=== PATIENT | female | born 1990 | race Hispanic/Latino ===

== ENCOUNTER 2024-09-27 14:43 | Inpatient (IN) | payer OTHER, SELFPAY ==
[2024-09-27 11:05] VITALS: BP 168/109
--- NOTE | 2024-09-27 11:54 | ED.GENMED ---
History of Present Illness
General
Chief Complaint: Abdominal Pain
Source: patient
Exam Limitations: none
Time Seen by Provider: 09/27/24 11:48
History of Present Illness
History of Present Illness:
See MDM
Past History
Past History
ED Past Medical History: Asthma
ED Past Surgical History: Tonsilectomy
Social History
Tobacco: Non-smoker
Alcohol: Daily
Phy Exam
Physical Exam
Physical Exam:
See MDM
Course
Orders/Labs/Results
Orders:
Orders
09/27/24 11:09
EKG [Electrocardiogram (*1)] Urgent
Reason for Study: Abdominal Pain
EKG- Treatment ONCE
09/27/24 11:52
0.9% Sodium Chloride 1000 ml [Nss] 1,000 ml IV BOLUS
Lorazepam [Ativan] 1 mg IV NOW STA
Ondansetron Injectable [Zofran] 4 mg IV NOW STA
09/27/24 11:53
Test Result ONCE
09/27/24 11:56
Ketorolac [Toradol] 30 mg IV NOW STA
09/27/24 12:14
Basic Metabolic Panel Urgent
Complete Blood Count/With Diff Urgent
HCG, Serum Qualitative Screen Urgent
Lipase Urgent
09/27/24 13:52
Famotidine [Pepcid] 20 mg IV NOW STA
Abnormal Lab Results
09/27/24
12:14
RBC 4.12 L 10^6/uL
(4.20-5.40)
Hgb 10.2 L g/dL
(12.0-16.0)
Hct 33.3 L %
(37.0-47.0)
MCV 80.8 L fL
(81.0-99.0)
MCH 24.8 L pg
(27.0-31.0)
MCHC 30.6 L g/dL
(33.0-37.0)
RDW 17.5 H %
(11.5-14.5)
Abs Immat Gran (auto) 0.1 H 10^3/uL
(0-0.05)
Absolute Neuts (auto) 7.0 H 10^3/uL
(1.4-6.5)
Creatinine 0.4 L mg/dL
(0.6-1.0)
Lipase < 10 L U/L
(23-300)
09/27/24 12:14
09/27/24 12:14
Vital Signs
Initial and Last Documented VS:
Initial Vital Signs
Temp Pulse Resp BP Pulse Ox
98.2 F 112 16 168/109 100
09/27/24 11:05 09/27/24 11:05 09/27/24 11:05 09/27/24 11:05 09/27/24 11:05
Last Documented Vital Signs
Temp Pulse Resp BP Pulse Ox
98.2 F 112 16 146/106 99
09/27/24 11:05 09/27/24 11:05 09/27/24 11:05 09/27/24 11:56 09/27/24 12:45
MDM/Problems Addressed
Differential Diagnosis Includes:
HPI and MDM Narrative:
33-year-old female presenting with nausea, vomiting and abdominal pain. Patient has a history of alcohol abuse. Patient states she has been drinking daily again. She states she drinks approximately 1 pint of liquor a day. Her last alcoholic
beverage was 2 days ago. Patient now complaining of nausea, vomiting abdominal pain, similar to her prior episodes of pancreatitis. Patient is unsure of pancreatitis or alcohol withdrawal
Will obtain basic blood work looking for elevated lipase level. Will give Ativan
Physical exam
General: Mildly uncomfortable
HEENT: protecting airway. Dry mucous member
Neck: appears supple
CV: No evidence of cyanosis
Resp: No accessory muscle use
Abd: Non-distended. Mild epigastric tenderness
Extremities: No deformities
Neuro: alert
Psych: Normal affect
Skin: Intact
Problems Addressed including Acute and Chronic Conditions affecting care:
1. Nausea and vomiting
Acuity: acute
Prognosis: stable
Details: Likely in the setting of pancreatitis or alcohol withdrawal. Will give Zofran
2. Abdominal pain
Acuity: acute
Prognosis: stable
Details: Likely in setting of vomiting versus pancreatitis. Will give dose of Toradol
Updates
2 PM on reassessment, patient still uncomfortable and unable to tolerate p.o. Lipase within normal limits. Will admit based on mild alcohol withdrawal and alcoholic gastritis with inability to tolerate p.o.
Differential Diagnosis (but not limited to): Pancreatitis, alcohol gastritis, alcohol withdrawal
Testing considered: CT abdomen/pelvis but no significant tenderness noted
Drug therapy (if applicable): OTC meds, please see d/c instruction regarding Rx drugs
Amount and/or Complexity of Data Reviewed
Clinical info obtained from: Patient
External data reviewed: N/A
Labs I independently reviewed (but not limited to): Lipase normal
Radiology: N/A
Pulse Ox: not hypoxic
EKG independently reviewed: Sinus rhythm, normal axis, no STEMI
Media Liaison Officer: N/A
Critical Care: N/A
Risk of Complication:
Social Determinants of health: Good social support
Discussed with other providers: Hospitalist
Escalation of Care includes Admit/Obs: Given the inability to tolerate p.o., will admit for IV fluid
Occasional wrong word or 'sound a like' substitutions may have occurred due to the inherent limitations of voice recognition software. Read the chart carefully and recognize, using context, where substitutions have occurred.
*Critical Care Note
Total Time (30-74mins, 75-104mins- exclusive of procedures): Not Applicable
ED Attending Note
-
Portions of this chart may have been created with voice recognition software.� Occasional wrong word or��sound alike� substitutions may have occurred due to the inherent limitations of voice recognition software.
Discharge Plan
Departure
Patient Disposition: Admit
Date of Disposition: 09/27/24
Time of Disposition: 13:55
Admit to: Telemetry
Presentation/result/management discussed w/ accepting MD/DO: Hospitalist
Discharge Problem:
Acute alcoholic gastritis, Alcohol withdrawal
Referrals:
Daniel Clancy MD [Family Provider] -
Interventions
Interventions:
*Risk Screen - Suicide Last Done: 09/27/24 11:05
*General Assessment Last Done: 09/27/24 11:05
*Neglect/Abuse Screening Last Done: 09/27/24 11:05
ED- Fall Risk Assessment Last Done: 09/27/24 12:13
Discharge Date and Time
Print Language: IVORIAN
[2024-09-27 11:56] VITALS: BP 146/106
[2024-09-27] MEDS: ATIVAN 1 MG IV (12:25)
[2024-09-27] MEDS: TORADOL 30 MG IV (12:25)
[2024-09-27] MEDS: ZOFRAN 4 MG IV (12:25)
[2024-09-27] MEDS: NSS 1000 IV ×2 (12:26→18:40)
[2024-09-27 13:03] LABS: HCG, Serum Qualitative Screen Negative
[2024-09-27 13:09] LABS: % Basophils 0.4 % (0-2); % Eosinophils 0.7 % (0-6); % Immature Granulocytes 0.5 % (0-0.5); % Lymphocytes 21.6 % (20.5-51.1); % Monocytes 3.9 % (1.7-9.3); % Neutrophils 72.9 % (42.2-75.2); Absolute Eosinophils 0.1 10^3/uL (0-0.7); Absolute Immature Granulocytes 0.1 10^3/uL (0-0.05); Absolute Lymphocytes 2.1 10^3/uL (1.2-3.4); Absolute Monocytes 0.4 10^3/uL (0.1-0.6); Hematocrit 33.3 % (37.0-47.0); Hemoglobin 10.2 g/dL (12.0-16.0); Mean Corp Hgb Conc. 30.6 g/dL (33.0-37.0); Mean Corpuscular Hgb 24.8 pg (27.0-31.0); Mean Corpuscular Volume 80.8 fL (81.0-99.0); Mean Platelet Volume 10.2 fL (7.4-10.4); Nucleated Red Blood Cells % 0 %; Platelet Count 149 10^3/uL (130-400); Red Blood Cell Count 4.12 10^6/uL (4.20-5.40); Red Cell Dist. Width 17.5 % (11.5-14.5); White Blood Cell Count 9.6 10^3/uL (4.8-10.8)
[2024-09-27 13:15] LABS: Blood Urea Nitrogen 9 mg/dl (7-17); Calcium 8.9 mg/dl (8.4-10.2); Carbon Dioxide 27 mmol/L (22-30); Chloride 99 mmol/L (98-107); Glucose 99 mg/dl (70-99); Sodium 137 mmol/L (135-145); eGFR > 60.00
[2024-09-27 13:44] LABS: Lipase < 10 U/L (23-300)
--- NOTE | 2024-09-27 14:06 | HPS.HSE ---
Family Physician
-
Family Physician: Daniel Clancy MD
Chief Complaint
-
abdominal pain associted with N/v
History of Present Illness
33-year-old female with PMH for pancreatitis p presenting with nausea, vomiting and abdominal pain for past three days. patient stated poor oral intake and not tolerating any oral intake.patient stated upper quadrant pain and b/l lower abdominal
pain. stated constipation. last bowel movement yesterday. denied fever, chest pain, sob. stated RUBIO. denied dysuria or hematuria. stated lower back pain radiating to left LE which is progressively getting worse Patient has a history of alcohol
abuse. Patient states she has been drinking daily again. She states she drinks approximately 1 pint of liquor a day. Her last alcoholic beverage was 2 days ago. today she felt tremors and shaky.
admitting for further management. received Pepcid, Toradol, Ativan, normal saline and Zofran in ER.
Medical History
Past Medical History
Past Medical History: Reports Other
Additional Past Medical History:
pancreatitis
asthma
Past Surgical History: Reports Other
Additional Past Surgical History:
tubal ligation
tonsillectomy
Social History
Tobacco: Smoker (2-3 packs daily)
Alcohol: Daily
Drug: None
Living: With Family
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
Family History
Family History: Not pertinent
Allergies / Home Medications
Allergies reflects when Allergies were last updated in [facility].
Home Medications with original date entered in [facility]
Allergy/Medication List:
Allergies
Allergy/AdvReac Type Severity Reaction Status Date / Time
Penicillins Allergy Unknown Verified 09/27/24 11:04
Sulfa (Sulfonamide Allergy Unknown Verified 09/27/24 11:04
Antibiotics)
Home Medications
budesonide-formoterol HFA 80 mcg-4.5 mcg/actuation aerosol inhaler (Symbicort) 2 inh inhalation R BID 09/27/24
buspirone 15 mg tablet 15 mg PO BID 09/27/24
folic acid 1 mg tablet 1 mg PO DAILY 09/27/24
gabapentin 300 mg capsule 300 mg PO BID 09/27/24
lisinopril 10 mg tablet 10 mg PO DAILY 09/27/24
melatonin 10 mg tablet 10 mg PO HSPRN PRN mild pain 09/27/24
quetiapine 25 mg tablet (Seroquel) 25 mg PO HS 09/27/24
spironolactone 25 mg tablet 25 mg PO DAILY 09/27/24
venlafaxine 150 mg capsule,extended release 24 hr (Effexor XR) 150 mg PO DAILY 09/27/24
Review of Systems
-
Constitutional: Reports Chills
EENT: Reports No Symptoms
Respiratory: Reports No Symptoms
Cardiac: Reports No Symptoms
Abdomen/GI: Reports Abdominal Pain, Nausea and Constipated
: Reports No Symptoms
Musculoskeletal: Reports No Symptoms
Skin: Reports No Symptoms
Neurological: Reports No Symptoms
Endocrine: Reports No Symptoms
Hematologic/Lymphatic: Reports No Symptoms
Psych: Reports No Symptoms
Physical Exam
Vital Signs
Vital Signs
Temp Pulse Resp BP Pulse Ox
98.2 F 112 16 146/106 99
09/27/24 11:05 09/27/24 11:05 09/27/24 11:05 09/27/24 11:56 09/27/24 12:45
Physical Exam
General: Well Developed, Well Nourished and No Apparent Distress
HEENT: NormoCephalic, Moist mucous membranes and Atraumatic
Respiratory: Clear
Cardiac: S1/S2 and Regular Rhythm; No Murmur or Rub
GI: Soft, Non Tender, Non Distended and Normal Bowel Sounds; No Organomegaly
Rectal: Deferred by Provider
Musculoskeletal: No Clubbing, No Cyanosis and No Edema
Skin: No Rash
Neuro: AO x 3 and Nonfocal/grossly intact
Psych: Calm
Laboratory Results
-
09/27/24 12:14
09/27/24 12:14
Laboratory Results
Total Bilirubin Cancelled 09/27/24 12:14
AST Cancelled 09/27/24 12:14
ALT Cancelled 09/27/24 12:14
Alkaline Phosphatase Cancelled 09/27/24 12:14
Lipase < 10 U/L (23-300) L 09/27/24 12:14
Data Reviewed
-
Lab Data: Labs Reviewed by me
Impression/Plan
-
# Alcohol withdrawal
-protocol initiated
-monitor MSAS score
#alcohol gastritis
-iv PPI
-full liquid diet, advance as tolerated
-Zofran prn for N/v
# Microcytic anemia
-Hemoglobin 10.2
-Unclear chronicity
-No active bleeding
-Will obtain iron panel with ferritin, B12, folate
#essential htn
-BP stable
lisinopril and spironolactone continued with hold parameter
#depression/anxiety
-BuSpar, Seroquel Effexor continued
#radiculopathy pain
-PT consulted
-gabapentin continued
#DVT prophylaxis
-Lovenox
#CODE status
-full code
[2024-09-27] MEDS: PEPCID 20 MG IV (14:21)
--- NOTE | 2024-09-27 15:00 | W.PN.UPDATE ---
Update Note
Progress Note Update
This is an addendum to the H&P written by Nkechi Caldera on 09/27/2024.
33-year-old female past medical history of alcohol use disorder, prior pancreatitis, hypertension, anxiety/depression, asthma, here for abdominal pain, nausea and vomiting and tremors consistent with alcohol withdrawal. Last drink 2 days ago.
Tachycardic. IV fluids. Thiamine and folate. Alcohol withdrawal protocol.
Abdominal pain secondary to alcoholic gastritis as lipase unremarkable. Protonix 40 daily.
Patient states that she he had pancreatitis and was admitted to [facility] several months ago and was apparently intubated at that time. She denies history of alcohol withdrawal seizures. She is also complaining of lower back pain with
numbness and tingling/pain rating down her left medial/posterior leg involving the dorsal and plantar surface of her foot. He is having difficulty ambulating. This seems to be consistent with lumbar radiculopathy. Continue gabapentin for this.
PT. Outpatient MRI given worsening symptoms.
He is also having lower abdominal pain and started having vaginal bleeding today. Last period was in March. Beta-hCG is negative. Outpatient follow-up with gynecology.
[2024-09-27 15:40] VITALS: BP 128/88
[2024-09-27 18:20] VITALS: BMI 40.2
[2024-09-27 18:21] VITALS: BP 153/96
[2024-09-27 19:51] VITALS: BP 141/88
--- NOTE | 2024-09-27 19:57 | PTCARENOTE ---
Patient admitted from ER into room 413-01. Vital signs stable. Oriented to room, use of call longo and TV and bed controls. Patient verbalizes understanding of teaching. Vital signs stable. Patient noted to have slight hand tremors. IVF started - NSS
at 125 mls/hour. Patient on a full liquid diet. Educated patient and verbalizes understanding.
[2024-09-27] MEDS: SYMBICORT 80/4.5 MCG INHALER 2 PUFF INH (19:58)
[2024-09-27] MEDS: LOVENOX 40 MG SC (19:59)
[2024-09-27] MEDS: NEURONTIN 300 MG PO (20:00)
[2024-09-27] MEDS: BUSPAR 15 MG PO (20:00)
[2024-09-27] MEDS: THIAMINE INJECTION 200 MG IV (20:00)
[2024-09-27] MEDS: TYLENOL 650 MG PO (20:03)
[2024-09-27] MEDS: ATIVAN 1 MG PO (20:27)
[2024-09-27] MEDS: SEROQUEL 25 MG PO (22:02)
[2024-09-27 22:16] LABS: GGTP 493 U/L (12-43); Magnesium 1.2 mg/dl (1.6-2.3)
[2024-09-27 22:17] LABS: Alcohol None Detected
[2024-09-27 22:20] LABS: INR 1.23; PT 15.3 Sec (11.4-14.6)
[2024-09-27 22:21] LABS: APTT 27.7 Sec (23.4-35.0)
[2024-09-27 22:23] LABS: B-Hydroxybutyrate 0.25 mmol/L (0.02-0.27)
[2024-09-27] MEDS: MAGNESIUM SULFATE 102 GRAMS IV (23:15)
[2024-09-27 23:34] VITALS: BP 130/81
[2024-09-28] MEDS: MAGNESIUM SULFATE 102 GRAMS IV (00:30)
[2024-09-28] MEDS: NSS 1000 IV (03:30)
[2024-09-28 03:40] VITALS: BP 142/85
[2024-09-28] MEDS: TYLENOL 650 MG PO ×3 (03:42→20:37)
[2024-09-28 06:59] LABS: Hematocrit 27.8 % (37.0-47.0); Hemoglobin 8.2 g/dL (12.0-16.0); Mean Corp Hgb Conc. 29.5 g/dL (33.0-37.0); Mean Corpuscular Hgb 23.6 pg (27.0-31.0); Mean Corpuscular Volume 80.1 fL (81.0-99.0); Mean Platelet Volume 9.9 fL (7.4-10.4); Platelet Count 130 10^3/uL (130-400); Red Blood Cell Count 3.47 10^6/uL (4.20-5.40); Red Cell Dist. Width 17.5 % (11.5-14.5); White Blood Cell Count 5.5 10^3/uL (4.8-10.8)
[2024-09-28 07:31] LABS: ALT (SGPT) 19 U/L (0-35); AST (SGOT) 45 U/L (14-36); Albumin 2.9 g/dl (3.5-5.0); Alkaline Phosphatase 138 U/L (38-126); Blood Urea Nitrogen 11 mg/dl (7-17); Calcium 8.4 mg/dl (8.4-10.2); Carbon Dioxide 26 mmol/L (22-30); Chloride 103 mmol/L (98-107); Estimated Creatinine Clearance > 125 ml/min; Glucose 91 mg/dl (70-99); Potassium 3.9 mmol/L (3.5-5.1); Sodium 137 mmol/L (135-145); Total Bilirubin 1.8 mg/dl (0.2-1.3); Total Protein 5.9 g/dl (6.3-8.2); eGFR > 60.00
[2024-09-28 07:55] VITALS: BP 144/83
[2024-09-28] MEDS: SYMBICORT 80/4.5 MCG INHALER 2 PUFF INH ×2 (08:10→20:04)
--- NOTE | 2024-09-28 09:34 | W.PN.HOSP.TC ---
Today's Communication/Plan
-
See PN
Assessment / Plan
Assessment / Plan
33yo F with PMHx of asthma, alcohol abuse, HTN, anxiety, recent admisison for alcoholic pancreatitis in [facility] 1 month ago cqame with c/o abdominal swelling for 3 days.
Patient also has LLE plantar numbness with some numbness over inner L thigh. Patient twisted her ankle appr 1 month ago upon return from the hospital. No back trtauma or new or worsening back pain noted
Last drink 2 days before admisison
A/P:
#Abdominal distension
#Elevated bili
#Transaminitis
#Elevated alk.phos
Check hepatitis panel
Follow LFT
without pain, concern for ascites
US abdominal with portal pending
depending on results- might need GI involvement
#Alcohol abuse with alcohol withdrawal
Thiamine/FOlate
Psych consult
MSAS protocol
Lipase WNL
Counselled on abstinence
#Hypokalemia
#Hypomagensemia
replete and follow
#L foot numbness
#L medical thigh numbness
XR L ankle
Ortho consult
US LLE to r/o DVT
#Anxiety
#Neuropathy
#Essential HTN
#Asthma not in exacerbation
Cont home meds
#Constipation
laxatives
#Morbid obesty with BMI 40.2
Advised to decrease calorie intake
DVT ppx lovenox
Full code
I have spent at least 59min reviewing chart, test results, communication with consults and direct patient care
Anticipated Discharge: > 48 hours
Subjective/Interval History
-
Date of Service: September 28, 2024
Objective Data
-
Labs:
Laboratory Results
09/27/24 09/28/24
21:57 06:10
WBC 5.5
Hgb 8.2 L
Hct 27.8 L
Plt Count 130
PT 15.3 H
INR 1.23
APTT 27.7
Sodium 137
Potassium 3.9
Chloride 103
Carbon Dioxide 26
BUN 11
Creatinine 0.5 L
Glucose 91
Calcium 8.4
Total Bilirubin 1.8 H
AST 45 H
ALT 19
Alkaline Phosphatase 138 H
Vital Signs:
Vital Signs
Temp Pulse Resp BP Pulse Ox
98 F 85 16 144/83 98
09/28/24 07:55 09/28/24 08:15 09/28/24 08:15 09/28/24 07:55 09/28/24 08:15
I&O
09/27/24 09/28/24 09/29/24
06:59 06:59 05:59
Intake Total 1694 / 1694
Balance 1694 / 1694
Review of Systems
-
History Source: Patient
All other systems: Reviewed and negative
Abdomen/GI: Reports Constipated
Neuro: Reports Other (LLE plntar numbness)
Physical Exam
-
General: No Apparent Distress and Obese
HEENT: Normocephalic
Respiratory: Clear to Auscultation
Cardiac: Regular Rhythm
GI: Soft, Nontender and Distended
Musculoskeletal: No Clubbing, No Cyanosis and No Edema
Neuro: Awake, Alert, Oriented, AO x 3, No Motor Deficits and Other (L plantar numbness)
[2024-09-28] MEDS: ALDACTONE 25 MG PO (09:40)
[2024-09-28] MEDS: NEURONTIN 300 MG PO ×2 (09:40→20:34)
[2024-09-28] MEDS: EFFEXOR XR 150 MG PO (09:40)
[2024-09-28] MEDS: THIAMINE INJECTION 200 MG IV ×2 (09:41→20:34)
[2024-09-28] MEDS: PROTONIX IV 40 MG IV (09:41)
[2024-09-28] MEDS: FOLVITE 1 MG PO (09:41)
[2024-09-28] MEDS: ZESTRIL 10 MG PO (09:41)
[2024-09-28] MEDS: NSS (PRESERVATIVE FREE) 10 ML IV (09:41)
[2024-09-28] MEDS: BUSPAR 15 MG PO ×2 (09:41→20:34)
[2024-09-28] MEDS: ATIVAN 1 MG PO ×3 (11:13→22:27)
[2024-09-28] MEDS: SENOKOT-S 1 TABLET PO ×2 (11:13→20:34)
[2024-09-28 11:30] VITALS: BP 155/88
--- NOTE | 2024-09-28 13:44 | CM ---
CM following re: discharge planning.
Reviewed pt's chart, met with pt.
Pt is a 33 year old female, admitted with primary dx of Alcohol withdrawal.
Pt reports she lives with 2 children 11 and 13 year of age in a 2SH, 2 steps to enter. Pt described herself as single lady, works. pt stated her mother is taking care of her children while she is hospitalized.
Pt admitted to significant h/o alcohol abuse, has been drinking for many years. Choice of drink - whisky and per pt she has been drinking a pint of whisky daily. Pt reports she went to [facility] inpatient D&A rehab around 1 year ago, relapsed. Pt
stated she cannot go to inpatient D&A rehab again because she works. pt expressed her agreement to meet with [facility] team. A referral to [facility] made.
PCP: Daniel Clancy
pharmacy: [facility]
D/C plan: home with [facility] to follow.
CM will follow with discharge plan updates as hospitalization progresses
[2024-09-28 15:50] VITALS: BP 130/69
[2024-09-28] MEDS: LOVENOX 40 MG SC (17:18)
[2024-09-28 19:54] VITALS: BP 123/91
[2024-09-28] MEDS: SEROQUEL 25 MG PO (22:27)
[2024-09-28] MEDS: MELATONIN 10 MG PO (22:31)
[2024-09-28 23:30] VITALS: BP 140/83
[2024-09-29] VITALS (7 sets, daily range): BP systolic 126–141; BP diastolic 76–95; PULSE 58
[2024-09-29 06:39] LABS: % Basophils 0.6 % (0-2); % Eosinophils 1.3 % (0-6); % Immature Granulocytes 0.4 % (0-0.5); % Lymphocytes 28.7 % (20.5-51.1); % Monocytes 4.4 % (1.7-9.3); % Neutrophils 64.6 % (42.2-75.2); Absolute Eosinophils 0.1 10^3/uL (0-0.7); Absolute Lymphocytes 1.5 10^3/uL (1.2-3.4); Absolute Monocytes 0.2 10^3/uL (0.1-0.6); Absolute Neutrophils 3.4 10^3/uL (1.4-6.5); Hemoglobin 7.8 g/dL (12.0-16.0); Mean Corpuscular Hgb 24.1 pg (27.0-31.0); Mean Corpuscular Volume 80.5 fL (81.0-99.0); Mean Platelet Volume 10.8 fL (7.4-10.4); Nucleated Red Blood Cells % 0 %; Platelet Count 166 10^3/uL (130-400); Red Blood Cell Count 3.23 10^6/uL (4.20-5.40); Red Cell Dist. Width 17.4 % (11.5-14.5); White Blood Cell Count 5.2 10^3/uL (4.8-10.8)
[2024-09-29 07:28] LABS: Reticulocyte Count 1.4 % (0.4-2.8)
[2024-09-29 08:04] LABS: ALT (SGPT) 18 U/L (0-35); AST (SGOT) 55 U/L (14-36); Albumin 2.8 g/dl (3.5-5.0); Alkaline Phosphatase 117 U/L (38-126); Blood Urea Nitrogen 11 mg/dl (7-17); Calcium 8.7 mg/dl (8.4-10.2); Carbon Dioxide 29 mmol/L (22-30); Chloride 104 mmol/L (98-107); Direct Bilirubin 0.7 mg/dl (0.0-0.4); Estimated Creatinine Clearance > 125 ml/min; Glucose 97 mg/dl (70-99); Iron 35 ug/dl (37-170); LDH 116 U/L (120-246); Lipase 18 U/L (23-300); Magnesium 1.7 mg/dl (1.6-2.3); Potassium 4.4 mmol/L (3.5-5.1); Sodium 138 mmol/L (135-145); Total Bilirubin 1.2 mg/dl (0.2-1.3); Total Protein 5.8 g/dl (6.3-8.2); eGFR > 60.00
[2024-09-29 08:14] LABS: Percent Saturation 11 % (20-50); Total Iron Binding Capacity 297 ug/dl (265-497)
[2024-09-29 08:41] LABS: Ferritin 52.4 ng/ml (6.24-137)
[2024-09-29] MEDS: SYMBICORT 80/4.5 MCG INHALER 2 PUFF INH ×2 (08:49→19:30)
[2024-09-29] MEDS: NEURONTIN 300 MG PO ×2 (09:11→20:08)
[2024-09-29 09:12] LABS: Folate 7.4 ng/ml (2.76-20); Vitamin B12 632 pg/ml (239-931)
[2024-09-29] MEDS: EFFEXOR XR 150 MG PO (09:12)
[2024-09-29] MEDS: BUSPAR 15 MG PO ×2 (09:12→20:08)
[2024-09-29] MEDS: PROTONIX IV 40 MG IV ×2 (09:12→20:09)
[2024-09-29] MEDS: ZESTRIL 10 MG PO (09:12)
[2024-09-29] MEDS: ALDACTONE 25 MG PO (09:12)
[2024-09-29] MEDS: NSS (PRESERVATIVE FREE) 10 ML IV ×2 (09:12→20:09)
[2024-09-29] MEDS: FOLVITE 1 MG PO (09:12)
[2024-09-29] MEDS: SENOKOT-S 1 TABLET PO ×2 (09:12→20:08)
[2024-09-29] MEDS: THIAMINE INJECTION 200 MG IV ×2 (09:13→20:09)
[2024-09-29] MEDS: ATIVAN 1 MG PO ×3 (10:17→20:08)
--- NOTE | 2024-09-29 11:29 | W.PN.HOSP.TC ---
Today's Communication/Plan
-
CT abd/pelvix
MRI L ankle
GI consult
PPI
Iron IV
Patient declined offered communication from to her mother
Assessment / Plan
Assessment / Plan
33yo F with PMHx of asthma, alcohol abuse, HTN, anxiety, recent admission for alcoholic pancreatitis in [facility] 1 month ago came with c/o abdominal swelling for 3 days with lower abd pain. Has dysmenorrhea and started with her periods
now. ALso found ROSALBA.
Patient also has LLE plantar numbness with some numbness over inner L thigh. Patient twisted her ankle appr 1 month ago upon return from the hospital. No back trauma or new or worsening back pain noted
Last drink 2 days before admission
A/P:
#Abdominal pain with subjective upper abd swelling, concern for alcoholic gastritis
#Severe ROSALBA - multifactorial - either dysmenorrhea or PUD
#Elevated bili - resolved
#Transaminitis - improving
#Elevated alk.phos -resolved
Suspect all abnormalities are 2/2 alcohol consumption
Check hepatitis panel
Follow LFT
US abdominal with portal - no ascites, but severe fatty liver. CBD WNL
Lipase WNL
PPI and GI consult, iron IV, cannot do FOBT 2/[address]/pelvis with persistent symptoms
#Dysmenorrhea
chronic
has appt with [facility] in Nov - advised to keep
Can also be the cause of ROSALBA
#L foot numbness
#L medical thigh numbness
XR L ankle -tissue swelling
Podiatry consult
US LLE neg for DVT
MRI L ankle
#Alcohol abuse with alcohol withdrawal
Thiamine/FOlate
Psych consult
MSAS protocol
Lipase WNL
Counselled on abstinence
#Hypokalemia
#Hypomagnesemia
replete and follow
#Anxiety
#Neuropathy
#Essential HTN
#Asthma not in exacerbation
Cont home meds
#Constipation
laxatives
#Morbid obesty with BMI 40.2
Advised to decrease calorie intake
DVT ppx lovenox
Full code
I have spent at least 59min reviewing chart, test results, communication with consults and direct patient care
Anticipated Discharge: 24 - 48 hours
Subjective/Interval History
-
Date of Service: September 29, 2024
Objective Data
-
Labs:
Laboratory Results
09/29/24 09/29/24
05:46 07:20
WBC 5.2
Hgb 7.8 L
Hct 26.0 L
Plt Count 166 D
Sodium Cancelled 138
Potassium Cancelled 4.4
Chloride Cancelled 104
Carbon Dioxide Cancelled 29
BUN Cancelled 11
Creatinine Cancelled 0.5 L
Glucose Cancelled 97
Calcium Cancelled 8.7
Total Bilirubin Cancelled 1.2
AST Cancelled 55 H
ALT Cancelled 18
Alkaline Phosphatase Cancelled 117
Vital Signs:
Vital Signs
Temp Pulse Resp BP Pulse Ox
98.5 F 85 16 137/93 100
09/29/24 07:55 09/29/24 08:52 09/29/24 08:52 09/29/24 07:55 09/29/24 08:52
I&O
09/28/24 09/29/24 09/30/24
07:59 06:59 06:59
Intake Total
Balance
Review of Systems
-
History Source: Patient
All other systems: Reviewed and negative
Abdomen/GI: Reports Other (lower abd pain)
Physical Exam
-
General: No Apparent Distress
HEENT: Normocephalic
Respiratory: Clear to Auscultation
Cardiac: Regular Rhythm
GI: Soft, Nontender and Nondistended
Genito-urinary: No Costovertebral Tender
Musculoskeletal: No Clubbing, No Cyanosis and No Edema
Neuro: Awake, Alert, Oriented and AO x 3
Psych: Calm
[2024-09-29] MEDS: OMNIPAQUE 50 ML PO (12:10)
[2024-09-29] MEDS: FERRLECIT 110 MG IV (14:58)
--- NOTE | 2024-09-29 15:29 | PTOTSP ---
PATIENT ABLE TO MOBILIZE INDEPENDENTLY ON LEVEL SURFACES WELL ELEVATIONS WITHOUT A DEVICE. REPORTED MOST LEFT ANKLE PAIN WITH DESCENDING STAIRS IN A RECIPROCAL FASHION. REVIEWED STEP-TO PATTERN TO DECREASE PAIN. PATIENT TO HAVE MRI OF LEFT
ANKLE. DEPENDING ON RESULTS MAY BENEFIT FROM OUTPATIENT P.T. MALKA TEXTED ATTENDING REGARDING PATIENT. WILL DISCHARGE FROM ACUTE CARE SKILLED P.T. SERVICES.
--- NOTE | 2024-09-29 16:38 | CON.GI ---
Consultation
-
Date/Time Consultation Requested: 09/29/2024 11:00 AM
Date/Time Consultation Performed: 09/29/2024 1640
Requesting Provider: Dr. Paulo Kennedy
Performing Provider: Dr. Zion Luo
Reason for Consultation: Epigastric Pain, c/f alchoholic gastritis and ROSALBA
Medical History
Chief Complaint / HPI
Chief Complaint: Abdominal pain, nausea/vomiting
History of Present Illness:
Ms Li is a 33 y.o female with pmh of EtOH pancreatitis (recent admission at [facility] one month ago) and EtOH abuse who presented to the ED with nausea/vomiting and abdominal pain.
Patient stated her her abdominal pain stated a few days ago prior to admission. She started drinking again at that time as well. She did not disclose further regarding this but noting she has been drinking on and-off for several months to years. She
was reported drinking approximately 1 pint of liquor a day. Does note her stools have been darker than normal but without any obvious overt blood. Her last beverage was two days ago. Denies any prior history of alcoholic liver disease or cirrhosis.
Otherwise, denies any reflux, heartburn, regurgitation or dysphagia/odynophagia. She has never had an EGD, but does note a previous colonoscopy at [facility] less than 5 years which was reportedly normal (no records of this). Does note frequent NSAID
use as well for pain. No other antiplatelets or other anticoagulants. She denies any history of prior GI bleeding in the past. She dose note significant menorrhagia as well which is chronic, has f/u with [facility] as well regarding this.
Patient was admitted to medicine on 09/27/24 for EtOH withdrawal and presumed EtOH gastritis. An ABd US 09/28/2024 revealed hepatosplenomegaly and fatty infiltration of the liver with biliary sludge without any biliary duct dilatation. CT Abd/pelvis
09/29 also revealed hepatic steatosis and hepatosplenomegaly along with submucosal fatty deposition within the cecum and ascending colon (suspicious for chronic inflammation). Given her worsening abdominal pain and concern for possible PUD GI has
been consulted.
Past Medical History
Past Medical History: Other (EtOH abuse, EtOH-induced pancreatitis)
Past Surgical History: Other (Tubal ligation, tonsillectomy)
Social History
Tobacco: Smoker
Alcohol: Daily
Drug: None
Family History
Family History: Reviewed & Not Pertinent
Allergies / Home Medications
Allergy/AdvReac Type Severity Reaction Status Date / Time
Penicillins Allergy Unknown Verified 09/27/24 11:04
Sulfa (Sulfonamide Allergy Unknown Verified 09/27/24 11:04
Antibiotics)
�Medication �Instructions �Recorded
budesonide-formoterol HFA 80 2 inh inhalation R BID 09/27/24
mcg-4.5 mcg/actuation aerosol Lung/Breathing Issues
inhaler (Symbicort)
buspirone 15 mg tablet 15 mg PO BID Mental Health/Anxiety 09/27/24
folic acid 1 mg tablet 1 mg PO DAILY Supplement 09/27/24
gabapentin 300 mg capsule 300 mg PO BID Neurological 09/27/24
Condition
lisinopril 10 mg tablet 10 mg PO DAILY Blood Pressure 09/27/24
melatonin 10 mg tablet 10 mg PO HSPRN PRN mild pain 09/27/24
quetiapine 25 mg tablet (Seroquel) 25 mg PO HS Mental Health/Anxiety 09/27/24
spironolactone 25 mg tablet 25 mg PO DAILY Fluid 09/27/24
Retention/Swelling
venlafaxine 150 mg 150 mg PO DAILY Mental 09/27/24
capsule,extended release 24 hr Health/Anxiety
(Effexor XR)
Review of Systems
-
All other systems: A 12 pt ROS was Negative except as stated above in HPI
Vital Signs
Temp Pulse Resp BP Pulse Ox
98.5 F 81 16 129/86 99
09/29/24 11:36 09/29/24 11:36 09/29/24 11:36 09/29/24 11:36 09/29/24 11:36
Physical Exam
Exam
General: Comfortable and Other (Obese)
HEENT: Normocephalic, Anicteric and Moist Mucous Membranes
Respiratory: Clear and Non Labored Respirations
Cardiac: Regular Rhythm
GI: Soft and Tender (Mild tenderness in epigastric region without rebound or involuntary guarding)
Skin: Warm
Neuro: Awake and AO x 3
Results
WBC 5.2 10^3/uL (4.8-10.8) 09/29/24 05:46
Hgb 7.8 g/dL (12.0-16.0) L 09/29/24 05:46
Hct 26.0 % (37.0-47.0) L 09/29/24 05:46
MCV 80.5 fL (81.0-99.0) L 09/29/24 05:46
Plt Count 166 10^3/uL (130-400) D 09/29/24 05:46
Absolute Neuts (auto) 3.4 10^3/uL (1.4-6.5) 09/29/24 05:46
PT 15.3 Sec (11.4-14.6) H 09/27/24 21:57
INR 1.23 09/27/24 21:57
APTT 27.7 Sec (23.4-35.0) 09/27/24 21:57
Sodium 138 mmol/L (135-145) 09/29/24 07:20
Potassium 4.4 mmol/L (3.5-5.1) 09/29/24 07:20
Chloride 104 mmol/L (98-107) 09/29/24 07:20
Carbon Dioxide 29 mmol/L (22-30) 09/29/24 07:20
BUN 11 mg/dl (7-17) 09/29/24 07:20
Creatinine 0.5 mg/dL (0.6-1.0) L 09/29/24 07:20
Calcium 8.7 mg/dl (8.4-10.2) 09/29/24 07:20
Total Bilirubin 1.2 mg/dl (0.2-1.3) 09/29/24 07:20
AST 55 U/L (14-36) H 09/29/24 07:20
ALT 18 U/L (0-35) 09/29/24 07:20
Alkaline Phosphatase 117 U/L (38-126) 09/29/24 07:20
Lipase 18 U/L (23-300) L 09/29/24 07:20
Diagnostic Image Results:
Prior GI Procedures:
EGD: No prior EGD
Colonoscopy: Last colonoscopy > 5 yrs ago reportedly normal
Assessment / Plan
-
#Abdominal Pain
#Nausea/Vomiting
#EtOH Abuse
#Elevated Transaminases 2/2 ALD w/out EtOH hepatitis
#Hepatosplenomegaly
Assessment: Ms Li is a 33 y.o female with pmh of EtOH pancreatitis (recent admission at [facility] one month ago) and EtOH abuse who presented to the ED with nausea/vomiting and abdominal pain found to have severe ROSALBA and concern for drop in Hgb with
Hgb 10s -> 7.8 of this AM. Does note significant EtOH use and previously felt to be related to EtOH-induced gastritis. Lipase wnl and without any imaging to suggest recurrent EtOH-pancreatitis given her previous history. LFTs with mild elevations
with ASt 55, ALT 18 and ALP 117 and T Bili 1.2 in setting of alcohol abuse but does not meet criteria for alcoholic hepatitis. She would benefit from long-term abstinence given significant steatosis seen on recent imaging along with
hepatosplenomegaly suggestive of portal HTN. No other biliary dilatation or other concern for biliary pathology. Regardless, doubt brisk UGIB however given her persistent nausea/vomiting and abdominal pain reasonable to pursue EGD to evaluate for
PUD and/or gastroduodenitis versus esophagitis. No concern for LGIB however prior CT revealed nonspecific submucosal fatty deposition in the cecum and ascending colon suspicious for chronic inflammation. Nonspecific finding and patient reports last
colonoscopy 5 years ago reportedly normal (although no records of this).
Recommendations:
- Diet as tolerated, keep NPO at MN
- Continue IV PPI 40 mg BiD
- Trend Hgb with serial CBC, transfuse for goal Hgb > 7.0
- IV iron while inpatient
- Plan for EGD tomorrow, 09/30/2024, for further evaluation
- If EGD is unrevealing and previous c/f abnormal CT, could consider colonoscopy this admission given severe ROSALBA
- Encouraged strict EtOH cessation and needs outpatient f/u with her primary Director Physical Therapy at [facility] for consideration of Fibroscan or MRI-E given hepatosplenomegaly seen on recent CT imaging
- Avoidance of all NSAIDs
Discussed with internal medicine team this afternoon.
Data Reviewed
-
Radiology: Image Personally Visualized and interpreted
CT Scan: Image Personally Visualized and interpreted and Report Reviewed by me
Ultrasound: Image Personally Visualized and interpreted and Report Reviewed by me
-
-
Thank you for consultation and allowing me to participate in the patient's care. Please call the development professional GI physician during the after hours with any questions or concerns.
[2024-09-29] MEDS: LOVENOX 40 MG SC (17:25)
[2024-09-29] MEDS: SEROQUEL 25 MG PO (20:08)
[2024-09-29] MEDS: TYLENOL 650 MG PO (20:08)
[2024-09-30] MEDS: MELATONIN 10 MG PO ×2 (01:53→20:53)
[2024-09-30 03:32] VITALS: BP 130/80
--- NOTE | 2024-09-30 07:29 | CON.SURG ---
Surgical Consultation
-
Chief Complaint
Left ankle pain
History of Present Illness
33-year-old female admitted to [facility] for alcohol abuse and abdominal pain. Podiatry has been consulted for left ankle pain. She was working with PT and sprained her left ankle multiple months ago. Since then, her pain has continued.
She also notes swelling to the left ankle with some numbness to the entire left lower extremity. She notes a history of lower back pain.
Medical History
Past Medical History
Past Medical History: Reports Other
Additional Past Medical History:
pancreatitis
asthma
Past Surgical History: Reports Other
Additional Past Surgical History:
tubal ligation
tonsillectomy
Social History
Tobacco: Smoker (2-3 packs daily)
Alcohol: Daily
Drug: None
Living: With Family
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
Family History
Family History: Not pertinent
Allergies / Home Medications
Allergies reflects when Allergies were last updated in [employer].
Home Medications with original date entered in [employer]
Allergy/Medication List:
Allergies
Allergy/AdvReac Type Severity Reaction Status Date / Time
Penicillins Allergy Unknown Verified 09/27/24 11:04
Sulfa (Sulfonamide Allergy Unknown Verified 09/27/24 11:04
Antibiotics)
Home Medications
budesonide-formoterol HFA 80 mcg-4.5 mcg/actuation aerosol inhaler (Symbicort) 2 inh inhalation R BID 09/27/24
buspirone 15 mg tablet 15 mg PO BID 09/27/24
folic acid 1 mg tablet 1 mg PO DAILY 09/27/24
gabapentin 300 mg capsule 300 mg PO BID 09/27/24
lisinopril 10 mg tablet 10 mg PO DAILY 09/27/24
melatonin 10 mg tablet 10 mg PO HSPRN PRN mild pain 09/27/24
quetiapine 25 mg tablet (Seroquel) 25 mg PO HS 09/27/24
spironolactone 25 mg tablet 25 mg PO DAILY 09/27/24
venlafaxine 150 mg capsule,extended release 24 hr (Effexor XR) 150 mg PO DAILY 09/27/24
Review of Systems
-
Constitutional: Reports Chills
EENT: Reports No Symptoms
Respiratory: Reports No Symptoms
Cardiac: Reports No Symptoms
Abdomen/GI: Reports Abdominal Pain, Nausea and Constipated
: Reports No Symptoms
Musculoskeletal: Reports No Symptoms
Skin: Reports No Symptoms
Neurological: Reports No Symptoms
Endocrine: Reports No Symptoms
Hematologic/Lymphatic: Reports No Symptoms
Psych: Reports No Symptoms
Physical Exam
Vital Signs
Vital Signs
Temp Pulse Resp BP Pulse Ox
98.2 F 112 16 146/106 99
09/27/24 11:05 09/27/24 11:05 09/27/24 11:05 09/27/24 11:56 09/27/24 12:45
Physical Exam
General: Well Developed, Well Nourished and No Apparent Distress
HEENT: NormoCephalic, Moist mucous membranes and Atraumatic
Respiratory: Clear
Cardiac: S1/S2 and Regular Rhythm; No Murmur or Rub
GI: Soft, Non Tender, Non Distended and Normal Bowel Sounds; No Organomegaly
Rectal: Deferred by Provider
Musculoskeletal: No Clubbing, No Cyanosis and No Edema
Skin: No Rash
Neuro: AO x 3 and Nonfocal/grossly intact
Psych: Calm
LLE examination
-DP/PT pulses 2/4, capillary refill < 3 seconds
-Mild edema noted to left ankle
-Numbness to LLE which extends to medial calf and thigh
-Pain on palpation generalized to left ankle. Negative anterior drawer and talar tilt tests
Laboratory Results
-
09/27/24 12:14
09/27/24 12:14
Laboratory Results
Total Bilirubin Cancelled 09/27/24 12:14
AST Cancelled 09/27/24 12:14
ALT Cancelled 09/27/24 12:14
Alkaline Phosphatase Cancelled 09/27/24 12:14
Lipase < 10 U/L (23-300) L 09/27/24 12:14
Data Reviewed
-
Lab Data: Labs Reviewed by me
Impression/Plan
33 year old female admitted for alcohol withdrawal. Podiatry consulted for left ankle swelling, pain, and numbness. Radiographs negative for fracture.
-Patient evaluated and treated at bedside
-Left lower extremity pain is generalized without pinpoint tenderness. Edema is mild. Numbness appears to be stemming from lower back
-Recommend PT/OT for LLE
-To consider left ankle brace with ASO brace, can be acquired as an outpatient
-To consider nonurgent left ankle MRI. Can be performed as an outpatient
-Recommend RICE therapy
-WBAT to LLE
-No further intervention for LLE required. Podiatry will sign off
[2024-09-30 07:30] VITALS: BP 144/78
[2024-09-30] MEDS: SYMBICORT 80/4.5 MCG INHALER 2 PUFF INH ×2 (07:48→19:53)
--- NOTE | 2024-09-30 08:08 | W.PN.HOSP.TC ---
Today's Communication/Plan
-
Fracture on left foot MRI -- update podiatry
Continue PPI based on EGD findings
DVT prophylaxis
MRI of the spine
Appreciate neurosurgery
Assessment / Plan
Assessment / Plan
Physical Exam
General: No Apparent Distress
HEENT: Normocephalic
Respiratory: Clear to Auscultation Bilaterally
Cardiac: S1 and S2. Regular Rhythm
GI: Soft, Nontender and Nondistended. Positive bowel sounds.
Musculoskeletal: No Cyanosis. Mild LLE edema.
Neuro: Awake, Alert, Oriented x 3
Psych: Calm
Assessment/Plan
33yo F with past medical history of asthma, alcohol abuse, hypertension, anxiety, recent admission for alcoholic pancreatitis in [facility] 1 month prior, came with complaints of abdominal swelling for 3 days with lower abdominal pain. Has
dysmenorrhea and started with her periods now. Also found to have iron deficiency anemia.
Patient also has LLE plantar numbness with some numbness over inner L thigh. LLE numbness and weakness reported to be for past couple of months, prior MRI imaging at [facility], as per patient showed a few disc herniations. Patient twisted her ankle
appr 1 month ago upon return from the hospital. No back trauma or new or worsening back pain noted
Last drink 2 days before admission
#Abdominal pain with subjective upper abd swelling
#Small, non-bleeding gastric ulcer with a clean ulcer base (Artur Class III) found in the pre-pyloric region in EGD per GI report
#Mucosal changes in the duodenum with flat white spots in EGD per GI report
#Small hiatal hernia in EGD per GI report
#Severe ROSALBA - multifactorial - either dysmenorrhea or PUD
#Elevated bili - resolved
#Transaminitis - improving
#Elevated alk.phos -resolved
Follow-up on biopsies from upper endoscopy including H. pylori and Celiac studies
Suspect all abnormalities are 2/2 alcohol consumption
Check hepatitis panel
Follow LFT
US abdominal with portal - no ascites, but severe fatty liver. CBD WNL
Lipase WNL
PPI and GI consult, iron IV, cannot do FOBT 2/[address]/pelvis with persistent symptoms
Pantoprazole 40 mg BiD for 8 weeks and then once daily
Consider repeat upper endoscopy in 8 - 12 weeks to check healing of previous gastric ulcer
Stop all NSAIDs and stop drinking EtOH
Needs colonoscopy as outpatient (not inpatient given EtOH withdrawal) with her primary [facility] given previous CT with concern for abnormal fat deposition in right colon
[phone] - Naila Li - 33yo F , alcohol abuser here with multiple complains: lower abd pain, upper abd swelling, L ankle swelling, found ROSALBA. Patient has expectations to get all answers here. Completing w/u with CT abd/pelvis, L ankle MRI, GI and
podiatry eval
#Dysmenorrhea
chronic
has appt with [facility] in Nov - advised to keep
Can also be the cause of ROSALBA
#L foot numbness
#L medical thigh numbness -- numbness appears to probably come from lower back
XR L ankle -tissue swelling
Podiatry consult
US LLE neg for DVT
MRI L ankle
MRI lumbisacral spine
Neurosurgery consult
#Left ankle swelling, pain, and numbness (numbness is chronic, as per patient)
#Left foot edema throughout the base/proximal shaft of the second metatarsal and surrounding soft tissues which likely represents a fracture and associated mild soft tissue swelling. Consider weightbearing radiographs if there is concern for
Lisfranc injury -- as per radiologist's report
-Appreciate podiatry evaluation and recommendations
-PT/OT
-Consider left ankle brace with ASO brace, can be acquired as an outpatient
-Left ankle MRI.
-RICE therapy
-WBAT to LLE
-No further intervention for LLE required, as per podiatry
-Updated podiatry on the above findings
#Alcohol abuse with alcohol withdrawal
Last drink was 09/25/24
Thiamine/FOlate
MSAS protocol
Lipase WNL
Counselled on abstinence
#Hypokalemia
#Hypomagnesemia
replete and follow
#Anxiety
#Neuropathy
#Essential HTN
#Asthma not in exacerbation
Cont home meds
#Constipation
laxatives
#Morbid obesty with BMI 40.2
Advised to decrease calorie intake
DVT Prophylaxis: Lovenox subq
Full code
Anticipated Discharge: 24 - 48 hours
Subjective/Interval History
-
Date of Service: September 30, 2024
Patient was seen and examined. She reported she still has some abdominal discomfort, as well as chronic worsening left lower extremity numbness and weakness (which she said is chronic).
Objective Data
-
Labs:
Laboratory Results
09/30/24
06:00
WBC Pending
Hgb Pending
Hct Pending
Plt Count Pending
Sodium Pending
Potassium Pending
Chloride Pending
Carbon Dioxide Pending
BUN Pending
Creatinine Pending
Glucose Pending
Calcium Pending
Total Bilirubin Pending
AST Pending
ALT Pending
Alkaline Phosphatase Pending
Vital Signs:
Vital Signs
Temp Pulse Resp BP Pulse Ox
98.4 F 80 16 130/80 99
09/30/24 03:32 09/30/24 07:53 09/30/24 07:53 09/30/24 03:32 09/30/24 07:53
I&O
09/29/24 09/30/24 10/01/24
06:59 06:59 06:59
Intake Total 1290 / 1290
Balance 1290 / 1290
[2024-09-30 08:29] LABS: % Basophils 0.6 % (0-2); % Eosinophils 1.4 % (0-6); % Immature Granulocytes 0.8 % (0-0.5); % Lymphocytes 25.6 % (20.5-51.1); % Monocytes 6.2 % (1.7-9.3); % Neutrophils 65.4 % (42.2-75.2); Absolute Eosinophils 0.1 10^3/uL (0-0.7); Absolute Immature Granulocytes 0.1 10^3/uL (0-0.05); Absolute Lymphocytes 1.6 10^3/uL (1.2-3.4); Absolute Monocytes 0.4 10^3/uL (0.1-0.6); Absolute Neutrophils 4.2 10^3/uL (1.4-6.5); Hematocrit 26.9 % (37.0-47.0); Mean Corp Hgb Conc. 29.7 g/dL (33.0-37.0); Mean Corpuscular Hgb 23.8 pg (27.0-31.0); Mean Corpuscular Volume 80.1 fL (81.0-99.0); Mean Platelet Volume 9.7 fL (7.4-10.4); Nucleated Red Blood Cells % 0 %; Platelet Count 167 10^3/uL (130-400); Red Blood Cell Count 3.36 10^6/uL (4.20-5.40); Red Cell Dist. Width 17.5 % (11.5-14.5); White Blood Cell Count 6.3 10^3/uL (4.8-10.8)
[2024-09-30] MEDS: NEURONTIN 300 MG PO ×2 (08:36→20:52)
[2024-09-30] MEDS: BUSPAR 15 MG PO ×2 (08:37→20:52)
[2024-09-30] MEDS: NSS (PRESERVATIVE FREE) 10 ML IV ×2 (08:37→20:56)
[2024-09-30] MEDS: EFFEXOR XR 150 MG PO (08:37)
[2024-09-30] MEDS: THIAMINE INJECTION 200 MG IV (08:37)
[2024-09-30] MEDS: SENOKOT-S PO (08:38)
[2024-09-30] MEDS: PROTONIX IV 40 MG IV ×2 (08:38→20:55)
[2024-09-30] MEDS: ATIVAN 1 MG PO ×3 (08:42→20:53)
[2024-09-30] MEDS: ZESTRIL 10 MG PO (08:44)
[2024-09-30 08:56] LABS: ALT (SGPT) 18 U/L (0-35); AST (SGOT) 59 U/L (14-36); Albumin 3.1 g/dl (3.5-5.0); Alkaline Phosphatase 113 U/L (38-126); Blood Urea Nitrogen 7 mg/dl (7-17); Calcium 9.2 mg/dl (8.4-10.2); Carbon Dioxide 29 mmol/L (22-30); Chloride 102 mmol/L (98-107); Estimated Creatinine Clearance > 125 ml/min; Glucose 97 mg/dl (70-99); Magnesium 1.7 mg/dl (1.6-2.3); Potassium 4.5 mmol/L (3.5-5.1); Sodium 138 mmol/L (135-145); Total Protein 6.1 g/dl (6.3-8.2); eGFR > 60.00
[2024-09-30 11:45] VITALS: BP 117/66; BP 144/78
[2024-09-30 12:00] VITALS: BP 111/73
[2024-09-30] MEDS: FOLVITE 1 MG PO (12:53)
[2024-09-30] MEDS: ALDACTONE 25 MG PO (12:53)
[2024-09-30] MEDS: FERRLECIT 110 MG IV (12:54)
--- NOTE | 2024-09-30 14:12 | CM ---
Pt seen bedside.
CM discussed [facility] referral and if she met with [facility] for resources to alcohol rehab/therapy.
Per pt she is already connected with [facility] in [place]. Pt states she meets w/ her counselor once a week
Pt denies any additional resource needs
Plan: Home w/ cont. OP therapy
[2024-09-30 15:11] VITALS: BP 132/90
--- NOTE | 2024-09-30 16:28 | CON.NS ---
Consultation
-
Date/Time Consultation Performed: 09/30/2024; 16:30
Performing Provider: Kolby
Chief Complaint
History of Present Illness
This is a neurosurgical consultation on a 33-year-old female who presented with nausea, vomiting, and abdominal pain. She does have a medical condition of alcohol abuse, as well as history of pancreatitis. She presented for further management
regarding her symptoms of nausea, vomiting, and abdominal pain, and felt tremorous and shaky. She is being managed for alcohol withdrawal. Additionally, she endorsed symptoms of radiculopathy. Physical therapy was consulted, gabapentin was
continued. She reports left lower extremity plantar numbness with some numbness over the inner left thigh. She does report that she twisted her ankle approximately 1 month prior, upon return from the hospital. She denies any back trauma, or any
worsening back pain. Podiatry was consulted, MRI of the left ankle was ordered. Review of chart note states that the patient's numbness has progressed now to the entire left lower extremity. Given this, neurosurgery consulted.
Patient seen and examined.
Denies back pain.
Report pain radiates from distal leg/ankle up leg to proximal LLE.
Able to stand unassisted and ambulate during our encounter.
Review of Systems
-
A 10 point review of systems including constitutional, ENT, cardiovascular, respiratory, GI, , endocrinologic, hematologic, neurologic, musculoskeletal, was performed, and was negative, except for stated in HPI.
Medication and Allergies
Home Medications
Home Medications
�Medication �Instructions �Recorded
budesonide-formoterol HFA 80 2 inh inhalation R BID 09/27/24
mcg-4.5 mcg/actuation aerosol Lung/Breathing Issues
inhaler (Symbicort)
buspirone 15 mg tablet 15 mg PO BID Mental Health/Anxiety 09/27/24
folic acid 1 mg tablet 1 mg PO DAILY Supplement 09/27/24
gabapentin 300 mg capsule 300 mg PO BID Neurological 09/27/24
Condition
lisinopril 10 mg tablet 10 mg PO DAILY Blood Pressure 09/27/24
melatonin 10 mg tablet 10 mg PO HSPRN PRN mild pain 09/27/24
quetiapine 25 mg tablet (Seroquel) 25 mg PO HS Mental Health/Anxiety 09/27/24
spironolactone 25 mg tablet 25 mg PO DAILY Fluid 09/27/24
Retention/Swelling
venlafaxine 150 mg 150 mg PO DAILY Mental 09/27/24
capsule,extended release 24 hr Health/Anxiety
(Effexor XR)
Allergies
Allergies
Allergy/AdvReac Type Severity Reaction Status Date / Time
Penicillins Allergy Unknown Verified 09/27/24 11:04
Sulfa (Sulfonamide Allergy Unknown Verified 09/27/24 11:04
Antibiotics)
Physical Exam
-
Exam:
awake, alert.
CN 2-12 grossly intact
MOtor: 5/5 strength in upper and lower extremities
ABle to ambulate unassisted.
sensation to LT reported normal in all dermatomes.
CT of the abdomen/pelvis was performed on 10/16/2024. I personally reviewed and interpreted the images. Upon my review and my personal interpretation of the images, I do not see obvious evidence of fracture/dislocation. I see no gross evidence of
severe spinal canal compromise. The patient maintains a normal lumbar lordosis
Problems
-
Problem Status Onset Code
Alcohol withdrawal F10.939
Acute alcoholic gastritis K29.20
Assessment / Plan
-
This is a 33-year-old female who presents for alcohol withdrawal, she reports diffuse left lower extremity numbness, and history of back pain. According to discussion with the hospitalist, patient has a history of having disc bulges in the past.
Await MRI of the lumbar spine for further neurosurgical recommendations.
Continue with gabapentin.
Agree with physical therapy as tolerated
[2024-09-30] MEDS: LOVENOX 40 MG SC (17:10)
[2024-09-30 19:06] LABS: Hepatitis B Surface Antigen Negative (Negative)
[2024-09-30 19:22] LABS: Hepatitis B Core Ab, Total Negative (Negative); Hepatitis B Surface Antibody Negative; Hepatitis C Antibody Negative (Negative)
[2024-09-30] MEDS: SENOKOT-S 1 TABLET PO (20:52)
[2024-09-30] MEDS: VITAMIN B1 100 MG PO (20:52)
[2024-09-30] MEDS: TYLENOL 650 MG PO (20:53)
[2024-09-30] MEDS: SEROQUEL 25 MG PO (20:55)
[2024-09-30 23:22] VITALS: BP 108/64
[2024-10-01] MEDS: TYLENOL 650 MG PO ×3 (02:43→20:01)
[2024-10-01] MEDS: MELATONIN 3 MG PO (03:06)
[2024-10-01] MEDS: LOVENOX 40 MG SC ×2 (05:11→18:26)
[2024-10-01 07:35] VITALS: BP 129/86
[2024-10-01] MEDS: SYMBICORT 80/4.5 MCG INHALER 2 PUFF INH ×2 (07:37→20:10)
[2024-10-01 07:50] LABS: Hematocrit 27.9 % (37.0-47.0); Hemoglobin 8.4 g/dL (12.0-16.0); Mean Corp Hgb Conc. 30.1 g/dL (33.0-37.0); Mean Corpuscular Hgb 25.1 pg (27.0-31.0); Mean Corpuscular Volume 83.3 fL (81.0-99.0); Mean Platelet Volume 9.6 fL (7.4-10.4); Platelet Count 173 10^3/uL (130-400); Red Blood Cell Count 3.35 10^6/uL (4.20-5.40); Red Cell Dist. Width 18.1 % (11.5-14.5); White Blood Cell Count 6.8 10^3/uL (4.8-10.8)
[2024-10-01 08:31] LABS: Blood Urea Nitrogen 9 mg/dl (7-17); Calcium 9.1 mg/dl (8.4-10.2); Carbon Dioxide 30 mmol/L (22-30); Chloride 101 mmol/L (98-107); Estimated Creatinine Clearance > 125 ml/min; Glucose 89 mg/dl (70-99); Potassium 4.6 mmol/L (3.5-5.1); Sodium 138 mmol/L (135-145); eGFR > 60.00
[2024-10-01] MEDS: SENOKOT-S PO (08:49)
[2024-10-01] MEDS: EFFEXOR XR 150 MG PO (08:50)
[2024-10-01] MEDS: VITAMIN B1 100 MG PO ×2 (08:51→19:52)
[2024-10-01] MEDS: ALDACTONE 25 MG PO (08:51)
[2024-10-01] MEDS: NEURONTIN 300 MG PO ×2 (08:51→19:52)
[2024-10-01] MEDS: BUSPAR 15 MG PO ×2 (08:51→19:52)
[2024-10-01] MEDS: ZESTRIL 10 MG PO (08:52)
[2024-10-01] MEDS: FOLVITE 1 MG PO (08:52)
[2024-10-01] MEDS: NSS (PRESERVATIVE FREE) 10 ML IV ×2 (08:52→19:52)
[2024-10-01] MEDS: FLUSH (NSS) 1 FLUSH IV ×2 (08:53→14:20)
[2024-10-01] MEDS: PROTONIX IV 40 MG IV ×2 (08:53→19:50)
[2024-10-01] MEDS: SUDAFED 30 MG PO (10:24)
--- NOTE | 2024-10-01 10:49 | W.PN.HOSP.TC ---
Today's Communication/Plan
-
Awaiting MRI spine
Left foot fracture -- podiatry to evaluate
Gynecology consult given patient's persistent pelvic pain and CT findings
Assessment / Plan
Assessment / Plan
Physical Exam
General: No Apparent Distress
HEENT: Normocephalic
Respiratory: Clear to Auscultation Bilaterally
Cardiac: S1 and S2. Regular Rhythm
GI: Soft, Nontender and Nondistended. Positive bowel sounds.
Musculoskeletal: No Cyanosis. Mild LLE edema.
Neuro: Awake, Alert, Oriented x 3
Psych: Calm
Assessment/Plan
33yo F with past medical history of asthma, alcohol abuse, hypertension, anxiety, recent admission for alcoholic pancreatitis in [facility] 1 month prior, came with complaints of abdominal swelling for 3 days with lower abdominal pain. Has
dysmenorrhea and started with her periods now. Also found to have iron deficiency anemia.
Patient also has LLE plantar numbness with some numbness over inner L thigh. LLE numbness and weakness reported to be for past couple of months, prior MRI imaging at [place], as per patient showed a few disc herniations. Patient twisted her ankle
appr 1 month ago upon return from the hospital. No back trauma or new or worsening back pain noted
Last drink 2 days before admission
#Abdominal pain with subjective upper abd swelling
#Small, non-bleeding gastric ulcer with a clean ulcer base (Artur Class III) found in the pre-pyloric region in EGD per GI report
#Mucosal changes in the duodenum with flat white spots in EGD per GI report
#Small hiatal hernia in EGD per GI report
#Severe ROSALBA - multifactorial - either dysmenorrhea or PUD
#Elevated bili - resolved
#Transaminitis - improving
#Elevated alk.phos -resolved
Follow-up on biopsies from upper endoscopy including H. pylori and Celiac studies
Suspect all abnormalities are 2/2 alcohol consumption
Check hepatitis panel
Follow LFT
US abdominal with portal - no ascites, but severe fatty liver. CBD WNL
Lipase WNL
PPI and GI consult, iron IV, cannot do FOBT 2/[address]/pelvis with persistent symptoms
-Pantoprazole 40 mg BiD for 8 weeks and then once daily
-Consider repeat upper endoscopy in 8 - 12 weeks to check healing of previous gastric ulcer -- will need colonoscopy at time of EGD with primary Clinical Trials Specialist with abnormal fat deposition in colon [patient needs colonoscopy as outpatient (not
inpatient given EtOH withdrawal) with her primary Clinical Trials Specialist given previous CT with concern for abnormal fat deposition in right colon]
-Stop all NSAIDs and stop drinking EtOH
-Needs outpatient f/u with her primary Clinical Trials Specialist at [place] for consideration of Fibroscan or MRI-E given hepatosplenomegaly seen on recent CT imaging
#1.0 cm exophytic lesion along the posterior uterus likely subserosal fibroid on CT Imaging
-Patient normally sees [place]
-Since patient complaining of lower abdominal/pelvic pain, consulted gynecology, appreciate their evaluation and recommendations
#Splenomegaly in the Setting of Anemia
-Consulted hematology, appreciate their evaluation and recommendations
#Dysmenorrhea
chronic
has appt with DISPENSARY TECHNICIAN in Nov - advised to keep
Can also be the cause of ROSALBA
#L foot numbness
#L medical thigh numbness -- numbness appears to probably come from lower back
#Left foot fracture (nondisplaced fractures of the base of the second and third metatarsals which appears subacute in nature on CT Imaging)
XR L ankle -tissue swelling
Podiatry consult given fracture -- they will see patient
US LLE neg for DVT
MRI L ankle noted
MRI lumbosacral spine pending
Neurosurgery consult recommendations appreciated
#Left ankle swelling, pain, and numbness (numbness is chronic, as per patient)
#Left foot edema throughout the base/proximal shaft of the second metatarsal and surrounding soft tissues which likely represents a fracture and associated mild soft tissue swelling. Consider weightbearing radiographs if there is concern for
Lisfranc injury -- as per radiologist's report
-Appreciate podiatry evaluation and recommendations
-PT/OT
-Consider left ankle brace with ASO brace, can be acquired as an outpatient
-Left ankle MRI suspected fracture, CT done as per podiatry request
-RICE therapy
#1.7 cm cyst within the interpole the right kidney on CT Abdomen/Pelvis
-Patient very concerned about this, reassured her that it is likely benign
-Consulted urology to discuss this with her
#Alcohol abuse with alcohol withdrawal
Last drink was 09/25/24
Thiamine/FOlate
MSAS protocol
Lipase WNL
Counselled on abstinence
#Hypokalemia
#Hypomagnesemia
replete and follow
#Anxiety
#Neuropathy
#Essential HTN
#Asthma not in exacerbation
Cont home meds
#Constipation
laxatives
#Morbid obesty with BMI 40.2
Advised to decrease calorie intake
DVT Prophylaxis: Lovenox subq
Full code
Anticipated Discharge: > 48 hours
Subjective/Interval History
-
Date of Service: October 01, 2024
Patient was seen and examined. She reported some back pain and same symptoms in her left leg.
Objective Data
-
Labs:
Laboratory Results
10/01/24
07:20
WBC 6.8
Hgb 8.4 L
Hct 27.9 L
Plt Count 173
Sodium 138
Potassium 4.6
Chloride 101
Carbon Dioxide 30
BUN 9
Creatinine 0.5 L
Glucose 89
Calcium 9.1
Vital Signs:
Vital Signs
Temp Pulse Resp BP Pulse Ox
98.0 F 79 18 129/86 98
10/01/24 07:35 10/01/24 08:52 10/01/24 07:40 10/01/24 08:52 10/01/24 08:48
I&O
09/30/24 10/01/24 10/02/24
06:59 06:59 06:59
Intake Total 1290 / 1290 1010 / 1010
Balance 1290 / 1290 1010 / 1010
--- NOTE | 2024-10-01 12:01 | W.PN.GI.CBS2 ---
Addendum entered and electronically signed by Zion Luo DO 10/01/24 15:12:
I saw and examined the patient.
The AVIATION OPERATIONS SPECIALIST's note was reviewed and I agree with the note.
Comment: Agree with the detailed note below and previously found to have a small ulcer during her EGD. Would not pursue a colonoscopy at this time especially given her current EtOH withdrawal. As previously recommended, advised her to follow-up with
her primary Senior Web Analyst to consider a repeat colonoscopy given CT findings and repeat EGD at the same time. Continue PPI 40 mg BiD for 8 weeks, then once daily. Strict avoidance of all NSAIDs and strict cessation of all alcohol. This is
paramount. Agree with ongoing supportive care as per primary team.
GI team will sign-off. Please re-engage for any questions or concerns.
Original Note:
Today's Communication / Plan
-
as per plan
Assessment / Plan
-
#Abdominal Pain
#Nausea/Vomiting
#EtOH Abuse
#Elevated Transaminases 2/2 ALD w/out EtOH hepatitis
#Hepatosplenomegaly
Assessment: Ms Li is a 33 y.o female with pmh of EtOH pancreatitis (recent admission at [facility] one month ago) and EtOH abuse who presented to the ED with nausea/vomiting and abdominal pain found to have severe ROSALBA and concern for drop in Hgb with
Hgb 10s -> 7.8 of this AM. Does note significant EtOH use and previously felt to be related to EtOH-induced gastritis. Lipase wnl and without any imaging to suggest recurrent EtOH-pancreatitis given her previous history. LFTs with mild elevations
with ASt 55, ALT 18 and ALP 117 and T Bili 1.2 in setting of alcohol abuse but does not meet criteria for alcoholic hepatitis. She would benefit from long-term abstinence given significant steatosis seen on recent imaging along with
hepatosplenomegaly suggestive of portal HTN. No other biliary dilatation or other concern for biliary pathology. Regardless, doubt brisk UGIB however given her persistent nausea/vomiting and abdominal pain reasonable to pursue EGD to evaluate for
PUD and/or gastroduodenitis versus esophagitis. No concern for LGIB however prior CT revealed nonspecific submucosal fatty deposition in the cecum and ascending colon suspicious for chronic inflammation. Nonspecific finding and patient reports last
colonoscopy 5 years ago reportedly normal (although no records of this). Patient states eating makes discomfort better. Had constipation, for 4 days, now improving.
EGD 09/30/24 - Small, non-bleeding gastric ulcer with a clean ulcer
base (Artur Class III) found in the pre-pyloric
region. Biopsied.
- Otherwise, normal stomach on direct and retroflexion
views. Biopsied to r/o H pylori.
- Mucosal changes in the duodenum with flat white
spots. Biopsied to r/o Celiac.
- Small hiatal hernia
- Normal esophagus
- The examination was otherwise normal.
Recommendations:
-Continue PPI BID x 8 weeks then daily
-Recommend repeat EGD in 8-12 weeks to document healing of ulcer
-Recommend colonoscopy at time of EGD with primary Senior Web Analyst with abnormal fat deposition in colon. Discussed with patient.
- Encouraged strict EtOH cessation and needs outpatient f/u with her primary Senior Web Analyst at [place] for consideration of Fibroscan or MRI-E given hepatosplenomegaly seen on recent CT imaging
- Avoidance of all NSAIDs
Discussed with internal medicine team this afternoon.
Subjective
Subjective
Date of Service: October 01, 2024
Asked to see patient again for some abdominal discomfort. Patient states that she is tolerating full liquid diet and this is making her discomfort feel better. she states that she was constipated prior to admission and was without a BM for 3-4 days.
She usually would have BM daily. She states now she finally is having BMs. We did discuss her EGD with non bleeding gastric ulcer and need for PPI BID and repeat EGD as well as ETOH cessation and would recommend colonoscopy at that time as well.
Would hold off at this time for colonoscopy. Hgb stable. Patient still with mild tremors.
Objective
Data Reviewed
Laboratory Data:
Laboratory Results
10/01/24 07:20
11/05/24 07:20
Laboratory Results
PT 15.3 Sec (11.4-14.6) H 09/27/24 21:57
INR 1.23 09/27/24 21:57
APTT 27.7 Sec (23.4-35.0) 09/27/24 21:57
Phosphorus 3.0 mg/dl (2.5-4.5) 09/27/24 21:57
Magnesium 1.7 mg/dl (1.6-2.3) 09/30/24 08:14
Total Bilirubin 1.0 mg/dl (0.2-1.3) 09/30/24 08:14
AST 59 U/L (14-36) H 09/30/24 08:14
ALT 18 U/L (0-35) 09/30/24 08:14
Alkaline Phosphatase 113 U/L (38-126) 09/30/24 08:14
Lipase 18 U/L (23-300) L 09/29/24 07:20
Vital Signs and I&O:
Vital Signs
Temp Pulse Resp BP Pulse Ox
98.0 F 79 18 129/86 98
10/01/24 07:35 10/01/24 08:52 10/01/24 07:40 10/01/24 08:52 10/01/24 08:48
I&O
09/30/24 10/01/24 10/02/24
06:59 06:59 06:59
Intake Total 1290 / 1290 1010 / 1010
Balance 1290 / 1290 1010 / 1010
Physical Exam
Physical Exam
HEENT: Anicteric
Cardiology: Normal Sinus Rhythm
Pulmonary: Clear (anterior)
GI: Soft, Non Distended, Non Tender and Normal Bowel Sounds
Neuro: Non Focal and Other (mild tremors)
[2024-10-01] MEDS: FERRLECIT 110 MG IV (14:19)
--- NOTE | 2024-10-01 14:35 | CONS.URO ---
Consultation
-
Date/Time Consultation Performed: 10/01/24 [id number]
Performing Provider: Peter
Reason for Consultation: right renal cyst
Medical History
History of Present Illness
33 yo female admitted for complications of alcohol abuse
Past Medical History
Past Medical History: Other (ETOH-induced pancreatitis, asthma, obesity tubal ligation tonsillectomy)
Past Surgical History: Other (tubal ligation tonsillectomy)
Allergies/Home Medications
Allergies
Allergy/AdvReac Type Severity Reaction Status Date / Time
Penicillins Allergy Unknown Verified 09/27/24 11:04
Sulfa (Sulfonamide Allergy Unknown Verified 09/27/24 11:04
Antibiotics)
Home Medications
�Medication �Instructions �Recorded �Confirmed �Type
budesonide-formoterol HFA 80 2 inh inhalation R BID 09/27/24 09/27/24 History
mcg-4.5 mcg/actuation aerosol Lung/Breathing Issues
inhaler (Symbicort)
buspirone 15 mg tablet 15 mg PO BID Mental Health/Anxiety 09/27/24 09/27/24 History
folic acid 1 mg tablet 1 mg PO DAILY Supplement 09/27/24 09/27/24 History
gabapentin 300 mg capsule 300 mg PO BID Neurological 09/27/24 09/27/24 History
Condition
lisinopril 10 mg tablet 10 mg PO DAILY Blood Pressure 09/27/24 09/27/24 History
melatonin 10 mg tablet 10 mg PO HSPRN PRN mild pain 09/27/24 09/27/24 History
quetiapine 25 mg tablet (Seroquel) 25 mg PO HS Mental Health/Anxiety 09/27/24 09/27/24 History
spironolactone 25 mg tablet 25 mg PO DAILY Fluid 09/27/24 09/27/24 History
Retention/Swelling
venlafaxine 150 mg 150 mg PO DAILY Mental 09/27/24 09/27/24 History
capsule,extended release 24 hr Health/Anxiety
(Effexor XR)
Physical Exam
Vital Signs
Vital Signs
Temp Pulse Resp BP Pulse Ox
98.0 F 79 18 129/86 98
10/01/24 07:35 10/01/24 08:52 10/01/24 07:40 10/01/24 08:52 10/01/24 08:48
Lab / Testing Results
Laboratory Results
10/01/24 07:20
10/01/24 07:20
Physical Exam
adult female seated in bed
obese
General: No Apparent Distress
Neuro: Awake, Alert and Oriented
Psych: Calm
Assessment / Plan
-
Right Renal cyst: Bosniak 1 aka 'simple', 1.7 cm, endophytic, interpolar
no further evaluation is indicated
Data Reviewed
-
CT Scan: Image personally visualized and interpreted
Lab Data: Labs Reviewed
Old Records: Reviewed
[2024-10-01 15:16] VITALS: BP 150/83
--- NOTE | 2024-10-01 16:28 | CON.ONC ---
Impression
Impression
alcohol abuse
hepatic steatosis, hepatosplenomegaly
anemia, iron deficiency
gastric ulcer
current heavy vaginal bleeding
Plan
Plan
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
Hepatosplenomegaly secondary to alcohol
Discussed the importance of abstaining from alcohol - she was previously on Naltrexone, and plans to resume
No further heme w/u or f/u indicated. will sign off
Patient History
History of Present Illness
Asked to see patient re: anemia and splenomegaly.
33 yo F w/ h/o relapsed alcohol abuse (recently drinking 1 pint/liquor daily), presented 09/27/24 with abd pain, N/V. CT A/P showed hepatic steatosis with hepatosplenomegaly.
Hgb at admission was 10.2, down to 7.8 on 09/29, with low iron stores. She reports heavy vaginal bleeding currently, but had been w/o menses for the past ~1 year.
EGD showed small non-bleeding gastric ulcer. She was started on BID PPI and given IV iron.
Past-Medical/Surgical History
Past Medical History
Past Medical History: Reports Other
Additional Past Medical History:
pancreatitis
asthma
Past Surgical History: Reports Other
Additional Past Surgical History:
tubal ligation
tonsillectomy
Social History
Tobacco: Smoker (2-3 packs daily)
Alcohol: Daily
Drug: None
Living: With Family
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
Family History
Family History: Not pertinent
Patient Medication
�Medication �Instructions �Recorded �Confirmed �Last Taken �Type
budesonide-formoterol HFA 80 2 inh inhalation R BID 09/27/24 09/27/24 Unknown History
mcg-4.5 mcg/actuation aerosol Lung/Breathing Issues
inhaler (Symbicort)
buspirone 15 mg tablet 15 mg PO BID Mental Health/Anxiety 09/27/24 09/27/24 Unknown History
folic acid 1 mg tablet 1 mg PO DAILY Supplement 09/27/24 09/27/24 Unknown History
gabapentin 300 mg capsule 300 mg PO BID Neurological 09/27/24 09/27/24 Unknown History
Condition
lisinopril 10 mg tablet 10 mg PO DAILY Blood Pressure 09/27/24 09/27/24 Unknown History
melatonin 10 mg tablet 10 mg PO HSPRN PRN mild pain 09/27/24 09/27/24 Unknown History
quetiapine 25 mg tablet (Seroquel) 25 mg PO HS Mental Health/Anxiety 09/27/24 09/27/24 Unknown History
spironolactone 25 mg tablet 25 mg PO DAILY Fluid 09/27/24 09/27/24 Unknown History
Retention/Swelling
venlafaxine 150 mg 150 mg PO DAILY Mental 09/27/24 09/27/24 Unknown History
capsule,extended release 24 hr Health/Anxiety
(Effexor XR)
Active Medications
Generic Name Dose Route Start Last Admin
Trade Name Freq PRN Reason Stop Dose Admin
Acetaminophen 650 mg 09/27/24 18:10 10/01/24 14:25
Acetaminophen 325 Mg Tablet PO 10/25/24 18:09 650 mg
Q4HPRN PRN Administration
mild pain/RUBIO/temp> 100.4F
Bisacodyl 10 mg 09/27/24 18:10
Bisacodyl 10 Mg Rectal Suppository RECTAL 10/25/24 18:09
[id number] PRN
constipation
Budesonide/Formoterol Fumarate 2 puff 09/27/24 20:00 10/01/24 07:37
Symbicort Inhaler 80/4.5 INH 10/25/24 19:59 2 puff
R BID AMITA Administration
Protocol
Buspirone HCl 15 mg 09/27/24 20:00 10/01/24 08:51
Buspirone 15 Mg Tablet PO 10/25/24 19:59 15 mg
BID AMITA Administration
Enoxaparin Sodium 40 mg 10/01/24 06:00 10/01/24 05:11
Enoxaparin Sodium 40 Mg/0.4 Ml Syringe SC 10/29/24 05:59 40 mg
Q12H AMITA Administration
Folic Acid 1 mg 09/28/24 08:00 10/01/24 08:52
Folic Acid 1 Mg Tablet PO 10/26/24 07:59 1 mg
DAILY AMITA Administration
Gabapentin 300 mg 09/27/24 20:00 10/01/24 08:51
Gabapentin 300 Mg Capsule PO 10/25/24 19:59 300 mg
BID AMITA Administration
Folic Acid 1 mg/ Sodium 50.2 mls @ 200.8 mls/hr 09/27/24 18:10
Chloride IV 10/25/24 18:09
DAILYPRN PRN
if NPO
Ferric Sodium Gluconate 110 mls @ 110 mls/hr 09/29/24 14:00 10/01/24 14:19
Complex 125 mg/ Sodium IV 10/03/24 14:59 110 mls
Chloride DAILY@1400 AMITA Administration
Lisinopril 10 mg 09/28/24 08:00 10/01/24 08:52
Lisinopril 10 Mg Tablet PO 10/26/24 07:59 10 mg
DAILY AMITA Administration
Lorazepam 1 mg 09/27/24 18:10 09/30/24 20:53
Lorazepam 1 Mg Tablet PO 10/25/24 18:09 1 mg
Q2HPRN PRN Administration
MSAS 5-7
Lorazepam 1 mg 09/27/24 18:10
Lorazepam 2 Mg/Ml Vial IV 10/25/24 18:09
Q1HPRN PRN
MSAS 8-11
Lorazepam 2 mg 09/27/24 18:10
Lorazepam 2 Mg/Ml Vial IV 10/25/24 18:09
Q1HPRN PRN
MSAS > 11
Melatonin 10 mg 09/27/24 18:42 09/30/24 20:53
Melatonin 5 Mg Tablet PO 10/25/24 18:41 10 mg
HSPRN PRN Administration
SLEEP
Ondansetron HCl 4 mg 09/27/24 18:10
Ondansetron 4 Mg/2 Ml Vial IV 10/25/24 18:09
Q6HPRN PRN
nausea and vomiting
Pantoprazole Sodium 40 mg 09/29/24 08:00 10/01/24 08:53
Pantoprazole Sodium 40 Mg/10 Ml Vial IV 10/27/24 07:59 40 mg
BID AMITA Administration
Polyethylene Glycol 17 grams 09/27/24 18:10
Polyethylene Glycol Powder 17 Grams Packet PO 10/25/24 18:09
DAILYPRN PRN
constipation
Quetiapine Fumarate 25 mg 09/27/24 22:00 09/30/24 20:55
Quetiapine 25 Mg Tablet PO 10/25/24 21:59 25 mg
HS AMITA Administration
Senna/Docusate Sodium 1 tablet 09/28/24 10:00 10/01/24 08:49
Docusate W/Senna (Juli-Colace) Tablet PO 10/26/24 09:59 Not Given
BID AMITA
Sodium Chloride 0 ml 09/27/24 18:10
Sodium Chloride 0.9% (Preservative Free) 10 Ml Vial IV 10/25/24 18:09
PRN PRN
To dilute IV Ativan
Protocol
Sodium Chloride 0 flush 09/27/24 19:00 10/01/24 14:20
Sodium Chloride 0.9% (Flush) Syringe IV 10/25/24 18:59 1 flush
PER PROTOCOL AMITA Administration
Sodium Chloride 10 ml 09/29/24 06:08 10/01/24 08:52
Sodium Chloride 0.9% (Preservative Free) 10 Ml Vial IV 10/26/24 07:59 10 ml
BID AMITA Administration
Spironolactone 25 mg 09/28/24 08:00 10/01/24 08:51
Spironolactone 25 Mg Tablet PO 10/26/24 07:59 25 mg
DAILY AMITA Administration
Thiamine HCl 100 mg 09/30/24 20:00 10/01/24 08:51
Thiamine 100 Mg Tablet PO 10/28/24 19:59 100 mg
BID AMITA Administration
Venlafaxine HCl 150 mg 09/28/24 08:00 10/01/24 08:50
Venlafaxine 150 Mg Extended Release Capsule PO 10/26/24 07:59 150 mg
DAILY AMITA Administration
Review of Systems
-
All Other Systems: Not reviewed unless documented
Physical Exam
-
General: No Apparent Distress, Conversant and Obese
Neurology: Non Focal, No Lateralizing Symptoms and No Word Finding Difficulty
Psych: Calm
Labs
Lab Results
WBC 6.8 10^3/uL (4.8-10.8) 10/01/24 07:20
RBC 3.35 10^6/uL (4.20-5.40) L 10/01/24 07:20
Hgb 8.4 g/dL (12.0-16.0) L 10/01/24 07:20
Hct 27.9 % (37.0-47.0) L 10/01/24 07:20
MCV 83.3 fL (81.0-99.0) 10/01/24 07:20
MCH 25.1 pg (27.0-31.0) L 10/01/24 07:20
MCHC 30.1 g/dL (33.0-37.0) L 10/01/24 07:20
RDW 18.1 % (11.5-14.5) H 10/01/24 07:20
Plt Count 173 10^3/uL (130-400) 10/01/24 07:20
MPV 9.6 fL (7.4-10.4) 10/01/24 07:20
Abs Immat Gran (auto) 0.1 10^3/uL (0-0.05) H 09/30/24 08:14
Absolute Neuts (auto) 4.2 10^3/uL (1.4-6.5) 09/30/24 08:14
Absolute Lymphs (auto) 1.6 10^3/uL (1.2-3.4) 09/30/24 08:14
Absolute Monos (auto) 0.4 10^3/uL (0.1-0.6) 09/30/24 08:14
Absolute Eos (auto) 0.1 10^3/uL (0-0.7) 09/30/24 08:14
Absolute Basos (auto) 0.0 10^3/uL (0-0.2) 09/30/24 08:14
Immature Gran % 0.8 % (0-0.5) H 09/30/24 08:14
Neutrophils % 65.4 % (42.2-75.2) 09/30/24 08:14
Lymphocytes % 25.6 % (20.5-51.1) 09/30/24 08:14
Monocytes % 6.2 % (1.7-9.3) 09/30/24 08:14
Eosinophils % 1.4 % (0-6) 09/30/24 08:14
Basophils % 0.6 % (0-2) 09/30/24 08:14
Creatinine 0.5 mg/dL (0.6-1.0) L 10/01/24 07:20
Vital Signs
Vital Signs
Temp Pulse Resp BP Pulse Ox
98.4 F 81 20 150/83 98
10/01/24 15:16 10/01/24 15:16 10/01/24 15:16 10/01/24 15:16 10/01/24 16:02
--- NOTE | 2024-10-01 16:36 | PTCARENOTE ---
Pt AAO x3, COTA well, OOB to BR; devin well. No tremors noted; pt 's MSAS currently 1; pt frequently asking for PO Ativan- 'to control my withdrawal'. Purpose of MSAS and Ativan reviewed with pt. VSS. On room air- pulseox 94%, no SOB noted. Abd
large, soft, devin PO well. Voiding in BR without difficulty; pt also has her period. pt aware of need for urine sample. pt c/o 'feeling warm'; currently afebrile. Resting in bed at present. Will continue to monitor.
--- NOTE | 2024-10-01 19:43 | CON.MD ---
Addendum entered and electronically signed by Nitza Arroyo DO 10/01/24 21:11:
Additional Dx:
Uterine fibroid- small estimated 1cm and not likely source for pain or significant bleeding. Will check pelvic Us
Obesity-risk factor for endometrial hyperplasia, EIN given BMi and anovualtory cycles.
Original Note:
Consultation - Medical
-
Late entry-pt seen this afternoon. Delayed note due to involvement in direct pt care for several pts.
33 yo female with LMP currently was admitted to hospital for issues surrounding abdominal pain, N/V x 3 days. Hx of alcoholic gastritis and anemia identified after admission. Plant Operations Manager consulted due to 1cm fibroid seen on CT and for 'pelvic pain'.
Pt reports primarily having upper abdominal pain across upper abdomen. SHe also reports some lower pelvic pain that she describes as sharp stabbing and constant.
Period has been irregular. Amenorrhea from last March until this month. Period today describes as clotty and heavy though only changes pad 3x/day. No dizziness or lightheadedness. No supervisor public health nursing care since birht of her child 11 yrs ago. States made appt with
an [place] practice and has appt in Nov. (cannot tell me name of doctor,practice or practice location). No pap in over 11 yrs. Denies current sexual activity. No known prior hx of fibroids or cysts.
ROS: N/V, pelvic and upper abd pain. No dysuria. Denies fever or chills, dizziness or lightheadedness. + constipation. No SOB, CP.
PMH:pancreatitis, alcohol abuse, gastric ulcer ( this admit), hx alcohol withdrawal, gastritis, anemia, HTN, depression, anxiety, radiculopathy.
PSH: tonsillectomy, tubal sterilization/ligation
ALL: PCn, sulfa
Meds: reviewed in chart
Sochx: Tobacco 2-3 PPD, pint of alcohol daily, denies drug use
Famhx: noncontributory
OBHX: 2 , 1 IUFD 5 months , 2 miscarriages.
supervisor public health nursing: no pap in over 11 yrs, irregular menses x 11 yrs, not prior.
PE: VSS afeb
Pleasant female, no acute distress
breathes without effort
ABd: soft, ND, mild tenderness along upper abdomen, No guarding or rebound tenderness
Vulva no gross lesions noted
Cervix appears normal no significant blood in vault, no CMT
Uterus palpates normal size, no appreciable masses or tenderness
Ext: no calf pain
A/P:
1. CT findings of 1 cm fibroid- do not expect this tiny fibroid to be cause of any of her pain.
2. Pelvic pain- vague in nature- no evidence of PID.
-Check urine GCChlamydia PCR
-Check pelvic US with TVUS for better detail of uterus.
3.Irregular menses/amenorrhea x over 18 months. Recommend checking FSH, LH, prolactin, TSH, testosterone, DHEAS, HCG (if not already). She will need outpt follow up to establish Plant Operations Manager care. She may call my office for follow up or follow up with the
supervisor public health nursing practice where she has scheduled appt. If there is chronic liver disease, this can increase her risk for abnormal bleeding patterns.
4. Anemia- multiple factor involved here- gastritis/bleeding ulcer. Heavy menses over last few days. Anovulatory cycles suspected and may lend to recurrence of abnormal bleeding patterns. If there is chronic liver disease she is not a good candidate
for hormonal therapy as these are metabolized in liver. She may need endometrial biopsy since at risk for endometrial hyperplasia and endometrial intraepithelial neoplasia given her obesity and prolonged amenorrhea. Should have outpt follow up with
supervisor public health nursing to discuss and plan as well as her annual and pap which are long overdue.
PT is agreeable to having labs , pelvic TVUS ordered as well as GC/CT screening. Advised her to make outpt follow up for supervisor public health nursing care.
Strongly encouraged to go for counseling, enroll in AA or other alcohol cessation program for needed support. PCP can also help with coordinating this care. Reviewed link of alcohol to contributing to her ulcers, gastritis and abnormal bleeding.
Risks of anemia reviewed. Encouraged her to be active part in her own care.
Time spent face to face, counseling, documentation and coordination of care 45 min.
[2024-10-01] MEDS: MELATONIN 10 MG PO (19:52)
[2024-10-01] MEDS: SENOKOT-S 1 TABLET PO (19:52)
[2024-10-01 20:10] VITALS: BP 122/83
[2024-10-01] MEDS: SEROQUEL 25 MG PO (21:16)
[2024-10-01 23:00] VITALS: BP 124/88
[2024-10-02] MEDS: MELATONIN 3 MG PO (02:49)
[2024-10-02] MEDS: LOVENOX 40 MG SC ×2 (05:27→17:07)
[2024-10-02 07:34] LABS: Hematocrit 28.3 % (37.0-47.0); Hemoglobin 8.5 g/dL (12.0-16.0); Mean Corpuscular Hgb 25.2 pg (27.0-31.0); Mean Platelet Volume 9.6 fL (7.4-10.4); Platelet Count 181 10^3/uL (130-400); Red Blood Cell Count 3.37 10^6/uL (4.20-5.40); Red Cell Dist. Width 18.6 % (11.5-14.5); White Blood Cell Count 6.8 10^3/uL (4.8-10.8)
[2024-10-02 07:50] VITALS: BP 152/96
[2024-10-02 08:01] LABS: Blood Urea Nitrogen 11 mg/dl (7-17); Calcium 9.3 mg/dl (8.4-10.2); Carbon Dioxide 28 mmol/L (22-30); Chloride 102 mmol/L (98-107); Estimated Creatinine Clearance > 125 ml/min; Glucose 91 mg/dl (70-99); Potassium 4.5 mmol/L (3.5-5.1); Sodium 137 mmol/L (135-145); eGFR > 60.00
[2024-10-02] MEDS: SYMBICORT 80/4.5 MCG INHALER 2 PUFF INH ×2 (08:09→19:55)
[2024-10-02 08:17] LABS: FSH 12.7 mIU/ml; Prolactin 16.6 ng/ml (3.0-18.6)
[2024-10-02 08:46] LABS: Estradiol 71.7 pg/ml; TSH Reflex To Free T4 5.82 uIU/ml (0.47-4.68)
[2024-10-02] MEDS: PROTONIX IV 40 MG IV (08:50)
[2024-10-02] MEDS: ZESTRIL 10 MG PO (08:51)
[2024-10-02] MEDS: BUSPAR 15 MG PO ×2 (08:51→20:28)
[2024-10-02] MEDS: NEURONTIN 300 MG PO ×2 (08:51→20:28)
[2024-10-02] MEDS: EFFEXOR XR 150 MG PO (08:51)
[2024-10-02] MEDS: NSS (PRESERVATIVE FREE) 10 ML IV (08:51)
[2024-10-02] MEDS: FLUSH (NSS) 2 FLUSH IV (08:51)
[2024-10-02] MEDS: SENOKOT-S 1 TABLET PO ×2 (08:51→20:28)
[2024-10-02] MEDS: ALDACTONE 25 MG PO (08:52)
[2024-10-02] MEDS: FOLVITE 1 MG PO (08:52)
[2024-10-02] MEDS: VITAMIN B1 100 MG PO ×2 (08:52→20:28)
[2024-10-02 10:00] LABS: Free T4 1.18 ng/dl (0.78-2.19)
[2024-10-02] MEDS: SUDAFED 30 MG PO (10:30)
[2024-10-02 11:05] LABS: COVID-19 Antigen Positive (Negative)
--- NOTE | 2024-10-02 11:49 | W.PN.HOSP.TC ---
Today's Communication/Plan
-
Given patient's head symptoms with congestion and tightness, consulted ENT. Patient is COVID positive.
Will consult ID given patient is COVID positive.
Appreciate EMBEDDED SOFTWARE DESIGN ENGINEER and patient abdominal pain.
Appreciate neurology and neurosurgery.
Assessment / Plan
Assessment / Plan
Physical Exam
General: No Apparent Distress
HEENT: Normocephalic
Respiratory: Clear to Auscultation Bilaterally
Cardiac: S1 and S2. Regular Rhythm
GI: Soft, Nontender and Nondistended. Positive bowel sounds.
Musculoskeletal: No Cyanosis. Mild LLE edema.
Neuro: Awake, Alert, Oriented x 3
Psych: Calm
Assessment/Plan
33yo F with past medical history of asthma, alcohol abuse, hypertension, anxiety, recent admission for alcoholic pancreatitis in [facility] 1 month prior, came with complaints of abdominal swelling for 3 days with lower abdominal pain. Has
dysmenorrhea and started with her periods now. Also found to have iron deficiency anemia.
Patient also has LLE plantar numbness with some numbness over inner L thigh. LLE numbness and weakness reported to be for past couple of months, prior MRI imaging at [place], as per patient showed a few disc herniations. Patient twisted her ankle
appr 1 month ago upon return from the hospital. No back trauma or new or worsening back pain noted
Last drink 2 days before admission
#Abdominal pain with subjective upper abd swelling
#Small, non-bleeding gastric ulcer with a clean ulcer base (Artur Class III) found in the pre-pyloric region in EGD per GI report
#Mucosal changes in the duodenum with flat white spots in EGD per GI report
#Small hiatal hernia in EGD per GI report
#Severe ROSALBA - multifactorial - either dysmenorrhea or PUD
#Elevated bili - resolved
#Transaminitis - improving
#Elevated alk.phos -resolved
Follow-up on biopsies from upper endoscopy including H. pylori and Celiac studies
Suspect all abnormalities are 2/2 alcohol consumption
Check hepatitis panel
Follow LFT
US abdominal with portal - no ascites, but severe fatty liver. CBD WNL
Lipase WNL
PPI and GI consult, iron IV, cannot do FOBT 2/[address]/pelvis with persistent symptoms
-Pantoprazole 40 mg BiD for 8 weeks and then once daily
-Consider repeat upper endoscopy in 8 - 12 weeks to check healing of previous gastric ulcer -- will need colonoscopy at time of EGD with primary Exhauster Engineer with abnormal fat deposition in colon [patient needs colonoscopy as outpatient (not
inpatient given EtOH withdrawal) with her primary Exhauster Engineer given previous CT with concern for abnormal fat deposition in right colon]
-Stop all NSAIDs and stop drinking EtOH
-Needs outpatient f/u with her primary Exhauster Engineer at [facility] for consideration of Fibroscan or MRI-E given hepatosplenomegaly seen on recent CT imaging
#COVID (+) with Submandibular and PostAuricular Pain and Congestion
#A little blurry vision, possibly related to viral syndrome -- most likely migraine without aura, as per neurology
-Consulted ENT given degree of pain, appreciate their evaluation and recommendations
-No ophthalmology in house available, consulted neurology, appreciate their evaluation and recommendations
-Rizatriptan
-Will consider ID consultation, monitor off Paxlovid for now
#1.0 cm exophytic lesion along the posterior uterus likely subserosal fibroid on CT Imaging
-Patient normally sees [facility] [facility]MBEDDED SOFTWARE DESIGN ENGINEER practice
-Since patient complaining of lower abdominal/pelvic pain, consulted gynecology, appreciate their evaluation and recommendations
-Patient's dysmenorrhea is chronic
#Splenomegaly in the Setting of Anemia
-Consulted hematology, appreciate their evaluation and recommendations -- likely from alcohol use
-IV iron inpatient, PO iron after discharge
#L foot numbness
#L medical thigh numbness -- numbness appears to probably come from lower back
#Left foot fracture (nondisplaced fractures of the base of the second and third metatarsals which appears subacute in nature on CT Imaging)
XR L ankle -tissue swelling
Podiatry re-consulted given fracture -- they will see patient
US LLE neg for DVT
MRI L ankle noted
MRI lumbosacral spine noted and showed, as per radiologist's report, '....Changes of degenerative disc disease, greatest at L5-S1. Mild posterior disc bulge at L5-S1.....'
Neurosurgery consult recommendations appreciated: neurosurgery sees no obvious evidence of significant or severe neural compression, to explain patient's lower extremity symptoms, and no neurosurgical intervention recommended.
#Left ankle swelling, pain, and numbness (numbness is chronic, as per patient)
#Left foot edema throughout the base/proximal shaft of the second metatarsal and surrounding soft tissues which likely represents a fracture and associated mild soft tissue swelling. Consider weightbearing radiographs if there is concern for
Lisfranc injury -- as per radiologist's report
-Appreciate podiatry evaluation and recommendations
-PT/OT
-Consider left ankle brace with ASO brace, can be acquired as an outpatient
-Left ankle MRI suspected fracture, CT done as per podiatry request
-RICE therapy
#1.7 cm cyst within the interpole the right kidney on CT Abdomen/Pelvis
-Patient very concerned about this, reassured her that it is likely benign
-Consulted urology to discuss this with her
#Alcohol abuse with alcohol withdrawal
Last drink was 09/25/24
Thiamine/FOlate
MSAS protocol
Lipase WNL
Counselled on abstinence
#Hypokalemia
#Hypomagnesemia
replete and follow
#Anxiety
#Neuropathy
#Essential HTN
#Asthma not in exacerbation
Cont home meds
#Constipation
laxatives
#Morbid obesty with BMI 40.2
Advised to decrease calorie intake
DVT Prophylaxis: Lovenox subq
Full code
Anticipated Discharge: 24 - 48 hours
Subjective/Interval History
-
Date of Service: October 02, 2024
Patient was seen and examined. She reported pain under her jaw area as well as behind her ears and a feeling of congestion in her head.
Objective Data
-
Labs:
Laboratory Results
10/02/24
07:10
WBC 6.8
Hgb 8.5 L
Hct 28.3 L
Plt Count 181
Sodium 137
Potassium 4.5
Chloride 102
Carbon Dioxide 28
BUN 11
Creatinine 0.5 L
Glucose 91
Calcium 9.3
Vital Signs:
Vital Signs
Temp Pulse Resp BP Pulse Ox
98 F 76 16 152/96 98
10/02/24 07:50 10/02/24 08:11 10/02/24 08:11 10/02/24 08:52 10/02/24 08:11
I&O
10/01/24 10/02/24 10/03/24
06:59 06:59 06:59
Intake Total 1010 / 1010 1310 / 1310
Balance 1010 / 1010 1310 / 1310
[2024-10-02 12:59] VITALS: BP 138/95
--- NOTE | 2024-10-02 13:08 | CON.NEURO ---
Neuro Assessment/Plan
Assessment
Abrupt recurrent left frontal and parietal headache in a patient with significant anemia and newly diagnosed COVID 19
Most likely migraine without aura
Plan
Initiate rizatriptan 10 mg melt tab now and repeat after 1 hour if needed
No indication for additional neuroimaging at this time
Continue iron replacement after IV iron lifelong
Will follow as needed.
Consultation
Order
Date of Consultation: 10/02/24
Requesting Provider: Hospitalist
Reason for Consult: Headache
Subjective/Objective
Subjective Data
Date of Service: October 02, 2024
Patient presented to this hospital's emergency department 5 days ago with new onset nausea, emesis, and abdominal pain.
Subsequently, patient reported back pain, bilateral lower extremity discomfort for which neurosurgery was consulted.
Patient reports that approximately 2 days ago, the patient developed recurrence of left frontoparietal pulsating pain which has been persistent. The patient subsequently was diagnosed with COVID-19, today. Patient's usual headaches are 1-2 times
per week in the similar location. With this headache she is experiencing phonophobia and no nausea, photophobia, or emesis. Patient's usual headaches are treated with counter medication which has not been of significant benefit to the patient.
Headaches usually last approximately 3 to 4 hours before resolving. This headache is described as a 10 out of 10 in intensity. Prior headaches are usually less intense. The patient has never been placed on a preventative or given a prescription
rescue medication for migraine control.
Objective Data
Vital Signs
Temp Pulse Resp BP Pulse Ox
36.8 C 83 18 138/95 98
10/02/24 12:59 10/02/24 12:59 10/02/24 12:59 10/02/24 12:59 10/02/24 12:59
Lab Results
10/02/24 07:10
10/02/24 07:10
PT 15.3 Sec (11.4-14.6) H 09/27/24 21:57
INR 1.23 09/27/24 21:57
APTT 27.7 Sec (23.4-35.0) 09/27/24 21:57
Sodium 137 mmol/L (135-145) 10/02/24 07:10
Potassium 4.5 mmol/L (3.5-5.1) 10/02/24 07:10
BUN 11 mg/dl (7-17) 10/02/24 07:10
Glucose 91 mg/dl (70-99) 10/02/24 07:10
Calcium 9.3 mg/dl (8.4-10.2) 10/02/24 07:10
Phosphorus 3.0 mg/dl (2.5-4.5) 09/27/24 21:57
Vitamin B12 632 pg/ml (239-931) 09/29/24 07:20
Patient Allergies
Penicillins Allergy (Verified 09/27/24 11:04)
Unknown
Sulfa (Sulfonamide Antibiotics) Allergy (Verified 09/27/24 11:04)
Unknown
Review of Systems
-
History Source: Patient
All other systems: Reviewed and negative
EENT: Negative Swallowing Difficulty
Respiratory: Negative Trouble Breathing
Cardiac: Negative Chest Pain
Neuro: Headache; Negative Dizzy
Physical Exam
-
General: No Apparent Distress and Appears Stated Age
Eyes: Round OU, [place] Conjunctivae and No Ptosis
HEENT: Anicteric and Moist Mucous Membranes
Neck: Full Range of Motion
Respiratory: No Dyspnea
Cardiac: No JVD
GI: Non-distended
Skin: Unremarkable
Extremities: No Clubbing, No Cyanosis and No Edema
Psych: Intact Judgement/Insight
Extended Neurological Exam
Mood & Affect: Mood Unremarkable and Affect Unremarkable
Attention Span & Concentration: Awake, Alert, Interactive and No Difficulty with 2 Step Request
Memory: Unremarkable
Tremor: Hand Tremor Absent and Head Tremor Absent
Speech: Quality Unremarkable and Quantity Unremarkable
Cranial Nerve II: Left Eye: Pupillary Size Unremarkable and Visual Mao Intact
Cranial Nerve II: Right Eye: Pupillary Size Unremarkable and Visual Mao Intact
Cranial Nerves III, IV, : Extraocular Movement: Extraocular Movement Full in all Directions
Cranial Nerve VII: Facial Symmetry: Normal Facial Symmetry
Cranial Nerve VIII: Hearing: Unremarkable Hearing to Normal Conversational Volume
Cranial Nerve XI: Shoulder Shrug: Unremarkable
Muscle Strength, Overall: Full Throughout (grossly)
Muscle Bulk & Tone: Bulk Unremarkable and Tone Unremarkable
Pronator Drift: No Drift in Upper Extremities and No Drift in Lower Extremities
Touch Sensation: Unremarkable
Coordination: Nkarqy-zany-alrgms Testing Unremarkable
Data Reviewed
-
Labs: Report Reviewed
Reviewed with: Physician, Nurse, Nurse Practioner and Patient
Old Records: Summarized
Medications
-
Active Medications
Generic Name Dose Route Start Last Admin
Trade Name Freq PRN Reason Stop Dose Admin
Acetaminophen 650 mg 09/27/24 18:10 10/01/24 20:01
Acetaminophen 325 Mg Tablet PO 10/25/24 18:09 650 mg
Q4HPRN PRN Administration
mild pain/RUBIO/temp> 100.4F
Bisacodyl 10 mg 09/27/24 18:10
Bisacodyl 10 Mg Rectal Suppository RECTAL 10/25/24 18:09
[id number] PRN
constipation
Budesonide/Formoterol Fumarate 2 puff 09/27/24 20:00 10/02/24 08:09
Symbicort Inhaler 80/4.5 INH 10/25/24 19:59 2 puff
R BID AMITA Administration
Protocol
Buspirone HCl 15 mg 09/27/24 20:00 10/02/24 08:51
Buspirone 15 Mg Tablet PO 10/25/24 19:59 15 mg
BID AMITA Administration
Enoxaparin Sodium 40 mg 10/01/24 06:00 10/02/24 05:27
Enoxaparin Sodium 40 Mg/0.4 Ml Syringe SC 10/29/24 05:59 40 mg
Q12H AMITA Administration
Folic Acid 1 mg 09/28/24 08:00 10/02/24 08:52
Folic Acid 1 Mg Tablet PO 10/26/24 07:59 1 mg
DAILY AMITA Administration
Gabapentin 300 mg 09/27/24 20:00 10/02/24 08:51
Gabapentin 300 Mg Capsule PO 10/25/24 19:59 300 mg
BID AMITA Administration
Folic Acid 1 mg/ Sodium 50.2 mls @ 200.8 mls/hr 09/27/24 18:10
Chloride IV 10/25/24 18:09
DAILYPRN PRN
if NPO
Ferric Sodium Gluconate 110 mls @ 110 mls/hr 09/29/24 14:00 10/01/24 14:19
Complex 125 mg/ Sodium IV 10/03/24 14:59 110 mls
Chloride DAILY@1400 AMITA Administration
Lisinopril 10 mg 09/28/24 08:00 10/02/24 08:51
Lisinopril 10 Mg Tablet PO 10/26/24 07:59 10 mg
DAILY AMITA Administration
Lorazepam 1 mg 09/27/24 18:10 09/30/24 20:53
Lorazepam 1 Mg Tablet PO 10/25/24 18:09 1 mg
Q2HPRN PRN Administration
MSAS 5-7
Lorazepam 1 mg 09/27/24 18:10
Lorazepam 2 Mg/Ml Vial IV 10/25/24 18:09
Q1HPRN PRN
MSAS 8-11
Lorazepam 2 mg 09/27/24 18:10
Lorazepam 2 Mg/Ml Vial IV 10/25/24 18:09
Q1HPRN PRN
MSAS > 11
Melatonin 10 mg 09/27/24 18:42 10/01/24 19:52
Melatonin 5 Mg Tablet PO 10/25/24 18:41 10 mg
HSPRN PRN Administration
SLEEP
Ondansetron HCl 4 mg 09/27/24 18:10
Ondansetron 4 Mg/2 Ml Vial IV 10/25/24 18:09
Q6HPRN PRN
nausea and vomiting
Pantoprazole Sodium 40 mg 10/02/24 20:00
Pantoprazole 40 Mg Delayed Release Tablet PO 10/30/24 19:59
BID AMITA
Polyethylene Glycol 17 grams 09/27/24 18:10
Polyethylene Glycol Powder 17 Grams Packet PO 10/25/24 18:09
DAILYPRN PRN
constipation
Quetiapine Fumarate 25 mg 09/27/24 22:00 10/01/24 21:16
Quetiapine 25 Mg Tablet PO 10/25/24 21:59 25 mg
HS AMITA Administration
Senna/Docusate Sodium 1 tablet 09/28/24 10:00 10/02/24 08:51
Docusate W/Senna (Juli-Colace) Tablet PO 10/26/24 09:59 1 tablet
BID AMITA Administration
Sodium Chloride 0 ml 09/27/24 18:10
Sodium Chloride 0.9% (Preservative Free) 10 Ml Vial IV 10/25/24 18:09
PRN PRN
To dilute IV Ativan
Protocol
Sodium Chloride 0 flush 09/27/24 19:00 10/02/24 08:51
Sodium Chloride 0.9% (Flush) Syringe IV 10/25/24 18:59 2 flush
PER PROTOCOL AMITA Administration
Spironolactone 25 mg 09/28/24 08:00 10/02/24 08:52
Spironolactone 25 Mg Tablet PO 10/26/24 07:59 25 mg
DAILY AMITA Administration
Thiamine HCl 100 mg 09/30/24 20:00 10/02/24 08:52
Thiamine 100 Mg Tablet PO 10/28/24 19:59 100 mg
BID AMITA Administration
Venlafaxine HCl 150 mg 09/28/24 08:00 10/02/24 08:51
Venlafaxine 150 Mg Extended Release Capsule PO 10/26/24 07:59 150 mg
DAILY AMITA Administration
Home Medications
�Medication �Instructions �Recorded
budesonide-formoterol HFA 80 2 inh inhalation R BID 09/27/24
mcg-4.5 mcg/actuation aerosol Lung/Breathing Issues
inhaler (Symbicort)
buspirone 15 mg tablet 15 mg PO BID Mental Health/Anxiety 09/27/24
folic acid 1 mg tablet 1 mg PO DAILY Supplement 09/27/24
gabapentin 300 mg capsule 300 mg PO BID Neurological 09/27/24
Condition
lisinopril 10 mg tablet 10 mg PO DAILY Blood Pressure 09/27/24
melatonin 10 mg tablet 10 mg PO HSPRN PRN mild pain 09/27/24
quetiapine 25 mg tablet (Seroquel) 25 mg PO HS Mental Health/Anxiety 09/27/24
spironolactone 25 mg tablet 25 mg PO DAILY Fluid 09/27/24
Retention/Swelling
venlafaxine 150 mg 150 mg PO DAILY Mental 09/27/24
capsule,extended release 24 hr Health/Anxiety
(Effexor XR)
Past History
Past History
ED Past Medical History: Asthma and Other (COVID-19)
ED Past Surgical History: Tonsilectomy
Social History
Tobacco: Non-smoker
Alcohol: Daily
[2024-10-02] MEDS: FERRLECIT 110 MG IV (13:10)
[2024-10-02] MEDS: TYLENOL 650 MG PO (13:10)
--- NOTE | 2024-10-02 13:44 | TRANSFER ---
Pt transferred from the [facility] to room 2136- COVID +. Pt AAOX3, reports headache- prn tylenol given. neurology at bedside to see patient. +1 lower extremity edema. reports left leg numbness/weakness. able to ambulate independently. clear on room air,
reports runny nose. active bowel sounds, tolerating diet. voiding in bathroom.
[2024-10-02] MEDS: MAXALT MLT (ORALLY DISINTEGRATING) 10 MG PO (14:57)
[2024-10-02 15:20] VITALS: BP 133/92
--- NOTE | 2024-10-02 16:12 | W.PN.UPDATE ---
Update Note
Progress Note Update
MRI of the lumbar spine reviewed, and imaging was personally interpreted by me. I see no obvious evidence of significant or severe neural compression, to explain patient's lower extremity symptoms. No neurosurgical intervention recommended. No
follow-up needed. Continue medical workup/management.
--- NOTE | 2024-10-02 18:49 | W.PN.ENT ---
Today's Communication
-
No evidence of sialadenitis. F/u w ENT PRN
Impression / Plan
-
The patient c/o 2wks of b/l pain around her jaw, her saliva glands are normal and there is no palpable LAD. She may have jaw pain from clenching or grinding, but there is no evidence of sialadenitis. She can f/u with ENT as needed.
Subjective Data
-
The patient reports pain along her jawline on both side which started about 2 weeks ago. She denies change in hearing, ear pain or drainage. She states that she drinks a lot of water. She has not had problems with her saliva glands before.
Objective Data
-
Vital Signs
Temp Pulse Resp BP Pulse Ox
98.1 F 72 20 133/92 100
10/02/24 15:20 10/02/24 15:20 10/02/24 15:20 10/02/24 15:20 10/02/24 15:20
Physical Exam
-
GEN: NAD, Alert and oriented
HEENT: Ears clear AU, TM intact, OC/OP: Clear, bit mojica b/l buccal mucosa, Clear saliva from b/l parotid and submandibular ducts. TTP b/l jaw, no LAD
Data Reviewed
-
Radiology Results: Report Reviewed
[2024-10-02] MEDS: PROTONIX 40 MG PO (20:28)
--- NOTE | 2024-10-02 20:29 | W.PN.GYN ---
Today's Communication / Plan
-
Patient does not require further in-patient LATHE TENDER evaluation at this time, and should make an appointment with her regular TOBACCO FEEDER CATCHER after discharge to continue work-up for likely anovulatory bleeding pattern.
Physician Note
-
Update note:
LATHE TENDER consultation previously completed by Dr. Arroyo during this admission.
Pelvic US from today reviewed- essentially wnl.
GC/CT screening wnl.
TSH elevated, FT4 wnl. Otherwise, labs ordered by LATHE TENDER reviewed (only partially resulted) and are unremarkable.
Agree that patient does not require further in-patient LATHE TENDER evaluation at this time, and should make an appointment with her regular TOBACCO FEEDER CATCHER after discharge to continue work-up for likely anovulatory bleeding pattern.
Thank you for including us in this patient's care. Please let the LATHE TENDER provider on-call know if there are any further questions during this admission.
Gustavo Penn, DO
[2024-10-02] MEDS: ZOFRAN 4 MG IV (21:56)
--- NOTE | 2024-10-02 22:07 | W.PN.SURGUPD ---
Surgical Update
Surgical Update
33 year old female presents with subacute left 2nd and 3rd nondisplaced metatarsal fractures
-Patient seen and evaluated at bedside
-CT scan findings reviewed and discussed
-Discussed treatment options for left 2nd/3rd metatarsal fractures
-Recommend protected weightbearing in a CAM boot for 6 weeks followed by repeat radiographs
-PT/OT recommended
-No other interventions at this time
-Patient can follow up at [facility] 4-6 weeks following discharge
[2024-10-02] MEDS: SEROQUEL 25 MG PO (22:45)
[2024-10-02] MEDS: MELATONIN 10 MG PO (22:45)
[2024-10-02] MEDS: FEOSOL 325 MG PO (22:46)
[2024-10-02 23:32] VITALS: BP 127/84
[2024-10-03 06:35] LABS: % Basophils 0.6 % (0-2); % Eosinophils 1.4 % (0-6); % Immature Granulocytes 1.4 % (0-0.5); % Lymphocytes 24.9 % (20.5-51.1); % Monocytes 6.3 % (1.7-9.3); % Neutrophils 65.4 % (42.2-75.2); Absolute Eosinophils 0.1 10^3/uL (0-0.7); Absolute Immature Granulocytes 0.1 10^3/uL (0-0.05); Absolute Lymphocytes 1.8 10^3/uL (1.2-3.4); Absolute Monocytes 0.5 10^3/uL (0.1-0.6); Absolute Neutrophils 4.7 10^3/uL (1.4-6.5); Hematocrit 27.7 % (37.0-47.0); Hemoglobin 8.3 g/dL (12.0-16.0); Mean Corpuscular Hgb 24.7 pg (27.0-31.0); Mean Corpuscular Volume 82.4 fL (81.0-99.0); Nucleated Red Blood Cells % 0 %; Platelet Count 180 10^3/uL (130-400); Red Blood Cell Count 3.36 10^6/uL (4.20-5.40); Red Cell Dist. Width 19.2 % (11.5-14.5); White Blood Cell Count 7.2 10^3/uL (4.8-10.8)
[2024-10-03 07:07] LABS: ALT (SGPT) 16 U/L (0-35); AST (SGOT) 72 U/L (14-36); Albumin 3.3 g/dl (3.5-5.0); Alkaline Phosphatase 102 U/L (38-126); Blood Urea Nitrogen 10 mg/dl (7-17); Calcium 9.1 mg/dl (8.4-10.2); Carbon Dioxide 25 mmol/L (22-30); Chloride 102 mmol/L (98-107); Estimated Creatinine Clearance > 125 ml/min; Glucose 89 mg/dl (70-99); Potassium 4.3 mmol/L (3.5-5.1); Sodium 139 mmol/L (135-145); Total Bilirubin 0.9 mg/dl (0.2-1.3); Total Protein 6.4 g/dl (6.3-8.2); eGFR > 60.00
[2024-10-03 07:30] VITALS: BP 141/86
[2024-10-03] MEDS: SYMBICORT 80/4.5 MCG INHALER 2 PUFF INH (07:35)
[2024-10-03] MEDS: LOVENOX 40 MG SC (08:23)
[2024-10-03] MEDS: ALDACTONE 25 MG PO (08:26)
[2024-10-03] MEDS: NEURONTIN 300 MG PO (08:27)
[2024-10-03] MEDS: VITAMIN B1 100 MG PO (08:27)
[2024-10-03] MEDS: FOLVITE 1 MG PO (08:27)
[2024-10-03] MEDS: SENOKOT-S 1 TABLET PO (08:27)
[2024-10-03] MEDS: BUSPAR 15 MG PO (08:27)
[2024-10-03] MEDS: ZESTRIL 10 MG PO (08:27)
[2024-10-03] MEDS: PROTONIX 40 MG PO (08:27)
[2024-10-03] MEDS: EFFEXOR XR 150 MG PO (08:28)
[2024-10-03] MEDS: TYLENOL 650 MG PO ×2 (08:44→12:52)
--- NOTE | 2024-10-03 13:24 | CON.ID ---
Consultation
-
Date/Time Consultation Requested: 10/02/2024 1704
Date/Time Consultation Performed: 10/03/2024 1300
Requesting Provider: Dr. Silva
Performing Provider: Dr. Rebolledo
Reason for Consultation: COVID 19 positive
Chief Complaint / Past History
History of Present Illness
Naila Li is a 33-year-old female being evaluated at the request of Dr. Silva in regards to COVID-19 positivity. History is obtained from chart review, along with patient interview.
The patient has a significant past medical history of alcohol use/abuse, and presented to the emergency room here at [facility] on 09/27/2024 following the development of nausea, vomiting and abdominal pain over the prior 3 days. Her
hospital course was significant for evaluation by GI for possible peptic ulcer disease and EtOH gastritis. She is also been evaluated by Neurosurgery for lower extremity numbness. On 10/12, the patient admitted to nasal congestion, and antigen
testing revealed that she was COVID-positive. At that point in time, and since, she has denied any fevers. She denies any shortness of breath or significant cough. She denies any pharyngitis. There has been no decrease in her pulse ox.
At the present time she reports a frontal headache, and notes that her submandibular glands are somewhat swollen. He denies any difficulty swallowing, though. She reports that she is vaccinated, but not boosted.
Past History
Additional Past Medical History:
EtOH abuse
Obesity
Additional Past Surgical History:
Tubal ligation
Tonsillectomy
Allergy History:
Penicillins Allergy (Verified 09/27/24 11:04)
Unknown
Sulfa (Sulfonamide Antibiotics) Allergy (Verified 09/27/24 11:04)
Unknown
Current Antibiotics:
None
Social History
Tobacco: Smoker
Alcohol: Daily
Drug: None
Personal: Single
Living: With Family
Employment: Employed
Family History
Family History: Not Pertinent
Review of Systems
Vital Signs
Temp Pulse Resp BP Pulse Ox
98.3 F 75 18 141/86 99
10/03/24 07:30 10/03/24 08:27 10/03/24 07:43 10/03/24 08:27 10/03/24 07:43
Physical Exam
Physical Exam
Constitutional: No Acute Distress, Comfortable, Non-toxic and Obese
Eyes: Pupils Equal, Pupils Round, No Conjunctival Hemorrhage and Sclera Anicteric
Oral: No Thrush and No Ulcers
Lymph Nodes: Negative Lymphadenopathy
Cardiovascular: S1/S2; Negative S3/S4
Pulmonary: Clear and Non Labored; Negative Wheezes, Rales or Rhonchi
Gastrointestinal: Soft, Non Tender and Non Distended
Neurological: Awake and Alert
Psychological: Calm
Lab / Diagnostic Study Results
10/03/24 06:03
10/03/24 06:03
Abs Immat Gran (auto) 0.1 10^3/uL (0-0.05) H 10/03/24 06:03
Absolute Neuts (auto) 4.7 10^3/uL (1.4-6.5) 10/03/24 06:03
Absolute Lymphs (auto) 1.8 10^3/uL (1.2-3.4) 10/03/24 06:03
Absolute Monos (auto) 0.5 10^3/uL (0.1-0.6) 10/03/24 06:03
Absolute Basos (auto) 0.0 10^3/uL (0-0.2) 10/03/24 06:03
Immature Gran % 1.4 % (0-0.5) H 10/03/24 06:03
Neutrophils % 65.4 % (42.2-75.2) 10/03/24 06:03
Lymphocytes % 24.9 % (20.5-51.1) 10/03/24 06:03
Monocytes % 6.3 % (1.7-9.3) 10/03/24 06:03
Eosinophils % 1.4 % (0-6) 10/03/24 06:03
Basophils % 0.6 % (0-2) 10/03/24 06:03
PT 15.3 Sec (11.4-14.6) H 09/27/24 21:57
INR 1.23 09/27/24 21:57
Microbiology Results
Micro:
10/02/24 10:35 Influenza Types A & B (TERRELL) - Final
Nasal Swab Negative for Influenza A & B, NAAT
Negative results must be combined with clinical observations
and patient history.
Nucleic Acid Amplification test (NAAT)performed on the
[employer] platform.
10/02/24 06:30 Chlamydia trachomatis (PCR) - Final
Urine Neisseria gonorrhoeae (PCR) - Final
Assessment / Plan
Asymptomatic COVID-19
Migraine
Abdominal pain
EtOH abuse
Obesity
Anemia
Recommendations:
At present, COVID symptomatology is minimal to none.
Would not recommend antivirals at present, although patient was offered a course of antivirals, and declined.
Continue with symptomatic treatment as necessary.
Little more to offer from a Infectious Disease standpoint.
Will see again at your request.
[2024-10-03] MEDS: FERRLECIT 110 MG IV (13:42)
--- NOTE | 2024-10-03 14:03 | CM ---
Reviewed the chart notes. Patient is Covid +. CM continues to be available to patient/family and is monitoring medical plan for needs at discharge.
Plan: Discharge to home with outpatient therapy through [facility].
--- NOTE | 2024-10-03 14:21 | W.PN.HOSP.TC ---
Today's Communication/Plan
-
Discharge today
Assessment / Plan
Assessment / Plan
Physical Exam
General: No Apparent Distress
HEENT: Normocephalic
Respiratory: Clear to Auscultation Bilaterally
Cardiac: S1 and S2. Regular Rhythm
GI: Soft, Nontender and Nondistended. Positive bowel sounds.
Musculoskeletal: No Cyanosis. Mild LLE edema.
Neuro: Awake, Alert, Oriented x 3
Psych: Calm
Assessment/Plan
33 y/o female with past medical history of asthma, alcohol abuse, hypertension, anxiety, recent admission for alcoholic pancreatitis in [facility] 1 month prior, came with complaints of abdominal swelling for 3 days with lower abdominal
pain. Has dysmenorrhea and started with her periods now. Also found to have iron deficiency anemia.
Patient also has LLE plantar numbness with some numbness over inner L thigh. LLE numbness and weakness reported to be for past couple of months, prior MRI imaging at [facility], as per patient showed a few disc herniations. Patient twisted her ankle
appr 1 month ago upon return from the hospital. No back trauma or new or worsening back pain noted
Last drink 2 days before admission
#Abdominal pain with subjective upper abd swelling
#Small, non-bleeding gastric ulcer with a clean ulcer base (Artur Class III) found in the pre-pyloric region in EGD per GI report
#Mucosal changes in the duodenum with flat white spots in EGD per GI report
#Small hiatal hernia in EGD per GI report
#Severe Iron Deficiency Anemia - multifactorial - either dysmenorrhea or PUD
#Elevated bili - resolved
#Transaminitis - improving
#Elevated alk.phos -resolved
Follow-up on biopsies from upper endoscopy including H. pylori and Celiac studies
Suspect all abnormalities are 2/2 alcohol consumption
Check hepatitis panel
Follow LFT
US abdominal with portal - no ascites, but severe fatty liver. CBD WNL
Lipase WNL
PPI and GI consult, iron IV while inpatient, cannot do FOBT 2/[address]/pelvis with persistent symptoms
-Ferrous Sulfate 325 mg Q48H on discharge
-Pantoprazole 40 mg BiD for 8 weeks and then once daily
-Consider repeat upper endoscopy in 8 - 12 weeks to check healing of previous gastric ulcer -- will need colonoscopy at time of EGD with primary Systems Technologist with abnormal fat deposition in colon [patient needs colonoscopy as outpatient (not
inpatient given EtOH withdrawal) with her primary Systems Technologist given previous CT with concern for abnormal fat deposition in right colon] and also for consideration of Fibroscan or MRI-E given hepatosplenomegaly seen on recent CT imaging
-Stop all NSAIDs and stop drinking alcohol
-Needs outpatient f/u with her primary Systems Technologist at [facility] for consideration of Fibroscan or MRI-E given hepatosplenomegaly seen on recent CT imaging
#COVID (+) with Submandibular and PostAuricular Pain and Congestion
#A little blurry vision, possibly related to viral syndrome -- most likely migraine without aura, as per neurology
-Consulted ENT given degree of pain, appreciate their evaluation and recommendations
-No ophthalmology in house available, consulted neurology, appreciate their evaluation and recommendations
-Rizatriptan
-Will consider ID consultation, monitor off Paxlovid for now
#1.0 cm exophytic lesion along the posterior uterus likely subserosal fibroid on CT Imaging
-Patient normally sees [facility]
-Since patient complaining of lower abdominal/pelvic pain, consulted gynecology, appreciate their evaluation and recommendations
-Patient's dysmenorrhea is chronic
-Patient needs to make an appointment with her regular FILL[employer] INSERTER REMOVER after discharge to continue work-up for likely anovulatory bleeding pattern.
#Splenomegaly in the Setting of Anemia
-Consulted hematology, appreciate their evaluation and recommendations -- likely from alcohol use
-IV iron inpatient, PO iron after discharge
#L foot numbness -- chronic
#L medical thigh numbness -- chronic
#Left foot fracture (nondisplaced fractures of the base of the second and third metatarsals which appears subacute in nature on CT Imaging)
XR L ankle -tissue swelling
Podiatry re-consulted given fracture -- they will see patient
US LLE neg for DVT
MRI L ankle noted
MRI lumbosacral spine noted and showed, as per radiologist's report, '....Changes of degenerative disc disease, greatest at L5-S1. Mild posterior disc bulge at L5-S1.....'
Neurosurgery consult recommendations appreciated: neurosurgery sees no obvious evidence of significant or severe neural compression, to explain patient's lower extremity symptoms, and no neurosurgical intervention recommended.
#Left ankle swelling, pain, and numbness (numbness is chronic, as per patient) -- chronic
#Left foot edema throughout the base/proximal shaft of the second metatarsal and surrounding soft tissues which likely represents a fracture and associated mild soft tissue swelling -- as per radiologist's report
-Appreciate podiatry evaluation and recommendations
-PT/OT
-Consider left ankle brace with ASO brace, can be acquired as an outpatient
-Left ankle MRI suspected fracture, CT done as per podiatry request
-RICE therapy
-Patient seen and evaluated at bedside
-Recommend protected weightbearing in a CAM boot for 6 weeks followed by repeat radiographs
-PT/OT recommended
-No other interventions at this time
-Patient can follow up at [facility] 4-6 weeks following discharge
#1.7 cm cyst within the interpole the right kidney on CT Abdomen/Pelvis
-Patient very concerned about this, reassured her that it is likely benign
-Consulted urology to discuss this with her
#Alcohol abuse with alcohol withdrawal
Last drink was 09/25/24
Thiamine/FOlate
MSAS protocol
Lipase WNL
Counselled on abstinence
#Hypokalemia
#Hypomagnesemia
Replete and follow
#Anxiety
#Neuropathy
#Essential Hypertension
#Asthma not in exacerbation
-Continue home medications
#Constipation
-Laxatives
#Morbid obesity with BMI 40.2
-Advised to decrease calorie intake
DVT Prophylaxis: Lovenox subq
Full code
More than 30 minutes spent in discharge including
Final examination of the patient
Summarizing hospital stay
Instructions for continuing care to all relevant caregivers
Preparation of discharge records, prescriptions, and referral forms
Total time spent (in minutes): 40
Anticipated Discharge: Today
Subjective/Interval History
-
Date of Service: October 03, 2024
Patient was seen and examined. She mentioned that she was doing okay, and she said she is ready to go home today and looking forward to discharge.
Objective Data
-
Labs:
Laboratory Results
10/03/24
06:03
WBC 7.2
Hgb 8.3 L
Hct 27.7 L
Plt Count 180
Sodium 139
Potassium 4.3
Chloride 102
Carbon Dioxide 25
BUN 10
Creatinine 0.5 L
Glucose 89
Calcium 9.1
Total Bilirubin 0.9
AST 72 H
ALT 16
Alkaline Phosphatase 102
Vital Signs:
Vital Signs
Temp Pulse Resp BP Pulse Ox
98.3 F 75 18 141/86 99
10/03/24 07:30 10/03/24 08:27 10/03/24 07:43 10/03/24 08:27 10/03/24 07:43
I&O
10/02/24 10/03/24 10/04/24
06:59 06:59 06:59
Intake Total 1310 / 1310 920 / 920
Balance 1310 / 1310 920 / 920
[2024-10-03 14:50] VITALS: BP 125/76; PULSE 71; O2SAT 100
[2024-10-03 15:00] VITALS: BP 123/87
--- NOTE | 2024-10-03 16:15 | PTOTSP ---
Patient with good tolerance for ambulation with CAM boot. Educated on appropriate donning/ doffing with adjustments in tightness as needed. Reviewed elevations and wearing sneaker on right foot with ambulation to minimize gait dysfunction.
Verbalized understanding.
Recommend outpatient skilled therapy when transitioning out of boot if needed for higher level balance needs.
Will discharge at this time. If needs change, please re-consult.
[2024-10-03] MEDS: AFLURIA (36 mos+) 2024-2025 FORMULA 0.5 ML IM (16:35)
[2024-10-04 01:19] LABS: DHEA Sulfate 43 ug/dL (99-340)
[2024-10-06 04:33] LABS: Sex Hormone Binding Globulin 42 nmol/L (25-122); Total Testosterone,Female/Chil 14 ng/dL (9-55)
== END 2024-10-03 17:57 | disposition home or self-care (01) | DRG 383 ==
LOC: 2 NORTH 14:43
PROVIDERS: Internal Medicine; Registered Nurse; ADMITTING PHYSICIAN Hospitalist; ATTENDING PHYSICIAN Hospitalist; CONSULT PHYSICIAN Internal Medicine Infectious Disease; CONSULT PHYSICIAN Obstetrics & Gynecology; CONSULT PHYSICIAN Otolaryngology; CONSULT PHYSICIAN Psychiatry & Neurology Neurology; CONSULT PHYSICIAN Specialist; CONSULT PHYSICIAN Student in an Organized Health Care Education/Training Program; EMERGENCY PHYSICIAN Student in an Organized Health Care Education/Training Program; FAMILY PHYSICIAN Family Medicine; OTHER PHYSICIAN Internal Medicine Hematology & Oncology; OTHER PHYSICIAN Neurological Surgery
PROC: 0DB78ZX Excision of Stomach, Pylorus, Via Natural or Artificial Opening Endoscopic, Diagnostic (ICD-10-PCS; 2024-09-30)
PROC: 0DB98ZX Excision of Duodenum, Via Natural or Artificial Opening Endoscopic, Diagnostic (ICD-10-PCS; 2024-09-30)
PROC: 3E02340 Introduction of Influenza Vaccine into Muscle, Percutaneous Approach (ICD-10-PCS; 2024-09-30)
PROC: 0DB68ZX Excision of Stomach, Via Natural or Artificial Opening Endoscopic, Diagnostic (ICD-10-PCS; 2024-09-30)
DX: K25.9 Gastric ulcer, unspecified as acute or chronic, without hemorrhage or perforation (principal); U07.1 COVID-19; F10.139 Alcohol abuse with withdrawal, unspecified; Z68.41 Body mass index [BMI] 40.0-44.9, adult; K29.20 Alcoholic gastritis without bleeding; D50.0 Iron deficiency anemia secondary to blood loss (chronic); I10 Essential (primary) hypertension; M54.10 Radiculopathy, site unspecified; J45.909 Unspecified asthma, uncomplicated; E87.6 Hypokalemia; E83.42 Hypomagnesemia; K59.00 Constipation, unspecified; K44.9 Diaphragmatic hernia without obstruction or gangrene; R16.2 Hepatomegaly with splenomegaly, not elsewhere classified; N92.1 Excessive and frequent menstruation with irregular cycle; D25.2 Subserosal leiomyoma of uterus; S92.325A Nondisplaced fracture of second metatarsal bone, left foot, initial encounter for closed fracture; S92.335A Nondisplaced fracture of third metatarsal bone, left foot, initial encounter for closed fracture; M25.572 Pain in left ankle and joints of left foot; R68.84 Jaw pain; E66.01 Morbid (severe) obesity due to excess calories; F41.9 Anxiety disorder, unspecified; F32.A Depression, unspecified; F17.210 Nicotine dependence, cigarettes, uncomplicated; X58.XXXA Exposure to other specified factors, initial encounter; Z79.899 Other long term (current) drug therapy; Z79.51 Long term (current) use of inhaled steroids; Z88.0 Allergy status to penicillin; Z88.2 Allergy status to sulfonamides; Z23 Encounter for immunization
CPT/HCPCS: 88305; 72158; 73600; 73700; 73721; 74177; 76700; 76830; 76856; 80048; 80053; 82010; 82077; 82248; 82607; 82627; 82670; 82728; 82746; 82977; 83001; 83002; 83540; 83550; 83615; 83690; 83735; 84100; 84146; 84270; 84402; 84403; 84439; 84443; 84703; 85025; 85027; 85045; 85610; 85730; 86704; 86706; 86803; 87340; 87491; 87502; 87591; 87811; 88342; 90686; 93005; 93922; 93925; 93971; 94640; 96361; 96374; 96375; 97116; 97162; 97164; 97165; 99285; 99406; A9575; G0008; J2916; Q9967

== ENCOUNTER 2024-12-09 09:57 | Emergency (ER) | payer OTHER, SELFPAY ==
[2024-12-09 10:27] VITALS: BP 110/81
[2024-12-09 11:23] VITALS: BMI 43.6
[2024-12-09] MEDS: ZOFRAN 4 MG IV (11:36)
[2024-12-09] MEDS: NSS 500 IV (11:37)
[2024-12-09 11:38] VITALS: BP 124/67
[2024-12-09 11:46] LABS: % Basophils 0.4 % (0-2); % Eosinophils 2.1 % (0-6); % Immature Granulocytes 0.7 % (0-0.5); % Lymphocytes 18.7 % (20.5-51.1); % Monocytes 8.1 % (1.7-9.3); Absolute Basophils 0.1 10^3/uL (0-0.2); Absolute Eosinophils 0.2 10^3/uL (0-0.7); Absolute Immature Granulocytes 0.1 10^3/uL (0-0.05); Absolute Lymphocytes 2.2 10^3/uL (1.2-3.4); Absolute Monocytes 0.9 10^3/uL (0.1-0.6); Absolute Neutrophils 8.1 10^3/uL (1.4-6.5); Hemoglobin 10.1 g/dL (12.0-16.0); Mean Corp Hgb Conc. 31.6 g/dL (33.0-37.0); Mean Corpuscular Hgb 31.9 pg (27.0-31.0); Mean Corpuscular Volume 100.9 fL (81.0-99.0); Mean Platelet Volume 10.3 fL (7.4-10.4); Nucleated Red Blood Cells % 0 %; Platelet Count 162 10^3/uL (130-400); Red Blood Cell Count 3.17 10^6/uL (4.20-5.40); Red Cell Dist. Width 18.5 % (11.5-14.5); White Blood Cell Count 11.6 10^3/uL (4.8-10.8)
[2024-12-09 12:00] VITALS: BP 134/75
[2024-12-09 12:25] LABS: INR 1.49; PT 18.2 Sec (11.4-14.6)
[2024-12-09 12:42] LABS: ALT (SGPT) 14 U/L (0-35); AST (SGOT) 92 U/L (14-36); Albumin 2.5 g/dl (3.5-5.0); Alkaline Phosphatase 191 U/L (38-126); Blood Urea Nitrogen 2 mg/dl (7-17); Calcium 7.7 mg/dl (8.4-10.2); Carbon Dioxide 26 mmol/L (22-30); Chloride 103 mmol/L (98-107); Estimated Creatinine Clearance > 125 ml/min; Glucose 96 mg/dl (70-99); Potassium 3.2 mmol/L (3.5-5.1); Sodium 137 mmol/L (135-145); Total Bilirubin 4.5 mg/dl (0.2-1.3); Total Protein 6.2 g/dl (6.3-8.2); eGFR > 60.00
[2024-12-09] MEDS: TORADOL 15 MG IV (13:12)
[2024-12-09 13:41] VITALS: BP 110/61
[2024-12-09 14:02] VITALS: BP 110/69
[2024-12-09 15:00] VITALS: BP 112/62
--- NOTE | 2024-12-09 15:49 | ED.GENMED ---
History of Present Illness
General
Chief Complaint: Breathing Problem
Source: patient
Exam Limitations: none
Time Seen by Provider: 12/09/24 11:01
History of Present Illness
History of Present Illness:
34-year-old female who presents with 1 month of symptoms. The patient states that she had her gallbladder out at [facility]. She then had to get readmitted after she had continuous pain and issues. She also had COVID in September. She was
also treated for pneumonia in October. The patient states her cough persist. She also reports pain along the sides of her chest when she coughs. Had fevers in the past but nothing recent but has had some bodyaches. She is on albuterol at home
as well as steroid inhaler. Patient states they are not working. No leg swelling or pain. Patient does admit to liver disease that she relates to alcohol use.
Past History
Past History
ED Past Medical History: Asthma and Other (COVID-19, alcohol abuse)
ED Past Surgical History: Tonsilectomy
Social History
Tobacco: Smoker
Alcohol: Daily
Phy Exam
Physical Exam
Physical Exam:
CONSTITUTIONAL Patient alert and oriented to person, place and time. Well-appearing. Vital signs reviewed.
HEAD atraumatic, normocephalic.
EYES eyelids normal to inspection, Extraocular muscles intact, Conjunctiva normal, Sclera normal.
NECK normal range of motion, Trachea midline, no jugular venous distention.
RESPIRATORY CHEST No respiratory distress noted, Chest expansion equal, Bilateral breath sounds clear.
CARDIOVASCULAR regular rate and rhythm, Heart sounds normal.
ABDOMEN abdomen nontender, Bowel sounds normal. No distention.
BACK normal inspection, no obvious deformities
UPPER EXTREMITY range of motion normal, Motor strength normal, no cyanosis, no edema.
LOWER EXTREMITY range of motion normal, Motor strength normal, no cyanosis, no edema.
NEURO Speech normal, No focal motor deficits, Donald coma scale 15, Memory normal, Cranial Nerves intact to screening exam.
SKIN skin warm, dry, and normal in color.
Course
Orders/Labs/Results
Orders:
Orders
12/09/24 10:31
CXR2 [CR Chest - 2 Views ] Urgent
Comment: covid in nov pneumonia in dec
Reason For Exam: sob for wks
12/09/24 11:23
Electrocardiogram (*1) Urgent
Reason for Study: Shortness of Breath
CT Chest PE Study Urgent
Comment:
Reason For Exam: sob, cough, recent surgery
EKG- Treatment ONCE
12/09/24 11:24
0.9% Sodium Chloride 500 ml [Nss] 500 ml IV BOLUS
Ondansetron Injectable [Zofran] 4 mg IV NOW STA
12/09/24 11:33
Complete Blood Count/With Diff Urgent
Prothrombin Time Urgent
12/09/24 12:00
Comprehensive Metabolic Panel Urgent
12/09/24 12:50
Ketorolac [Toradol] 15 mg IV NOW STA
12/09/24 15:48
LevoFLOXacin [Levaquin] 500 mg PO NOW STA
Prednisone [Deltasone] 50 mg PO NOW STA
Abnormal Lab Results
12/09/24 12/09/24
11:33 12:00
WBC 11.6 H 10^3/uL
(4.8-10.8)
RBC 3.17 L 10^6/uL
(4.20-5.40)
Hgb 10.1 L g/dL
(12.0-16.0)
Hct 32.0 L %
(37.0-47.0)
MCV 100.9 H fL
(81.0-99.0)
MCH 31.9 H pg
(27.0-31.0)
MCHC 31.6 L g/dL
(33.0-37.0)
RDW 18.5 H %
(11.5-14.5)
Abs Immat Gran (auto) 0.1 H 10^3/uL
(0-0.05)
Absolute Neuts (auto) 8.1 H 10^3/uL
(1.4-6.5)
Absolute Monos (auto) 0.9 H 10^3/uL
(0.1-0.6)
Immature Gran % 0.7 H %
(0-0.5)
Lymphocytes % 18.7 L %
(20.5-51.1)
PT 18.2 H Sec
(11.4-14.6)
Potassium 3.2 L mmol/L
(3.5-5.1)
BUN 2 L mg/dl
(7-17)
Creatinine 0.4 L mg/dL
(0.6-1.0)
Calcium 7.7 L mg/dl
(8.4-10.2)
Total Bilirubin 4.5 H mg/dl
(0.2-1.3)
AST 92 H U/L
(14-36)
Alkaline Phosphatase 191 H U/L
(38-126)
Total Protein 6.2 L g/dl
(6.3-8.2)
Albumin 2.5 L g/dl
(3.5-5.0)
12/09/24 11:33
12/09/24 12:00
Vital Signs
Initial and Last Documented VS:
Initial Vital Signs
Temp Pulse Resp BP Pulse Ox
98.8 F 94 16 110/81 99
12/09/24 10:27 12/09/24 10:27 12/09/24 10:27 12/09/24 10:27 12/09/24 10:27
Last Documented Vital Signs
Temp Pulse Resp BP Pulse Ox
98.8 F 96 20 112/62 99
12/09/24 10:27 12/09/24 15:45 12/09/24 15:45 12/09/24 15:00 12/09/24 15:45
MDM/Problems Addressed
Differential Diagnosis Includes:
Recurrent pneumonia, bronchitis, pulmonary embolism, pneumothorax, asthma exacerbation, COPD
MDM/Problems Addressed:
Bronchitis versus pneumonia, cough, bilateral flank pain related to coughing
*Radiology
Radiology exam reviewed: preliminary read by ED provider (No pneumothorax noted) and radiology read reviewed
*Pulse Oximetry
Patient hypoxic: no
*EKG
Interpreted by ED Provider?: Yes
Interpretation: normal
Rate: normal
Rhythm: sinus
Crane: normal axis
Ischemia: non-specific ST changes
*Administrative Office Manager Interpretation
Rate: normal
Interpretation: normal
Rhythm: sinus
*Critical Care Note
Total Time (30-74mins, 75-104mins- exclusive of procedures): Not Applicable
Data Reviewed
Source: patient
Further Testing Considered But Not Given:
Considered blood cultures the patient afebrile. No left shift
Patient Management
Escalation/DeEscalation of care consider admission/obs:
Patient quite stable over her course in the emergency department. Her pulse ox and respiratory rate were normal. Her heart rate is normal. No pulmonary embolism. CT noted. Will cover with course of steroids and antibiotics but refer for
outpatient follow-up. May need pulmonology follow-up symptoms persist. Counseled on importance of smoking and alcohol cessation.
ED Attending Note
-
Portions of this chart may have been created with voice recognition software.� Occasional wrong word or��sound alike� substitutions may have occurred due to the inherent limitations of voice recognition software.
Discharge Plan
Departure
Patient Disposition: Home (Routine Discharge)
Date of Disposition: 12/09/24
Time of Disposition: 15:49
Patient with high blood pressure during this ER visit?: No
Discharge Problem:
pneumonitis vs pneumonia
Instructions: Cough in adults, Shortness of Breath (Dyspnea) (DC)
Prescriptions:
New
levofloxacin 500 mg tablet
500 mg PO DAILY 10 Days Qty: 10 0RF
prednisone 10 mg Tablet
See Rx Instructions .ROUTE .COMPLEX Qty: 45 0RF
Rx Instructions:
Take By Mouth:
50 mg daily x3 days, 40 mg daily x3 days,
30 mg daily x3 days, 20 mg daily x3 days,
10 mg daily x3 days
potassium chloride 20 mEq tablet,ER particles/crystals
20 meq PO DAILY Qty: 5 0RF
No Action
budesonide-formoterol [Symbicort] 80-4.5 mcg/actuation Hfa Aerosol Inhaler
2 inh INHALATION R BID
quetiapine [Seroquel] 25 mg Tablet
25 mg PO HS
venlafaxine [Effexor XR] 150 mg Capsule,Extended Release 24hr
150 mg PO DAILY
spironolactone 25 mg Tablet
25 mg PO DAILY
lisinopril 10 mg Tablet
10 mg PO DAILY
gabapentin 300 mg Capsule
300 mg PO BID
folic acid 1 mg Tablet
1 mg PO DAILY
buspirone 15 mg Tablet
15 mg PO BID
melatonin 10 mg Tablet
10 mg PO HSPRN PRN (Reason: mild pain)
magnesium oxide 400 mg magnesium tablet
400 mg PO DAILY Qty: 5 0RF
ferrous sulfate [FeroSul] 325 mg (65 mg iron) Tablet
325 mg PO Q48H Qty: 14 0RF
pantoprazole 40 mg Tablet,Delayed Release (Dr/Ec)
40 mg PO BID Qty: 60 1RF
thiamine HCl (vitamin B1) 100 mg Tablet
100 mg PO DAILY Qty: 7 0RF
Referrals:
Sunil Connors MD [Active] -
Daniel Clancy MD [Family Provider] -
Activity Restrictions/Additional Instructions:
Please see your doctor in the next 48 hours for follow-up and reevaluation. Return immediately for chest pain, shortness of breath, coughing up blood, worsening symptoms, fevers or any other concerns. Please continue to use your albuterol as
needed and use your Symbicort daily.
Interventions
Interventions:
*Risk Screen - Suicide Last Done: 12/09/24 10:27
*General Assessment Last Done: 12/09/24 11:24
*Neglect/Abuse Screening Last Done: 12/09/24 10:27
ED- Fall Risk Assessment Last Done: 12/09/24 11:44
*ED COVID-19 Vaccine History Last Done: 12/09/24 11:24
*Nursing Disposition Last Done: 12/09/24 16:18
ED- Cardiac Assessment Last Done: 12/09/24 11:43
ED- Pulmonary Assessment Last Done: 12/09/24 11:43
Discharge Date and Time
Discharge Date/Time: 12/09/24 16:18
Print Language: [id number]
[2024-12-09] MEDS: DELTASONE 50 MG PO (16:00)
[2024-12-09] MEDS: LEVAQUIN 500 MG PO (16:00)
== END 2024-12-09 16:18 | disposition home or self-care (01) ==
LOC: EMR 09:57
PROVIDERS: Emergency Medicine; EMERGENCY PHYSICIAN Emergency Medicine; FAMILY PHYSICIAN Family Medicine
DX: R05.9 Cough, unspecified (principal); R50.9 Fever, unspecified; R07.89 Other chest pain; F17.200 Nicotine dependence, unspecified, uncomplicated; J45.909 Unspecified asthma, uncomplicated; Z87.01 Personal history of pneumonia (recurrent)
CPT/HCPCS: 99285; 96374; 96375; 96361; 71046; 71275; 80053; 85025; 85610; 93005; Q9967

== ENCOUNTER 2025-01-25 23:13 | Inpatient (IN) | payer OTHER, SELFPAY ==
[2025-01-25 17:40] VITALS: BP 128/72
[2025-01-25 18:07] VITALS: BP 97/84; BMI 47.5
[2025-01-25 18:42] LABS: % Basophils 0.2 % (0-2); % Eosinophils 0.2 % (0-6); % Immature Granulocytes 1.3 % (0-0.5); % Lymphocytes 17.4 % (20.5-51.1); % Monocytes 8.9 % (1.7-9.3); Absolute Immature Granulocytes 0.2 10^3/uL (0-0.05); Absolute Lymphocytes 2.1 10^3/uL (1.2-3.4); Absolute Monocytes 1.1 10^3/uL (0.1-0.6); Absolute Neutrophils 8.7 10^3/uL (1.4-6.5); Hematocrit 30.9 % (37.0-47.0); Hemoglobin 9.9 g/dL (12.0-16.0); Mean Corpuscular Hgb 30.6 pg (27.0-31.0); Mean Corpuscular Volume 95.4 fL (81.0-99.0); Mean Platelet Volume 10.7 fL (7.4-10.4); Nucleated Red Blood Cells % 0 %; Platelet Count 83 10^3/uL (130-400); Red Blood Cell Count 3.24 10^6/uL (4.20-5.40); Red Cell Dist. Width 17.4 % (11.5-14.5); White Blood Cell Count 12.1 10^3/uL (4.8-10.8)
--- NOTE | 2025-01-25 18:46 | ED.GENMED ---
History of Present Illness
General
Chief Complaint: Abdominal Pain
Time Seen by Provider: 01/25/25 18:03
History of Present Illness
History of Present Illness:
34-year-old female with history of alcoholic gastritis, pancreatitis, obesity, gastric ulcer presenting for upper abdominal pain and nausea with belching. Patient reports symptoms since yesterday. Does note that she drank yesterday, has been
trying to drink only every other day as opposed to every day, reports chronic alcohol issues. Denies fever or chest pain. Pain radiates to her back. Also reports cough. She notes nausea with some vomiting. Reports history of cholecystectomy in
the past. Denies complaints. Denies fever. Reports that she has had this pain in the past, has had to come to the hospital. Denies additional acute medical complaints
Past History
Past History
ED Past Medical History: Asthma and Other (COVID-19, alcohol abuse)
ED Past Surgical History: Tonsilectomy
Social History
Tobacco: Smoker
Alcohol: Daily
Phy Exam
Physical Exam
Physical Exam:
General: Well-appearing, no clinical signs of dehydration, nontoxic and in no acute distress. Morbidly obese
HEENT: protecting airway, scleral icterus
Neck: appears supple
CV: Normal heart rate, regular rhythm
Resp: No accessory muscle use, no increased work of breathing, lungs clear to auscultation bilaterally
Abd: Soft and non-distended, focal tenderness to epigastric, right upper quadrant, left upper quadrant abdomen without rebound or guarding
Extremities: No deformities, no swelling
Neuro: alert, no focal neurologic deficit
: deferred
Rectal: deferred
Psych: Normal affect
Skin: Intact
Course
Orders/Labs/Results
Orders:
Orders
01/25/25 17:39
Electrocardiogram (*1) Urgent
Reason for Study: Abdominal Pain
EKG- Treatment ONCE
01/25/25 18:10
Test Result ONCE
01/25/25 18:15
COVID-19 Antigen Urgent
Source: Nasal Swab
INF RAPID [Influenza A+B Rapid Molecular] Urgent
RUDY Source: Nasal Swab
Specimen Description:
01/25/25 18:20
Complete Blood Count/With Diff Urgent
Comprehensive Metabolic Panel Urgent
HCG, Serum Qualitative Screen Urgent
Lipase Urgent
Comment: ADD ON
01/25/25 18:32
Add On- LAB Urgent
Tests Added?: lipase
0.9% Sodium Chloride 1000 ml [Nss] 1,000 ml IV BOLUS
Famotidine [Pepcid] 20 mg IV NOW STA
Morphine Sulfate 4 mg IV NOW STA
Ondansetron Injectable [Zofran] 4 mg IV NOW STA
CR Chest - 2 Views Urgent
Comment:
Reason For Exam: cough
01/25/25 19:22
CT Abd/pelvis W Iv Cont Urgent
Comment:
Reason For Exam: N/V, upper pain, elevated t.bili, jaundice
01/25/25 20:54
HYDROmorphone [Dilaudid] 1 mg IV NOW STA
01/25/25 21:50
0.9% Sodium Chloride 1000 ml [Nss] 1,000 ml IV BOLUS
Ketorolac [Toradol] 15 mg IV NOW STA
Ondansetron Injectable [Zofran] 4 mg IV NOW STA
01/25/25 22:15
Prothrombin Time Urgent
Abnormal Lab Results
01/25/25
18:20
WBC 12.1 H 10^3/uL
(4.8-10.8)
RBC 3.24 L 10^6/uL
(4.20-5.40)
Hgb 9.9 L g/dL
(12.0-16.0)
Hct 30.9 L %
(37.0-47.0)
MCHC 32.0 L g/dL
(33.0-37.0)
RDW 17.4 H %
(11.5-14.5)
Plt Count 83 L 10^3/uL
(130-400)
MPV 10.7 H fL
(7.4-10.4)
Abs Immat Gran (auto) 0.2 H 10^3/uL
(0-0.05)
Absolute Neuts (auto) 8.7 H 10^3/uL
(1.4-6.5)
Absolute Monos (auto) 1.1 H 10^3/uL
(0.1-0.6)
Immature Gran % 1.3 H %
(0-0.5)
Lymphocytes % 17.4 L %
(20.5-51.1)
Sodium 133 L mmol/L
(135-145)
Total Bilirubin 9.4 H mg/dl
(0.2-1.3)
AST 81 H U/L
(14-36)
Alkaline Phosphatase 164 H U/L
(38-126)
Total Protein 6.2 L g/dl
(6.3-8.2)
Albumin 2.7 L g/dl
(3.5-5.0)
01/25/25 18:20
01/25/25 18:20
Vital Signs
Initial and Last Documented VS:
Initial Vital Signs
Temp Pulse Resp BP Pulse Ox
98.5 F 102 16 128/72 98
01/25/25 17:40 01/25/25 17:40 01/25/25 17:40 01/25/25 17:40 01/25/25 17:40
Last Documented Vital Signs
Temp Pulse Resp BP Pulse Ox
98.1 F 92 21 109/54 97
01/25/25 21:03 01/25/25 22:00 01/25/25 22:00 01/25/25 22:00 01/25/25 19:00
MDM/Problems Addressed
MDM/Problems Addressed:
34-year-old female with history of alcoholic gastritis, pancreatitis, obesity presenting for upper abdominal pain, nausea, vomiting, cough. Vital signs on arrival are normal.
On exam, patient is in no acute distress, however is symptomatic, belching. She has generalized tenderness to the upper abdomen. Given her history and admission that she has been drinking, suspected related to alcoholism. Possible pancreatitis
versus peptic ulcer disease versus gastritis. Patient with history of cholecystectomy in the past without concern for cholecystitis. She does note cough and right-sided back pain, possible pneumonia. Will obtain laboratory and chest x-ray
imaging. Will treat patient with antiemetics, IV fluids, Pepcid and reassess for improvement
19:20 -lipase is normal. No significant transaminitis, mild elevation of AST. However T. bili is markedly elevated at 9.4. Patient does have some jaundice on exam and scleral icterus. Plan for CT imaging
22:20 -chest x-ray without acute cardiopulmonary disease. CT scan does show hepatomegaly, without any intrahepatic biliary duct dilatation. No focal right upper quadrant tenderness with lower suspicion for choledocholithiasis, however T. bili has
nearly doubled since November. In discussion with GI, given acute abnormality of T. bili, plan for admission for MRCP
*Critical Care Note
Total Time (30-74mins, 75-104mins- exclusive of procedures): Not Applicable
ED Attending Note
-
Portions of this chart may have been created with voice recognition software.� Occasional wrong word or��sound alike� substitutions may have occurred due to the inherent limitations of voice recognition software.
Discharge Plan
Departure
Patient with high blood pressure during this ER visit?: No
Condition: Good
Discharge Problem:
Acute alcoholic gastritis
Instructions: Acid Reflux and GERD in Adults (DC), Gastritis (DC)
Prescriptions:
New
ondansetron 4 mg Tablet,Disintegrating
4 mg PO TIDPRN PRN (Reason: nausea/vomiting) Qty: 6 0RF
No Action
budesonide-formoterol [Symbicort] 80-4.5 mcg/actuation Hfa Aerosol Inhaler
2 inh INHALATION R BID
gabapentin 300 mg Capsule
300 mg PO BID
folic acid 1 mg Tablet
1 mg PO DAILY
buspirone 15 mg Tablet
15 mg PO BID
melatonin 10 mg Tablet
10 mg PO HS
pantoprazole 40 mg Tablet,Delayed Release (Dr/Ec)
40 mg PO BID Qty: 60 1RF
Referrals:
Sergio Mosquera MD [Active] -
Devorah Norris MD [Family Provider] -
Activity Restrictions/Additional Instructions:
You were seen in the emergency department for abdominal pain, nausea, vomiting
You were found to have slight elevation of your liver enzymes, as well as your bilirubin. We suspect this is secondary to liver disease from chronic alcohol abuse. We recommend that you stop drinking. We suspect that your symptoms are from
gastric irritation and gastric reflux. Please follow-up closely with a manager culture.
Please follow-up closely with your primary care physician.
Return to the emergency department for any worsening of your symptoms, or any development of chest pain, difficulty breathing, abdominal pain with persistent vomiting and inability to tolerate food or liquid by mouth (concern for dehydration),
weakness, headache or confusion, fever greater than 100.4, or any additional symptoms that are concerning to you.
Thank you for choosing [facility].
Interventions
Interventions:
*Risk Screen - Suicide Last Done: 01/25/25 18:07
*General Assessment Last Done: 01/25/25 18:07
*Neglect/Abuse Screening Last Done: 01/25/25 18:07
ED- Fall Risk Assessment Last Done: 01/25/25 18:07
*ED COVID-19 Vaccine History Last Done: 01/25/25 18:07
PU-Hvmhto-Uyftcxvkpy Assessment Last Done: 01/25/25 19:14
Discharge Date and Time
Print Language: NORWEGIAN
[2025-01-25] MEDS: ZOFRAN 4 MG IV ×2 (18:49→21:54)
[2025-01-25] MEDS: NSS 1000 IV ×2 (18:49→21:54)
[2025-01-25] MEDS: MORPHINE SULFATE 4 MG IV (18:50)
[2025-01-25 18:51] LABS: COVID-19 Antigen Negative (Negative)
[2025-01-25] MEDS: PEPCID 20 MG IV (18:51)
[2025-01-25 18:56] LABS: HCG, Serum Qualitative Screen Negative
[2025-01-25 18:58] LABS: ALT (SGPT) 15 U/L (0-35); AST (SGOT) 81 U/L (14-36); Albumin 2.7 g/dl (3.5-5.0); Alkaline Phosphatase 164 U/L (38-126); Blood Urea Nitrogen 8 mg/dl (7-17); Calcium 8.6 mg/dl (8.4-10.2); Carbon Dioxide 26 mmol/L (22-30); Chloride 100 mmol/L (98-107); Estimated Creatinine Clearance > 125 ml/min; Glucose 85 mg/dl (70-99); Lipase 26 U/L (23-300); Potassium 4.1 mmol/L (3.5-5.1); Sodium 133 mmol/L (135-145); Total Bilirubin 9.4 mg/dl (0.2-1.3); Total Protein 6.2 g/dl (6.3-8.2); eGFR > 60.00
[2025-01-25 19:00] VITALS: BP 120/60
[2025-01-25 21:03] VITALS: BP 104/49
[2025-01-25] MEDS: DILAUDID 1 MG IV (21:04)
[2025-01-25] MEDS: TORADOL 15 MG IV (21:57)
[2025-01-25 22:00] VITALS: BP 109/54
--- NOTE | 2025-01-25 22:43 | HPS.HSE ---
Family Physician
-
Family Physician: Devorah Norris
Chief Complaint
-
upper abdominal pain
History of Present Illness
34-year-old female with history of alcoholic gastritis, pancreatitis, obesity, gastric ulcer presenting for upper abdominal pain and nausea. patient stated, pain started yesterday. her pain is on the right upper quadrant radiating to right upper
back and radiating down. patient has been very nauseous. she has blood in the bowel movement but she has hemorrhoids. denied vomit or diarrhea. patient complained of pain across the chest associated with sob.denied RUBIO,dizzy or syncope. denied
fever, chills. denied dysuria or hematuria. patient stated worsening of LE edema.
she was noted to have elevated T bili. GI recommended MRCP in am . Patient received Pepcid, Dilaudid, Toradol, morphine, normal saline x 2 bag, Zofran in the ER
Admitting for further management
Medical History
Past Medical History
Past Medical History: Reports Other
Additional Past Medical History:
asthma
alcohol abuse
htn
anxisety
alcoholic pancreatitis
Past Surgical History: Reports None
Social History
Tobacco: Smoker (5 to 6 cigarettes daily)
Alcohol: Daily
Drug: None
Living: With Family
Family History
Family History: Not pertinent
Allergies / Home Medications
Allergies reflects when Allergies were last updated in [facility].
Home Medications with original date entered in [facility]
Allergy/Medication List:
Allergies
Allergy/AdvReac Type Severity Reaction Status Date / Time
Penicillins Allergy Unknown Verified 01/25/25 19:09
Sulfa (Sulfonamide Allergy Unknown Verified 01/25/25 19:09
Antibiotics)
Home Medications
budesonide-formoterol HFA 80 mcg-4.5 mcg/actuation aerosol inhaler (Symbicort) 2 inh inhalation R BID Lung/Breathing Issues 09/27/24
buspirone 15 mg tablet 15 mg PO BID Mental Health/Anxiety 09/27/24
folic acid 1 mg tablet 1 mg PO DAILY Supplement 09/27/24
gabapentin 300 mg capsule 300 mg PO BID Neurological Condition 09/27/24
melatonin 10 mg tablet 10 mg PO HS 09/27/24
pantoprazole 40 mg tablet,delayed release 40 mg PO BID #60 tabs 10/03/24
ondansetron 4 mg disintegrating tablet 4 mg PO TIDPRN PRN nausea/vomiting #6 tabs 01/25/25
Review of Systems
-
Constitutional: Reports No Symptoms
EENT: Reports No Symptoms
Respiratory: Reports No Symptoms and Trouble Breathing
Cardiac: Reports Chest Pain
Abdomen/GI: Reports Abdominal Pain and Nausea
: Reports No Symptoms
Musculoskeletal: Reports Other (Lower extremity)
Skin: Reports No Symptoms
Neurological: Reports No Symptoms
Endocrine: Reports No Symptoms
Hematologic/Lymphatic: Reports No Symptoms
Psych: Reports No Symptoms
Physical Exam
Vital Signs
Vital Signs
Temp Pulse Resp BP Pulse Ox
98.1 F 92 21 109/54 97
01/25/25 21:03 01/25/25 22:00 01/25/25 22:00 01/25/25 22:00 01/25/25 19:00
Physical Exam
General: Well Developed, Well Nourished and No Apparent Distress
HEENT: NormoCephalic, Moist mucous membranes and Atraumatic
Respiratory: Clear
Cardiac: S1/S2 and Regular Rhythm; No Murmur or Rub
GI: Soft, Non Tender, Non Distended and Normal Bowel Sounds; No Organomegaly
Rectal: Deferred by Provider
Musculoskeletal: No Clubbing, No Cyanosis, No Edema and Other (Bilateral lower extremities edema noted)
Skin: No Rash
Neuro: AO x 3 and Nonfocal/grossly intact
Psych: Calm
Laboratory Results
-
01/25/25 18:20
01/25/25 18:20
Laboratory Results
Total Bilirubin 9.4 mg/dl (0.2-1.3) H 01/25/25 18:20
AST 81 U/L (14-36) H 01/25/25 18:20
ALT 15 U/L (0-35) 01/25/25 18:20
Alkaline Phosphatase 164 U/L (38-126) H 01/25/25 18:20
Lipase 26 U/L (23-300) 01/25/25 18:20
Data Reviewed
-
Diagnostic Radiology: Report Reviewed by me
Lab Data: Labs Reviewed by me
Impression/Plan
-
##generalized upper abdominal and back pain
#concern for alcohol hepatitis
-T bili 9.4,ast 81
-CT with hepatomegaly and some mild ascites
-MRCP In am
-clear liquid diet, advance as tolerated
-aztreonam added for SBP prophylaxis
#alcohol abuse
-Last drink was yesterday
-Alcohol protocol
-Monitor MSAS score
#leukocytosis
-wbc 12.1
-ctm
#anemia of chronic disease
#acute thrombocytopenia
-hgb 9.9,platelets 83
-no active bleeding
-ctm
#anxiety
-Buspirone continued
#neuropathy
-Gabapentin continued
# History of alcoholic gastritis
-PPI continued
# Nicotine dependence
-6 to 8 cigarettes daily
-Nicotine patch
#asthma
-Patient is not in exacerbation
-Symbicort continued
# DVT prophylaxis
-SCDs
# CODE STATUS full code
-Full code
[2025-01-25 22:50] LABS: INR 1.77; PT 20.8 Sec (11.4-14.6)
[2025-01-25 23:00] VITALS: BP 97/49
--- NOTE | 2025-01-25 23:20 | EDRN ---
Per Nkechi Werner, alcohol, mag, phosphorus, ggtp and b-hydroxybutyrate can be added to lab work collected earlier in ED. Confirmed with lab they can be run on earlier sst specimen.
--- NOTE | 2025-01-25 23:20 | W.PN.UPDATE ---
Update Note
Progress Note Update
This note serves as an addendum to the H&P by speech therapist technician FERNANDO
Nkechi PERCY
HPI
33F Obese HX Severe ETOH use disorder , HX ETOH pancreatitis, Abn LFTS ( elevated TB, Transaminitis, elevated AKP) smal non bleeding ( EGD, Novemeber 2023) HTN, Annxiety/depression seen at ER
- for upper abdominal pain and nausea with belching since yesterday
- abdominal pain with radiation to back; Nl lipase
- last ETOH was 5 - 6 shots of hard liquor yesterday
- nausea with some vomiting.
HX cholecystectomy
Denies fever.
PHX; as above
Vital Signs
Temp Pulse Resp BP Pulse Ox
98.1 F 88 15 97/49 97
01/25/25 21:03 01/25/25 23:00 01/25/25 23:00 01/25/25 23:00 01/25/25 19:00
PE
Gen: looks toxic
HEENT: icteric sclera , puffy face
Neck: supple
Lungs: CTA
Cor: Borderline ST
Abdomen: obese abdomen, firm abdomen and diffusely tender
CENTRAL SERVICE TECH: lethargic
MS: b/l Jihan edema
Psych: looks exhausted
Laboratory Tests
12/09/24 12/09/24 01/25/25
11:33 12:00 18:20
WBC 12.1 H
Hgb 10.1 L 9.9 L
MCV 95.4
Plt Count 83 L
INR 1.49 Pending
Creatinine 0.6
eGFR > 60.00
Total Bilirubin 4.5 H 9.4 H
AST 81 H
ALT 15
Albumin 2.[address] AP night hawk report
prominent hepatic steatosis
Mild hepatomegaly
No IHD dilatation
Cholecystectomy
Mild splenomegaly
Mild ascites
No BWO
Mild stool in colon
Last hospitalist admission: Date of Admission: 09/27/24 - Date of Discharge: 10/03/24
1. Abdominal pain with subjective upper abd swelling
2. Small, non-bleeding gastric ulcer with a clean ulcer base (Artur Class III) in the pre-pyloric region in EGD
3. Severe Iron Deficiency Anemia - multifactorial - either dysmenorrhea or PUD
4. Elevated bili
5. Transaminitis
ASSESSMENT & PLAN
Acute abdominal pain with nausea and barbing with clinically firm abdomen
DDX: SBP, acute ETOH hepatitis, ETOH Gastritis, Portal gastropathy , Peptic ulcer dz, chronic pancreatitis,
Interval worsening of hyperbilirubinemia, elevated PT => DF 27 given PT 18, TB 9.4
Transaminitis with reversed ALT and AST ratio
Nl Lipase
- CT suggest prominent hepatic steatosis, mild hepatomegaly, no IHD dilatation
- Clear diet and ADAT
- PRN Narcotic analgesia
- minimal ascites complicated by SBP : Empiric IV IV Aztreonam and IV Metronidazole due to PCN alergy
- IV PPI daily
- Trend LFTs
- MRCP per GI
- ID and GI consulted
Acute ETOH hepatitis ( Reversed AST and ALT ratio)
Suspect chronic ETOH liver dz with splenomegaly, mild ascited suggest portal HTN
Thrombocytopenia due to hypersplenism
Associated synthetic dysfunction such as coagulopathy , Hypoalbuminemia
Peripheral edema due to 3rd spacing from hypoalbuminemia
- Trend LFTs and platelets
- cessation of ETOH
Severe ETOH use disorder
At risk for WDS
Tachycardia upon admission
- ETOH WD prevention protocol
Normocytic anemia
- Stable Hgb ( 10.1 - 9.9)
- Would not check ferritin ( inflammatory marker) - can falsely elevated due to hepatitis
Essential HTN
HX Lisinopril and Aldactone
- no longer on Aldactone and lisinopril suspect non complaince
Depression/anxiety
- BUILD TECHNICIAN BuSpar
DVT Px: SCD
Full code
IMU
[2025-01-25] MEDS: FLAGYL 500 MG 100 IV (23:26)
[2025-01-25 23:49] LABS: Urine Albumin 2+ (Neg - Trace); Urine Bilirubin 3+ (Negative); Urine Character Clear (Clear); Urine Color Amber; Urine Glucose Negative (Negative); Urine Ketone Negative (Negative); Urine Leukocyte 2+ (Negative); Urine Nitrite Positive (Negative); Urine Occult Blood 2+ (Negative); Urine Urobilinogen 2+ (Neg - 1+)
[2025-01-25 23:56] LABS: GGTP 302 U/L (12-43); Magnesium 1.7 mg/dl (1.6-2.3); Phosphorus 2.9 mg/dl (2.5-4.5)
[2025-01-25 23:59] LABS: Urine Squamous Cell 26-30 /LPF (Few)
[2025-01-26] VITALS (10 sets, daily range): BP systolic 90–113; BP diastolic 41–67; BMI 47.3
[2025-01-26] LABS: Alcohol None Detected
[2025-01-26 00:01] LABS: Amphetamines Negative (Negative); Barbiturates Negative (Negative); Benzodiazepines Negative (Negative); Buprenorphine Negative (Negative); Cocaine Negative (Negative); Marijuana Negative (Negative); Methadone Negative (Negative); Methamphetamines Negative (Negative); Opiates Positive (Negative); Phencyclidine Negative (Negative); Tricyclic Antidepressants Negative (Negative); Urine Bacteria Few (Negative); Urine Red Blood Cell 0-2 /HPF (0-2)
[2025-01-26 00:02] LABS: B-Hydroxybutyrate 0.17 mmol/L (0.02-0.27)
[2025-01-26 00:14] LABS: Fentanyl, Urine Negative (Negative)
[2025-01-26] MEDS: AZACTAM 1000 MG IV (00:57)
[2025-01-26] MEDS: STERILE WATER FOR INJECTION 10 ML IV (00:58)
[2025-01-26] MEDS: NICODERM TRANSDERMAL TRANSDERM (03:21)
[2025-01-26] MEDS: DILAUDID 0.5 MG IV ×5 (04:18→21:37)
[2025-01-26 06:24] LABS: Hematocrit 27.3 % (37.0-47.0); Mean Corpuscular Hgb 31.5 pg (27.0-31.0); Mean Corpuscular Volume 95.5 fL (81.0-99.0); Mean Platelet Volume 11.3 fL (7.4-10.4); Platelet Count 74 10^3/uL (130-400); Red Blood Cell Count 2.86 10^6/uL (4.20-5.40); Red Cell Dist. Width 18.4 % (11.5-14.5); White Blood Cell Count 9.9 10^3/uL (4.8-10.8)
[2025-01-26 07:15] LABS: ALT (SGPT) 13 U/L (0-35); AST (SGOT) 73 U/L (14-36); Albumin 2.4 g/dl (3.5-5.0); Alkaline Phosphatase 142 U/L (38-126); Blood Urea Nitrogen 8 mg/dl (7-17); Calcium 8.2 mg/dl (8.4-10.2); Carbon Dioxide 22 mmol/L (22-30); Chloride 103 mmol/L (98-107); Estimated Creatinine Clearance > 125 ml/min; Glucose 81 mg/dl (70-99); Iron 130 ug/dl (37-170); Potassium 4.1 mmol/L (3.5-5.1); Sodium 133 mmol/L (135-145); Total Bilirubin 9.8 mg/dl (0.2-1.3); Total Protein 5.8 g/dl (6.3-8.2); eGFR > 60.00
[2025-01-26 07:24] LABS: Percent Saturation 82 % (20-50); Total Iron Binding Capacity 158 ug/dl (265-497)
[2025-01-26 07:25] LABS: Vitamin B12 773 pg/ml (239-931)
[2025-01-26] MEDS: SYMBICORT 80/4.5 MCG INHALER 2 PUFF INH ×2 (08:33→19:13)
[2025-01-26] MEDS: FLAGYL 500 MG 100 IV ×3 (09:55→23:00)
[2025-01-26] MEDS: THIAMINE INJECTION 200 MG IV ×2 (09:55→19:20)
[2025-01-26] MEDS: PROTONIX IV 40 MG IV ×2 (09:56→19:20)
[2025-01-26] MEDS: NSS (PRESERVATIVE FREE) 10 ML IV ×2 (09:57→19:20)
[2025-01-26] MEDS: FOLVITE 1 MG PO (10:03)
[2025-01-26] MEDS: NICODERM TRANSDERMAL 21 MG TRANSDERM (10:13)
[2025-01-26] MEDS: NEURONTIN 300 MG PO ×2 (10:15→19:20)
[2025-01-26] MEDS: BUSPAR 15 MG PO ×2 (10:46→19:20)
[2025-01-26] MEDS: CIPRO 200 MG 100 IV (11:09)
--- NOTE | 2025-01-26 13:06 | W.PN.HOSP.TC ---
Today's Communication/Plan
-
Assessment / Plan
Assessment / Plan
NAD, on room air
Scleral Anicteric
MMM
No JVD
Pleuritic chest discomfort worse with palpation
CTABL
RRR, S1/S2
Morbidly obese, soft, NT, ND, BS+
Warm, Dry
Pleuritic chest discomfort likely costochondritis
-Secondary to cough that began 3 days ago
-EKG nonischemic
-Chest x-ray without evidence of active cardiopulmonary pathology
-COVID flu negative
-Promethazine and codine (QTc 475)
-Could be a post nasal drip as cough is worse with laying down
Cholestatic injury as or factor is 0.3
-Obtain MRI/MRCP
-GI consulted
-Daily liver studies
Hepatomegaly�severe, severe hepatic fatty infiltration, both breast per CT
-Reinforced alcohol cessation, she ended up saying what this is have to do anything with my cough
-Mild free fluid in the abdomen/pelvis and third spacing.
--As the CT read is not very clear. Will obtain a Abd ultrasound to further assess for ascites.
----If + for ascites then would start SBP ppx (would start Cipro, check QTc) and consult IR for paracentesis.
Right lobe atelectasis versus scarring
-Incentive spirometer
Alcohol use disorder
-Thiamine folate MSAS score as needed Ativan
Normocytic anemia
-Without evidence of bleeding
-Outpatient follow-up and iron panel as healthy
Hyponatremia, euvolemic
-Secondary to alcohol use and poor p.o. intake
-Encourage intake
1.8 cm hypodense renal lesion/benign cyst
-Outpatient follow up
Anticipated Discharge: 24 - 48 hours
Subjective/Interval History
-
Date of Service: January 26, 2025
Seen and examined. MRCP pending.
Continues to have a dry cough. Chest discomfort. Reports producible on palpation as well. Worse with coughing and taking deep breath. Starts from the anterior chest and radiates to her back.
Objective Data
-
Labs:
Laboratory Results
01/26/25
06:02
WBC 9.9
Hgb 9.0 L
Hct 27.3 L
Plt Count 74 L
Sodium 133 L
Potassium 4.1
Chloride 103
Carbon Dioxide 22
BUN 8
Creatinine 0.7
Glucose 81
Calcium 8.2 L
Total Bilirubin 9.8 H
AST 73 H
ALT 13
Alkaline Phosphatase 142 H
Vital Signs:
Vital Signs
Temp Pulse Resp BP Pulse Ox
98.1 F 94 14 101/53 96
01/25/25 21:03 01/26/25 11:06 01/26/25 11:06 01/26/25 08:00 01/26/25 12:00
--- NOTE | 2025-01-26 14:00 | CON.GI ---
Consultation
-
Date/Time Consultation Requested: 01/26/2025
Date/Time Consultation Performed: 01/26/2025
Requesting Provider: Hospitalist
Performing Provider: Hermelindo KHAN
Reason for Consultation: Elevated LFT/ abdominal pain
Medical History
Chief Complaint / HPI
Chief Complaint: Abdominal pain
History of Present Illness:
34-year-old female with history of alcohol abuse, pancreatitis, alcoholic gastritis admitted with severe upper abdominal pain with nausea for 1 day. She described pain in the upper abdomen radiating to her back and radiating to lower abdomen as
well. Denies any vomiting. No fever or chills. Patient also has been having severe cough for the last 2 days with some chest discomfort/shortness of breath. Bowel movements in general regular. She has been having intermittent rectal bleeding
which he attributes to hemorrhoids. She claims she had a colonoscopy 2 years back and was reassured.
Admits to drinking alcohol daily-4-5 shots.
Past Medical History
Past Medical History: Other (asthma alcohol abuse htn anxiety alcoholic pancreatitis)
Social History
Tobacco: Smoker
Alcohol: Daily
Allergies / Home Medications
Allergy/AdvReac Type Severity Reaction Status Date / Time
Penicillins Allergy Unknown Verified 01/25/25 19:09
Sulfa (Sulfonamide Allergy Unknown Verified 01/25/25 19:09
Antibiotics)
�Medication �Instructions �Recorded
budesonide-formoterol HFA 80 2 inh inhalation R BID 09/27/24
mcg-4.5 mcg/actuation aerosol Lung/Breathing Issues
inhaler (Symbicort)
buspirone 15 mg tablet 15 mg PO BID Mental Health/Anxiety 09/27/24
folic acid 1 mg tablet 1 mg PO DAILY Supplement 09/27/24
gabapentin 300 mg capsule 300 mg PO BID Neurological 09/27/24
Condition
melatonin 10 mg tablet 10 mg PO HS 09/27/24
albuterol sulfate 0.63 mg/3 mL 0.63 mg inhalation R Q4HPRN PRN sob 03/02/25
solution for nebulization
naltrexone 50 mg tablet 50 mg PO DAILY 01/26/25
pantoprazole 40 mg tablet,delayed 40 mg PO DAILY 01/26/25
release (Protonix)
Review of Systems
Vital Signs
Temp Pulse Resp BP Pulse Ox
98.1 F 94 14 101/53 96
01/25/25 21:03 01/26/25 11:06 01/26/25 11:06 01/26/25 08:00 01/26/25 12:00
Physical Exam
Exam
General: Well Developed, Well Nourished and Comfortable
Cardiac: S1/S2
GI: Soft, Non Distended and Tender (Nonspecific generalized tenderness)
Neuro: AO x 3
Results
WBC 9.9 10^3/uL (4.8-10.8) 01/26/25 06:02
Hgb 9.0 g/dL (12.0-16.0) L 01/26/25 06:02
Hct 27.3 % (37.0-47.0) L 01/26/25 06:02
MCV 95.5 fL (81.0-99.0) 01/26/25 06:02
Plt Count 74 10^3/uL (130-400) L 01/26/25 06:02
Absolute Neuts (auto) 8.7 10^3/uL (1.4-6.5) H 01/25/25 18:20
PT 20.8 Sec (11.4-14.6) H 01/25/25 18:20
INR 1.77 01/25/25 18:20
Sodium 133 mmol/L (135-145) L 01/26/25 06:02
Potassium 4.1 mmol/L (3.5-5.1) 01/26/25 06:02
Chloride 103 mmol/L (98-107) 01/26/25 06:02
Carbon Dioxide 22 mmol/L (22-30) 01/26/25 06:02
BUN 8 mg/dl (7-17) 01/26/25 06:02
Creatinine 0.7 mg/dL (0.6-1.0) 01/26/25 06:02
Calcium 8.2 mg/dl (8.4-10.2) L 01/26/25 06:02
Total Bilirubin 9.8 mg/dl (0.2-1.3) H 01/26/25 06:02
AST 73 U/L (14-36) H 01/26/25 06:02
ALT 13 U/L (0-35) 01/26/25 06:02
Alkaline Phosphatase 142 U/L (38-126) H 01/26/25 06:02
Lipase 26 U/L (23-300) 01/25/25 18:20
Diagnostic Image Results:
Prior GI Procedures:
EGD: 09/30/2024
Impression: - Small, non-bleeding gastric ulcer with a clean ulcer
base (Artur Class III) found in the pre-pyloric
region. Biopsied.
- Otherwise, normal stomach on direct and retroflexion
views. Biopsied to r/o H pylori.
- Mucosal changes in the duodenum with flat white
spots. Biopsied to r/o Celiac.
- Small hiatal hernia
- Normal esophagus
- The examination was otherwise normal.
Bx negative for H.pylori
Colonoscopy: As per patient few years back ? Mario. No records available
Assessment / Plan
-
34-year-old female with history of alcohol abuse, alcohol related gastritis/ulcer, pancreatitis admitted with severe upper abdominal pain with nausea. She described pain radiation to the back and lower abdomen. Admits to drinking alcohol daily-4-5
shots of alcohol. Evaluated by GI 09/2024 when she was admitted to the hospital at that time and underwent EGD.
labs in ED this admission�AST 81/ALT 15/alkaline phosphatase 164/total bilirubin 9.4. Lipase 26. CT abdomen/pelvis with IV contrast�no acute pathology. Severe hepatomegaly/mild splenomegaly/mild free fluid in the abdomen and pelvis.
-- Abdominal pain/nausea/elevated liver test/alcohol abuse -CT abd imaging-no acute pathology. Last EGD 09/2024 for similar presentation-small gastric ulcer. Possible differential for her dapmudoy-aftbsgu-pyrjbgy gastritis versus peptic ulcer
disease versus rule out CBD stone with worsening LFT. Likely component of alcoholic hepatitis. Currently DF > 45. INR was 1.77. Will give vitamin K and repeat INR with history of alcohol abuse. Will hold off on steroids for now (patient also
reports severe cough/shortness of breath-Chest x-ray negative admission. COVID/ flu negative/admission labs leukocytosis)
-- Fatty liver
-- Chronic anemia. Patient reports intermittent rectal bleeding which she attributes to her hemorrhoids. Patient claims she had a colonoscopy few years back at outside facility and was reassured. Abnormal CT findings 09/2024-submucosal fatty
deposition in the cecum and ascending colon. Nonspecific chronic inflammation .
-- Thrombocytopenia-likely secondary to alcohol abuse
-- Hypoalbuminemia
plan
Continue PPI twice daily
Will obtain MRI MRCP
Trend LFT/ PT/ INR
Recommend ultrasound abdomen to evaluate for ascites
Alcohol withdrawal protocol as per medical team
Reinforced on alcohol abstinence in the future
Will recommend outpatient follow-up for anemia/intermittent rectal bleeding. Need to obtain prior GI records
Total Time Spent with Patient (in minutes): 55
-
-
Thank you for consultation and allowing me to participate in the patient's care. Please call the applications system analyst GI physician during the after hours with any questions or concerns.
[2025-01-26 14:43] LABS: Absolute Neutrophils -Man Diff 6.9 10^3/uL (1.4-6.5); Band Neutrophils 2 % (0-3); Lymphocytes 23 % (20-51); Monocytes 7 % (2-9); Normal RBC Morphology No; Platelets Checked Yes; Segmented Neutrophils 68 % (42-75)
[2025-01-26 14:45] LABS: Anisocytosis 1+; Hypochromasia 1+; Ovalocytes 1+; Polychromasia 1+; Target Cells 1+
[2025-01-26 14:46] LABS: Total Cells Counted 100
[2025-01-26] MEDS: MEPHYTON 10 MG PO (15:18)
--- NOTE | 2025-01-26 16:35 | PTCARENOTE ---
Pt admitted from ER> VSS pt oriented to the floor. PT aaox3 and understands how to call for nurse and agreed to call me if she needed assistance.
[2025-01-26] MEDS: DUONEB 3 ML INH (19:13)
[2025-01-26] MEDS: PHENERGAN WITH CODEINE SYRUP 5 ML PO (19:20)
[2025-01-26] MEDS: MELATONIN 10 MG PO (21:36)
[2025-01-27] MEDS: DILAUDID 0.5 MG IV ×4 (01:55→17:46)
[2025-01-27 03:11] VITALS: BP 106/58
[2025-01-27 05:06] VITALS: BMI 47.8
[2025-01-27] MEDS: SYMBICORT 80/4.5 MCG INHALER 2 PUFF INH ×2 (05:36→17:37)
[2025-01-27] MEDS: DUONEB 3 ML INH ×3 (05:36→17:36)
[2025-01-27 07:05] VITALS: BP 103/51
[2025-01-27 07:07] LABS: INR 1.64; PT 19.7 Sec (11.4-14.6)
[2025-01-27 07:18] LABS: Hematocrit 25.4 % (37.0-47.0); Hemoglobin 8.6 g/dL (12.0-16.0); Mean Corp Hgb Conc. 33.9 g/dL (33.0-37.0); Mean Corpuscular Hgb 31.7 pg (27.0-31.0); Mean Corpuscular Volume 93.7 fL (81.0-99.0); Mean Platelet Volume 12.6 fL (7.4-10.4); Platelet Count 107 10^3/uL (130-400); Red Blood Cell Count 2.71 10^6/uL (4.20-5.40); Red Cell Dist. Width 18.2 % (11.5-14.5); White Blood Cell Count 10.4 10^3/uL (4.8-10.8)
[2025-01-27] MEDS: PROTONIX IV 40 MG IV ×2 (08:57→19:17)
[2025-01-27] MEDS: NSS (PRESERVATIVE FREE) 10 ML IV ×2 (08:57→19:17)
[2025-01-27] MEDS: BUSPAR 15 MG PO ×2 (08:58→19:17)
[2025-01-27] MEDS: NICODERM TRANSDERMAL 21 MG TRANSDERM (08:58)
[2025-01-27] MEDS: FLAGYL 500 MG 100 IV (08:58)
[2025-01-27] MEDS: NEURONTIN 300 MG PO ×2 (08:58→19:17)
[2025-01-27] MEDS: FOLVITE 1 MG PO (08:58)
[2025-01-27] MEDS: THIAMINE INJECTION 200 MG IV ×2 (08:58→19:17)
[2025-01-27] MEDS: PHENERGAN WITH CODEINE SYRUP 5 ML PO ×2 (09:09→19:00)
[2025-01-27 09:57] VITALS: BP 108/53; BP_SYST 97
[2025-01-27] MEDS: DUONEB INH ×2 (10:05→13:50)
[2025-01-27 10:22] LABS: ALT (SGPT) 13 U/L (0-35); AST (SGOT) 66 U/L (14-36); Albumin 2.3 g/dl (3.5-5.0); Alkaline Phosphatase 134 U/L (38-126); Blood Urea Nitrogen 10 mg/dl (7-17); Calcium 8.3 mg/dl (8.4-10.2); Carbon Dioxide 21 mmol/L (22-30); Chloride 99 mmol/L (98-107); Estimated Creatinine Clearance > 125 ml/min; Glucose 91 mg/dl (70-99); Potassium 3.9 mmol/L (3.5-5.1); Sodium 131 mmol/L (135-145); Total Bilirubin 10.8 mg/dl (0.2-1.3); eGFR > 60.00
[2025-01-27 10:58] VITALS: BP 117/58
--- NOTE | 2025-01-27 12:36 | CM ---
Received consult for ETOH/Substance Counseling. Met with patient to obtain information for assessment. Patient stated that she lives with her two children ages 11 and 13 in a single two story home with 3 steps to enter. Her mother is watching her
kids while she is admitted. Patient described herself as independent with her ADLs, personal care, dressing and bathing. 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 She drives and can get to all of her appointments and
do all of her own shopping.
She has not has VN services. She has never been to a SNF.
Patient has a prescription plan and uses [facility] in [place] for all of her medications.
Patient's PCP is, Mary Ann Gtz.
Patient denied resources for ETOH/Substance counseling. Declined [facility] referral. She was advised to let CM know if she changes her mind.
Plan: Case management will continue to follow and assist with discharge planning. Home when medically stable.
--- NOTE | 2025-01-27 13:31 | PTCARENOTE ---
Pt c/o sinus congestion, and unrelieved pain throughout abd and upper chest. Pt stated, 'No one has been addressing my concerns'. made aware.
--- NOTE | 2025-01-27 14:33 | W.PN.HOSP.TC ---
Today's Communication/Plan
-
Trend LFTs
Continue PPI
Withdrawal protocol
Folate and thiamine
CLD and ADAT
Consider steroid
Assessment / Plan
Assessment / Plan
#Alcoholic hepatitis
-Akin's discriminant function would be near 34 as of today, previously >45
-R factor 0.3 however MRI/MRCP without signs of obstruction, bilirubin up to 10.8
-Imaging does show hepatomegaly that is very severe, likely CEDRIC +/- NAFLD
-Abdominal ultrasound with small volume RUQ ascites, not large enough to tap
-Continue to trend LFTs, avoid unnecessary hepatotoxic agents
-GI following, further recommendations appreciated
-Consider glucocorticoid regimen
#Gastritis
#Thrombocytopenia
-Suspect she has a degree of portal hypertension with alcohol use history and CEDRIC
-Complains of epigastric abdomen pain/tenderness, associated with nausea but no vomiting
-Was started on IV PPI therapy upon arrival, CBC as shown stable hemoglobin
-Continue IV PPI therapy and trend CBC; avoid NSAIDs
-As needed analgesics for discomfort
#Pleuritic chest discomfort
-Likely costochondritis as it is reproducible to palpation
-Very low suspicion for coronary etiology or other vascular cause
-Will start lidocaine patch
#Euvolemic hyponatremia
-Unclear cause, sodium level here chronically between 131 and 133
-Question if early portal hypertension is playing a role
-No urine studies obtained, unclear level ADH response
-Continue to trend BMP for now, consider urine studies of worsening
#Normocytic anemia
-Very likely anemia of chronic disease versus iron deficiency/blood loss from gastritis
-Hemoglobin here in the range of 8.6-9.9; previous hemoglobins were higher
-Currently on IV PPI as above, will continue to trend CBC daily
-Order iron panel, B12, folate to assess for underlying deficiency
#Alcohol use disorder
-Continue with withdrawal protocol and as needed benzodiazepine
-Remains hemodynamically adequate, no signs of severe withdrawal as of now
-Continue folic acid and thiamine supplementation
#Incidental finding on CT
-1.8 cm hypodense renal cyst
-Will need OP follow-up
DVT prophylaxis: SCDs
Diet: CLD, ADAT
CODE STATUS: Full code
Anticipated Discharge: > 48 hours
Subjective/Interval History
-
Date of Service: January 27, 2025
Seen and examined at the bedside. No acute events reported overnight. AFVSS as of this morning
Bilirubin up to 10.8, Hemoglobin down to 8.6
She complains of abdomen pain that is worse today than yesterday, also requested to have freedom to shower this morning. Requesting increase Dilaudid
Objective Data
-
Labs:
Laboratory Results
01/27/25 01/27/25
06:37 09:36
WBC 10.4
Hgb 8.6 L
Hct 25.4 L
Plt Count 107 L D
PT 19.7 H
INR 1.64
Sodium Cancelled 131 L
Potassium Cancelled 3.9
Chloride Cancelled 99
Carbon Dioxide Cancelled 21 L
BUN Cancelled 10
Creatinine Cancelled 0.7
Glucose Cancelled 91
Calcium Cancelled 8.3 L
Total Bilirubin Cancelled 10.8 H
AST Cancelled 66 H
ALT Cancelled 13
Alkaline Phosphatase Cancelled 134 H
Vital Signs:
Vital Signs
Temp Pulse Resp BP Pulse Ox
98.9 F 96 19 117/58 98
01/27/25 10:58 01/27/25 10:58 01/27/25 10:58 01/27/25 10:58 01/27/25 10:58
I&O
01/26/25 01/27/25 01/28/25
06:59 06:59 06:59
Intake Total 100 / 100
Balance 100 / 100
Review of Systems
-
History Source: Patient
All other systems: Reviewed and negative
Physical Exam
-
General: Well Developed, Pain and Morbidly Obese
HEENT: Normocephalic, Atraumatic, Moist Mucous Membranes and Other (Icteric sclera)
Respiratory: Clear to Auscultation and Non Labored Respirations
Cardiac: Regular Rhythm, S1/S2 and Murmur; Negative Rub or Gallop
GI: Soft, Nondistended, Normal Bowel Sounds and Tender (Epigastrium)
Musculoskeletal: No Clubbing, No Cyanosis and No Edema
Skin: Warm, Dry, Normal Turgor and Jaundice; Negative Rash
Neuro: AO x 3 and Nonfocal/Grossly Intact; Negative Tremors
Psych: Anxious
Data Reviewed
-
Labs: Labs Reviewed by me and Discussed with Patient
[2025-01-27 15:05] VITALS: BP 124/69
[2025-01-27] MEDS: 0.45%NACL 1000 IV (15:43)
[2025-01-27] MEDS: DILAUDID 1 MG IV ×2 (15:43→22:59)
[2025-01-27] MEDS: LIDOCAINE 4% PATCH 1 PATCH TOPICAL (15:44)
--- NOTE | 2025-01-27 16:45 | W.PN.GI.CBS2 ---
Today's Communication / Plan
-
Full liquid diet. Advance as tolerated
Monitor LFT/PT/INR
Vitamin K
Assessment / Plan
-
34-year-old female with history of alcohol abuse, alcohol related gastritis/ulcer, pancreatitis admitted with severe upper abdominal pain with nausea. She described pain radiation to the back and lower abdomen. Admits to drinking alcohol daily-4-5
shots of alcohol. Evaluated by GI 09/2024 when she was admitted to the hospital at that time and underwent EGD.
labs in ED this admission�AST 81/ALT 15/alkaline phosphatase 164/total bilirubin 9.4. Lipase 26. CT abdomen/pelvis with IV contrast�no acute pathology. Severe hepatomegaly/mild splenomegaly/mild free fluid in the abdomen and pelvis.
-- Abdominal pain/nausea/elevated liver test/alcohol abuse -CT abd imaging-no acute pathology. Last EGD 09/2024 for similar presentation-small gastric ulcer. Possible differential for her ogekjope-sgelvaf-djhnkeg gastritis versus peptic ulcer
disease versus rule out CBD stone with worsening LFT. Likely component of alcoholic hepatitis. Currently DF > 45. INR was 1.77. Will give vitamin K and repeat INR with history of alcohol abuse. Will hold off on steroids for now (patient also
reports severe cough/shortness of breath-Chest x-ray negative admission. COVID/ flu negative/admission labs leukocytosis /alcohol related pancreatitis/gastritis in the past with relapses to drinking alcohol heavily)
-- Fatty liver
-- Chronic anemia. Patient reports intermittent rectal bleeding which she attributes to her hemorrhoids. Patient claims she had a colonoscopy few years back at outside facility and was reassured. Abnormal CT findings 09/2024-submucosal fatty
deposition in the cecum and ascending colon. Nonspecific chronic inflammation .
-- Thrombocytopenia-likely secondary to alcohol abuse
-- Hypoalbuminemia
MRCP 01/26 -no choledocholithiasis. S/p cholecystectomy. Diffuse anasarca and small volume abdominal pelvic ascites. Hepatosplenomegaly
Ultrasound abdomen 01/27 - small volume ascites. Suction for drainage
plan
Liquid diet. If tolerating low residual diet.
Hb relatively stable. BUN normal. Stool as per nursing greenish-brown. No indication for EGD at this point
Continue PPI twice daily
Continue to trend LFT/ PT/ INR. Although DF > 32 will hold off on steroids (with history of frequent alcohol relapse in the past on discharge/ possible URI now . Benefits are limited ). Give another dose of vitamin K today and repeat INR tomorrow
Alcohol withdrawal protocol as per medical team
Reinforced on alcohol abstinence in the future
Will recommend outpatient GI follow-up for anemia/intermittent rectal bleeding. Need to obtain prior GI records
Total Time Spent with Patient (in minutes): 35
Subjective
Subjective
Date of Service: January 27, 2025
Complaining of cough/throat irritation. She reported some dark stools -RN confirmed stools greenish-brown. Pain is somewhat better. No vomiting
Objective
Data Reviewed
Laboratory Data:
Laboratory Results
01/27/25 06:37
01/27/25 09:36
Laboratory Results
PT 19.7 Sec (11.4-14.6) H 01/27/25 06:37
INR 1.64 01/27/25 06:37
Phosphorus Cancelled 01/25/25 23:22
Magnesium Cancelled 01/25/25 23:22
Total Bilirubin 10.8 mg/dl (0.2-1.3) H 01/27/25 09:36
AST 66 U/L (14-36) H 01/27/25 09:36
ALT 13 U/L (0-35) 01/27/25 09:36
Alkaline Phosphatase 134 U/L (38-126) H 01/27/25 09:36
Lipase 26 U/L (23-300) 01/25/25 18:20
Vital Signs and I&O:
Vital Signs
Temp Pulse Resp BP Pulse Ox
98.7 F 100 19 124/69 97
01/27/25 15:05 01/27/25 15:05 01/27/25 15:05 01/27/25 15:05 01/27/25 15:05
I&O
01/26/25 01/27/25 01/28/25
06:59 06:59 06:59
Intake Total 100 / 100 1660 / 1660
Balance 100 / 100 1660 / 1660
Physical Exam
Physical Exam
GI: Soft, Non Distended and Non Tender
[2025-01-27] MEDS: AYR SALINE NASAL GEL 1 APPLIC NASAL (17:46)
[2025-01-27] MEDS: MEPHYTON 10 MG PO (17:46)
--- NOTE | 2025-01-27 20:05 | RESPNOTE ---
pt had called for a prn tx, because she said she was coughing, she has stopped, and stated she no longer needs a tx
[2025-01-27] MEDS: MELATONIN 10 MG PO (21:06)
[2025-01-27 23:15] VITALS: BP 100/52
[2025-01-28] MEDS: 0.45%NACL 1000 IV (00:31)
[2025-01-28] MEDS: DILAUDID 1 MG IV ×5 (03:19→21:08)
[2025-01-28 07:05] VITALS: BP 105/54
[2025-01-28 07:31] LABS: INR 1.61; PT 19.4 Sec (11.4-14.6)
[2025-01-28 07:35] LABS: % Basophils 0.3 % (0-2); % Eosinophils 0.7 % (0-6); % Lymphocytes 18.5 % (20.5-51.1); % Monocytes 10.9 % (1.7-9.3); % Neutrophils 68.6 % (42.2-75.2); Absolute Eosinophils 0.1 10^3/uL (0-0.7); Absolute Immature Granulocytes 0.1 10^3/uL (0-0.05); Absolute Lymphocytes 2.1 10^3/uL (1.2-3.4); Absolute Monocytes 1.3 10^3/uL (0.1-0.6); Absolute Neutrophils 7.8 10^3/uL (1.4-6.5); Hematocrit 24.1 % (37.0-47.0); Hemoglobin 8.2 g/dL (12.0-16.0); Mean Corpuscular Hgb 31.3 pg (27.0-31.0); Nucleated Red Blood Cells % 0.2 %; Red Blood Cell Count 2.62 10^6/uL (4.20-5.40); Red Cell Dist. Width 18.9 % (11.5-14.5); White Blood Cell Count 11.4 10^3/uL (4.8-10.8)
[2025-01-28] MEDS: SYMBICORT 80/4.5 MCG INHALER 2 PUFF INH ×2 (07:49→19:25)
[2025-01-28] MEDS: DUONEB 3 ML INH ×4 (07:49→19:25)
[2025-01-28 07:52] LABS: ALT (SGPT) 11 U/L (0-35); AST (SGOT) 66 U/L (14-36); Albumin 2.4 g/dl (3.5-5.0); Alkaline Phosphatase 126 U/L (38-126); Blood Urea Nitrogen 9 mg/dl (7-17); Calcium 8.2 mg/dl (8.4-10.2); Carbon Dioxide 23 mmol/L (22-30); Chloride 97 mmol/L (98-107); Direct Bilirubin 10.1 mg/dl (0.0-0.4); Estimated Creatinine Clearance > 125 ml/min; Glucose 85 mg/dl (70-99); Iron 118 ug/dl (37-170); Sodium 127 mmol/L (135-145); Total Bilirubin 12.1 mg/dl (0.2-1.3); eGFR > 60.00
[2025-01-28 08:02] LABS: Percent Saturation 82 % (20-50); Total Iron Binding Capacity 143 ug/dl (265-497)
[2025-01-28] MEDS: LIDOCAINE 4% PATCH 1 PATCH TOPICAL (08:40)
[2025-01-28] MEDS: FOLVITE 1 MG PO (08:41)
[2025-01-28] MEDS: NEURONTIN 300 MG PO ×2 (08:41→20:54)
[2025-01-28] MEDS: THIAMINE INJECTION 200 MG IV ×2 (08:41→20:55)
[2025-01-28] MEDS: BUSPAR 15 MG PO ×2 (08:41→20:55)
[2025-01-28] MEDS: NICODERM TRANSDERMAL 21 MG TRANSDERM (08:41)
[2025-01-28] MEDS: PROTONIX IV 40 MG IV ×2 (08:43→20:55)
[2025-01-28] MEDS: NSS (PRESERVATIVE FREE) 10 ML IV ×2 (08:44→20:55)
[2025-01-28 08:48] LABS: Mean Platelet Volume 10.8 fL (7.4-10.4); Platelet Count 88 10^3/uL (130-400)
[2025-01-28 08:53] LABS: Folate 13.6 ng/ml (2.76-20); Vitamin B12 807 pg/ml (239-931)
[2025-01-28] MEDS: NSS 1000 IV ×2 (09:09→20:39)
--- NOTE | 2025-01-28 12:07 | W.PN.HOSP.TC ---
Today's Communication/Plan
-
Trend LFTs
Analgesics
Advance diet per GI
Vitamin K per GI
Consider steroid
Assessment / Plan
Assessment / Plan
#Alcoholic hepatitis
-Akin's discriminant function would be near 34 as of today, previously >45
-R factor 0.3 however MRI/MRCP without signs of obstruction, bilirubin up to 10.8
-Imaging does show hepatomegaly that is very severe, likely CEDRIC +/- NAFLD
-Abdominal ultrasound with small volume RUQ ascites, not large enough to tap
-Continue to trend LFTs, avoid unnecessary hepatotoxic agents
-GI following, Provided vitamin K x 2
-Consider glucocorticoid regimen
#Gastritis
#Thrombocytopenia
-Suspect she has a degree of portal hypertension with alcohol use history and CEDRIC
-Complains of epigastric abdomen pain/tenderness, associated with nausea but no vomiting
-Was started on IV PPI therapy upon arrival, CBC as shown stable hemoglobin
-Continue IV PPI therapy and trend CBC; avoid NSAIDs
-As needed analgesics for discomfort
#Pleuritic chest discomfort
-Likely costochondritis as it is reproducible to palpation
-Very low suspicion for coronary etiology or other vascular cause
-Will start lidocaine patch
#Euvolemic hyponatremia
-Unclear cause, sodium level here chronically between 131 and 133
-Question if early portal hypertension is playing a role
-No urine studies obtained, unclear level ADH response
-Continue to trend BMP for now, consider urine studies of worsening
#Normocytic anemia
-Very likely anemia of chronic disease versus iron deficiency/blood loss from gastritis
-Hemoglobin here in the range of 8.6-9.9; previous hemoglobins were higher
-Currently on IV PPI as above, will continue to trend CBC daily
-Order iron panel, B12, folate to assess for underlying deficiency
#Alcohol use disorder
-Continue with withdrawal protocol and as needed benzodiazepine
-Remains hemodynamically adequate, no signs of severe withdrawal as of now
-Continue folic acid and thiamine supplementation
#Incidental finding on CT
-1.8 cm hypodense renal cyst
-Will need OP follow-up
DVT prophylaxis: SCDs
Diet: CLD, ADAT
CODE STATUS: Full code
Anticipated Discharge: > 48 hours
Subjective/Interval History
-
Date of Service: January 28, 2025
Seen and examined at the bedside. No acute events reported overnight. AFVSS this morning
Bilirubin continues to rise, T. bili up to 12.8 this morning. States her abdomen pain is slightly improved
Denies any new complaints as of this morning. Asks if she can have a full diet today
Objective Data
-
Labs:
Laboratory Results
01/28/25
06:54
WBC 11.4 H
Hgb 8.2 L
Hct 24.1 L
Plt Count 88 L
PT 19.4 H
INR 1.61
Sodium 127 L
Potassium 4.0
Chloride 97 L
Carbon Dioxide 23
BUN 9
Creatinine 0.7
Glucose 85
Calcium 8.2 L
Total Bilirubin 12.1 H
AST 66 H
ALT 11
Alkaline Phosphatase 126
Vital Signs:
Vital Signs
Temp Pulse Resp BP Pulse Ox
98.1 F 100 18 105/54 94
01/28/25 07:05 01/28/25 11:22 01/28/25 11:22 01/28/25 07:05 01/28/25 07:50
I&O
01/27/25 01/28/25 01/29/25
06:59 06:59 06:59
Intake Total 100 / 100 1660 / 1660
Balance 100 / 100 1660 / 1660
Review of Systems
-
History Source: Patient
All other systems: Reviewed and negative
Physical Exam
-
General: Well Developed, No Apparent Distress and Morbidly Obese
HEENT: Normocephalic, Atraumatic, Moist Mucous Membranes and Other (Scleral icterus present)
Respiratory: Clear to Auscultation and Non Labored Respirations
Cardiac: Regular Rhythm and S1/S2; Negative Murmur, Rub or Gallop
GI: Soft, Nondistended, Normal Bowel Sounds and Tender (RUQ and epigastrium; no peritoneal signs)
Musculoskeletal: No Clubbing, No Cyanosis and No Edema
Skin: Warm, Dry and Jaundice; Negative Rash
Neuro: AO x 3 and Nonfocal/Grossly Intact; Negative Tremors
Data Reviewed
-
Labs: Labs Reviewed by me, Discussed with Physician (Gastroenterology) and Discussed with Patient
[2025-01-28 15:01] VITALS: BP 109/60
[2025-01-28] MEDS: PHENERGAN WITH CODEINE SYRUP 5 ML PO ×2 (16:40→21:08)
--- NOTE | 2025-01-28 17:49 | W.PN.GI.CBS2 ---
Today's Communication / Plan
-
DF up to 41 today. Bili up to 12
c/o cough yellow/green mucus
Will check repeat CMP/INR tomorrow and recalculate DF. If remains elevated, will start prednisolone
Reinforced EtOH abstinence
Assessment / Plan
-
34-year-old female with history of alcohol abuse, alcohol related gastritis/ulcer, pancreatitis admitted with severe upper abdominal pain with nausea. She described pain radiation to the back and lower abdomen. Admits to drinking alcohol daily-4-5
shots of alcohol. Evaluated by GI 09/2024 when she was admitted to the hospital at that time and underwent EGD.
labs in ED this admission�AST 81/ALT 15/alkaline phosphatase 164/total bilirubin 9.4. Lipase 26. CT abdomen/pelvis with IV contrast�no acute pathology. Severe hepatomegaly/mild splenomegaly/mild free fluid in the abdomen and pelvis.
-- Abdominal pain/nausea/elevated liver test/alcohol abuse -CT abd imaging-no acute pathology. Last EGD 09/2024 for similar presentation-small gastric ulcer. Possible differential for her [id number] gastritis versus peptic ulcer
disease versus rule out CBD stone with worsening LFT. Likely component of alcoholic hepatitis. Currently DF > 45. INR was 1.77. Will give vitamin K and repeat INR with history of alcohol abuse. Will hold off on steroids for now (patient also
reports severe cough/shortness of breath-Chest x-ray negative admission. COVID/ flu negative/admission labs leukocytosis /alcohol related pancreatitis/gastritis in the past with relapses to drinking alcohol heavily)
-- Fatty liver
-- Chronic anemia. Patient reports intermittent rectal bleeding which she attributes to her hemorrhoids. Patient claims she had a colonoscopy few years back at outside facility and was reassured. Abnormal CT findings 09/2024-submucosal fatty
deposition in the cecum and ascending colon. Nonspecific chronic inflammation .
-- Thrombocytopenia-likely secondary to alcohol abuse
-- Hypoalbuminemia
MRCP 01/26 -no choledocholithiasis. S/p cholecystectomy. Diffuse anasarca and small volume abdominal pelvic ascites. Hepatosplenomegaly
Ultrasound abdomen 01/27 - small volume ascites. Suction for drainage
Subjective
Subjective
Date of Service: January 28, 2025
c/o anxiety. Some abd pain. Advancing low fat diet
Objective
Data Reviewed
Laboratory Data:
Laboratory Results
01/28/25 06:54
01/28/25 06:54
Laboratory Results
PT 19.4 Sec (11.4-14.6) H 01/28/25 06:54
INR 1.61 01/28/25 06:54
Phosphorus Cancelled 01/25/25 23:22
Magnesium Cancelled 01/25/25 23:22
Total Bilirubin 12.1 mg/dl (0.2-1.3) H 01/28/25 06:54
AST 66 U/L (14-36) H 01/28/25 06:54
ALT 11 U/L (0-35) 01/28/25 06:54
Alkaline Phosphatase 126 U/L (38-126) 01/28/25 06:54
Lipase 26 U/L (23-300) 01/25/25 18:20
Vital Signs and I&O:
Vital Signs
Temp Pulse Resp BP Pulse Ox
98.4 F 100 16 109/60 96
01/28/25 15:01 01/28/25 15:08 01/28/25 15:08 01/28/25 15:01 01/28/25 15:01
I&O
01/27/25 01/28/25 01/29/25
06:59 06:59 06:59
Intake Total 100 / 100 1660 / 1660 1560 / 1560
Balance 100 / 100 1660 / 1660 1560 / 1560
Physical Exam
Physical Exam
GI: Soft, Non Distended and Tender
[2025-01-28] MEDS: MELATONIN 10 MG PO (20:54)
[2025-01-28 23:00] VITALS: BP 110/63
[2025-01-29] MEDS: DILAUDID 1 MG IV ×6 (00:14→18:03)
[2025-01-29] MEDS: PHENERGAN WITH CODEINE SYRUP 5 ML PO ×5 (03:12→22:06)
[2025-01-29] MEDS: NSS 1000 IV (06:47)
[2025-01-29 07:19] LABS: INR 1.74; PT 20.5 Sec (11.4-14.6)
[2025-01-29 07:20] LABS: % Basophils 0.3 % (0-2); % Eosinophils 0.9 % (0-6); % Immature Granulocytes 1.1 % (0-0.5); % Lymphocytes 16.5 % (20.5-51.1); % Neutrophils 68.2 % (42.2-75.2); Absolute Eosinophils 0.1 10^3/uL (0-0.7); Absolute Immature Granulocytes 0.1 10^3/uL (0-0.05); Absolute Lymphocytes 1.9 10^3/uL (1.2-3.4); Absolute Monocytes 1.5 10^3/uL (0.1-0.6); Hematocrit 23.2 % (37.0-47.0); Hemoglobin 7.7 g/dL (12.0-16.0); Mean Corp Hgb Conc. 33.2 g/dL (33.0-37.0); Mean Corpuscular Hgb 31.7 pg (27.0-31.0); Mean Corpuscular Volume 95.5 fL (81.0-99.0); Nucleated Red Blood Cells % 0 %; Platelet Count 80 10^3/uL (130-400); Red Blood Cell Count 2.43 10^6/uL (4.20-5.40); Red Cell Dist. Width 19.4 % (11.5-14.5); White Blood Cell Count 11.7 10^3/uL (4.8-10.8)
[2025-01-29 07:30] VITALS: BP 118/65
[2025-01-29 07:35] LABS: ALT (SGPT) 11 U/L (0-35); AST (SGOT) 71 U/L (14-36); Albumin 2.3 g/dl (3.5-5.0); Alkaline Phosphatase 114 U/L (38-126); Blood Urea Nitrogen 9 mg/dl (7-17); Calcium 8.1 mg/dl (8.4-10.2); Carbon Dioxide 20 mmol/L (22-30); Chloride 94 mmol/L (98-107); Direct Bilirubin 11.9 mg/dl (0.0-0.4); Estimated Creatinine Clearance > 125 ml/min; Glucose 92 mg/dl (70-99); Potassium 4.1 mmol/L (3.5-5.1); Sodium 125 mmol/L (135-145); Total Bilirubin 14.3 mg/dl (0.2-1.3); Total Protein 6.2 g/dl (6.3-8.2); eGFR > 60.00
[2025-01-29] MEDS: SYMBICORT 80/4.5 MCG INHALER 2 PUFF INH ×2 (07:36→20:15)
[2025-01-29] MEDS: DUONEB 3 ML INH ×4 (07:36→20:16)
[2025-01-29] MEDS: VITAMIN B1 100 MG PO ×2 (07:53→20:42)
[2025-01-29] MEDS: LIDOCAINE 4% PATCH 1 PATCH TOPICAL (07:53)
[2025-01-29] MEDS: NICODERM TRANSDERMAL 21 MG TRANSDERM (07:53)
[2025-01-29] MEDS: NEURONTIN 300 MG PO ×2 (07:53→20:42)
[2025-01-29] MEDS: BUSPAR 15 MG PO ×2 (07:53→20:42)
[2025-01-29] MEDS: NSS (PRESERVATIVE FREE) 10 ML IV ×2 (07:54→20:43)
[2025-01-29] MEDS: PROTONIX IV 40 MG IV ×2 (07:54→20:43)
[2025-01-29] MEDS: FOLVITE 1 MG PO (07:54)
[2025-01-29 08:58] LABS: Iron 109 ug/dl (37-170)
[2025-01-29] MEDS: PRELONE 40 MG PO (09:04)
[2025-01-29 09:07] LABS: Percent Saturation 76 % (20-50); Total Iron Binding Capacity 143 ug/dl (265-497)
--- NOTE | 2025-01-29 10:32 | W.PN.HOSP.TC ---
Addendum entered and electronically signed by Elder Keith DO 01/30/25 19:21:
CDI: Acute blood loss anemia and anemia of chronic disease
Original Note:
Today's Communication/Plan
-
Start prednisone
IV PPI twice daily
Urine studies and nephrology consult
Trend LFTs and CBC
Consideration of further vitamin K/EGD per GI
Assessment / Plan
Assessment / Plan
#Alcoholic hepatitis
-Akin's discriminant function would be near 34 as of today, previously >45
-R factor 0.3 however MRI/MRCP without signs of obstruction, bilirubin up to 10.8
-Imaging does show hepatomegaly that is very severe, likely CEDRIC +/- NAFLD
-Abdominal ultrasound with small volume RUQ ascites, not large enough to tap
-Bilirubin has continued to rise and was >14 as of 01/29, DF near 45
-GI following, Provided vitamin K x 2
Plan
-Start prednisolone 40 mg daily
-Continue to trend LFTs and INR
-avoid unnecessary hepatotoxic agents
-Consider transfer to liver center if labs continue to worsen
#Melena/UGIB
#Gastritis
#Thrombocytopenia
-Suspect she has a degree of portal hypertension with alcohol use history and CEDRIC
-Complains of epigastric abdomen pain/tenderness, associated with nausea but no vomiting
-Was started on IV PPI therapy upon arrival; CBC initially stable but has since downtrended
-Patient mentions melanic stools earlier in hospital stay but denies them as of 01/29
-Most recent labs with hemoglobin 7.7, platelet count 80
Plan
-Continue IV PPI BID and strictly avoid NSAIDs
-Trend CBC; hemoglobin goal >7 or lack of symptoms
-As needed analgesics for discomfort
-Vitamin K as per GI team
-May need to consider inpatient EGD
#Euvolemic (?) hyponatremia
-Unclear cause, sodium initially in the 130s but has down trended to 125
-Question if early portal hypertension is playing a role; difficult volume status to delineate
-Suspect that she is euvolemic to hypervolemic however oral intake also low with abdomen pain
-No signs or symptoms of hyponatremia at this time
Plan
-Order urine studies and serum osmolality to assess for inappropriate ADH
-Encourage oral intake as symptoms allow
-Trend BMP closely
-Nephrology consult
#Pleuritic chest discomfort
-Likely costochondritis as it is reproducible to palpation
-Very low suspicion for coronary etiology or other vascular cause
-Will start lidocaine patch
#Normocytic anemia
-Very likely anemia of chronic disease versus iron deficiency/blood loss from gastritis
-Hemoglobin here in the range of 8.6-9.9; previous hemoglobins were higher
-Currently on IV PPI as above, will continue to trend CBC daily
-Order iron panel, B12, folate to assess for underlying deficiency
#Alcohol use disorder
-Continue with withdrawal protocol and as needed benzodiazepine
-Remains hemodynamically adequate, no signs of severe withdrawal as of now
-Continue folic acid and thiamine supplementation
#Incidental finding on CT
-1.8 cm hypodense renal cyst
-Will need OP follow-up
DVT prophylaxis: SCDs
Diet: CLD, ADAT
CODE STATUS: Full code
Anticipated Discharge: > 48 hours
Subjective/Interval History
-
Date of Service: January 29, 2025
Seen and examined at the bedside. No acute events reported overnight. AFVSS this morning
Bilirubin continues to rise, up to 14.8. Hemoglobin downtrending to 7.7 as of this morning. Patient denies any recurrence of melena or bloody stools.
She denies any new complaints as of this morning
Objective Data
-
Labs:
Laboratory Results
01/29/25
06:48
WBC 11.7 H
Hgb 7.7 L
Hct 23.2 L
Plt Count 80 L
PT 20.5 H
INR 1.74
Sodium 125 L
Potassium 4.1
Chloride 94 L
Carbon Dioxide 20 L
BUN 9
Creatinine 0.7
Glucose 92
Calcium 8.1 L
Total Bilirubin 14.3 H
AST 71 H
ALT 11
Alkaline Phosphatase 114
Vital Signs:
Vital Signs
Temp Pulse Resp BP Pulse Ox
98.6 F 73 20 118/65 91
01/29/25 07:30 01/29/25 07:40 01/29/25 07:40 01/29/25 07:30 01/29/25 07:40
I&O
01/28/25 01/29/25 01/30/25
06:59 06:59 06:59
Intake Total 1660 / 1660 3960 / 3960
Balance 1660 / 1660 3960 / 3960
Review of Systems
-
History Source: Patient
All other systems: Reviewed and negative
Physical Exam
-
General: Well Developed, No Apparent Distress, Morbidly Obese and Other (Appears unwell)
HEENT: Normocephalic, Atraumatic, Moist Mucous Membranes and Other (Scleral icterus present)
Respiratory: Clear to Auscultation and Non Labored Respirations
Cardiac: Regular Rhythm and S1/S2; Negative Murmur, Rub or Gallop
GI: Soft, Nondistended, Normal Bowel Sounds, Tender (RUQ and epigastrium, no peritoneal signs) and Organomegaly (Hepatomegaly present)
Musculoskeletal: No Clubbing, No Cyanosis and No Edema
Skin: Warm, Dry and Jaundice; Negative Rash
Neuro: AO x 3 and Nonfocal/Grossly Intact; Negative Tremors
Psych: Calm
Data Reviewed
-
Labs: Labs Reviewed by me, Discussed with Physician (Gastroenterology) and Discussed with Patient
[2025-01-29 10:34] LABS: Osmolality Serum 263 mOsm/kg (275-300)
[2025-01-29 11:11] LABS: Folate 9.9 ng/ml (2.76-20); Vitamin B12 834 pg/ml (239-931)
--- NOTE | 2025-01-29 13:13 | CM ---
Patient seen at bedside on a nebulizer treatment. Patient stated that she was concerned that she needed to be home for her children by monday as her mother who is currently caring for them needs to go to [place] for a . CM will update
physician. CM will continue to follow for discharge planning needs.
Plan; home with no needs vs [facility]
--- NOTE | 2025-01-29 13:32 | W.CON.NEPH ---
Consultation
-
Date/Time Consultation Requested: 01/29/2025 8:30 AM
Date/Time Consultation Performed: 01/29/2025 1:30 PM
Requesting Provider: Dr. Keith
Performing Provider: Dr. Arrington
Reason for Consultation: Hyponatremia
Medical History
-
Chief Complaint: Hyponatremia
History of Present Illness:
34-year-old female with history of alcoholic gastritis, pancreatitis, obesity, gastric ulcer presenting for upper abdominal pain and nausea. Pain was on the right upper quadrant radiating to right upper back and radiating down.The patient had been
very nauseous. She has blood in the bowel movement but she has hemorrhoids. denied vomit or diarrhea. patient complained of pain across the chest associated with sob.denied RUBIO,dizzy or syncope. denied fever, chills. denied dysuria or hematuria.
patient stated worsening of LE edema. Over the course of her admission her serum sodium levels have fallen from 131-125 nephrology was asked to see the patient.
Past Medical History
asthma
alcohol abuse
htn
anxisety
alcoholic pancreatitis
Social History
Tobacco: Smoker
Alcohol: Chronic Alcoholic
Living: With Family
Family History
no ckd
Family History: Not Pertinent
Allergies / Home Medications
Allergy/AdvReac Type Severity Reaction Status Date / Time
Penicillins Allergy Unknown Verified 01/25/25 19:09
Sulfa (Sulfonamide Allergy Unknown Verified 01/25/25 19:09
Antibiotics)
�Medication �Instructions �Recorded �Confirmed �Type
budesonide-formoterol HFA 80 2 inh inhalation R BID 09/27/24 01/26/25 History
mcg-4.5 mcg/actuation aerosol Lung/Breathing Issues
inhaler (Symbicort)
buspirone 15 mg tablet 15 mg PO BID Anxiety 09/27/24 01/26/25 History
folic acid 1 mg tablet 1 mg PO DAILY Supplement 09/27/24 01/26/25 History
gabapentin 300 mg capsule 300 mg PO BID Neurological 09/27/24 01/26/25 History
Condition
melatonin 10 mg tablet 10 mg PO HS Sleep 09/27/24 01/26/25 History
albuterol sulfate 0.63 mg/3 mL 0.63 mg inhalation R Q4HPRN PRN sob 01/26/25 01/26/25 History
solution for nebulization
naltrexone 50 mg tablet 50 mg PO DAILY AUD 01/26/25 01/26/25 History
pantoprazole 40 mg tablet,delayed 40 mg PO DAILY Gastrointestinal 01/26/25 01/26/25 History
release (Protonix) Issue
Review of Systems
-
History Source: Patient
All other systems: Negative unless noted
Abdomen/GI: Abdominal Pain
Musculoskeletal: Other (Muscle spasms)
Neurological: Other (Baseline neuropathy)
Physical Exam
Vital Signs
Vital Signs
Temp Pulse Resp BP Pulse Ox
98.6 F 83 18 118/65 90
01/29/25 07:30 01/29/25 11:19 01/29/25 11:19 01/29/25 07:30 01/29/25 11:19
Lab Results
01/29/25 06:48
01/29/25 06:48
WBC 11.7 10^3/uL (4.8-10.8) H 01/29/25 06:48
RBC 2.43 10^6/uL (4.20-5.40) L 01/29/25 06:48
Hgb 7.7 g/dL (12.0-16.0) L 01/29/25 06:48
Hct 23.2 % (37.0-47.0) L 01/29/25 06:48
Plt Count 80 10^3/uL (130-400) L 01/29/25 06:48
Sodium 125 mmol/L (135-145) L 01/29/25 06:48
Potassium 4.1 mmol/L (3.5-5.1) 01/29/25 06:48
Chloride 94 mmol/L (98-107) L 01/29/25 06:48
Carbon Dioxide 20 mmol/L (22-30) L 01/29/25 06:48
BUN 9 mg/dl (7-17) 01/29/25 06:48
Creatinine 0.7 mg/dL (0.6-1.0) 01/29/25 06:48
eGFR > 60.00 01/29/25 06:48
Glucose 92 mg/dl (70-99) 01/29/25 06:48
Calcium 8.1 mg/dl (8.4-10.2) L 01/29/25 06:48
Phosphorus Cancelled 01/25/25 23:22
Albumin 2.3 g/dl (3.5-5.0) L 01/29/25 06:48
Physical Exam
General: AOx3, Nontoxic , NAD
HEENT: PERRL, EOMI, Anicteric, Conjunctivae Clear, Ear/Nose Intact, Hearing Normal, Oropharynx Clear/Moist, Dentition Intact, Facial Symmetry, Neck Supple, Neck: Trachea Midline, No JVD and No Thyromegaly, no Bruits
Respiratory: Clear to auscultation bilaterally with normal lung exersion
Cardiac: S1/S2 and Regular Rate/Rhythm
Breast: Deferred by me
Abdomen: Soft, Nontender, Nondistended, Normal Bowel Sounds and Noted Hepatomegaly
Rectal: Deferred by Provider
Genito-urinary: No Costovertebral Tenderness
Extremities: No Clubbing, No Cyanosis and No Edema
Skin: No Rash or open lesions
Neuro: Nonfocal/Grossly Intact, CN II-XII (Intact) and Strength (Musculoskeletal exam 5 out of 5 both upper and lower extremities)
Hematologic/Lymphatic: No Cervical Lymphadenopathy, No Submandibular Lymphadenopathy and No Supraclavicular Lymphadenopathy
Psych: Mood/afflect pleasant, Insight/judgement good and Appropriate
Vascular: plus 2 pedal and radial pulses
Data Reviewed
-
CT Scan: Report Reviewed by me (CT scan of abdomen and pelvis reviewed notable for fatty liver disease no obstructive uropathy)
Medical Tests (Nuc Med, Echo etc): Other (EKG report personally reviewed notes sinus tachycardic rhythm)
Labs: Labs Reviewed by me (BMP)
Old Records: Reviewed (Reviewed previous sodium level 137 from 12/09/2024 old EMR labs)
Assessment/Plan
-
Impression:
Hyponatremia
Abdominal pain
Alcoholic hepatitis
Alcohol abuse
Anemia
Neuropathy
Plan:
Hyponatremia:
-Fluid restriction placed (patient was not on fluid restriction and is drinking water continuously)
-Follow-up urine osmolality
-Intermittent low blood pressure will stimulate ADH release and exacerbate hyponatremia
-Suspect hyponatremia due to compromised ECF in setting of hepatic decompensation
-If blood pressure would be could come unstable we can add midodrine support
-d/c IVFs
--- NOTE | 2025-01-29 15:26 | W.PN.GI.CBS2 ---
Today's Communication / Plan
-
DF up to 48.8 today. Started prednisolone 40mg daily
Hyponatremia management per Renal
Fluid restriction
Follow INR, LFTs. Needs repeat labs in 1 week to calculate Lille score (02/05)
Assessment / Plan
-
34-year-old female with history of alcohol abuse, alcohol related gastritis/ulcer, pancreatitis admitted with severe upper abdominal pain with nausea. She described pain radiation to the back and lower abdomen. Admits to drinking alcohol daily-4-5
shots of alcohol. Evaluated by GI 09/2024 when she was admitted to the hospital at that time and underwent EGD.
labs in ED this admission�AST 81/ALT 15/alkaline phosphatase 164/total bilirubin 9.4. Lipase 26. CT abdomen/pelvis with IV contrast�no acute pathology. Severe hepatomegaly/mild splenomegaly/mild free fluid in the abdomen and pelvis.
-- Abdominal pain/nausea/elevated liver test/alcohol abuse -CT abd imaging-no acute pathology. Last EGD 09/2024 for similar presentation-small gastric ulcer. Possible differential for her tyhayosi-eipdjwk-glqdnav gastritis versus peptic ulcer
disease versus rule out CBD stone with worsening LFT. Likely component of alcoholic hepatitis. Currently DF > 45. INR was 1.77. Will give vitamin K and repeat INR with history of alcohol abuse. Will hold off on steroids for now (patient also
reports severe cough/shortness of breath-Chest x-ray negative admission. COVID/ flu negative/admission labs leukocytosis /alcohol related pancreatitis/gastritis in the past with relapses to drinking alcohol heavily)
-- Fatty liver
-- Chronic anemia. Patient reports intermittent rectal bleeding which she attributes to her hemorrhoids. Patient claims she had a colonoscopy few years back at outside facility and was reassured. Abnormal CT findings 09/2024-submucosal fatty
deposition in the cecum and ascending colon. Nonspecific chronic inflammation .
-- Thrombocytopenia-likely secondary to alcohol abuse
-- Hypoalbuminemia
MRCP 01/26 -no choledocholithiasis. S/p cholecystectomy. Diffuse anasarca and small volume abdominal pelvic ascites. Hepatosplenomegaly
Ultrasound abdomen 01/27 - small volume ascites. Suction for drainage
Impression:
Alcoholic hepatitis. Started prednisolone 01/29
Hyponatremia
Subjective
Subjective
Date of Service: January 29, 2025
No complaints, on fluid restriction for hyponatremia
Objective
Data Reviewed
Laboratory Data:
Laboratory Results
01/29/25 06:48
01/29/25 06:48
Laboratory Results
PT 20.5 Sec (11.4-14.6) H 01/29/25 06:48
INR 1.74 01/29/25 06:48
Phosphorus Cancelled 01/25/25 23:22
Magnesium Cancelled 01/25/25 23:22
Total Bilirubin 14.3 mg/dl (0.2-1.3) H 01/29/25 06:48
AST 71 U/L (14-36) H 01/29/25 06:48
ALT 11 U/L (0-35) 01/29/25 06:48
Alkaline Phosphatase 114 U/L (38-126) 01/29/25 06:48
Lipase 26 U/L (23-300) 01/25/25 18:20
Vital Signs and I&O:
Vital Signs
Temp Pulse Resp BP Pulse Ox
98.6 F 83 22 118/65 91
01/29/25 07:30 01/29/25 11:19 01/29/25 14:51 01/29/25 07:30 01/29/25 14:51
I&O
01/28/25 01/29/25 01/30/25
06:59 06:59 06:59
Intake Total 1660 / 1660 3960 / 3960
Balance 1660 / 1660 3960 / 3960
Physical Exam
Physical Exam
GI: Soft, Distended and Non Tender
[2025-01-29 16:00] VITALS: BP 114/61
[2025-01-29 18:27] LABS: Osmolality Urine 330 mOsm/kg (300-900)
[2025-01-29 18:33] LABS: Urine Sodium < 5 mmol/L (30-90)
[2025-01-29] MEDS: DILAUDID 0.5 MG IV (21:41)
[2025-01-29] MEDS: MELATONIN 10 MG PO (21:41)
[2025-01-29 23:23] VITALS: BP 129/68
[2025-01-30] MEDS: DILAUDID 0.5 MG IV ×6 (02:39→22:09)
[2025-01-30] MEDS: PHENERGAN WITH CODEINE SYRUP 5 ML PO ×5 (02:45→19:49)
[2025-01-30 06:45] LABS: % Basophils 0.2 % (0-2); % Lymphocytes 11.3 % (20.5-51.1); % Neutrophils 79.5 % (42.2-75.2); Absolute Immature Granulocytes 0.1 10^3/uL (0-0.05); Absolute Lymphocytes 1.5 10^3/uL (1.2-3.4); Absolute Neutrophils 10.2 10^3/uL (1.4-6.5); Hemoglobin 8.4 g/dL (12.0-16.0); Mean Corp Hgb Conc. 33.6 g/dL (33.0-37.0); Mean Corpuscular Hgb 31.3 pg (27.0-31.0); Mean Corpuscular Volume 93.3 fL (81.0-99.0); Mean Platelet Volume 10.4 fL (7.4-10.4); Nucleated Red Blood Cells % 0 %; Platelet Count 145 10^3/uL (130-400); Red Blood Cell Count 2.68 10^6/uL (4.20-5.40); Red Cell Dist. Width 19.3 % (11.5-14.5); White Blood Cell Count 12.8 10^3/uL (4.8-10.8)
[2025-01-30 06:48] LABS: INR 1.64; PT 19.9 Sec (11.4-14.6)
[2025-01-30 07:18] VITALS: BP 116/60
[2025-01-30] MEDS: SYMBICORT 80/4.5 MCG INHALER 2 PUFF INH ×2 (07:25→20:27)
[2025-01-30] MEDS: DUONEB 3 ML INH ×4 (07:25→20:28)
[2025-01-30 08:15] LABS: ALT (SGPT) 13 U/L (0-35); AST (SGOT) 83 U/L (14-36); Albumin 2.5 g/dl (3.5-5.0); Alkaline Phosphatase 113 U/L (38-126); Blood Urea Nitrogen 9 mg/dl (7-17); Calcium 8.6 mg/dl (8.4-10.2); Carbon Dioxide 20 mmol/L (22-30); Chloride 97 mmol/L (98-107); Direct Bilirubin 12.5 mg/dl (0.0-0.4); Estimated Creatinine Clearance > 125 ml/min; Glucose 110 mg/dl (70-99); Potassium 4.9 mmol/L (3.5-5.1); Sodium 125 mmol/L (135-145); Total Bilirubin 14.4 mg/dl (0.2-1.3); Total Protein 6.4 g/dl (6.3-8.2); eGFR > 60.00
[2025-01-30] MEDS: NSS (PRESERVATIVE FREE) 10 ML IV ×2 (08:31→19:49)
[2025-01-30] MEDS: PROTONIX IV 40 MG IV ×2 (08:31→19:49)
[2025-01-30] MEDS: PRELONE 40 MG PO (08:32)
[2025-01-30] MEDS: LIDOCAINE 4% PATCH 1 PATCH TOPICAL (08:32)
[2025-01-30] MEDS: FOLVITE 1 MG PO (08:33)
[2025-01-30] MEDS: BUSPAR 15 MG PO ×2 (08:33→19:49)
[2025-01-30] MEDS: NEURONTIN 300 MG PO ×2 (08:33→19:49)
[2025-01-30] MEDS: VITAMIN B1 100 MG PO ×2 (08:33→19:49)
[2025-01-30] MEDS: NICODERM TRANSDERMAL 21 MG TRANSDERM (08:33)
--- NOTE | 2025-01-30 11:13 | CM ---
Patient seen at bedside. Patient stated that she needed 'slippy socks' and CM was able to provide. CM will continue to follow for discharge planning needs.
Plan; home with VN vs home with no needs.
--- NOTE | 2025-01-30 12:52 | W.PN.GI.CBS2 ---
Addendum entered and electronically signed by Mehrdad Pereyra MD 01/30/25 13:24:
I saw and examined the patient.
The PACKAGE DYEING MACHINE OPERATOR or PA's note was reviewed and I agree with the note.
Comment: c/o LE edema. No abd pain
ABD soft NT
REC:
Continue prednisolone for alcoholic hepatitis. DF 48.1 today
F/U LFT, INR
Check repeat labs 02/05 to calculate Lille score after d/c
Original Note:
Today's Communication / Plan
-
repeat DF 46.1 today down from 48.8 with control of 13
prednisolone started 01/30
cont to trend labs
will add OP slip for Lille score 02/05
need good nutritional
stressed ETOH abstinence
Assessment / Plan
-
34-year-old female with history of alcohol abuse, alcohol related gastritis/ulcer, pancreatitis admitted with severe upper abdominal pain with nausea. She described pain radiation to the back and lower abdomen. Admits to drinking alcohol daily-4-5
shots of alcohol. Evaluated by GI 09/2024 when she was admitted to the hospital at that time and underwent EGD.
labs in ED this admission�AST 81/ALT 15/alkaline phosphatase 164/total bilirubin 9.4. Lipase 26. CT abdomen/pelvis with IV contrast�no acute pathology. Severe hepatomegaly/mild splenomegaly/mild free fluid in the abdomen and pelvis.
-ETOH hepatitis
-hyponatremia
-abdominal pain
ETOH abuse
-hx PUD
-hx pancreatitis
-fatty liver
-anemia
-occasional rectal bleeding with hx prior colonoscopy
-Abnormal CT findings 09/2024-submucosal fatty deposition in the cecum and ascending colon. Nonspecific chronic inflammation
- Thrombocytopenia-likely secondary to alcohol abuse
- Hypoalbuminemia
MRCP 01/26 -no choledocholithiasis. S/p cholecystectomy. Diffuse anasarca and small volume abdominal pelvic ascites. Hepatosplenomegaly
Ultrasound abdomen 01/27 - small volume ascites. Suction for drainage
PLAN:
repeat DF 46.1 today down from 48.8 with control of 13
prednisolone started 01/30
cont to trend labs
will add OP slip for Lille score 02/05
need good nutritional
stressed ETOH abstinence
Subjective
Subjective
Date of Service: January 30, 2025
low fat diet, no stools recorded feeling better eating better
Objective
Data Reviewed
Laboratory Data:
Laboratory Results
01/30/25 06:00
01/30/25 06:00
Laboratory Results
PT 19.9 Sec (11.4-14.6) H 01/30/25 06:00
INR 1.64 01/30/25 06:00
Phosphorus Cancelled 01/25/25 23:22
Magnesium Cancelled 01/25/25 23:22
Total Bilirubin 14.4 mg/dl (0.2-1.3) H 01/30/25 06:00
AST 83 U/L (14-36) H 01/30/25 06:00
ALT 13 U/L (0-35) 01/30/25 06:00
Alkaline Phosphatase 113 U/L (38-126) 01/30/25 06:00
Lipase 26 U/L (23-300) 01/25/25 18:20
Vital Signs and I&O:
Vital Signs
Temp Pulse Resp BP Pulse Ox
98.1 F 86 18 116/60 93
01/30/25 07:18 01/30/25 11:20 01/30/25 11:20 01/30/25 07:18 01/30/25 11:20
I&O
01/29/25 01/30/25 01/31/25
06:59 06:59 06:59
Intake Total 3960 / 3960 1040 / 1040
Balance 3960 / 3960 1040 / 1040
Physical Exam
Physical Exam
HEENT: Other (jaundice )
Cardiology: Normal Sinus Rhythm
Pulmonary: Clear
GI: Soft, Non Distended and Tender (mild upper abdominal pain)
Extremities: No Edema
Neuro: Non Focal
--- NOTE | 2025-01-30 13:30 | W.PN.HOSP.TC ---
Today's Communication/Plan
-
Continue prednisone 40 mg daily
Plan to calculate Lille on 02/05
Continue fluid restriction and trend BMP
IV PPI and trend CBC
Assessment / Plan
Assessment / Plan
#Alcoholic hepatitis
-Akin's discriminant function would be near 34 as of today, previously >45
-R factor 0.3 however MRI/MRCP without signs of obstruction, bilirubin up to 10.8
-Imaging does show hepatomegaly that is very severe, likely CEDRIC +/- NAFLD
-Abdominal ultrasound with small volume RUQ ascites, not large enough to tap
-Bilirubin has continued to rise and was >14 as of 01/29, DF near 45
-GI following, Provided vitamin K x 2
Plan
-Start prednisolone 40 mg daily
-Continue to trend LFTs and INR here
-avoid unnecessary hepatotoxic agents
-Plan to calculate Lille score on 02/05, possibly as OP
#Melena/UGIB
#Gastritis
#Thrombocytopenia
-Suspect she has a degree of portal hypertension with alcohol use history and CEDRIC
-Complains of epigastric abdomen pain/tenderness, associated with nausea but no vomiting
-Was started on IV PPI therapy upon arrival; CBC initially stable but has since downtrended
-Patient mentions melanic stools earlier in hospital stay but denies them as of 01/29
-As of 01/30/2025 hemoglobin and platelet count are uptrending, platelets now normal
Plan
-Continue IV PPI BID and strictly avoid NSAIDs
-Trend CBC; hemoglobin goal >7 or lack of symptoms
-As needed analgesics for discomfort
-Vitamin K as per GI team
#Euvolemic hyponatremia secondary to polydipsia
-Was noted that patient was drinking excessive free water, not eating much due to abdomen pain
-Suspect that she is euvolemic to hypervolemic however oral intake also low with abdomen pain
-No signs or symptoms of hyponatremia at this time; sodium down trended to 125 x 2
-Urine studies with urine osmolality 330, likely some ADH from soft BP earlier in hospitalization
-Nephrology evaluated and recommended 48 ounce fluid restriction
Plan
-Continue 48 ounce daily water restriction
-Encourage oral intake as symptoms allow
-Trend BMP daily
#Pleuritic chest discomfort
-Likely costochondritis as it is reproducible to palpation
-Very low suspicion for coronary etiology or other vascular cause
-Will start lidocaine patch
#Normocytic anemia
-Very likely anemia of chronic disease versus iron deficiency/blood loss from gastritis
-Hemoglobin here in the range of 8.6-9.9; previous hemoglobins were higher
-Currently on IV PPI as above, will continue to trend CBC daily
-Order iron panel, B12, folate to assess for underlying deficiency
#Alcohol use disorder
-Continue with withdrawal protocol and as needed benzodiazepine
-Remains hemodynamically adequate, no signs of severe withdrawal as of now
-Continue folic acid and thiamine supplementation
#Incidental finding on CT
-1.8 cm hypodense renal cyst
-Will need OP follow-up
DVT prophylaxis: SCDs
Diet: CLD, ADAT
CODE STATUS: Full code
Anticipated Discharge: 24 - 48 hours
Subjective/Interval History
-
Date of Service: January 30, 2025
Seen and examined at the bedside. No acute events reported overnight. AFVSS this morning
Bilirubin is started to plateau after starting steroid. Patient with improved RUQ pain though still has epigastric discomfort. Hemoglobin uptrending
She denies any new complaints as of this morning.
Objective Data
-
Labs:
Laboratory Results
01/30/25
06:00
WBC 12.8 H
Hgb 8.4 L
Hct 25.0 L
Plt Count 145 D
PT 19.9 H
INR 1.64
Sodium 125 L
Potassium 4.9
Chloride 97 L
Carbon Dioxide 20 L
BUN 9
Creatinine 0.8
Glucose 110 H
Calcium 8.6
Total Bilirubin 14.4 H
AST 83 H
ALT 13
Alkaline Phosphatase 113
Vital Signs:
Vital Signs
Temp Pulse Resp BP Pulse Ox
98.1 F 86 18 116/60 93
01/30/25 07:18 01/30/25 11:20 01/30/25 11:20 01/30/25 07:18 01/30/25 11:20
I&O
01/29/25 01/30/25 01/31/25
06:59 06:59 06:59
Intake Total 3960 / 3960 1040 / 1040
Balance 3960 / 3960 1040 / 1040
Review of Systems
-
History Source: Patient
All other systems: Reviewed and negative
Physical Exam
-
General: Well Developed, No Apparent Distress and Morbidly Obese
HEENT: Normocephalic, Atraumatic, Moist Mucous Membranes and Other (Scleral icterus present)
Respiratory: Clear to Auscultation and Non Labored Respirations
Cardiac: Regular Rhythm; Negative Murmur, Rub or Gallop
GI: Soft, Nondistended, Normal Bowel Sounds and Tender (Epigastrium; RUQ pain resolved)
Musculoskeletal: No Clubbing, No Cyanosis and No Edema
Skin: Warm, Dry and Jaundice; Negative Rash
Neuro: AO x 3 and Nonfocal/Grossly Intact; Negative Tremors
Psych: Calm
Data Reviewed
-
Labs: Labs Reviewed by me and Discussed with Patient
--- NOTE | 2025-01-30 13:43 | PN.CDI ---
CDI
- -
CDI:
Physician Documentation Request
Admit Date: 01/25/25 23:13
Dear Doctor Sagar,
Clinical Indicators:
Patient admitted with alcoholic hepatitis.
3/6 PN, 'Melena/UGIB...Normocytic anemia-Very likely anemia of chronic disease versus iron deficiency/blood loss from gastritis'
Hgb/Hct trend:
01/25/25 01/28/25 01/29/25
18:20 06:54 06:48
Hgb 9.9 L 8.2 L 7.7 L
Hct 30.9 L 24.1 L 23.2 L
Based on the above, could you clarify, in your progress note, which of the following is the most likely type of anemia you are evaluating, monitoring and/or treating?
Acute blood loss anemia and anemia of chronic disease
Anemia of chronic disease only
Chronic iron deficiency anemia due to blood loss
Other, please specify
Use of terms such as suspected, likely, concern for, or probable (associated with a specific diagnosis that is being evaluated, monitored, or treated as if it exists) are acceptable and can be coded in the inpatient setting, when documented at the
time of discharge.
Thank you,
Noelle Hendrickson RN BSN
CDI Specialist
available via tiger text
Please use your independent medical judgment in providing your response.
[2025-01-30 15:07] VITALS: BP 108/65
--- NOTE | 2025-01-30 15:08 | W.PN.NEPH.PH ---
Today's Communication / Plan
-
Hypertonic saline x 250 cc at 30 cc per/hr
Assessment/Plan
-
Impression:
Hyponatremia
Abdominal pain
Alcoholic hepatitis
Alcohol abuse
Anemia
Neuropathy
Plan:
Hyponatremia:
-Fluid restriction placed (patient was not on fluid restriction and is drinking water continuously) at 48oz
-Follow-up urine osmolality: 330, urine sodium less then 5
-Intermittent low blood pressure will stimulate ADH release and exacerbate hyponatremia
-Suspect hyponatremia due to compromised ECF in setting of hepatic decompensation
-If blood pressure would be could come unstable we can add midodrine support
-I am hesitant to use tolvaptan given acute alcohol induced hepatitis
-Henceforth I will give a modest hypertonic infusion
-
-
Date of Service: January 30, 2025
CC / HPI / ROS
-
Chief Complaint:
Hyponatremia
History of Present Illness:
Serum sodium unchanged at 125 on fluid restriction
Hemodynamically labile
Review of Systems:
Subjectively nonoliguric
no fevers
Labs
-
Labs:
WBC 12.8 10^3/uL (4.8-10.8) H 01/30/25 06:00
RBC 2.68 10^6/uL (4.20-5.40) L 01/30/25 06:00
Hgb 8.4 g/dL (12.0-16.0) L 01/30/25 06:00
Hct 25.0 % (37.0-47.0) L 01/30/25 06:00
Plt Count 145 10^3/uL (130-400) D 01/30/25 06:00
Sodium 125 mmol/L (135-145) L 01/30/25 06:00
Potassium 4.9 mmol/L (3.5-5.1) 01/30/25 06:00
Chloride 97 mmol/L (98-107) L 01/30/25 06:00
Carbon Dioxide 20 mmol/L (22-30) L 01/30/25 06:00
BUN 9 mg/dl (7-17) 01/30/25 06:00
Creatinine 0.8 mg/dL (0.6-1.0) 01/30/25 06:00
eGFR > 60.00 01/30/25 06:00
Glucose 110 mg/dl (70-99) H 01/30/25 06:00
Calcium 8.6 mg/dl (8.4-10.2) 01/30/25 06:00
Phosphorus Cancelled 01/25/25 23:22
Albumin 2.5 g/dl (3.5-5.0) L 01/30/25 06:00
Physical Exam
-
Vital Signs:
Vital Signs
Temp Pulse Resp BP Pulse Ox
99.1 F 89 24 108/65 94
01/30/25 15:07 01/30/25 15:07 01/30/25 15:07 01/30/25 15:07 01/30/25 15:07
Cardiovascular:: Regular rate and rhythm
Extremity Edema:: +1: Bilateral:
[2025-01-30] MEDS: FLUSH (NSS) 1 FLUSH IV (15:13)
[2025-01-30] MEDS: SODIUM CHLORIDE 3% 250 IV (16:05)
[2025-01-30] MEDS: MELATONIN 10 MG PO (22:09)
[2025-01-31 00:17] VITALS: BP 110/70
[2025-01-31] MEDS: DILAUDID 0.5 MG IV ×6 (02:56→21:10)
[2025-01-31] MEDS: PHENERGAN WITH CODEINE SYRUP 5 ML PO ×5 (03:01→19:38)
[2025-01-31 05:36] LABS: % Basophils 0.1 % (0-2); % Immature Granulocytes 1.3 % (0-0.5); % Lymphocytes 10.2 % (20.5-51.1); % Monocytes 10.8 % (1.7-9.3); % Neutrophils 77.6 % (42.2-75.2); Absolute Immature Granulocytes 0.2 10^3/uL (0-0.05); Absolute Lymphocytes 1.4 10^3/uL (1.2-3.4); Absolute Monocytes 1.5 10^3/uL (0.1-0.6); Absolute Neutrophils 10.7 10^3/uL (1.4-6.5); Hemoglobin 8.4 g/dL (12.0-16.0); Mean Corp Hgb Conc. 32.3 g/dL (33.0-37.0); Mean Corpuscular Hgb 30.8 pg (27.0-31.0); Mean Corpuscular Volume 95.2 fL (81.0-99.0); Nucleated Red Blood Cells % 0.2 %; Platelet Count 174 10^3/uL (130-400); Red Blood Cell Count 2.73 10^6/uL (4.20-5.40); Red Cell Dist. Width 19.2 % (11.5-14.5); White Blood Cell Count 13.8 10^3/uL (4.8-10.8)
[2025-01-31 05:37] LABS: INR 1.51; PT 18.7 Sec (11.4-14.6)
[2025-01-31 06:45] LABS: ALT (SGPT) 18 U/L (0-35); AST (SGOT) 104 U/L (14-36); Albumin 2.7 g/dl (3.5-5.0); Alkaline Phosphatase 125 U/L (38-126); Blood Urea Nitrogen 16 mg/dl (7-17); Carbon Dioxide 22 mmol/L (22-30); Chloride 98 mmol/L (98-107); Direct Bilirubin 10.7 mg/dl (0.0-0.4); Estimated Creatinine Clearance > 125 ml/min; Glucose 113 mg/dl (70-99); Potassium 5.2 mmol/L (3.5-5.1); Sodium 128 mmol/L (135-145); Total Bilirubin 12.6 mg/dl (0.2-1.3); Total Protein 6.6 g/dl (6.3-8.2); eGFR > 60.00
[2025-01-31 07:05] VITALS: BP 112/64
[2025-01-31] MEDS: DUONEB 3 ML INH ×4 (07:35→18:23)
[2025-01-31] MEDS: SYMBICORT 80/4.5 MCG INHALER 2 PUFF INH ×2 (07:35→18:23)
[2025-01-31] MEDS: BUSPAR 15 MG PO ×2 (07:54→19:37)
[2025-01-31] MEDS: NEURONTIN 300 MG PO ×2 (07:54→19:38)
[2025-01-31] MEDS: VITAMIN B1 100 MG PO ×2 (07:54→19:38)
[2025-01-31] MEDS: PRELONE 40 MG PO (07:55)
[2025-01-31] MEDS: FOLVITE 1 MG PO (07:55)
[2025-01-31] MEDS: NICODERM TRANSDERMAL 21 MG TRANSDERM (07:55)
[2025-01-31] MEDS: PROTONIX IV 40 MG IV (07:56)
[2025-01-31] MEDS: NSS (PRESERVATIVE FREE) 10 ML IV (07:56)
[2025-01-31] MEDS: LIDOCAINE 4% PATCH 1 PATCH TOPICAL (07:58)
--- NOTE | 2025-01-31 10:11 | CM ---
Patient seen at bedside. Patient with no issues at this time. Patient eager to go home. CM will continue to follow for discharge planning needs.
Plan; home with no needs anticipated.
--- NOTE | 2025-01-31 10:15 | W.PN.NEPH.PH ---
Today's Communication / Plan
-
lasix trial for edema, check BNP
Assessment/Plan
-
Impression:
Hyponatremia
Abdominal pain
Alcoholic hepatitis
Alcohol abuse
Anemia
Neuropathy
Plan:
Hyponatremia:
-Fluid restriction placed (patient was not on fluid restriction and is drinking water continuously before) at 48oz
urine osmolality: 330, urine sodium less then 5
-Intermittent low blood pressure will stimulate ADH release and exacerbate hyponatremia
-Suspect hyponatremia due to compromised ECF in setting of hepatic decompensation
I am hesitant to use tolvaptan given acute alcohol induced hepatitis
sodium improving post 3% saline
given sig edema- will start lasix , check BNP
mild hyperkalemia likely will improve with lasix too
-
-
Date of Service: January 31, 2025
CC / HPI / ROS
-
Chief Complaint:
Hyponatremia
History of Present Illness:
Serum sodium better at 128 on fluid restriction and HTS
Hemodynamically stable
Review of Systems:
Subjectively nonoliguric
no fevers
c/o edema upto thigh
tolerating diet
c/o gen upper abd pain
Labs
-
Labs:
WBC 13.8 10^3/uL (4.8-10.8) H 01/31/25 05:15
RBC 2.73 10^6/uL (4.20-5.40) L 01/31/25 05:15
Hgb 8.4 g/dL (12.0-16.0) L 01/31/25 05:15
Hct 26.0 % (37.0-47.0) L 01/31/25 05:15
Plt Count 174 10^3/uL (130-400) 01/31/25 05:15
Sodium 128 mmol/L (135-145) L 01/31/25 05:15
Potassium 5.2 mmol/L (3.5-5.1) H 01/31/25 05:15
Chloride 98 mmol/L (98-107) 01/31/25 05:15
Carbon Dioxide 22 mmol/L (22-30) 01/31/25 05:15
BUN 16 mg/dl (7-17) 01/31/25 05:15
Creatinine 0.8 mg/dL (0.6-1.0) 01/31/25 05:15
eGFR > 60.00 01/31/25 05:15
Glucose 113 mg/dl (70-99) H 01/31/25 05:15
Calcium 9.0 mg/dl (8.4-10.2) 01/31/25 05:15
Phosphorus Cancelled 01/25/25 23:22
Albumin 2.7 g/dl (3.5-5.0) L 01/31/25 05:15
Physical Exam
-
Vital Signs:
Vital Signs
Temp Pulse Resp BP Pulse Ox
97.8 F 78 16 112/64 96
01/31/25 07:05 01/31/25 07:36 01/31/25 07:36 01/31/25 07:05 01/31/25 08:15
Cardiovascular:: Regular rate and rhythm
Respiratory:: Bilateral: CTA
Abdomen:: Nontender and Soft
Extremity Edema:: +3: Bilateral:
Shukla Catheter: No
[2025-01-31] MEDS: LASIX 20 MG PO (10:37)
[2025-01-31 11:15] LABS: NT-proBNP 1760 pg/ml
--- NOTE | 2025-01-31 12:12 | W.PN.HOSP.TC ---
Today's Communication/Plan
-
Continue steroid and plan for Lille score on 02/05
Continue with fluid restriction and Lasix per nephrology
Continue IV PPI twice daily plan to transition to oral at DC
High-protein diet and zinc supplement
Trend LFT + coags here
Assessment / Plan
Assessment / Plan
#Alcoholic hepatitis
-Akin's discriminant function would be near 34 as of today, previously >45
-R factor 0.3 however MRI/MRCP without signs of obstruction, bilirubin up to 10.8
-Imaging does show hepatomegaly that is very severe, likely CEDRIC +/- NAFLD
-Abdominal ultrasound with small volume RUQ ascites, not large enough to tap
-Bilirubin has continued to rise and was >14 as of 01/29, DF near 45
-GI following, Provided vitamin K x 2 while here
-Bilirubin downtrending, symptomatically improved
Plan
-Continue prednisolone 40 mg daily
-Continue to trend LFTs and INR here
-avoid unnecessary hepatotoxic agents
-Plan to calculate Lille score on 02/05, possibly as OP
-Zinc supplement and high-protein diet
#Hypervolemic hyponatremia
#Anasarca due to hypoalbuminemia
-Was noted that patient was drinking excessive free water, also with anasarca in the context of hepatic disease
-No signs or symptoms of hyponatremia at this time; sodium down trended to 125 x 2 at its lowest
-Urine studies with urine osmolality 330, likely some ADH from soft BP earlier in hospitalization
-Nephrology evaluated and recommended 48 ounce fluid restriction, s/p 3% saline on 01/30
-Nephrology recommending Lasix, gave 20 mg p.o. on 01/31
Plan
-Continue 48 ounce daily water restriction
-Consider additional PO Lasix pending response
-Start compression stockings for leg edema
-Encourage oral solute intake
-Trend BMP daily
#Melena/UGIB
#Gastritis
#Thrombocytopenia and anemia
-Suspect she has a degree of portal hypertension with alcohol use history and CEDRIC
-Complains of epigastric abdomen pain/tenderness, associated with nausea but no vomiting
-Was started on IV PPI therapy upon arrival; CBC initially stable but has since downtrended
-Patient mentions melanic stools earlier in hospital stay but denies them as of 01/29
-As of 01/30/2025 hemoglobin and platelet count are uptrending, platelets now normal
-Appears to have resolved; plan to transition to oral PPI at [place], avoid NSAIDs
#Pleuritic chest discomfort
-Likely costochondritis as it is reproducible to palpation
-Very low suspicion for coronary etiology or other vascular cause
-Will start lidocaine patch
#Normocytic anemia
-Very likely anemia of chronic disease versus iron deficiency/blood loss from gastritis
-Hemoglobin here in the range of 8.6-9.9; previous hemoglobins were higher
-Currently on IV PPI as above, will continue to trend CBC daily
-Order iron panel, B12, folate to assess for underlying deficiency
#Alcohol use disorder
-Continue with withdrawal protocol and as needed benzodiazepine
-Remains hemodynamically adequate, no signs of severe withdrawal as of now
-Continue folic acid and thiamine supplementation
#Incidental finding on CT
-1.8 cm hypodense renal cyst
-Will need OP follow-up
DVT prophylaxis: SCDs
Diet: CLD, ADAT
CODE STATUS: Full code
Anticipated Discharge: 24 - 48 hours
Subjective/Interval History
-
Date of Service: January 31, 2025
Seen and examined at the bedside. No acute events reported overnight. AFVSS as of this morning.
LFTs with improved bilirubin this morning, down from 14.4-12.6. Patient states she feels better with improved RUQ and epigastric pain. Sodium improving, up to 128 after 3% saline
She does mention some sinus pressure and request Benadryl. Otherwise states her legs feel swollen
Objective Data
-
Labs:
Laboratory Results
01/31/25
05:15
WBC 13.8 H
Hgb 8.4 L
Hct 26.0 L
Plt Count 174
PT 18.7 H
INR 1.51
Sodium 128 L
Potassium 5.2 H
Chloride 98
Carbon Dioxide 22
BUN 16
Creatinine 0.8
Glucose 113 H
Calcium 9.0
Total Bilirubin 12.6 H
AST 104 H
ALT 18
Alkaline Phosphatase 125
Vital Signs:
Vital Signs
Temp Pulse Resp BP Pulse Ox
97.8 F 75 16 110/60 94
01/31/25 07:05 01/31/25 11:23 01/31/25 11:23 01/31/25 10:37 01/31/25 11:23
I&O
01/30/25 01/31/25 02/01/25
06:59 06:59 06:59
Intake Total 1040 / 1040 240 / 240
Balance 1040 / 1040 240 / 240
Review of Systems
-
History Source: Patient
All other systems: Reviewed and negative
Physical Exam
-
General: Well Developed, No Apparent Distress and Comfortable
HEENT: Normocephalic, Atraumatic, Moist Mucous Membranes and Other (Scleral icterus)
Respiratory: Clear to Auscultation and Non Labored Respirations
Cardiac: Regular Rhythm and S1/S2; Negative Murmur, Rub or Gallop
GI: Soft, Nontender, Nondistended and Normal Bowel Sounds
Musculoskeletal: No Clubbing, No Cyanosis and Other (BLLE anasarca)
Skin: Warm, Dry and Jaundice; Negative Rash
Neuro: AO x 3 and Nonfocal/Grossly Intact
Psych: Calm
Data Reviewed
-
Labs: Labs Reviewed by me and Discussed with Patient
[2025-01-31] MEDS: BENADRYL 25 MG PO ×2 (12:39→16:47)
[2025-01-31] MEDS: ZINC 50 MG PO (12:39)
--- NOTE | 2025-01-31 14:02 | W.PN.GI.CBS2 ---
Today's Communication / Plan
-
continue steroids
Assessment / Plan
-
34-year-old female with history of alcohol abuse, alcohol related gastritis/ulcer, pancreatitis admitted with severe upper abdominal pain with nausea. She described pain radiation to the back and lower abdomen. Admits to drinking alcohol daily-4-5
shots of alcohol. Evaluated by GI 09/2024 when she was admitted to the hospital at that time and underwent EGD.
labs in ED this admission�AST 81/ALT 15/alkaline phosphatase 164/total bilirubin 9.4. Lipase 26. CT abdomen/pelvis with IV contrast�no acute pathology. Severe hepatomegaly/mild splenomegaly/mild free fluid in the abdomen and pelvis.
-ETOH hepatitis
-hyponatremia
-abdominal pain
ETOH abuse
-hx PUD
-hx pancreatitis
-fatty liver
-anemia
-occasional rectal bleeding with hx prior colonoscopy
-Abnormal CT findings 09/2024-submucosal fatty deposition in the cecum and ascending colon. Nonspecific chronic inflammation
- Thrombocytopenia-likely secondary to alcohol abuse
- Hypoalbuminemia
MRCP 01/26 -no choledocholithiasis. S/p cholecystectomy. Diffuse anasarca and small volume abdominal pelvic ascites. Hepatosplenomegaly
Ultrasound abdomen 01/27 - small volume ascites. Suction for drainage
PLAN:
INR trending down and no confusion
prednisolone started 01/30
cont to trend labs
will add OP slip for Lille score 02/05
need good nutritional
stressed ETOH abstinence
Subjective
Subjective
Date of Service: January 31, 2025
Pt with alcoholic hepatitis, no confusion, no acute events
Objective
Data Reviewed
Laboratory Data:
Laboratory Results
01/31/25 05:15
01/31/25 05:15
Laboratory Results
PT 18.7 Sec (11.4-14.6) H 01/31/25 05:15
INR 1.51 01/31/25 05:15
Phosphorus Cancelled 01/25/25 23:22
Magnesium Cancelled 01/25/25 23:22
Total Bilirubin 12.6 mg/dl (0.2-1.3) H 01/31/25 05:15
AST 104 U/L (14-36) H 01/31/25 05:15
ALT 18 U/L (0-35) 01/31/25 05:15
Alkaline Phosphatase 125 U/L (38-126) 01/31/25 05:15
Lipase 26 U/L (23-300) 01/25/25 18:20
Vital Signs and I&O:
Vital Signs
Temp Pulse Resp BP Pulse Ox
97.8 F 75 16 110/60 94
01/31/25 07:05 01/31/25 11:23 01/31/25 11:23 01/31/25 10:37 01/31/25 11:23
I&O
01/30/25 01/31/25 02/01/25
06:59 06:59 06:59
Intake Total 1040 / 1040 240 / 240
Balance 1040 / 1040 240 / 240
Physical Exam
Physical Exam
HEENT: Anicteric (icteric)
GI: Soft and Non Distended
Neuro: Non Focal
[2025-01-31 15:05] VITALS: BP 108/59
[2025-01-31] MEDS: PROTONIX 40 MG PO (19:38)
[2025-01-31] MEDS: MELATONIN 10 MG PO (21:09)
[2025-02-01 00:03] VITALS: BP 119/59
[2025-02-01] MEDS: BENADRYL 25 MG PO ×2 (02:02→09:16)
[2025-02-01] MEDS: DILAUDID 0.5 MG IV ×3 (02:02→09:15)
[2025-02-01] MEDS: PHENERGAN WITH CODEINE SYRUP 5 ML PO (05:58)
[2025-02-01 07:00] VITALS: BP 110/62
[2025-02-01 07:23] LABS: % Basophils 0.1 % (0-2); % Immature Granulocytes 1.5 % (0-0.5); % Lymphocytes 12.2 % (20.5-51.1); % Monocytes 14.6 % (1.7-9.3); % Neutrophils 71.6 % (42.2-75.2); Absolute Immature Granulocytes 0.2 10^3/uL (0-0.05); Absolute Lymphocytes 1.7 10^3/uL (1.2-3.4); Absolute Monocytes 2.1 10^3/uL (0.1-0.6); Mean Corp Hgb Conc. 33.3 g/dL (33.0-37.0); Mean Corpuscular Hgb 31.4 pg (27.0-31.0); Mean Corpuscular Volume 94.1 fL (81.0-99.0); Mean Platelet Volume 10.2 fL (7.4-10.4); Nucleated Red Blood Cells % 0.4 %; Platelet Count 182 10^3/uL (130-400); Red Blood Cell Count 2.55 10^6/uL (4.20-5.40); Red Cell Dist. Width 20.2 % (11.5-14.5)
[2025-02-01 07:24] LABS: APTT 38.8 Sec (23.4-35.0); INR 1.49; PT 18.3 Sec (11.4-14.6)
[2025-02-01] MEDS: DUONEB 3 ML INH ×3 (07:24→15:06)
[2025-02-01] MEDS: SYMBICORT 80/4.5 MCG INHALER 2 PUFF INH (07:24)
[2025-02-01 07:43] LABS: ALT (SGPT) 26 U/L (0-35); AST (SGOT) 125 U/L (14-36); Albumin 2.7 g/dl (3.5-5.0); Alkaline Phosphatase 125 U/L (38-126); Blood Urea Nitrogen 22 mg/dl (7-17); Calcium 8.9 mg/dl (8.4-10.2); Carbon Dioxide 24 mmol/L (22-30); Chloride 100 mmol/L (98-107); Direct Bilirubin 9.3 mg/dl (0.0-0.4); Estimated Creatinine Clearance > 125 ml/min; Glucose 106 mg/dl (70-99); Potassium 4.8 mmol/L (3.5-5.1); Sodium 130 mmol/L (135-145); Total Bilirubin 11.4 mg/dl (0.2-1.3); Total Protein 6.4 g/dl (6.3-8.2); eGFR > 60.00
[2025-02-01] MEDS: BUSPAR 15 MG PO (08:10)
[2025-02-01] MEDS: ZINC 50 MG PO (08:10)
[2025-02-01] MEDS: PROTONIX 40 MG PO (08:10)
[2025-02-01] MEDS: NEURONTIN 300 MG PO (08:10)
[2025-02-01] MEDS: VITAMIN B1 100 MG PO (08:10)
[2025-02-01] MEDS: LIDOCAINE 4% PATCH 1 PATCH TOPICAL (08:11)
[2025-02-01] MEDS: NICODERM TRANSDERMAL 21 MG TRANSDERM (08:11)
[2025-02-01] MEDS: FOLVITE 1 MG PO (08:11)
[2025-02-01] MEDS: PRELONE 40 MG PO (08:15)
--- NOTE | 2025-02-01 08:53 | W.PN.GI.CBS2 ---
Addendum entered and electronically signed by Nick Tirado MD 02/01/25 10:07:
I saw and examined the patient.
The DRILLING MACHINE RUNNER or PA's note was reviewed and I agree with the note.
Comment:
Pt without confusion/complaints
abd: soft, nontender
oriented
INR improving
plan:
steroids
outpatient f/u (will have office call)
alcohol abstinence
can calculate lille score for prognosis as outpatient
will sign off no further inpatient w/u
Original Note:
Today's Communication / Plan
-
Continue steroids. Plan outpatient follow-up
Assessment / Plan
-
34-year-old female with history of alcohol abuse, alcohol related gastritis/ulcer, pancreatitis admitted with severe upper abdominal pain with nausea. She described pain radiation to the back and lower abdomen. Admits to drinking alcohol daily-4-5
shots of alcohol. Evaluated by GI 09/2024 when she was admitted to the hospital at that time and underwent EGD.
labs in ED this admission�AST 81/ALT 15/alkaline phosphatase 164/total bilirubin 9.4. Lipase 26. CT abdomen/pelvis with IV contrast�no acute pathology. Severe hepatomegaly/mild splenomegaly/mild free fluid in the abdomen and pelvis.
-ETOH hepatitis
-hyponatremia
-abdominal pain
ETOH abuse
-hx PUD
-hx pancreatitis
-fatty liver
-anemia
-occasional rectal bleeding with hx prior colonoscopy
-Abnormal CT findings 09/2024-submucosal fatty deposition in the cecum and ascending colon. Nonspecific chronic inflammation
- Thrombocytopenia-likely secondary to alcohol abuse
- Hypoalbuminemia
MRCP 01/26 -no choledocholithiasis. S/p cholecystectomy. Diffuse anasarca and small volume abdominal pelvic ascites. Hepatosplenomegaly
Ultrasound abdomen 01/27 - small volume ascites. Suction for drainage
PLAN:
INR trending down and no confusion
prednisolone started 01/30
cont to trend labs
will add OP slip for Jassi score 3/
need good nutritional
stressed ETOH abstinence
Subjective
Subjective
Date of Service: February 01, 2025
Feeling OK. No abdominal pain.
She denies fever, chills, nausea, vomiting. No confusion.
Objective
Data Reviewed
Laboratory Data:
Laboratory Results
02/01/25 06:28
02/01/25 06:28
Laboratory Results
PT 18.3 Sec (11.4-14.6) H 02/01/25 06:28
INR 1.49 02/01/25 06:28
APTT 38.8 Sec (23.4-35.0) H 02/01/25 06:28
Phosphorus Cancelled 01/25/25 23:22
Magnesium Cancelled 01/25/25 23:22
Total Bilirubin 11.4 mg/dl (0.2-1.3) H 02/01/25 06:28
AST 125 U/L (14-36) H 02/01/25 06:28
ALT 26 U/L (0-35) 02/01/25 06:28
Alkaline Phosphatase 125 U/L (38-126) 02/01/25 06:28
Lipase 26 U/L (23-300) 01/25/25 18:20
Vital Signs and I&O:
Vital Signs
Temp Pulse Resp BP Pulse Ox
97.8 F 73 16 110/62 94
02/01/25 07:00 02/01/25 07:26 02/01/25 07:26 02/01/25 07:00 02/01/25 07:26
I&O
01/31/25 02/01/25 02/02/25
06:59 06:59 07:59
Intake Total 240 / 240 1340 / 1340
Balance 240 / 240 1340 / 1340
Physical Exam
Physical Exam
HEENT: Other (+scleral icterus)
Cardiology: Normal Sinus Rhythm
Pulmonary: Clear
GI: Soft, Non Tender, Normal Bowel Sounds and Other (obese)
Extremities: Other (+bilateral lower extremity edema)
Neuro: Non Focal
[2025-02-01] MEDS: FLUSH (NSS) 2 FLUSH IV (09:17)
--- NOTE | 2025-02-01 12:15 | W.PN.HOSP.TC ---
Today's Communication/Plan
-
Continue prednisone
Lasix 20 mg and 48 oz FR
Labs on 02/05: Lille score, BMP, CBC
Outpatient follow-up with GI and PCP
Encourage compression stockings and ambulation
Discharge home
Assessment / Plan
Assessment / Plan
#Alcoholic hepatitis
-Akin's discriminant function would be near 34 as of today, previously >45
-R factor 0.3 however MRI/MRCP without signs of obstruction, bilirubin up to 10.8
-Imaging does show hepatomegaly that is very severe, likely CEDRIC +/- NAFLD
-Abdominal ultrasound with small volume RUQ ascites, not large enough to tap
-Bilirubin has continued to rise and was >14 as of 01/29, DF near 45
-GI following, Provided vitamin K x 2 while here
-Bilirubin downtrending, symptomatically improved
-Continue prednisolone 40 mg daily
-Lille score as OP on 02/05
-Zinc supplement and high-protein diet
#Hypervolemic hyponatremia
#Anasarca due to hypoalbuminemia
-Was noted that patient was drinking excessive free water, also with anasarca in the context of hepatic disease
-No signs or symptoms of hyponatremia at this time; sodium down trended to 125 x 2 at its lowest
-Urine studies with urine osmolality 330, likely some ADH from soft BP earlier in hospitalization
-Nephrology evaluated and recommended 48 ounce fluid restriction, s/p 3% saline on 01/30
-Nephrology recommending Lasix, gave 20 mg p.o. on 01/31; sodium up to 130
-Spoke with nephrology and will discharge on Lasix 20 mg, 48 ounce FR, BMP on 02/05
#Melena/UGIB
#Gastritis
#Thrombocytopenia and anemia
-Suspect she has a degree of portal hypertension with alcohol use history and CEDRIC
-Complains of epigastric abdomen pain/tenderness, associated with nausea but no vomiting
-Was started on IV PPI therapy upon arrival; CBC initially stable but has since downtrended
-Patient mentions melanic stools earlier in hospital stay but denies them as of 01/29
-As of 01/30/2025 hemoglobin and platelet count are uptrending, platelets now normal
-Appears to have resolved; plan to transition to oral PPI at [place], avoid NSAIDs
-Received 2 doses of vitamin K by GI here
-Repeat CBC as OP on 02/05
#Pleuritic chest discomfort
-Likely costochondritis as it is reproducible to palpation
-Very low suspicion for coronary etiology or other vascular cause
-Will start lidocaine patch
#Normocytic anemia
-Very likely anemia of chronic disease versus iron deficiency/blood loss from gastritis
-Hemoglobin here in the range of 8.6-9.9; previous hemoglobins were higher
-Currently on IV PPI as above, will continue to trend CBC daily
-Order iron panel, B12, folate to assess for underlying deficiency
#Alcohol use disorder
-Continue with withdrawal protocol and as needed benzodiazepine
-Remains hemodynamically adequate, no signs of severe withdrawal as of now
-Continue folic acid and thiamine supplementation
#Incidental finding on CT
-1.8 cm hypodense renal cyst
-Will need OP follow-up
#Anasarca
-Secondary to low albumin/oncotic pressure, component of excess fluid intake
-Was started on Lasix 20 mg daily by nephrology, will continue at [place]
-Will encourage patient to wear compression stockings and increase ambulation
-Follow-up with PCP, BMP in 1 week on Lasix
DVT prophylaxis: SCDs
Diet: Regular
CODE STATUS: Full code
Anticipated Discharge: Today
Subjective/Interval History
-
Date of Service: February 01, 2025
Seen and examined at the bedside. No acute events reported overnight. AFVSS as of this morning.
LFTs continue to improve with bilirubin in the now <12. Serum sodium improved on Lasix and fluid restriction. Patient was able to walk halls yesterday
She denies any new complaints today. Still has occasional cough with chest discomfort the lidocaine patch helps.
Objective Data
-
Labs:
Laboratory Results
02/01/25
06:28
WBC 14.0 H
Hgb 8.0 L
Hct 24.0 L
Plt Count 182
PT 18.3 H
INR 1.49
APTT 38.8 H
Sodium 130 L
Potassium 4.8
Chloride 100
Carbon Dioxide 24
BUN 22 H
Creatinine 0.8
Glucose 106 H
Calcium 8.9
Total Bilirubin 11.4 H
AST 125 H
ALT 26
Alkaline Phosphatase 125
Vital Signs:
Vital Signs
Temp Pulse Resp BP Pulse Ox
97.8 F 72 16 110/62 94
02/01/25 07:00 02/01/25 11:20 02/01/25 11:20 02/01/25 07:00 02/01/25 11:20
I&O
01/31/25 02/01/25 02/02/25
06:59 06:59 07:59
Intake Total 240 / 240 1340 / 1340
Balance 240 / 240 1340 / 1340
Physical Exam
-
General: Well Developed, No Apparent Distress, Comfortable and Morbidly Obese
HEENT: Normocephalic, Atraumatic, Moist Mucous Membranes and Other (Scleral icterus present)
Respiratory: Clear to Auscultation and Non Labored Respirations; Negative Wheezes, Rales, Rhonchi or Accessory Resp Muscle Use
Cardiac: Regular Rhythm and S1/S2; Negative Murmur, Rub or Gallop
GI: Soft, Nondistended, Normal Bowel Sounds, Tender (Minimally tender in epigastrium) and Organomegaly (Hepatomegaly)
Musculoskeletal: No Clubbing, No Cyanosis and Other (Nonpitting edema/anasarca bilateral LE up to thigh)
Skin: Warm, Dry and Jaundice; Negative Rash
Neuro: AO x 3 and Nonfocal/Grossly Intact; Negative Tremors
Psych: Calm
Data Reviewed
-
Labs: Labs Reviewed by me, Discussed with Physician (Nephrology) and Discussed with Patient
[2025-02-01] MEDS: ROBITUSSIN 100 MG PO (13:55)
[2025-02-01] MEDS: OFIRMEV 100 IV (14:02)
[2025-02-01 15:31] VITALS: BP 111/65
--- NOTE | 2025-02-01 16:20 | W.DCSUMMARY ---
Discharge Summary
Discharge Data
Date of Admission: 01/25/25
Date of Discharge: 02/01/25
Total time spent discharging patient (in min): 38
-
Pending Results: No
Hospital Course
Discharging Physician : Elder Keith DO
Disposition: Home
Principal Discharge diagnosis :
Alcoholic hepatitis
Hypervolemic hyponatremia
Gastritis secondary to portal hypertension
Melena/acute on chronic anemia
Chronic Discharge diagnosis :
Chronic alcohol use disorder
HOLLIDAY with portal hypertension
History of peptic ulcer disease (H. pylori negative)
Status post cholecystectomy
Peripheral neuropathy
Nicotine dependence
Mild intermittent asthma
Anemia of chronic disease
Morbid obesity
Hospital Course :
34-year-old female that presented to the hospital with the complaint of upper abdomen pain. Found to have significantly elevated bilirubin of 9.4 with AST 81 and ALP 164 at time of arrival. Lipase was WNL. Was started on on alcohol withdrawal
protocol with as needed benzodiazepines. Last drink of alcohol was day prior to arrival. Initial Madrey's discriminant factor >45 with INR 1.77. Received vitamin K x 2 in the hospital at GI discretion. Was started on IV PPI twice daily for
presumed gastritis. Obtained MRI/MRCP that did not show any evidence of biliary obstructions. Was started on 40 mg prednisone daily for alcoholic hepatitis with improved bilirubin levels. Bilirubin prior to steroid up trended to 14.4 prior to
steroid and downtrended to 11.4 after initiation over 3 days time. Gastroenterology monitored response, recommended calculating Lille score as OP on labs 02/05/2025. To consider further steroid versus liver transplant assessment based off of
response. Encouraged high-protein diet and starting zinc supplement for nutrition and alcoholic hepatitis. She did develop leukocytosis secondary to steroid though no other infectious symptoms present at hospital stay. Did not have any ascites
which was of magnitude for paracentesis. Abdomen pain had improved at time of discharge and she was transition to oral pantoprazole 40 mg twice daily. Provided short course of oxycodone for pain.
She did develop worsening hyponatremia during the hospital stay with a sodium down to 125 at lowest. Suspicion for hypervolemic hyponatremia secondary to anasarca from portal hypertension as well as a component of polydipsia. Started on 48 ounce
fluid restriction with minimal improvement. Received IV 3% saline x 1 with sodium improved to 128. Was started on Lasix 20 mg with further improvement to sodium at 130. Nephrology followed patient during the hospital stay. Recommended continuing
Lasix and fluid restriction at time of discharge with repeat labs. Recommended that patient ambulate and wear compression stockings to help with lower extremity anasarca. Optimistic that his liver function improves, albumin levels will improve and
oncotic pressure restorationism will relieve edema.
Consultants:
Sergio Mosquera MD -- Gastroenterology
Mehran Rucker MD -- Nephrology
Important imaging findings :
CT A/P with IV contrast (01/25/2025)
IMPRESSION: No acute pathology of the abdomen or pelvis and thigh. Severe hepatomegaly, Progressed. Severe hepatic fatty infiltration, progressed. Mild splenomegaly, Stable. Mild free fluid in the abdomen and pelvis, New. Findings consistent with
moderate volume overload or third spacing, New. Prior cholecystectomy. Hypodense right renal lesion likely a simple renal cyst. Stable
MRI/MRCP without contrast (01/26/2025)
1. Diffuse anasarca and small volume abdominopelvic ascites. Otherwise no convincing acute process in the abdomen status post cholecystectomy.
2. Hepatosplenomegaly.
Abdomen ultrasound (01/26/2025)
FINDINGS: Ultrasound evaluation of the 4 quadrants of the abdomen was obtained for assessment of free fluid/ascites. Small volume ascites is seen in the right upper quadrant, left upper quadrant, right lower quadrant and left lower quadrant.
Abdomen ultrasound (01/27/2025)
IMPRESSION: Small volume of ascites not sufficient for percutaneous drainage.
Procedure findings : N/A
Follow-up:
-OP labs for Lille score on 02/05/2025 to reassess response to steroid
-Repeat BMP on 02/05/2025 to reassess sodium
-OP follow-up with GI in office and PCP
Discharge Plan
-
Patient Disposition: Home (Routine Discharge)
Discharge Diagnosis/Procedures: Alcoholic hepatitis
Portal hypertension with gastritis
Hypervolemic hyponatremia
Anasarca
Hypoalbuminemia
Condition: Fair
Diet: Restrict fluids to 48 oz and Other diet
Additional Diets: ABSOLUTE avoidance of alcohol
Restrict Fluid intake to 48 oz daily
High-protein diet and Zinc supplement
Activity: As tolerated
Driving Restrictions: Not until seen by your Dr
Blood Work: MUST GET LABS 02/05 to follow up for steroid use. CALL GI office day after labs to review results -- see slips on chart [facility]
On 02/05 you will also get a BMP to recheck your sodium levels and CBC to recheck your blood counts
Activity Restrictions/Additional Instructions:
After discharge from the hospital schedule your follow-up appointment with family doctor, should be seen in 1 to 2 weeks of discharge from the hospital
Have labs performed on 02/05 and call the GI office (referral provided below) on the day after your labs to obtain results and schedule an office visit
Referrals:
Sergio Mosquera MD [Active] - (call gi office for 2-4 week follow up)
Devorah Norris MD [Family Provider] -
Additional Discharge Medication Instructions: Take prednisone 40 mg daily until stopped by operations label clerk (prescription sent for 2 weeks, contact GI or PCP for refill if needed)
Take Lasix 20 mg daily until stopped by your family doctor or operations label clerk
Continue zinc sulfate 50 mg capsule daily
Increased pantoprazole to 40 mg twice daily for at least 8 weeks
Continue B vitamin supplement with daily folate and twice daily thiamine
Start oxycodone 10 mg every 8 hours as needed for pain. While taking oxycodone use senna as needed for constipation
Use compression stockings on your lower extremities daily to help increase fluid movement from your legs back into your circulation
Use nicotine patches for smoking cessation, talk to your family doctor about Chantix
Prescriptions:
New
nicotine 21 mg/24 hr Patch 24 Hour
21 mg transdermal DAILY Qty: 28 0RF
prednisolone 5 mg tablet
40 mg PO DAILY 14 Days Qty: 112 0RF
thiamine mononitrate (vit B1) 100 mg Tablet
100 mg PO BID 30 Days Qty: 60 0RF
zinc sulfate 50 mg zinc (220 mg) Capsule
50 mg PO DAILY 30 Days Qty: 30 0RF
pantoprazole 40 mg Tablet,Delayed Release (Dr/Ec)
40 mg PO BID 30 Days Qty: 60 0RF
oxycodone 10 mg tablet
10 mg PO Q8H PRN (Reason: Pain) 5 Days Qty: 20 0RF
sennosides [senna] 8.6 mg tablet
8.6 mg PO BID PRN (Reason: Constipation) 7 Days Qty: 14 0RF
furosemide [Lasix] 20 mg tablet
20 mg PO DAILY 14 Days Qty: 14 0RF
(DME) comp.stocking,thigh,long,large Misc
See Rx Instructions .Route Qty: 2 0RF
Rx Instructions:
As directed
Continued
budesonide-formoterol [Symbicort] 80-4.5 mcg/actuation Hfa Aerosol Inhaler
2 inh INHALATION R BID
gabapentin 300 mg Capsule
300 mg PO BID
folic acid 1 mg Tablet
1 mg PO DAILY
buspirone 15 mg Tablet
15 mg PO BID
melatonin 10 mg Tablet
10 mg PO HS
albuterol sulfate 0.63 mg/3 mL Solution For Nebulization
0.63 mg INHALATION R Q4HPRN PRN (Reason: sob)
naltrexone 50 mg Tablet
50 mg PO DAILY
Discontinued
pantoprazole [Protonix] 40 mg Tablet,Delayed Release (Dr/Ec)
40 mg PO DAILY
Discharge Orders:
Discharge Patient (As Directed); Ordered 02/01/25
Ordered By: Elder Keith
Discharge Date and Time
Discharge Date/Time: 02/01/25 15:45
Print Language: TURKMEN
== END 2025-02-01 15:45 | disposition home or self-care (01) | DRG 432 ==
LOC: 3 WEST ACU 23:13
PROVIDERS: Nurse Practitioner Adult Health; Registered Nurse; ADMITTING PHYSICIAN Internal Medicine; ATTENDING PHYSICIAN Internal Medicine; CONSULT PHYSICIAN Internal Medicine Gastroenterology; CONSULT PHYSICIAN Specialist; EMERGENCY PHYSICIAN Student in an Organized Health Care Education/Training Program; FAMILY PHYSICIAN Internal Medicine
DX: K70.11 Alcoholic hepatitis with ascites (principal); K85.90 Acute pancreatitis without necrosis or infection, unspecified; E87.1 Hypo-osmolality and hyponatremia; Z68.42 Body mass index [BMI] 45.0-49.9, adult; D62 Acute posthemorrhagic anemia; K76.6 Portal hypertension; D68.9 Coagulation defect, unspecified; J98.11 Atelectasis; F17.210 Nicotine dependence, cigarettes, uncomplicated; Z11.52 Encounter for screening for COVID-19; D63.8 Anemia in other chronic diseases classified elsewhere; D69.6 Thrombocytopenia, unspecified; F41.9 Anxiety disorder, unspecified; G62.9 Polyneuropathy, unspecified; J45.998 Other asthma; I10 Essential (primary) hypertension; F32.A Depression, unspecified; K25.9 Gastric ulcer, unspecified as acute or chronic, without hemorrhage or perforation; F10.10 Alcohol abuse, uncomplicated; E88.09 Other disorders of plasma-protein metabolism, not elsewhere classified; E66.01 Morbid (severe) obesity due to excess calories; K29.20 Alcoholic gastritis without bleeding; E87.70 Fluid overload, unspecified; K44.9 Diaphragmatic hernia without obstruction or gangrene; K64.9 Unspecified hemorrhoids; N28.1 Cyst of kidney, acquired; T38.0X5A Adverse effect of glucocorticoids and synthetic analogues, initial encounter; Z79.899 Other long term (current) drug therapy; Z87.11 Personal history of peptic ulcer disease; Z90.49 Acquired absence of other specified parts of digestive tract
CPT/HCPCS: 71046; 74177; 74181; 76705; 80053; 80306; 80307; 81003; 81015; 82010; 82077; 82248; 82607; 82728; 82746; 82977; 83540; 83550; 83690; 83735; 83880; 83930; 83935; 84100; 84300; 84703; 85025; 85027; 85610; 85730; 87502; 87811; 93005; 94640; 96361; 96365; 96375; 96376; 99285; 99406; Q9967

== ENCOUNTER 2025-02-10 19:47 | Inpatient (IN) | payer OTHER, SELFPAY ==
[2025-02-10 14:13] VITALS: BP 127/76
[2025-02-10 14:51] LABS: INR 1.38; PT 17.2 Sec (11.4-14.6)
[2025-02-10 14:53] LABS: % Basophils 0.1 % (0-2); % Immature Granulocytes 1.5 % (0-0.5); % Lymphocytes 3.8 % (20.5-51.1); % Neutrophils 90.6 % (42.2-75.2); Absolute Immature Granulocytes 0.3 10^3/uL (0-0.05); Absolute Lymphocytes 0.7 10^3/uL (1.2-3.4); Absolute Monocytes 0.7 10^3/uL (0.1-0.6); Absolute Neutrophils 16.7 10^3/uL (1.4-6.5); Hematocrit 24.9 % (37.0-47.0); Hemoglobin 7.9 g/dL (12.0-16.0); Mean Corp Hgb Conc. 31.7 g/dL (33.0-37.0); Mean Corpuscular Hgb 31.9 pg (27.0-31.0); Mean Corpuscular Volume 100.4 fL (81.0-99.0); Mean Platelet Volume 10.1 fL (7.4-10.4); Nucleated Red Blood Cells % 0 %; Platelet Count 161 10^3/uL (130-400); Red Blood Cell Count 2.48 10^6/uL (4.20-5.40); White Blood Cell Count 18.4 10^3/uL (4.8-10.8)
[2025-02-10 14:54] LABS: HCG, Serum Qualitative Screen Negative
[2025-02-10 15:00] LABS: ALT (SGPT) 82 U/L (0-35); AST (SGOT) 157 U/L (14-36); Albumin 3.2 g/dl (3.5-5.0); Alkaline Phosphatase 116 U/L (38-126); Blood Urea Nitrogen 30 mg/dl (7-17); Calcium 8.9 mg/dl (8.4-10.2); Carbon Dioxide 23 mmol/L (22-30); Chloride 102 mmol/L (98-107); Glucose 120 mg/dl (70-99); Potassium 4.6 mmol/L (3.5-5.1); Sodium 135 mmol/L (135-145); Total Bilirubin 13.6 mg/dl (0.2-1.3); Total Protein 6.9 g/dl (6.3-8.2); eGFR > 60.00
[2025-02-10 15:12] LABS: Lipase 73 U/L (23-300)
[2025-02-10 15:52] LABS: Anisocytosis 1+; Hypochromasia 2+; Macrocytosis 1+; Normal RBC Morphology No; Stomatocytes Slight; Target Cells 2+
[2025-02-10 15:53] LABS: Ovalocytes Slight
--- NOTE | 2025-02-10 16:39 | ED.GENMED ---
History of Present Illness
General
Chief Complaint: Swelling
Source: patient
Exam Limitations: none
Time Seen by Provider: 02/10/25 16:24
History of Present Illness
History of Present Illness:
Patient is a 34-year-old female with past medical history of alcoholic hepatitis hyponatremia , alcoholic gastritis anemia obesity presents to the ER for evaluation of worsening swelling. Patient was discharged February 01 and reports swelling has
gotten gradual worse and she has had no improvement of symptoms. She complains of generalized swelling from her feet up to her abdomen. She complains of pain for the swelling and is short of breath with exertion because of the swelling. She
reports she has not drank since January 25.
She denies any fevers.
Patient was discharged on oxycodone however has completed that. Naltrexone is listed on her medicine list but she has not taking that. She took this for alcohol abuse.
During prior admission it was documented that she did not have significant ascites for paracentesis. Again she documents that swelling has gradually gotten worse and has not improved. She complains of being very uncomfortable and pain all over
from the swelling.
Past History
Past History
ED Past Medical History: Asthma and Other (COVID-19, alcohol abuse)
ED Past Surgical History: Tonsilectomy
Social History
Tobacco: Smoker
Alcohol: Daily
Review of Systems
Review of Systems
Allergies reviewed?: Yes
All Other Systems: ROS reviewed and negative except as documented in HPI and ROS
Constitutional: Reports no symptoms; Denies fever, fatigue or chills
EENT: Reports no symptoms
Respiratory: Reports trouble breathing
Cardiac: Reports no symptoms
ABD/GI: Reports no symptoms, abdominal pain and other (abdominal swelling causing pain ); Denies nausea or vomiting
Musculoskeletal: Reports other (increased swelling from legs to abdomen )
Skin: Reports no symptoms
Neurological: Reports no symptoms
Psychiatric: Reports no symptoms
Phy Exam
General Physical Exam
General Presentation: no apparent distress
General age: appears stated age
General Skin: warm and dry
General Habitus: normal
General Mental: alert
General Hydration: appears well hydrated
Eye Exam
Eye Exam: PERRL, EOMI and other (Scleral icterus)
Cardiovascular Exam
Cardiovascular Exam: regular rate/rhythm, no murmur and normal peripheral pulses
Pulmonary Exam
Pulmonary Exam: lungs clear and no respiratory distress
Gastrointestinal Exam
Gastrointestinal Exam: non tender, soft and other (abdomen swollen )
Neurological Exam
Neurological Exam: alert and oriented x3
Musculoskeletal Exam
Musculoskeletal Exam: full ROM and other (legs with edema b/l )
Skin Exam
Skin Exam: normal color and warm/dry
Psychiatric Exam
Psychiatric Exam: normal mood/affect
Course
Orders/Labs/Results
Orders:
Orders
02/10/25 14:19
Test Result ONCE
02/10/25 14:26
Complete Blood Count/With Diff Urgent
Comprehensive Metabolic Panel Urgent
HCG, Serum Qualitative Screen Urgent
Lipase Urgent
Prothrombin Time Urgent
02/10/25 18:01
Morphine Sulfate 4 mg IV NOW STA
Abnormal Lab Results
02/10/25
14:26
WBC 18.4 H 10^3/uL
(4.8-10.8)
RBC 2.48 L 10^6/uL
(4.20-5.40)
Hgb 7.9 L g/dL
(12.0-16.0)
Hct 24.9 L %
(37.0-47.0)
MCV 100.4 H fL
(81.0-99.0)
MCH 31.9 H pg
(27.0-31.0)
MCHC 31.7 L g/dL
(33.0-37.0)
RDW 25.0 H %
(11.5-14.5)
Abs Immat Gran (auto) 0.3 H 10^3/uL
(0-0.05)
Absolute Neuts (auto) 16.7 H 10^3/uL
(1.4-6.5)
Absolute Lymphs (auto) 0.7 L 10^3/uL
(1.2-3.4)
Absolute Monos (auto) 0.7 H 10^3/uL
(0.1-0.6)
Immature Gran % 1.5 H %
(0-0.5)
Neutrophils % 90.6 H %
(42.2-75.2)
Lymphocytes % 3.8 L %
(20.5-51.1)
PT 17.2 H Sec
(11.4-14.6)
BUN 30 H mg/dl
(7-17)
Glucose 120 H mg/dl
(70-99)
Total Bilirubin 13.6 H mg/dl
(0.2-1.3)
AST 157 H U/L
(14-36)
ALT 82 H U/L
(0-35)
Albumin 3.2 L g/dl
(3.5-5.0)
02/10/25 14:26
02/10/25 14:26
Vital Signs
Initial and Last Documented VS:
Initial Vital Signs
Temp Pulse Resp BP Pulse Ox
98.3 F 76 18 127/76 99
02/10/25 14:13 02/10/25 14:13 02/10/25 14:13 02/10/25 14:13 02/10/25 14:13
Last Documented Vital Signs
Temp Pulse Resp BP Pulse Ox
98.3 F 65 12 121/84 99
02/10/25 14:13 02/10/25 18:15 02/10/25 18:15 02/10/25 17:24 02/10/25 17:28
Document Photographer consulted with Physician
Document Photographer consulted with physician?: Yes
Name of Physician Consulted: DR Blair
MDM/Problems Addressed
MDM/Problems Addressed:
Patient is a 34-year-old female with alcohol hepatitis presenting for anasarca. Patient had increasing swelling in her lower extremities and abdomen since being discharged February 01. She reports is never improved. She complains of being generally
uncomfortable related to swelling but denies any specific abdominal pain. She denies any fevers. No chills not concerning for spontaneous bacterial peritonitis .
she does have an elevated white count however this has been chronically elevated. no fever here.
Her hemoglobin is low at 7.9 however was 8.0. Her bilirubin is 13.6 (discharged at 11.4 ).
Case d/c with ED attending pt is very uncomfortable on exam will order pain meds and admit.
.
*Pulse Oximetry
Patient hypoxic: no
*Critical Care Note
Total Time (30-74mins, 75-104mins- exclusive of procedures): Not Applicable
Data Reviewed
Review of Other/Old Records Reveals: Radiology Studies and Discharge Summary
ED Attending Note
-
Portions of this chart may have been created with voice recognition software.� Occasional wrong word or��sound alike� substitutions may have occurred due to the inherent limitations of voice recognition software.
Discharge Plan
Departure
Patient Disposition: Admit
Date of Disposition: 02/10/25
Time of Disposition: 18:30
Admit to doctor: hospitalist
Presentation/result/management discussed w/ accepting MD/DO: Hospitalist
Patient with high blood pressure during this ER visit?: No
Condition: Fair
Covid-19: Not Applicable
Discharge Problem:
Anasarca
Prescriptions:
No Action
budesonide-formoterol [Symbicort] 80-4.5 mcg/actuation Hfa Aerosol Inhaler
2 inh INHALATION R BID
gabapentin 300 mg Capsule
300 mg PO BID
folic acid 1 mg Tablet
1 mg PO DAILY
buspirone 15 mg Tablet
15 mg PO BID
melatonin 10 mg Tablet
10 mg PO HS
albuterol sulfate 0.63 mg/3 mL Solution For Nebulization
0.63 mg INHALATION R Q4HPRN PRN (Reason: sob)
naltrexone 50 mg Tablet
50 mg PO DAILY
nicotine 21 mg/24 hr Patch 24 Hour
21 mg transdermal DAILY Qty: 28 0RF
prednisolone 5 mg tablet
40 mg PO DAILY 14 Days Qty: 112 0RF
thiamine mononitrate (vit B1) 100 mg Tablet
100 mg PO BID 30 Days Qty: 60 0RF
zinc sulfate 50 mg zinc (220 mg) Capsule
50 mg PO DAILY 30 Days Qty: 30 0RF
pantoprazole 40 mg Tablet,Delayed Release (Dr/Ec)
40 mg PO BID 30 Days Qty: 60 0RF
oxycodone 10 mg tablet
10 mg PO Q8H PRN (Reason: Pain) 5 Days Qty: 20 0RF
sennosides [senna] 8.6 mg tablet
8.6 mg PO BID PRN (Reason: Constipation) 7 Days Qty: 14 0RF
furosemide [Lasix] 20 mg tablet
20 mg PO DAILY 14 Days Qty: 14 0RF
(DME) comp.stocking,thigh,long,large Misc
See Rx Instructions .Route Qty: 2 0RF
Rx Instructions:
As directed
Referrals:
Daniel Clancy MD [Family Provider] -
Interventions
Interventions:
*Risk Screen - Suicide Last Done: 02/10/25 14:13
*General Assessment Last Done: 02/10/25 14:13
*Neglect/Abuse Screening Last Done: 02/10/25 17:29
*ED- Fall Risk Assessment Last Done: 02/10/25 17:29
*ED COVID-19 Vaccine History Last Done: 02/10/25 16:42
ED- Cardiac Assessment Last Done: 02/10/25 17:28
ED- Pulmonary Assessment Last Done: 02/10/25 17:28
ED-Skin Assessment Last Done: 02/10/25 17:32
Discharge Date and Time
Print Language: STATELESS
[2025-02-10 17:24] VITALS: BP 121/84
--- NOTE | 2025-02-10 18:21 | HPS.HSE ---
Family Physician
-
Family Physician: Daniel Clancy MD
Chief Complaint
-
increased edema
History of Present Illness
Patient is a 34-year-old female with past medical history significant for alcohol hepatitis, alcohol dependency, asthma, essential hypertension, anxiety, chronic anemia and Hx alcoholic pancreatitis who presented to [facility] ED for
evaluation of increased edema. Patient reports that she has increased edema for approximately 1 week in he abdomen down to her feet, she states this is associated with increased shortness of breath, dry cough, chest discomfort and diarrhea. She
states that she has weeping from both her lower extremities for the past week. She denies any fever, chills, nausea, vomiting, constipation or urinary symptoms.
Medical History
Past Medical History
Past Medical History: Reports Other
Additional Past Medical History:
alcohol hepatitis
alcohol dependency
asthma
hypertension
anxiety
chronic anemia
GERD
Hx alcoholic pancreatitis
Past Surgical History: Reports Other
Additional Past Surgical History:
tonsillectomy
D & C
Cholecystectomy
right breast biopsy
Social History
Tobacco: Smoker (5 to 6 cigarettes daily for 10 years )
Alcohol: Former (Last drink January 25, 2025 )
Drug: None
Living: With Family
Employment: Employed
Family History
Family History: Not pertinent
Allergies / Home Medications
Allergies reflects when Allergies were last updated in [employer].
Home Medications with original date entered in [employer]
Allergy/Medication List:
Allergies
Allergy/AdvReac Type Severity Reaction Status Date / Time
Penicillins Allergy Unknown Verified 01/25/25 19:09
Sulfa (Sulfonamide Allergy Unknown Verified 01/25/25 19:09
Antibiotics)
Home Medications
budesonide-formoterol HFA 80 mcg-4.5 mcg/actuation aerosol inhaler (Symbicort) 2 inh inhalation R BID Lung/Breathing Issues 09/27/24
buspirone 15 mg tablet 15 mg PO BID Anxiety 09/27/24
folic acid 1 mg tablet 1 mg PO DAILY Supplement 09/27/24
gabapentin 300 mg capsule 300 mg PO BID Neurological Condition 09/27/24
melatonin 10 mg tablet 10 mg PO HS Sleep 09/27/24
albuterol sulfate 0.63 mg/3 mL solution for nebulization 0.63 mg inhalation R Q4HPRN PRN sob 01/26/25
furosemide 20 mg tablet (Lasix) 20 mg PO DAILY anasarca 2 weeks #14 tabs 02/01/25
nicotine 21 mg/24 hr daily transdermal patch 21 mg transdermal DAILY Smoking cessation #28 ea 02/01/25
pantoprazole 40 mg tablet,delayed release 40 mg PO BID Gastrointestinal issue 1 month #60 tabs 02/01/25
prednisolone 5 mg tablet 40 mg (8 x 5 mg) PO DAILY Liver disease 14 days #112 tabs 02/01/25
thiamine mononitrate (vit B1) 100 mg tablet 100 mg PO BID Supplement 1 month #60 tabs 02/01/25
zinc sulfate 50 mg zinc (220 mg) capsule 50 mg PO DAILY Supplement 1 month #30 caps 02/01/25
diphenhydramine HCl 25 mg capsule (Benadryl) 25 mg PO BIDPRN PRN allergies 02/10/25
diphenhydramine HCl 25 mg capsule (Benadryl) 25 mg PO HS 02/10/25
oxycodone 10 mg tablet 10 mg PO Q8HPRN PRN severe pain 02/10/25
sennosides 8.6 mg tablet (senna) 8.6 mg PO BIDPRN PRN Constipation 02/10/25
Review of Systems
-
History Source: Patient
Constitutional: Reports Weight Gain
EENT: Reports No Symptoms
Respiratory: Reports Cough
Cardiac: Reports Chest Pain
Abdomen/GI: Reports Other (increased edema )
: Reports No Symptoms
Musculoskeletal: Reports Edema (BLLE edema with weeping )
Skin: Reports No Symptoms
Neurological: Reports No Symptoms
Endocrine: Reports No Symptoms
Hematologic/Lymphatic: Reports No Symptoms
Psych: Reports No Symptoms
Physical Exam
Vital Signs
Vital Signs
Temp Pulse Resp BP Pulse Ox
98.3 F 65 12 121/84 99
02/10/25 14:13 02/10/25 18:15 02/10/25 18:15 02/10/25 17:24 02/10/25 17:28
Physical Exam
General: Well Developed, Well Nourished, Conversant, Pain and Morbidly Obese
HEENT: NormoCephalic, Moist mucous membranes, Atraumatic, [place] Conjunctivae, Nose Appears Normal and Ears Appear Normal
Respiratory: Clear, Non Labored Respirations and Decreased Breath Sounds
Cardiac: S1/S2 and Regular Rhythm; No Murmur, Rub or Gallop
Breast: Deferred by me
GI: Soft, Non Tender, Normal Bowel Sounds and Other (increased edema ); No Organomegaly
Rectal: Deferred by Provider
Genito-urinary: Deferred by me
Musculoskeletal: No Clubbing, No Cyanosis, Edema, Left Lower Extremity and Edema, Right Lower Extremity
Skin: Jaundice
Neuro: Awake, Alert, AO x 3 and Nonfocal/grossly intact
Psych: Calm and Intact Judgment/Insight
Laboratory Results
-
02/10/25 14:26
02/10/25 14:26
Laboratory Results
PT 17.2 Sec (11.4-14.6) H 02/10/25 14:26
INR 1.38 02/10/25 14:26
Total Bilirubin 13.6 mg/dl (0.2-1.3) H 02/10/25 14:26
AST 157 U/L (14-36) H 02/10/25 14:26
ALT 82 U/L (0-35) H 02/10/25 14:26
Alkaline Phosphatase 116 U/L (38-126) 02/10/25 14:26
Lipase 73 U/L (23-300) 02/10/25 14:26
Data Reviewed
-
Lab Data: Labs Reviewed by me (WBC 18.4, hgb 7.9, hct 24.9, Neut 90.6, Tot Bili 13.6, AST 157, ALT 82, Albumin 3.2)
Impression/Plan
-
IMPRESSION/PLAN:
#anasarca
Tot Bili 13.6, AST 157, ALT 82, Alk Phos 116, Albumin 3.2
Last drink January 25, 2025
Abdominal US: pending
- Admit to IMU
- Consult Nephrology
- Fluid restriction 1.2 L
- Lasix 20mg daily
- compression stockings
#alcohol hepatitis
#alcohol dependency
- Consult GI
- MSAS score
- continue prednisolone (consider d/c on day 10/10 with current Maddrey's DF 28)
#asthma
- continue albuterol and Symbicort
#hypertension
#anxiety
- continue buspirone
#chronic anemia
#macrocytic previously normocytic
hgb 7.9, hct 24.9
new macrocytic anemia
- at baseline
- monitor H/H
- blood consent obtained
- check folate and B12
#GERD
- continue pantoprazole
#nicotine dependency
smokes .05 packs per day for >10 years
- nicotine patch
- encourage cessation
#Hx alcoholic pancreatitis
Code status: Full Code
DVT Prophylaxis: SCDs
--- NOTE | 2025-02-10 19:04 | W.PN.UPDATE ---
Update Note
Progress Note Update
This note serves as an addendum to the H&P by feedlot manager FERNANDO
Roxanne Trejo
HPI
33F Obese HX acute ETOH hepatitis, Anasarca, Hypervolemic hyponatremia , ACdz with baseline Hg 8, Severe ETOH use disorder , HX ETOH pancreatitis, Abn LFTS ( elevated TB, Transaminitis, elevated AKP) small non bleeding ( EGD, September 2024)
HTN, Anxiety/depression seen at ER:
- gradually worsening swelling in abdomen and Jihan since discharged on
- Noted 9.5 kg wt gain in 2 weeks
- chronic abdominal pain and discharged on oxycodone however has completed that.
- short of breath with exertion because of the swelling
- reports she has not drank since January 25.
- During prior admission it was documented that she did not have significant ascites for paracentesis.
ROS
denies any fevers.
Naltrexone is listed on her medicine list but she has not taking that.
PHX; see above
Reviewed VS:
Selected Entries
01/26/25
15:46 01/27/25
05:06 02/10/25
14:13
Temp 98.3 F
Pulse 76
Resp Rate 18
Blood pressure 127/76
SaO2 99
Oxygen Mode of Delivery Room air
Actual Weight 124.795 kg 135.5 kg
PE
Gen: looks toxic
HEENT: icteric sclera , puffy face
Neck: supple
Lungs: CTA
Cor: Borderline ST
Abdomen: obese abdomen, firm abdomen and diffusely tender
HAND ALMOND BLANCHER: lethargic
MS: b/l Jihan edema
Psych: looks exhausted
02/10/25
14:26
WBC 18.4 H
Hgb 8.4 --> 8.0 --> 7.9 L
MCV 100.4 H
INR 1.38
Sodium 135
Potassium 4.6
Chloride 102
Carbon Dioxide 23
Creatinine 0.7
eGFR > 60.00
Glucose 120 H
Total Bilirubin 13.6 H
AST 157 H
ALT 82 H
Alkaline Phosphatase 116
Albumin 2.7 --> 3.2 L
Lipase 73
HCG, Qual Negative
01/27/25 limited US Abdomen
Small volume of ascites not sufficient for percutaneous drainage.
01/26/25 MR Mrcp Without
1. Diffuse anasarca and small volume abdominopelvic ascites.
Otherwise no convincing acute process in the abdomen status post cholecystectomy.
2. Hepatosplenomegaly.
3. Lack of intravenous contrast limits assessment in the abdomen
Last hospitalist admission: 01/25/25 - 02/01/25
PDx:
Alcoholic hepatitis
Hypervolemic hyponatremia
Gastritis secondary to portal hypertension
Melena/acute on chronic anemia
ASSESSMENT & PLAN
Worsening Anasarca due to current Prednisone for ETOH Hepatitis with peak DF 40s + hypoalbuminemic + 3rd spacing
Hypervolemia; approx 9.5 kg Wt, gain in 2 weeks
Questionable compliance with Lasix
Not adherence to FR
HX HX Hypervolemic hyponatremia
- IV Lasix 20 mg daily
- Fluid restriction 1.2 L ( 48 Fl Oz)
- Daily BMP
- compression stockings and increase ambulation
- Nephro consult
Acute ETOH hepatitis ( Reversed AST and ALT ratio): currently on PO Prednisone day 10/10 -peak DF was 40s on last admission
Current Maddrey's DF 28 given PT 17.2, PT control 14, TB 13.6) : thus responding t o Prednisone
Prior MRI without contrast : Hepatomegaly likely CEDRIC +/- NAFLD
Resolved prior Thrombocytopenia due to hypersplenism
Associated synthetic dysfunction such as coagulopathy , Hypoalbuminemia
- To consider DC PO Prednisone 40 daily ( Day )given current DF < 32 ; await further eval by GI
- Trend LFTs and platelets
- cessation of ETOH
- No indication for PO Prednisone ( DF < 32)
- US Abdomen to evaluate for Ascites
- GI consult
Chr epigastric abdomen pain/tenderness, associated with nausea but no vomiting
- oral PPI
- avoid NSAIDs
Severe interval macrocytic anemia: previously normocytic
Underlying anemia of chronic disease
- Baseline Hgb low 8. Now 7. 9 suspect hemodilution due to hypervolemia
- T & S, Blood consent
- B12, folate
- Trend CBC daily
Severe ETOH use disorder : last ETOH was January
No signs of severe withdrawal as of now
- Observe
-Continue folic acid and thiamine supplementation
Known Incidental finding 1.8 cm hypodense renal cyst on prior CT
- OP follow-up
DVT Px: SCD
Full code
IMU
[2025-02-10] MEDS: MORPHINE SULFATE 4 MG IV (19:25)
[2025-02-10 20:42] VITALS: BP 118/59
[2025-02-10 20:56] VITALS: BP 114/68
[2025-02-10 20:57] VITALS: BMI 47.0
[2025-02-10] MEDS: VITAMIN B1 100 MG PO (21:28)
[2025-02-10] MEDS: BUSPAR 15 MG PO (21:28)
[2025-02-10] MEDS: ROXICODONE 10 MG PO (21:28)
[2025-02-10] MEDS: NEURONTIN 300 MG PO (21:28)
[2025-02-10] MEDS: PROTONIX 40 MG PO (21:28)
[2025-02-10] MEDS: MELATONIN 10 MG PO (21:49)
[2025-02-10] MEDS: BENADRYL 25 MG PO (21:49)
[2025-02-10 22:00] VITALS: BP 109/62
--- NOTE | 2025-02-10 23:23 | PTCARENOTE ---
pt admitted from the ED, pt is AAOx3, able to make needs known. VSS. pt is very SOB on exertion, abdomen full and round with swelling noted. pt very tearful because of pain. medication with PRN meds per JAN. on RA 94%. legs very swollen and weeping.
scratch noted to right knee, pt says since the scratch she has been weeping clear fluid. able to walk into bathroom by self without issues. care ongoing.
[2025-02-11] VITALS (13 sets, daily range): BP systolic 96–122; BP diastolic 51–70; BMI 47.0
[2025-02-11] MEDS: OFIRMEV 100 IV (02:45)
[2025-02-11] MEDS: TESSALON PERLES 100 MG PO ×2 (02:48→09:43)
[2025-02-11] MEDS: SYMBICORT 80/4.5 MCG INHALER INH (02:53)
--- NOTE | 2025-02-11 02:57 | PTCARENOTE ---
pt sleeping for shift, woke up to go to the bathroom and stated she is in 8/10 pain to legs. pt not due for any pain meds at this time. pt asking for IV dilaudid, stating she got it when she was here before and it was every 4 hours. notified
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 patient aware of plan of care.
[2025-02-11] MEDS: ROXICODONE 10 MG PO (03:37)
[2025-02-11 04:01] LABS: Hematocrit 22.9 % (37.0-47.0); Hemoglobin 7.4 g/dL (12.0-16.0); Mean Corp Hgb Conc. 32.3 g/dL (33.0-37.0); Mean Corpuscular Hgb 31.9 pg (27.0-31.0); Mean Corpuscular Volume 98.7 fL (81.0-99.0); Mean Platelet Volume 10.9 fL (7.4-10.4); Platelet Count 144 10^3/uL (130-400); Red Blood Cell Count 2.32 10^6/uL (4.20-5.40); Red Cell Dist. Width 25.4 % (11.5-14.5); White Blood Cell Count 19.3 10^3/uL (4.8-10.8)
[2025-02-11 04:31] LABS: ALT (SGPT) 83 U/L (0-35); AST (SGOT) 159 U/L (14-36); Alkaline Phosphatase 111 U/L (38-126); Blood Urea Nitrogen 32 mg/dl (7-17); Calcium 8.9 mg/dl (8.4-10.2); Carbon Dioxide 22 mmol/L (22-30); Chloride 104 mmol/L (98-107); Estimated Creatinine Clearance > 125 ml/min; Glucose 99 mg/dl (70-99); Potassium 4.2 mmol/L (3.5-5.1); Sodium 137 mmol/L (135-145); Total Bilirubin 12.9 mg/dl (0.2-1.3); Total Protein 6.5 g/dl (6.3-8.2); eGFR > 60.00
[2025-02-11 05:37] LABS: Folate 18.4 ng/ml (2.76-20); Vitamin B12 476 pg/ml (239-931)
--- NOTE | 2025-02-11 07:13 | CON.GI ---
Addendum entered and electronically signed by Elder Menjivar MD 02/11/25 12:11:
Patient seen and examined, agree with nurse practitioner note. Patient with recent admission with acute severe alcohol hepatitis, now with increasing abdominal girth and edema. She was discharged on prednisolone and had peak of bilirubin up to 20.
She now presents with increasing abdominal girth and edema. On exam she has pitting edema and anasarca to her abdomen and lower extremities. Ultrasound with only minimal ascites. Her LFTs here are improved from her peak bilirubin of 20. She
states that she was not taking Lasix on discharge. She has been seen by nephrology and started on Lasix here. At this point would continue diuretics per nephrology, pending her potassium balance may add Aldactone. Again discussed salt restriction
that she was unaware of and changed to 2 g salt restriction diet. Await imaging to rule out thrombosis which seems less likely. Given improvement in her bilirubin will continue prednisolone and again discussed alcohol abstinence.
Addendum entered and electronically signed by JU Owens 02/11/25 11:11:
add to exam below noted diffuse anasarca and pitting edema throughout leg and back
Original Note:
Consultation
-
Date/Time Consultation Requested: 02/10/252044
Date/Time Consultation Performed: 02/11/2545
Requesting Provider: JU Medina
Performing Provider: JU Van, Isac Menjivar MD
Reason for Consultation: ETOH hepatitis
Medical History
Chief Complaint / HPI
Chief Complaint: swelling
History of Present Illness:
34-year-old female with history of alcohol abuse, ETOH hepatitis, hyponatremia, pancreatitis, alcoholic gastritis with onset of lower ext swelling. In review of records pt with admission in August 2024 to [place] with ETOH abuse with intubation
required. She was then admitted 09/27 - 10/03 with abdominal pain, nausea, vomiting, tremors and ETOH withdrawal. She was noted covid + and completed EGD 09/30 with small non bleeding gastric ulcer with clean base. Duodenum with flat white spots,
small HH and normal esophagus. She was recommended to follow up with primary insurance verification clerk and consider colonoscopy but cont PPI BID x 8 week and avoidance of NSAIDs and ETOH. She then returned 01/25 to 02/01 with drinking 4-5 shots daily. She
admits last drink was 01/24. She had worsening of DF and started on Prednisone 01/30 and advised Lasix 20mg daily but admits to not taking Lasix several days after discharge. She had follow up labs last week on 02/05 with WBC 12,300, hbg 8.6,
platelets 227, glucose 115, bili 20, AST 153, ALT 60, alk phos 103 and INR 1.4 with lille score 0.337 and advised to continue steroids and continue ETOH abstinence but repeat labs again in 1 weeks. She is scheduled 03/05 GI follow up. She now
returns with c/o swelling with 7 kg wt gain since last admission. Limited US abdomen on admission with small amount anterior to liver and fatty liver. Labs on return with WBC 18,400, hbg 7.9, platelets 161, INR 1.38, bili 13,6, AST 157, ALT 82,
alk phos 116, albumin 3.2. Pt remains on Prednisone 40mg daily and Lasix 20mg BID was added.
At this time pt admits to mild abdominal pain and looser stools. She denies odynophagia, dysphagia, GERD, nausea, vomiting, constipation or rectal bleeding. No hx colonoscopy.
Past Medical History
Past Medical History: Other (asthma alcohol abuse htn anxiety alcoholic pancreatitis, gastric ulcer , hyponatremia, LE swelling)
Social History
Tobacco: Smoker
Alcohol: Daily
Drug: None
Living: With Family
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
Family History
Family History: Other
Allergies / Home Medications
Allergy/AdvReac Type Severity Reaction Status Date / Time
Penicillins Allergy Unknown Verified 01/25/25 19:09
Sulfa (Sulfonamide Allergy Unknown Verified 01/25/25 19:09
Antibiotics)
�Medication �Instructions �Recorded
budesonide-formoterol HFA 80 2 inh inhalation R BID 09/27/24
mcg-4.5 mcg/actuation aerosol Lung/Breathing Issues
inhaler (Symbicort)
buspirone 15 mg tablet 15 mg PO BID Anxiety 09/27/24
folic acid 1 mg tablet 1 mg PO DAILY Supplement 09/27/24
gabapentin 300 mg capsule 300 mg PO BID Neurological 09/27/24
Condition
melatonin 10 mg tablet 10 mg PO HS Sleep 09/27/24
albuterol sulfate 0.63 mg/3 mL 0.63 mg inhalation R Q4HPRN PRN sob 01/26/25
solution for nebulization
furosemide 20 mg tablet (Lasix) 20 mg PO DAILY anasarca 2 weeks 02/01/25
#14 tabs
nicotine 21 mg/24 hr daily 21 mg transdermal DAILY Smoking 02/01/25
transdermal patch cessation #28 ea
pantoprazole 40 mg tablet,delayed 40 mg PO BID Gastrointestinal 02/01/25
release issue 1 month #60 tabs
prednisolone 5 mg tablet 40 mg (8 x 5 mg) PO DAILY Liver 02/01/25
disease 14 days #112 tabs
thiamine mononitrate (vit B1) 100 100 mg PO BID Supplement 1 month 02/01/25
mg tablet #60 tabs
zinc sulfate 50 mg zinc (220 mg) 50 mg PO DAILY Supplement 1 month 02/01/25
capsule #30 caps
diphenhydramine HCl 25 mg capsule 25 mg PO BIDPRN PRN allergies 02/10/25
(Benadryl)
diphenhydramine HCl 25 mg capsule 25 mg PO HS 02/10/25
(Benadryl)
oxycodone 10 mg tablet 10 mg PO Q8HPRN PRN severe pain 02/10/25
sennosides 8.6 mg tablet (senna) 8.6 mg PO BIDPRN PRN Constipation 02/10/25
Review of Systems
-
History Source: Patient
Constitutional: Reports Weight Gain and Fatigue
EENT: Reports No Symptoms
Respiratory: Reports No Symptoms
Cardiac: Reports No Symptoms
Abdomen/GI: Reports Diarrhea (slightly loose stool)
: Reports No Symptoms
Musculoskeletal: Reports Other (LE neuropathy)
Skin: Reports Other (swelling )
Neurological: Reports Weakness
Endocrine: Reports No Symptoms
Hematologic/Lymphatic: Reports No Symptoms
Vital Signs
Temp Pulse Resp BP Pulse Ox
97.8 F 80 19 99/53 96
02/11/25 07:12 02/11/25 06:00 02/11/25 06:00 02/11/25 06:00 02/11/25 06:00
Physical Exam
Exam
General: Well Developed, Well Nourished and No Apparent Distress
HEENT: Normocephalic and Anicteric
Respiratory: Clear
Cardiac: Regular Rhythm
GI: Soft and Non Distended
Genito-urinary: No Costovertebral Tender
Musculoskeletal: No Clubbing and No Cyanosis
Skin: Warm and Dry
Neuro: Awake, Alert and AO x 3
Psych: Calm
Results
WBC 19.3 10^3/uL (4.8-10.8) H 02/11/25 03:45
Hgb 7.4 g/dL (12.0-16.0) L 02/11/25 03:45
Hct 22.9 % (37.0-47.0) L 02/11/25 03:45
MCV 98.7 fL (81.0-99.0) 02/11/25 03:45
Plt Count 144 10^3/uL (130-400) 02/11/25 03:45
Absolute Neuts (auto) 16.7 10^3/uL (1.4-6.5) H 02/10/25 14:26
PT 17.2 Sec (11.4-14.6) H 02/10/25 14:26
INR 1.38 02/10/25 14:26
Sodium 137 mmol/L (135-145) 02/11/25 03:45
Potassium 4.2 mmol/L (3.5-5.1) 02/11/25 03:45
Chloride 104 mmol/L (98-107) 02/11/25 03:45
Carbon Dioxide 22 mmol/L (22-30) 02/11/25 03:45
BUN 32 mg/dl (7-17) H 02/11/25 03:45
Creatinine 0.7 mg/dL (0.6-1.0) 02/11/25 03:45
Calcium 8.9 mg/dl (8.4-10.2) 02/11/25 03:45
Total Bilirubin 12.9 mg/dl (0.2-1.3) H 02/11/25 03:45
AST 159 U/L (14-36) H 02/11/25 03:45
ALT 83 U/L (0-35) H 02/11/25 03:45
Alkaline Phosphatase 111 U/L (38-126) 02/11/25 03:45
Lipase 73 U/L (23-300) 02/10/25 14:26
Diagnostic Image Results:
02/10/25 limited US
Limited ultrasound of the abdomen is performed to assess for ascites.
Small amount of ascites is present anterior to the liver as well as within the left lower quadrant.
Increased echogenicity of the liver compatible with diffuse fatty infiltration.
01/26/25 MRCP
1. Diffuse anasarca and small volume abdominopelvic ascites. Otherwise no convincing acute process in the abdomen status post cholecystectomy.
2. Hepatosplenomegaly.
01/25/25 CT A/p wit IV contrast
IMPRESSION: No acute pathology of the abdomen or pelvis and thigh.
Severe hepatomegaly. Progressed.
Severe hepatic fatty infiltration. Progressed
Mild splenomegaly. Stable
Mild free fluid in the abdomen and pelvis. New
Findings consistent with moderate volume overload or third spacing. New.
Prior cholecystectomy.
Hypodense right renal lesion likely a simple renal cyst. Stable
Prior GI Procedures:
EGD: 09/30/24 stone - Small, non-bleeding gastric ulcer with a clean ulcer
base (Artur Class III) found in the pre-pyloric
region. Biopsied.
- Otherwise, normal stomach on direct and retroflexion
views. Biopsied to r/o H pylori.
- Mucosal changes in the duodenum with flat white
spots. Biopsied to r/o Celiac.
- Small hiatal hernia
- Normal esophagus
- The examination was otherwise normal.
Colonoscopy: none
Assessment / Plan
-
34-year-old female with history of alcohol abuse, ETOH hepatitis, hyponatremia, pancreatitis, alcoholic gastritis with onset of lower ext swelling. In review of records pt with admission in August 2024 to [place] with ETOH abuse with intubation
required. She was then admitted 09/27 - 10/03 with abdominal pain, nausea, vomiting, tremors and ETOH withdrawal. She was noted covid + and completed EGD 09/30 with small non bleeding gastric ulcer with clean base. Duodenum with flat white spots,
small HH and normal esophagus. She was recommended to follow up with primary insurance verification clerk and consider colonoscopy but cont PPI BID x 8 week and avoidance of NSAIDs and ETOH. She then returned 01/25 to 02/01 with drinking 4-5 shots daily. She
admits last drink was 01/24. She had worsening of DF and started on Prednisone 01/30 and advised Lasix 20mg daily but admits to not taking Lasix several days after discharge. She had follow up labs last week on 02/05 with WBC 12,300, hbg 8.6,
platelets 227, glucose 115, bili 20, AST 153, ALT 60, alk phos 103 and INR 1.4 with lille score 0.337 and advised to continue steroids and continue ETOH abstinence but repeat labs again in 1 weeks. She is scheduled 03/05 GI follow up. She now
returns with c/o swelling with 7 kg wt gain since last admission. Limited US abdomen on admission with small amount anterior to liver and fatty liver. Labs on return with WBC 18,400, hbg 7.9, platelets 161, INR 1.38, bili 13,6, AST 157, ALT 82,
alk phos 116, albumin 3.2. Pt remains on Prednisone 40mg daily and Lasix 20mg BID was added.
-anasarca
-ETOH hepatitis with decompensation
-abdominal pain
-ETOH abuse last use
-hx recent PUD
-hx pancreatitis
-fatty liver
-anemia
-Abnormal CT findings 09/2024-submucosal fatty deposition in the cecum and ascending colon. Nonspecific chronic inflammation
- Thrombocytopenia-likely secondary to alcohol abuse
- Hypoalbuminemia
PLAN:
Etiology of anasarca related to ETOH hepatitis with decompensation, hypoalbuminemia etc
agree with Lasix 20mg BID -- pt admits to not taking all meds for several days on discharge as was recommended 20mg daily on discharge
US no ascites to tap
will add US with doppler
daily weight
consider adding Aldactone
cont Prednisolone 40mg daily started 01/30 with lille score 0.337 last week
cont PPI BID with hx PUD
LFT's improved trend was up to ismael of 20 last week
add ensure daily -- encouraged good nutrition
cont thiamine and folate
if continued decompensation may need follow up with hepatology
pt is scheduled follow up with 03/05 at 4 PM
-
-
Thank you for consultation and allowing me to participate in the patient's care. Please call the distribution warehouse manager GI physician during the after hours with any questions or concerns.
[2025-02-11] MEDS: SYMBICORT 80/4.5 MCG INHALER 2 PUFF INH ×2 (08:04→19:50)
[2025-02-11] MEDS: NICODERM TRANSDERMAL 21 MG TRANSDERM (08:08)
[2025-02-11] MEDS: VITAMIN B1 100 MG PO ×2 (08:09→19:39)
[2025-02-11] MEDS: PRELONE 40 MG PO (08:09)
[2025-02-11] MEDS: NEURONTIN 300 MG PO ×2 (08:09→19:39)
[2025-02-11] MEDS: FOLVITE 1 MG PO (08:10)
[2025-02-11] MEDS: ZINC 50 MG PO (08:10)
[2025-02-11] MEDS: PROTONIX 40 MG PO ×2 (08:10→19:39)
[2025-02-11] MEDS: BUSPAR 15 MG PO ×2 (08:10→19:39)
[2025-02-11] MEDS: LASIX 20 MG IV ×2 (08:10→17:13)
--- NOTE | 2025-02-11 08:30 | PTCARENOTE ---
Patient states pain is uncontrolled. aware. Pain medication administered per MAR. Pt tearful about situation and pain, emotional support provided. Assessment, care and VS as charted.
--- NOTE | 2025-02-11 08:31 | W.PN.HOSP.TC ---
Today's Communication/Plan
-
diuresis
GI and Nephrology consults
pain control
LE US rule out DVT
Assessment / Plan
Assessment / Plan
Patient is a 34-year-old female with past medical history significant for alcohol hepatitis, alcohol dependency, asthma, essential hypertension, anxiety, chronic anemia and Hx alcoholic pancreatitis who presented to [facility] ED for
evaluation of increased edema. She was recently admitted 01/25-02/01/25 for alcoholic hepatitis (discharged on prednisolone course and Lasix).
Abdomen US: IMPRESSION: Small amount of ascites is present anterior to the liver in the right upper quadrant, as well as within the left lower quadrant.
Anasarca
Small Ascites
Shortness of Breath With Exertion
9.5kg weight gain over 2 weeks
- last drink 01/25/25; patient not sure if she was taking previously prescribed Lasix
- IV Lasix --> increase to BID
- fluid restriction
- Renal and GI consulted
- pain control
Acute Alcohol Hepatitis
- on PO Prednisolone day 11/09
- current Maddrey's DF = 32.2 using control of 13
- repeat US with small ascites
- F/U further GI recs
Severe interval macrocytic anemia: previously normocytic
Underlying anemia of chronic disease
- Baseline Hgb low 8. suspect hemodilution due to hypervolemia
- T & S, Blood consent in ER
- Trend CBC daily
Severe ETOH use disorder : last ETOH was January
No signs of severe withdrawal as of now
- Observe
-Continue folic acid and thiamine supplementation
Known Incidental finding 1.8 cm hypodense renal cyst on prior CT
- OP follow-up
DVT Px: SCD
Full code
IMU
Anticipated Discharge: > 48 hours
Subjective/Interval History
-
Date of Service: February 11, 2025
pain from swelling in legs and abdomen
shortness of breath
she urinated a lot from Lasix given yesterday
Objective Data
-
Labs:
Laboratory Results
02/11/25
03:45
WBC 19.3 H
Hgb 7.4 L
Hct 22.9 L
Plt Count 144
Sodium 137
Potassium 4.2
Chloride 104
Carbon Dioxide 22
BUN 32 H
Creatinine 0.7
Glucose 99
Calcium 8.9
Total Bilirubin 12.9 H
AST 159 H
ALT 83 H
Alkaline Phosphatase 111
Vital Signs:
Vital Signs
Temp Pulse Resp BP Pulse Ox
97.8 F 94 18 113/70 97
02/11/25 07:12 02/11/25 08:10 02/11/25 08:07 02/11/25 08:10 02/11/25 08:07
Review of Systems
-
History Source: Patient
All other systems: Reviewed and negative
Physical Exam
-
General: Well Developed, No Apparent Distress, Comfortable and Morbidly Obese
HEENT: Normocephalic, Atraumatic, Moist Mucous Membranes and Other (Scleral icterus present)
Respiratory: Clear to Auscultation and Non Labored Respirations; Negative Wheezes, Rales, Rhonchi or Accessory Resp Muscle Use
Cardiac: Regular Rhythm and S1/S2; Negative Murmur, Rub or Gallop
GI: Soft, Nondistended, Normal Bowel Sounds, Tender (Minimally tender in epigastrium) and Organomegaly (Hepatomegaly)
Musculoskeletal: No Clubbing, No Cyanosis and Other (significant pitting edema equal bilaterally )
Skin: Warm, Dry and Jaundice; Negative Rash
Neuro: AO x 3 and Nonfocal/Grossly Intact; Negative Tremors
Psych: Calm
Data Reviewed
-
Diagnostic Radiology: Report Reviewed by me
Labs: Labs Reviewed by me
[2025-02-11] MEDS: DILAUDID 0.5 MG IV ×4 (09:43→20:14)
[2025-02-11 10:31] LABS: Magnesium 2.2 mg/dl (1.6-2.3)
--- NOTE | 2025-02-11 11:04 | W.CON.NEPH ---
Consultation
-
Date/Time Consultation Requested: February 11, 2025 at 9 AM
Date/Time Consultation Performed: February 11, 2025 at 11 AM
Requesting Provider: Dr. Davison
Performing Provider: Dr. Rose
Reason for Consultation: Anasarca with history of hyponatremia
Medical History
-
Chief Complaint: Anasarca
History of Present Illness:
34-year-old female with history of alcoholic gastritis, pancreatitis, obesity, gastric ulcer presenting significant weight gain since last admission and anasarca
She was seen on last admission from a renal standpoint for chronic hyponatremia in the setting of dilutional hyponatremia.
Renal consult for anasarca and fluid management
Past Medical History
asthma
alcohol abuse
htn
anxisety
alcoholic pancreatitis
Social History
Tobacco: Smoker
Alcohol: Chronic Alcoholic
Living: With Family
Family History
no ckd
Family History: Not Pertinent
Allergies / Home Medications
Allergy/AdvReac Type Severity Reaction Status Date / Time
Penicillins Allergy Unknown Verified 01/25/25 19:09
Sulfa (Sulfonamide Allergy Unknown Verified 01/25/25 19:09
Antibiotics)
�Medication �Instructions �Recorded �Confirmed �Type
budesonide-formoterol HFA 80 2 inh inhalation R BID 09/27/24 02/10/25 History
mcg-4.5 mcg/actuation aerosol Lung/Breathing Issues
inhaler (Symbicort)
buspirone 15 mg tablet 15 mg PO BID Anxiety 09/27/24 02/10/25 History
folic acid 1 mg tablet 1 mg PO DAILY Supplement 09/27/24 02/10/25 History
gabapentin 300 mg capsule 300 mg PO BID Neurological 09/27/24 02/10/25 History
Condition
melatonin 10 mg tablet 10 mg PO HS Sleep 09/27/24 02/10/25 History
albuterol sulfate 0.63 mg/3 mL 0.63 mg inhalation R Q4HPRN PRN sob 01/26/25 02/10/25 History
solution for nebulization
furosemide 20 mg tablet (Lasix) 20 mg PO DAILY anasarca 2 weeks 02/01/25 02/10/25 Rx
#14 tabs
nicotine 21 mg/24 hr daily 21 mg transdermal DAILY Smoking 02/01/25 02/10/25 Rx
transdermal patch cessation #28 ea
pantoprazole 40 mg tablet,delayed 40 mg PO BID Gastrointestinal 02/01/25 02/10/25 Rx
release issue 1 month #60 tabs
prednisolone 5 mg tablet 40 mg (8 x 5 mg) PO DAILY Liver 02/01/25 02/10/25 Rx
disease 14 days #112 tabs
thiamine mononitrate (vit B1) 100 100 mg PO BID Supplement 1 month 02/01/25 02/10/25 Rx
mg tablet #60 tabs
zinc sulfate 50 mg zinc (220 mg) 50 mg PO DAILY Supplement 1 month 02/01/25 02/10/25 Rx
capsule #30 caps
diphenhydramine HCl 25 mg capsule 25 mg PO BIDPRN PRN allergies 02/10/25 02/10/25 History
(Benadryl)
diphenhydramine HCl 25 mg capsule 25 mg PO HS 02/10/25 02/10/25 History
(Benadryl)
oxycodone 10 mg tablet 10 mg PO Q8HPRN PRN severe pain 02/10/25 02/10/25 History
sennosides 8.6 mg tablet (senna) 8.6 mg PO BIDPRN PRN Constipation 02/10/25 02/10/25 History
Review of Systems
-
Weight gain
All other systems: Negative unless noted
Physical Exam
Vital Signs
Vital Signs
Temp Pulse Resp BP Pulse Ox
97.8 F 94 18 113/70 99
02/11/25 07:12 02/11/25 08:10 02/11/25 08:07 02/11/25 08:10 02/11/25 09:49
Lab Results
WBC 19.3 10^3/uL (4.8-10.8) H 02/11/25 03:45
RBC 2.32 10^6/uL (4.20-5.40) L 02/11/25 03:45
Hgb 7.4 g/dL (12.0-16.0) L 02/11/25 03:45
Hct 22.9 % (37.0-47.0) L 02/11/25 03:45
Plt Count 144 10^3/uL (130-400) 02/11/25 03:45
Sodium 137 mmol/L (135-145) 02/11/25 03:45
Potassium 4.2 mmol/L (3.5-5.1) 02/11/25 03:45
Chloride 104 mmol/L (98-107) 02/11/25 03:45
Carbon Dioxide 22 mmol/L (22-30) 02/11/25 03:45
BUN 32 mg/dl (7-17) H 02/11/25 03:45
Creatinine 0.7 mg/dL (0.6-1.0) 02/11/25 03:45
eGFR > 60.00 02/11/25 03:45
Glucose 99 mg/dl (70-99) 02/11/25 03:45
Calcium 8.9 mg/dl (8.4-10.2) 02/11/25 03:45
Albumin 3.0 g/dl (3.5-5.0) L 02/11/25 03:45
Physical Exam
General no acute distress
HEENT no cephalic atraumatic extraocular muscle intact no scleral icterus no JVD neck supple
lungs clear to auscultation bilateral
heart regular S1-S2 positive
abdomen soft nontender positive bowel sounds
extremities anasarca
Neurologically nonfocal alert and oriented x 3
Skin no lesions no abrasions no petechiae
Psych normal affect no bizarre behavior
Data Reviewed
-
Labs: Labs Reviewed by me and Discussed with Patient
Assessment/Plan
-
Impression:
Anasarca
Abdominal pain
Alcoholic hepatitis
Alcohol abuse
Anemia
Neuropathy
Plan:
Normal kidney function 20 mg Lasix twice daily is adequate.
Fluid restrict.
Sodium restrict less than 2 g daily as discussed with the patient
GI consult noted.
Daily weight.
Previous admission with hyponatremia currently sodium is within normal limits.
Total Time Spent with Patient (in minutes): 35
--- NOTE | 2025-02-11 17:18 | CM ---
Addendum entered by Miriam Davey RN 02/11/25 17:27:
Patient states her mother is currently caring for her 2 children.
Original Note:
Patient with Hx alcohol hepatitis, alcoholic pancreatitis, Severe ETOH use disorder with Dx Anasarca, Small Ascites, Acute Alcohol Hepatitis. Room air. Receiving IV Lasix.
Spoke with patient who resides with her 2 children, ages 11 & 13, in a 2 story home with 3 steps to enter.
The patient was independent in ADLs and ambulation.
The patient has no DME, prior VN.
PCP - Daniel Clancy
Pharmacy - [facility]
Offered [facility] and patient states she stopped drinking on 01/25 and feels she does not need any additional support to abstain from drinking.
Patient says she drove herself to the hospital and plans on driving herself home.
No CM d/c needs identified.
Plan home.
[2025-02-11] MEDS: MELATONIN 10 MG PO (20:14)
[2025-02-11] MEDS: BENADRYL 25 MG PO (20:14)
[2025-02-12] VITALS (13 sets, daily range): BP systolic 97–118; BP diastolic 54–77; BMI 46.5
[2025-02-12] MEDS: DILAUDID 0.5 MG IV ×8 (00:15→22:29)
--- NOTE | 2025-02-12 04:25 | DOWNTIME ---
There was a [employer] Client Ultrasound Coordinator Downtime on 02/12/2025 from 0100 to 02/13/2024 at 0420 . Downtime documentation of patient's care, including medication administrations, has been reconciled in the electronic record per guidelines. Refer to the
patient's paper chart under the miscellaneous tab to see printed paper medication records and downtime forms.
--- NOTE | 2025-02-12 05:14 | W.PN.GI.CBS2 ---
Addendum entered and electronically signed by Elder Menjivar MD 02/12/25 12:52:
For clarification, given improvement in bilirubin would finish out course of prednisolone, complete 28 days of 40 mg and then wean over 4 weeks.
Original Note:
Today's Communication / Plan
-
Please see assessment and plan for details.
Assessment / Plan
-
1. Elevated LFTs: Secondary to severe acute alcoholic hepatitis with recent admission, actually had been improved from peak of bilirubin of 20 as an outpatient, on prednisolone, with likely multifactorial anasarca. Ultrasound without significant
ascites for paracentesis. At this point would continue diuretics per renal, continue sodium restriction, continue to monitor weight and output. I discussed with nursing. Will continue prednisolone. Await morning labs though if continuing to
improve we will sign off, has outpatient follow-up already set up with Dr. Pereyra on March 05.
Subjective
Subjective
Date of Service: February 12, 2025
Patient frustrated at the lack of food options on low-sodium diet. Still feels swollen. No vomiting, fever or chills.
Objective
Data Reviewed
Laboratory Data:
Laboratory Results
PT 17.2 Sec (11.4-14.6) H 02/10/25 14:26
INR 1.38 02/10/25 14:26
Magnesium 2.2 mg/dl (1.6-2.3) 02/11/25 03:45
Total Bilirubin 12.9 mg/dl (0.2-1.3) H 02/11/25 03:45
AST 159 U/L (14-36) H 02/11/25 03:45
ALT 83 U/L (0-35) H 02/11/25 03:45
Alkaline Phosphatase 111 U/L (38-126) 02/11/25 03:45
Lipase 73 U/L (23-300) 02/10/25 14:26
Vital Signs and I&O:
Vital Signs
Temp Pulse Resp BP Pulse Ox
98.6 F 66 19 99/59 99
02/12/25 04:28 02/11/25 22:00 02/11/25 22:00 02/11/25 22:00 02/11/25 22:00
I&O
02/10/25 02/11/25 02/12/25
06:59 06:59 06:59
Intake Total 1000 / 1000
Balance 1000 / 1000
Physical Exam
Physical Exam
General: NAD
Abdomen: normal bowel sounds, soft, no tenderness, no masses or bruits, no appreciable ascites, positive anasarca and 2+ edema to lower abdomen
--- NOTE | 2025-02-12 05:24 | PTCARENOTE ---
Unable to obtain AM labwork. IV team contacted and attempted without success. IV team will pass along to dayshift the need for midline.
--- NOTE | 2025-02-12 05:29 | PTCARENOTE ---
Patient tearful overnight. PRN dilaudid given with relief. Patient is a self OOB to bathroom. Hat placed for accurate urine output.
[2025-02-12] MEDS: BENADRYL 25 MG PO ×2 (06:38→22:29)
[2025-02-12] MEDS: SYMBICORT 80/4.5 MCG INHALER 2 PUFF INH ×2 (07:41→19:51)
--- NOTE | 2025-02-12 08:14 | W.PN.HOSP.TC ---
Today's Communication/Plan
-
midline
F/U labs
diuresis
Assessment / Plan
Assessment / Plan
Patient is a 34-year-old female with past medical history significant for alcohol hepatitis, alcohol dependency, asthma, essential hypertension, anxiety, chronic anemia and Hx alcoholic pancreatitis who presented to [facility] ED for
evaluation of increased edema. She was recently admitted 01/25-02/01/25 for alcoholic hepatitis (discharged on prednisolone course and Lasix).
Abdomen US: IMPRESSION: Small amount of ascites is present anterior to the liver in the right upper quadrant, as well as within the left lower quadrant.
Anasarca
Small Ascites
Shortness of Breath With Exertion
9.5kg weight gain over 2 weeks
- last drink 01/25/25; patient not sure if she was taking previously prescribed Lasix
- IV Lasix --> increase to BID
- fluid restriction
- Renal and GI consults appreciated
- pain control
Acute Alcohol Hepatitis
- on PO Prednisolone day
-T. Bili improving from last admission - awaiting AM labs
- repeat US with small ascites
- midline to be placed today for labs
Severe interval macrocytic anemia: previously normocytic
Underlying anemia of chronic disease
- Baseline Hgb low 8. suspect hemodilution due to hypervolemia
- T & S, Blood consent in ER
- Trend CBC daily
Severe ETOH use disorder : last ETOH was January
No signs of severe withdrawal as of now
- Observe
-Continue folic acid and thiamine supplementation
Known Incidental finding 1.8 cm hypodense renal cyst on prior CT
- OP follow-up
DVT Px: SCD
Full code
IMU
Anticipated Discharge: > 48 hours
Subjective/Interval History
-
Date of Service: February 12, 2025
she remains very swollen
urinated a lot yesterday
Objective Data
-
Labs:
Laboratory Results
02/12/25
06:00
WBC Pending
Hgb Pending
Hct Pending
Plt Count Pending
PT Pending
INR Pending
Sodium Pending
Potassium Pending
Chloride Pending
Carbon Dioxide Pending
BUN Pending
Creatinine Pending
Glucose Pending
Calcium Pending
Total Bilirubin Pending
AST Pending
ALT Pending
Alkaline Phosphatase Pending
Vital Signs:
Vital Signs
Temp Pulse Resp BP Pulse Ox
98.6 F 74 16 106/62 99
02/12/25 04:28 02/12/25 07:43 02/12/25 07:43 02/12/25 06:00 02/12/25 08:07
I&O
02/11/25 02/12/25 02/13/25
06:59 06:59 06:59
Intake Total 1200 / 1200
Balance 1200 / 1200
Review of Systems
-
History Source: Patient
All other systems: Reviewed and negative
Physical Exam
-
General: Well Developed, No Apparent Distress, Comfortable and Morbidly Obese
HEENT: Normocephalic, Atraumatic, Moist Mucous Membranes and Other (Scleral icterus present)
Respiratory: Clear to Auscultation and Non Labored Respirations; Negative Wheezes, Rales, Rhonchi or Accessory Resp Muscle Use
Cardiac: Regular Rhythm and S1/S2; Negative Murmur, Rub or Gallop
GI: Soft, Nondistended, Normal Bowel Sounds and Organomegaly (Hepatomegaly)
Musculoskeletal: No Clubbing, No Cyanosis and Other (significant pitting edema equal bilaterally )
Skin: Warm, Dry and Jaundice; Negative Rash
Neuro: AO x 3 and Nonfocal/Grossly Intact; Negative Tremors
Psych: Calm
Data Reviewed
-
Diagnostic Radiology: Report Reviewed by me
Labs: Labs Reviewed by me
[2025-02-12 09:06] LABS: Hematocrit 24.5 % (37.0-47.0); Hemoglobin 7.6 g/dL (12.0-16.0); INR 1.31; Mean Corpuscular Hgb 32.1 pg (27.0-31.0); Mean Corpuscular Volume 103.4 fL (81.0-99.0); Mean Platelet Volume 10.3 fL (7.4-10.4); PT 16.8 Sec (11.4-14.6); Platelet Count 147 10^3/uL (130-400); Red Blood Cell Count 2.37 10^6/uL (4.20-5.40); Red Cell Dist. Width 25.7 % (11.5-14.5); White Blood Cell Count 22.2 10^3/uL (4.8-10.8)
--- NOTE | 2025-02-12 09:12 | W.PN.NEPH.PH ---
Today's Communication / Plan
-
Increase Lasix
Assessment/Plan
-
Impression:
Anasarca
Abdominal pain
Alcoholic hepatitis
Alcohol abuse
Anemia
Neuropathy
Plan:
Patient reports only 3 hours of diuresis after IV dosing.
Increase Lasix to 40 mg IV twice daily
Fluid restrict.
Sodium restrict less than 2 g daily as discussed with the patient
Albumin low but should not significantly impact diuresis
-
-
Date of Service: February 12, 2025
CC / HPI / ROS
-
Chief Complaint:
Anasarca
History of Present Illness:
Diuresing slowly with Lasix for anasarca
Weights slightly lower
Blood pressure low stable
Hemoglobin low 7.6
Review of Systems:
No chest pain or shortness of breath
Labs
-
Labs:
WBC 22.2 10^3/uL (4.8-10.8) H 02/12/25 08:46
RBC 2.37 10^6/uL (4.20-5.40) L 02/12/25 08:46
Hgb 7.6 g/dL (12.0-16.0) L 02/12/25 08:46
Hct 24.5 % (37.0-47.0) L 02/12/25 08:46
Plt Count 147 10^3/uL (130-400) 02/12/25 08:46
eGFR > 60.00 02/11/25 03:45
Physical Exam
-
Vital Signs:
Vital Signs
Temp Pulse Resp BP Pulse Ox
98.6 F 74 16 106/62 99
02/12/25 04:28 02/12/25 07:43 02/12/25 07:43 02/12/25 06:00 02/12/25 08:07
Cardiovascular:: Regular rate and rhythm
Respiratory:: Bilateral: Coarse
Lung Excursion:: Normal
Abdomen:: Nontender and Soft
Bowel Sounds:: Normal
Extremity Edema:: +3: Bilateral: (To lower back)
[2025-02-12 09:23] LABS: ALT (SGPT) 82 U/L (0-35); AST (SGOT) 172 U/L (14-36); Albumin 3.2 g/dl (3.5-5.0); Alkaline Phosphatase 112 U/L (38-126); Blood Urea Nitrogen 33 mg/dl (7-17); Calcium 9.1 mg/dl (8.4-10.2); Carbon Dioxide 27 mmol/L (22-30); Chloride 101 mmol/L (98-107); Estimated Creatinine Clearance > 125 ml/min; Glucose 114 mg/dl (70-99); Potassium 3.8 mmol/L (3.5-5.1); Sodium 137 mmol/L (135-145); Total Bilirubin 12.4 mg/dl (0.2-1.3); Total Protein 6.7 g/dl (6.3-8.2); eGFR > 60.00
[2025-02-12] MEDS: LASIX 20 MG IV (09:57)
[2025-02-12] MEDS: ZINC 50 MG PO (09:59)
[2025-02-12] MEDS: VITAMIN B1 100 MG PO ×2 (09:59→19:28)
[2025-02-12] MEDS: NEURONTIN 300 MG PO ×2 (09:59→19:28)
[2025-02-12] MEDS: FOLVITE 1 MG PO (09:59)
[2025-02-12] MEDS: PROTONIX 40 MG PO ×2 (10:00→19:28)
[2025-02-12] MEDS: PRELONE 40 MG PO (10:00)
[2025-02-12] MEDS: BUSPAR 15 MG PO ×2 (10:01→19:28)
--- NOTE | 2025-02-12 10:03 | W.PN.UPDATE ---
Update Note
Progress Note Update
Repeat labs noted, bilirubin continues to improve. Will sign off for now, please call back with any further questions.
[2025-02-12] MEDS: KCL 40 MEQ PO (10:05)
[2025-02-12] MEDS: NICODERM TRANSDERMAL 21 MG TRANSDERM (11:37)
[2025-02-12] MEDS: ROXICODONE 10 MG PO ×2 (11:38→17:46)
[2025-02-12] MEDS: FLUSH (NSS) 2 FLUSH IV (13:14)
[2025-02-12] MEDS: LASIX 40 MG IV (16:23)
[2025-02-12] MEDS: FLUSH (NSS) 3 FLUSH IV (16:24)
--- NOTE | 2025-02-12 17:00 | PTCARENOTE ---
Patient complaining of severe bilateral leg and feet pain described as burning pain. Lower back and abdominal pain. Pain rating 8-9/10. Medicating with pain medication as ordered. Best pain relief 7 out of 10. Patient ambulating to bathroom
independently. VS stable. SR on monitor.
[2025-02-12 21:23] LABS: Glucose - Point of Care 138 mg/dl (70-99)
[2025-02-12] MEDS: MELATONIN 10 MG PO (22:29)
[2025-02-13] VITALS (13 sets, daily range): BP systolic 89–130; BP diastolic 44–64; BMI 45.9
[2025-02-13] MEDS: DILAUDID 0.5 MG IV ×7 (01:38→21:40)
--- NOTE | 2025-02-13 02:19 | PTCARENOTE ---
Received pt at chance of shift. Pt c/o pain throughout her abdomen and low back. Administered PRN Dilaudid per order (see MAR). Pt states the swelling appears to have increased despite the Lasix increase. VSS at this time and pt remains on RA
with pulse ox 95-100%. GAMEZ. Scratch on RLE is weeping; foam placed to cover the drainage. Pt resting in bed with call longo in reach.
[2025-02-13 05:47] LABS: INR 1.35; PT 17.2 Sec (11.4-14.6)
[2025-02-13 05:53] LABS: Hematocrit 23.4 % (37.0-47.0); Hemoglobin 7.3 g/dL (12.0-16.0); Mean Corp Hgb Conc. 31.2 g/dL (33.0-37.0); Mean Corpuscular Hgb 31.7 pg (27.0-31.0); Mean Corpuscular Volume 101.7 fL (81.0-99.0); Mean Platelet Volume 11.2 fL (7.4-10.4); Platelet Count 141 10^3/uL (130-400); Red Cell Dist. Width 25.9 % (11.5-14.5)
--- NOTE | 2025-02-13 05:55 | PTCARENOTE ---
MSAS remains <4 for >48hrs; per protocol, MSAS has been completed.
[2025-02-13 05:56] LABS: ALT (SGPT) 90 U/L (0-35); AST (SGOT) 175 U/L (14-36); Albumin 3.2 g/dl (3.5-5.0); Alkaline Phosphatase 112 U/L (38-126); Blood Urea Nitrogen 33 mg/dl (7-17); Calcium 9.1 mg/dl (8.4-10.2); Carbon Dioxide 31 mmol/L (22-30); Chloride 100 mmol/L (98-107); Estimated Creatinine Clearance > 125 ml/min; Glucose 95 mg/dl (70-99); Potassium 4.3 mmol/L (3.5-5.1); Sodium 137 mmol/L (135-145); Total Bilirubin 11.9 mg/dl (0.2-1.3); Total Protein 6.7 g/dl (6.3-8.2); eGFR > 60.00
[2025-02-13] MEDS: ROXICODONE 10 MG PO ×3 (06:13→20:16)
[2025-02-13] MEDS: SYMBICORT 80/4.5 MCG INHALER 2 PUFF INH ×2 (07:38→19:42)
[2025-02-13] MEDS: NICODERM TRANSDERMAL 21 MG TRANSDERM (08:20)
[2025-02-13] MEDS: PRELONE 40 MG PO (08:27)
[2025-02-13] MEDS: LASIX 40 MG IV ×2 (08:28→16:18)
[2025-02-13] MEDS: FLUSH (NSS) 2 FLUSH IV ×4 (08:28→17:59)
[2025-02-13] MEDS: ZINC 50 MG PO (08:29)
[2025-02-13] MEDS: VITAMIN B1 100 MG PO ×2 (08:29→20:16)
[2025-02-13] MEDS: NEURONTIN 300 MG PO ×2 (08:29→20:16)
[2025-02-13] MEDS: FOLVITE 1 MG PO (08:29)
[2025-02-13] MEDS: BUSPAR 15 MG PO ×2 (08:29→20:16)
[2025-02-13] MEDS: PROTONIX 40 MG PO ×2 (08:29→20:16)
--- NOTE | 2025-02-13 08:42 | W.PN.HOSP.TC ---
Today's Communication/Plan
-
diuresis
Lovenox for DVT PPx
Mag for hand cramps/ heat pack PRN
Assessment / Plan
Assessment / Plan
Patient is a 34-year-old female with past medical history significant for alcohol hepatitis, alcohol dependency, asthma, essential hypertension, anxiety, chronic anemia and Hx alcoholic pancreatitis who presented to [facility] ED for
evaluation of increased edema. She was recently admitted 01/25-02/01/25 for alcoholic hepatitis (discharged on prednisolone course and Lasix).
Abdomen US: IMPRESSION: Small amount of ascites is present anterior to the liver in the right upper quadrant, as well as within the left lower quadrant.
Anasarca
Small Ascites
Shortness of Breath With Exertion
9.5kg weight gain over 2 weeks
- last drink 01/25/25; patient not sure if she was taking previously prescribed Lasix
- IV Lasix --> increase to BID
- fluid restriction
- Renal and GI consults appreciated
- pain control
Acute Alcohol Hepatitis
- on PO Prednisolone - appreciate GI, continue 4 week course followed by taper
-T. Bili improving from last admission -
- repeat US with small ascites
-education provided to patient
Severe interval macrocytic anemia: previously normocytic
Underlying anemia of chronic disease
- Baseline Hgb low 8. suspect hemodilution due to hypervolemia
- T & S, Blood consent in ER
- Trend CBC daily
Severe ETOH use disorder : last ETOH was January first
No signs of severe withdrawal as of now
- Observe
-Continue folic acid and thiamine supplementation
Bilateral hand cramping
-add on Mag
-will order oral Mag, heat pad PRN
Known Incidental finding 1.8 cm hypodense renal cyst on prior CT
- OP follow-up
DVT Px: start Lovenox
Full code
IMU
51 minutes spent on patient care
Anticipated Discharge: > 48 hours
Subjective/Interval History
-
Date of Service: February 13, 2025
intermittent hand cramping
still has pain from swelling
Objective Data
-
Labs:
Laboratory Results
02/13/25
04:41
WBC 21.0 H
Hgb 7.3 L
Hct 23.4 L
Plt Count 141
PT 17.2 H
INR 1.35
Sodium 137
Potassium 4.3
Chloride 100
Carbon Dioxide 31 H
BUN 33 H
Creatinine 0.6
Glucose 95
Calcium 9.1
Total Bilirubin 11.9 H
AST 175 H
ALT 90 H
Alkaline Phosphatase 112
Vital Signs:
Vital Signs
Temp Pulse Resp BP Pulse Ox
98.6 F 89 17 102/59 99
02/13/25 02:45 02/13/25 07:41 02/13/25 07:41 02/13/25 04:35 02/13/25 07:41
I&O
02/12/25 02/13/25 02/14/25
06:59 06:59 06:59
Intake Total 1200 / 1200 1785 / 1785
Output Total 2540 / 2540
Balance 1200 / 1200 -755 / -755
Review of Systems
-
History Source: Patient
All other systems: Reviewed and negative
Physical Exam
-
General: Well Developed, No Apparent Distress, Comfortable and Morbidly Obese
HEENT: Normocephalic, Atraumatic, Moist Mucous Membranes and Other (Scleral icterus present)
Respiratory: Clear to Auscultation and Non Labored Respirations; Negative Wheezes, Rales, Rhonchi or Accessory Resp Muscle Use
Cardiac: Regular Rhythm and S1/S2; Negative Murmur, Rub or Gallop
GI: Soft, Nondistended, Normal Bowel Sounds and Organomegaly (Hepatomegaly)
Musculoskeletal: No Clubbing, No Cyanosis and Other (significant pitting edema equal bilaterally )
Skin: Warm, Dry and Jaundice; Negative Rash
Neuro: AO x 3 and Nonfocal/Grossly Intact; Negative Tremors
Psych: Calm
Data Reviewed
-
Diagnostic Radiology: Report Reviewed by me
Labs: Labs Reviewed by me
--- NOTE | 2025-02-13 09:54 | W.PN.NEPH.PH ---
Today's Communication / Plan
-
diurese
Assessment/Plan
-
Impression:
Anasarca
Abdominal pain
Alcoholic hepatitis
Alcohol abuse
Anemia
Neuropathy
Plan:
Lasix 40 mg IV twice daily
Fluid restrict.
Sodium restrict less than 2 g daily as discussed with the patient
Albumin low but should not significantly impact diuresis
goal 5#/day diuresis
-
-
Date of Service: February 13, 2025
CC / HPI / ROS
-
Chief Complaint:
Anasarca
History of Present Illness:
Diuresing slowly with Lasix for anasarca
Weights lower
Blood pressure low stable
Hemoglobin low 7.3
Review of Systems:
No chest pain or shortness of breath
Labs
-
Labs:
WBC 21.0 10^3/uL (4.8-10.8) H 02/13/25 04:41
RBC 2.30 10^6/uL (4.20-5.40) L 02/13/25 04:41
Hgb 7.3 g/dL (12.0-16.0) L 02/13/25 04:41
Hct 23.4 % (37.0-47.0) L 02/13/25 04:41
Plt Count 141 10^3/uL (130-400) 02/13/25 04:41
Sodium 137 mmol/L (135-145) 02/13/25 04:41
Potassium 4.3 mmol/L (3.5-5.1) 02/13/25 04:41
Chloride 100 mmol/L (98-107) 02/13/25 04:41
Carbon Dioxide 31 mmol/L (22-30) H 02/13/25 04:41
BUN 33 mg/dl (7-17) H 02/13/25 04:41
Creatinine 0.6 mg/dL (0.6-1.0) 02/13/25 04:41
eGFR > 60.00 02/13/25 04:41
Glucose 95 mg/dl (70-99) 02/13/25 04:41
Calcium 9.1 mg/dl (8.4-10.2) 02/13/25 04:41
Albumin 3.2 g/dl (3.5-5.0) L 02/13/25 04:41
Physical Exam
-
Vital Signs:
Vital Signs
Temp Pulse Resp BP Pulse Ox
97.9 F 89 17 102/59 99
02/13/25 07:45 02/13/25 07:41 02/13/25 07:41 02/13/25 04:35 02/13/25 07:41
Cardiovascular:: Regular rate and rhythm
Respiratory:: Bilateral: Coarse
Lung Excursion:: Normal
Abdomen:: Nontender and Soft
Bowel Sounds:: Normal
Extremity Edema:: +3: Bilateral:
[2025-02-13 10:17] LABS: Magnesium 2.1 mg/dl (1.6-2.3)
[2025-02-13] MEDS: MAG-TAB SR 84 MG PO ×2 (11:18→20:16)
[2025-02-13] MEDS: LOVENOX 40 MG SC (11:18)
[2025-02-13] MEDS: TYLENOL 650 MG PO (12:43)
--- NOTE | 2025-02-13 16:00 | PTCARENOTE ---
Medicating patient with pain medication as ordered. Patient using K-pad for hands for comfort. Using bathroom independently. Monitoring I&O's. Vital signs stable.
--- NOTE | 2025-02-13 17:23 | CM ---
Patient with Hx alcohol hepatitis, alcoholic pancreatitis, Severe ETOH use disorder with Dx Anasarca, Small Ascites, Acute Alcohol Hepatitis. Room air. Receiving IV Lasix. Per nursing; OOB by self to chair, ambulating independently to BR. MSAS
completed.
No CM d/c needs identified.
Plan home.
[2025-02-13] MEDS: MELATONIN 10 MG PO (21:40)
[2025-02-13] MEDS: BENADRYL 25 MG PO (21:40)
[2025-02-14] VITALS (11 sets, daily range): BP systolic 102–121; BP diastolic 52–69; BMI 45.2
[2025-02-14] MEDS: DILAUDID 0.5 MG IV ×7 (00:56→21:55)
--- NOTE | 2025-02-14 04:10 | PTCARENOTE ---
Received pt at change of shift. Pt tells this RN that she is motivated to stop drinking. Educated pt about alternative ways of coping other than alcohol use. Educated pt on PRN pain medications; they are as needed and not scheduled meds. Resting
in bed with call longo in reach.
[2025-02-14 05:02] LABS: Hematocrit 23.8 % (37.0-47.0); Hemoglobin 7.7 g/dL (12.0-16.0); Mean Corp Hgb Conc. 32.4 g/dL (33.0-37.0); Mean Corpuscular Hgb 32.9 pg (27.0-31.0); Mean Corpuscular Volume 101.7 fL (81.0-99.0); Mean Platelet Volume 11.6 fL (7.4-10.4); Platelet Count 134 10^3/uL (130-400); Red Blood Cell Count 2.34 10^6/uL (4.20-5.40); Red Cell Dist. Width 26.4 % (11.5-14.5); White Blood Cell Count 24.4 10^3/uL (4.8-10.8)
[2025-02-14 05:26] LABS: ALT (SGPT) 97 U/L (0-35); AST (SGOT) 178 U/L (14-36); Albumin 3.2 g/dl (3.5-5.0); Alkaline Phosphatase 116 U/L (38-126); Blood Urea Nitrogen 33 mg/dl (7-17); Carbon Dioxide 31 mmol/L (22-30); Chloride 99 mmol/L (98-107); Estimated Creatinine Clearance > 125 ml/min; Glucose 93 mg/dl (70-99); Sodium 137 mmol/L (135-145); Total Bilirubin 13.3 mg/dl (0.2-1.3); Total Protein 6.7 g/dl (6.3-8.2); eGFR > 60.00
[2025-02-14] MEDS: ROXICODONE 10 MG PO ×3 (06:48→20:03)
[2025-02-14] MEDS: SYMBICORT 80/4.5 MCG INHALER 2 PUFF INH ×2 (08:09→20:17)
[2025-02-14] MEDS: PRELONE 40 MG PO (08:11)
[2025-02-14] MEDS: BUSPAR 15 MG PO ×2 (08:11→20:04)
[2025-02-14] MEDS: ZINC 50 MG PO (08:11)
[2025-02-14] MEDS: MAG-TAB SR 84 MG PO ×2 (08:11→20:04)
[2025-02-14] MEDS: VITAMIN B1 100 MG PO ×2 (08:11→20:03)
[2025-02-14] MEDS: NEURONTIN 300 MG PO ×2 (08:11→20:03)
[2025-02-14] MEDS: PROTONIX 40 MG PO ×2 (08:11→20:03)
[2025-02-14] MEDS: LASIX 40 MG IV ×2 (08:11→15:21)
[2025-02-14] MEDS: FOLVITE 1 MG PO (08:11)
[2025-02-14] MEDS: NICODERM TRANSDERMAL 21 MG TRANSDERM (08:12)
--- NOTE | 2025-02-14 08:19 | W.PN.HOSP.TC ---
Today's Communication/Plan
-
diuresis
daily labs
Assessment / Plan
Assessment / Plan
Patient is a 34-year-old female with past medical history significant for alcohol hepatitis, alcohol dependency, asthma, essential hypertension, anxiety, chronic anemia and Hx alcoholic pancreatitis who presented to [facility] ED for
evaluation of increased edema. She was recently admitted 01/25-02/01/25 for alcoholic hepatitis (discharged on prednisolone course and Lasix).
Abdomen US: IMPRESSION: Small amount of ascites is present anterior to the liver in the right upper quadrant, as well as within the left lower quadrant.
Anasarca
Small Ascites
Shortness of Breath With Exertion
9.5kg weight gain over 2 weeks
- last drink 01/25/25; patient not sure if she was taking previously prescribed Lasix
- IV Lasix --> increase to BID
- fluid restriction
- Renal and GI consults appreciated
- pain control
Acute Alcohol Hepatitis
- on PO Prednisolone - appreciate GI, continue 4 week course followed by taper
-T. Bili improving from last admission -
- repeat US with small ascites
-education provided to patient (prognosis, alcohol cessation)
Severe interval macrocytic anemia: previously normocytic
Underlying anemia of chronic disease
- Baseline Hgb low 8. suspect hemodilution due to hypervolemia
- T & S, Blood consent in ER
- Trend CBC daily
Severe ETOH use disorder : last ETOH was January first
No signs of severe withdrawal as of now
- Observe
-Continue folic acid and thiamine supplementation
Bilateral hand cramping
-add on Mag
-will order oral Mag, heat pad PRN
Known Incidental finding 1.8 cm hypodense renal cyst on prior CT
- OP follow-up
DVT Px: start Lovenox
Full code
IMU
51 minutes spent on patient care
Anticipated Discharge: > 48 hours
Subjective/Interval History
-
Date of Service: February 14, 2025
hand cramping improved
Objective Data
-
Labs:
Laboratory Results
02/14/25
04:28
WBC 24.4 H
Hgb 7.7 L
Hct 23.8 L
Plt Count 134
Sodium 137
Potassium 4.0
Chloride 99
Carbon Dioxide 31 H
BUN 33 H
Creatinine 0.6
Glucose 93
Calcium 9.0
Total Bilirubin 13.3 H
AST 178 H
ALT 97 H
Alkaline Phosphatase 116
Vital Signs:
Vital Signs
Temp Pulse Resp BP Pulse Ox
97.0 F 92 19 103/52 99
02/14/25 03:45 02/14/25 08:11 02/14/25 08:00 02/14/25 08:11 02/14/25 04:34
I&O
02/13/25 02/14/25 02/15/25
06:59 06:59 06:59
Intake Total 1785 / 1785 1375 / 1375
Output Total 2540 / 2540 2425 / 2425
Balance -755 / -755 -1050 / -1050
Review of Systems
-
History Source: Patient
All other systems: Reviewed and negative
Physical Exam
-
General: Well Developed, No Apparent Distress, Comfortable and Morbidly Obese
HEENT: Normocephalic, Atraumatic, Moist Mucous Membranes and Other (Scleral icterus present)
Respiratory: Clear to Auscultation and Non Labored Respirations; Negative Wheezes, Rales, Rhonchi or Accessory Resp Muscle Use
Cardiac: Regular Rhythm and S1/S2; Negative Murmur, Rub or Gallop
GI: Soft, Nondistended, Normal Bowel Sounds and Organomegaly (Hepatomegaly)
Musculoskeletal: No Clubbing, No Cyanosis and Other (significant pitting edema equal bilaterally )
Skin: Warm, Dry and Jaundice; Negative Rash
Neuro: AO x 3 and Nonfocal/Grossly Intact; Negative Tremors
Psych: Calm
Data Reviewed
-
Diagnostic Radiology: Report Reviewed by me
Labs: Labs Reviewed by me
[2025-02-14] MEDS: TYLENOL 650 MG PO (11:13)
[2025-02-14] MEDS: BENADRYL 25 MG PO ×2 (11:15→21:54)
--- NOTE | 2025-02-14 12:40 | W.PN.NEPH.PH ---
Today's Communication / Plan
-
Continue IV diuretics
Assessment/Plan
-
Impression:
Anasarca
Abdominal pain
Alcoholic hepatitis
Alcohol abuse
Anemia
Neuropathy
Plan:
Lasix 40 mg IV twice daily
Fluid restrict.
Sodium restrict less than 2 g daily as discussed with the patient
Albumin low but should not significantly impact diuresis
Diuresis better today with increased Lasix dose
-
-
Date of Service: February 14, 2025
CC / HPI / ROS
-
Chief Complaint:
Anasarca
History of Present Illness:
Diuresing slowly with Lasix for anasarca
Weights lower
Blood pressure low stable
Hemoglobin low 7.3
Review of Systems:
No chest pain or shortness of breath
Labs
-
Labs:
WBC 24.4 10^3/uL (4.8-10.8) H 02/14/25 04:28
RBC 2.34 10^6/uL (4.20-5.40) L 02/14/25 04:28
Hgb 7.7 g/dL (12.0-16.0) L 02/14/25 04:28
Hct 23.8 % (37.0-47.0) L 02/14/25 04:28
Plt Count 134 10^3/uL (130-400) 02/14/25 04:28
Sodium 137 mmol/L (135-145) 02/14/25 04:28
Potassium 4.0 mmol/L (3.5-5.1) 02/14/25 04:28
Chloride 99 mmol/L (98-107) 02/14/25 04:28
Carbon Dioxide 31 mmol/L (22-30) H 02/14/25 04:28
BUN 33 mg/dl (7-17) H 02/14/25 04:28
Creatinine 0.6 mg/dL (0.6-1.0) 02/14/25 04:28
eGFR > 60.00 02/14/25 04:28
Glucose 93 mg/dl (70-99) 02/14/25 04:28
Calcium 9.0 mg/dl (8.4-10.2) 02/14/25 04:28
Albumin 3.2 g/dl (3.5-5.0) L 02/14/25 04:28
Physical Exam
-
Vital Signs:
Vital Signs
Temp Pulse Resp BP Pulse Ox
98.0 F 76 16 121/67 97
02/14/25 07:28 02/14/25 12:00 02/14/25 12:00 02/14/25 12:00 02/14/25 12:00
Cardiovascular:: Regular rate and rhythm
Respiratory:: Bilateral: Coarse
Lung Excursion:: Normal
Abdomen:: Nontender and Soft
Bowel Sounds:: Normal
Extremity Edema:: +3: Bilateral:
--- NOTE | 2025-02-14 16:02 | PTCARENOTE ---
Assumed care of patient this morning. She is aaox3. Pt complains of pain, medicated per MAR. Pt states her hand cramping is better but her legs still feel very swollen and painful, like they could 'pop.' Pt notes she feels drainage to the back of
her left leg. Upon assessment, pt has a very small scratch that appears to be weeping, foam applied. Foams were also changed on her abdomen and RLE. Pt appears tearful at times, emotional support provided. Assessment, care and VS as charted.
[2025-02-14] MEDS: LOVENOX 40 MG SC (17:27)
[2025-02-14] MEDS: MELATONIN 10 MG PO (21:54)
--- NOTE | 2025-02-14 22:21 | PTCARENOTE ---
Pt received at beginning of shift sitting up at side of bed with family. AAOx3. Anxious about prn pain meds. Prn pain meds explained to pt and when she can have them. Pain rating throughout shift so far continues to be an 8/10 each time with no
relief. VSS. Afebrile. POX RA 97% C/O hemorrhoids. Flakita DODD TT'd and made aware. Prep H ordered and awaiting to arrive to floor. VSD. Abdomen obese, full, tender. Both abdominal foams changed due to serous drainage. Rest of assessment as
documented. Turns self. Call longo remains within reach. Will continue to monitor.
[2025-02-15] VITALS (11 sets, daily range): BP systolic 103–167; BP diastolic 51–72; BMI 44.5
[2025-02-15] MEDS: DILAUDID 0.5 MG IV ×6 (01:07→19:21)
[2025-02-15] MEDS: FLUSH (NSS) 2 FLUSH IV ×2 (01:08→04:15)
[2025-02-15 04:31] LABS: INR 1.35
[2025-02-15 04:34] LABS: Hematocrit 23.5 % (37.0-47.0); Hemoglobin 7.4 g/dL (12.0-16.0); Mean Corp Hgb Conc. 31.5 g/dL (33.0-37.0); Mean Corpuscular Hgb 32.6 pg (27.0-31.0); Mean Corpuscular Volume 103.5 fL (81.0-99.0); Mean Platelet Volume 11.8 fL (7.4-10.4); Platelet Count 120 10^3/uL (130-400); Red Blood Cell Count 2.27 10^6/uL (4.20-5.40); Red Cell Dist. Width 25.6 % (11.5-14.5); White Blood Cell Count 21.5 10^3/uL (4.8-10.8)
[2025-02-15 04:44] LABS: ALT (SGPT) 101 U/L (0-35); AST (SGOT) 160 U/L (14-36); Albumin 3.3 g/dl (3.5-5.0); Alkaline Phosphatase 117 U/L (38-126); Blood Urea Nitrogen 34 mg/dl (7-17); Calcium 9.1 mg/dl (8.4-10.2); Carbon Dioxide 33 mmol/L (22-30); Chloride 96 mmol/L (98-107); Estimated Creatinine Clearance > 125 ml/min; Glucose 103 mg/dl (70-99); Potassium 3.9 mmol/L (3.5-5.1); Sodium 137 mmol/L (135-145); Total Bilirubin 11.9 mg/dl (0.2-1.3); Total Protein 6.7 g/dl (6.3-8.2); eGFR > 60.00
[2025-02-15] MEDS: NEURONTIN 300 MG PO ×2 (07:17→19:21)
[2025-02-15] MEDS: PRELONE 40 MG PO (07:17)
[2025-02-15] MEDS: PROTONIX 40 MG PO ×2 (07:17→19:21)
[2025-02-15] MEDS: MAG-TAB SR 84 MG PO ×2 (07:17→19:21)
[2025-02-15] MEDS: BUSPAR 15 MG PO ×2 (07:17→19:21)
[2025-02-15] MEDS: VITAMIN B1 100 MG PO ×2 (07:17→19:21)
[2025-02-15] MEDS: FOLVITE 1 MG PO (07:17)
[2025-02-15] MEDS: NICODERM TRANSDERMAL 21 MG TRANSDERM (07:17)
[2025-02-15] MEDS: ZINC 50 MG PO (07:17)
[2025-02-15] MEDS: LASIX 40 MG IV ×2 (07:20→15:18)
--- NOTE | 2025-02-15 07:59 | W.PN.HOSP.TC ---
Today's Communication/Plan
-
diuresis
OK to transfer to tele
change dilauaid to PRN breakthrough
Assessment / Plan
Assessment / Plan
Patient is a 34-year-old female with past medical history significant for alcohol hepatitis, alcohol dependency, asthma, essential hypertension, anxiety, chronic anemia and Hx alcoholic pancreatitis who presented to [facility] ED for
evaluation of increased edema. She was recently admitted 01/25-02/01/25 for alcoholic hepatitis (discharged on prednisolone course and Lasix).
Abdomen US: IMPRESSION: Small amount of ascites is present anterior to the liver in the right upper quadrant, as well as within the left lower quadrant.
Anasarca
Small Ascites
Shortness of Breath With Exertion
9.5kg weight gain over 2 weeks
- last drink 01/25/25;
patient not sure if she was taking previously prescribed Lasix
- IV Lasix --> increase to BID
- fluid restriction
- Renal and GI consults appreciated
- pain control - make dilaudid for breakthrough
Acute Alcohol Hepatitis
- on PO Prednisolone - appreciate GI, continue 4 week course followed by taper (she is now on day 15)
-T. Bili improving from last admission -
- repeat US with small ascites
-education provided to patient (prognosis, alcohol cessation)
Severe interval macrocytic anemia: previously normocytic
Underlying anemia of chronic disease
- Baseline Hgb low 8. suspect hemodilution due to hypervolemia
- T & S, Blood consent in ER
- Trend CBC daily
Severe ETOH use disorder : last ETOH was January first
No signs of severe withdrawal as of now
- Observe
-Continue folic acid and thiamine supplementation
Bilateral hand cramping
-add on Mag
-will order oral Mag, heat pad PRN
Known Incidental finding 1.8 cm hypodense renal cyst on prior CT
- OP follow-up
DVT Px: start Lovenox
Full code
IMU
51 minutes spent on patient care
Anticipated Discharge: > 48 hours
Subjective/Interval History
-
Date of Service: February 15, 2025
continues to have pedal edema that is painful, elevating legs
Objective Data
-
Labs:
Laboratory Results
02/15/25
04:07
WBC 21.5 H
Hgb 7.4 L
Hct 23.5 L
Plt Count 120 L
PT 17.0 H
INR 1.35
Sodium 137
Potassium 3.9
Chloride 96 L
Carbon Dioxide 33 H
BUN 34 H
Creatinine 0.6
Glucose 103 H
Calcium 9.1
Total Bilirubin 11.9 H
AST 160 H
ALT 101 H
Alkaline Phosphatase 117
Vital Signs:
Vital Signs
Temp Pulse Resp BP Pulse Ox
97.9 F 83 16 105/59 95
02/15/25 04:18 02/15/25 06:00 02/15/25 06:00 02/15/25 06:00 02/15/25 07:35
I&O
02/14/25 02/15/25 02/16/25
06:59 06:59 06:59
Intake Total 1375 / 1375 1160 / 1160
Output Total 2425 / 2425 1725 / 1725
Balance -1050 / -1050 -565 / -565
Review of Systems
-
History Source: Patient
All other systems: Reviewed and negative
Physical Exam
-
General: Well Developed, No Apparent Distress, Comfortable and Morbidly Obese
HEENT: Normocephalic, Atraumatic, Moist Mucous Membranes and Other (Scleral icterus present)
Respiratory: Clear to Auscultation and Non Labored Respirations; Negative Wheezes, Rales, Rhonchi or Accessory Resp Muscle Use
Cardiac: Regular Rhythm and S1/S2; Negative Murmur, Rub or Gallop
GI: Soft, Nondistended, Normal Bowel Sounds and Organomegaly (Hepatomegaly)
Musculoskeletal: No Clubbing, No Cyanosis and Other (significant pitting edema equal bilaterally )
Skin: Warm, Dry and Jaundice; Negative Rash
Neuro: AO x 3 and Nonfocal/Grossly Intact; Negative Tremors
Psych: Calm
Data Reviewed
-
Diagnostic Radiology: Report Reviewed by me
Labs: Labs Reviewed by me
[2025-02-15] MEDS: SYMBICORT 80/4.5 MCG INHALER 2 PUFF INH ×2 (08:00→19:55)
[2025-02-15] MEDS: KCL 40 MEQ PO (08:22)
[2025-02-15] MEDS: ROXICODONE 10 MG PO ×3 (08:25→21:01)
[2025-02-15 08:47] LABS: Iron 105 ug/dl (37-170)
[2025-02-15 08:56] LABS: Percent Saturation 50 % (20-50); Total Iron Binding Capacity 208 ug/dl (265-497)
--- NOTE | 2025-02-15 10:51 | PTCARENOTE ---
Pt downgraded to Tele; Report given to Tristan VALENTINE on ; Tele box placed on Pt, transport called - transferred to room 410-1
--- NOTE | 2025-02-15 10:59 | PTCARENOTE ---
Pt. arrived to unit via stretcher from IMU. Pt. VSS, pt. ambulating in room, no c/o pain at this time.
--- NOTE | 2025-02-15 12:00 | W.PN.NEPH.PH ---
Today's Communication / Plan
-
Continue diuretics
Assessment/Plan
-
Impression:
Anasarca
Abdominal pain
Alcoholic hepatitis
Alcohol abuse
Anemia
Neuropathy
Plan:
Lasix 40 mg IV twice daily
Fluid restrict.
Sodium restrict less than 2 g daily as discussed with the patient
Albumin low but should not significantly impact diuresis
Diuresis better today with increased Lasix dose
-
-
Date of Service: February 15, 2025
CC / HPI / ROS
-
Chief Complaint:
Anasarca
History of Present Illness:
Diuresing slowly with Lasix for anasarca
Weights lower
Blood pressure low stable
Hemoglobin low 7.3
Review of Systems:
No chest pain or shortness of breath
Labs
-
Labs:
WBC 21.5 10^3/uL (4.8-10.8) H 02/15/25 04:07
RBC 2.27 10^6/uL (4.20-5.40) L 02/15/25 04:07
Hgb 7.4 g/dL (12.0-16.0) L 02/15/25 04:07
Hct 23.5 % (37.0-47.0) L 02/15/25 04:07
Plt Count 120 10^3/uL (130-400) L 02/15/25 04:07
Sodium 137 mmol/L (135-145) 02/15/25 04:07
Potassium 3.9 mmol/L (3.5-5.1) 02/15/25 04:07
Chloride 96 mmol/L (98-107) L 02/15/25 04:07
Carbon Dioxide 33 mmol/L (22-30) H 02/15/25 04:07
BUN 34 mg/dl (7-17) H 02/15/25 04:07
Creatinine 0.6 mg/dL (0.6-1.0) 02/15/25 04:07
eGFR > 60.00 02/15/25 04:07
Glucose 103 mg/dl (70-99) H 02/15/25 04:07
Calcium 9.1 mg/dl (8.4-10.2) 02/15/25 04:07
Albumin 3.3 g/dl (3.5-5.0) L 02/15/25 04:07
Physical Exam
-
Vital Signs:
Vital Signs
Temp Pulse Resp BP Pulse Ox
98.3 F 84 16 116/68 100
02/15/25 11:10 02/15/25 11:10 02/15/25 11:10 02/15/25 11:10 02/15/25 11:10
Cardiovascular:: Regular rate and rhythm
Respiratory:: Bilateral: Coarse
Lung Excursion:: Normal
Abdomen:: Nontender and Soft
Bowel Sounds:: Normal
Extremity Edema:: +3: Bilateral:
[2025-02-15] MEDS: LOVENOX 40 MG SC (17:01)
[2025-02-15] MEDS: BENADRYL 25 MG PO (21:00)
[2025-02-15] MEDS: MELATONIN 10 MG PO (21:00)
[2025-02-16] MEDS: DILAUDID 0.5 MG IV ×6 (00:03→20:52)
[2025-02-16 03:18] VITALS: BP 120/69
[2025-02-16] MEDS: ROXICODONE 10 MG PO ×3 (05:59→18:03)
[2025-02-16 06:00] VITALS: BMI 43.7
[2025-02-16 06:29] LABS: Hematocrit 24.3 % (37.0-47.0); Hemoglobin 7.8 g/dL (12.0-16.0); Mean Corp Hgb Conc. 32.1 g/dL (33.0-37.0); Mean Corpuscular Hgb 33.6 pg (27.0-31.0); Mean Corpuscular Volume 104.7 fL (81.0-99.0); Platelet Count 128 10^3/uL (130-400); Red Blood Cell Count 2.32 10^6/uL (4.20-5.40); Red Cell Dist. Width 25.5 % (11.5-14.5)
[2025-02-16 06:46] LABS: Blood Urea Nitrogen 32 mg/dl (7-17); Calcium 9.4 mg/dl (8.4-10.2); Carbon Dioxide 35 mmol/L (22-30); Chloride 97 mmol/L (98-107); Estimated Creatinine Clearance > 125 ml/min; Glucose 101 mg/dl (70-99); Potassium 4.1 mmol/L (3.5-5.1); Sodium 138 mmol/L (135-145); Total Bilirubin 13.1 mg/dl (0.2-1.3); eGFR > 60.00
[2025-02-16] MEDS: SYMBICORT 80/4.5 MCG INHALER 2 PUFF INH ×2 (07:34→19:54)
[2025-02-16 08:13] VITALS: BP 122/70
[2025-02-16] MEDS: NICODERM TRANSDERMAL 21 MG TRANSDERM (08:15)
[2025-02-16] MEDS: LASIX 40 MG IV ×2 (08:15→15:19)
[2025-02-16] MEDS: PROTONIX 40 MG PO ×2 (08:15→19:28)
[2025-02-16] MEDS: FOLVITE 1 MG PO (08:15)
[2025-02-16] MEDS: NEURONTIN 300 MG PO ×2 (08:15→19:28)
[2025-02-16] MEDS: MAG-TAB SR 84 MG PO ×2 (08:15→19:27)
[2025-02-16] MEDS: ZINC 50 MG PO (08:15)
[2025-02-16] MEDS: BUSPAR 15 MG PO ×2 (08:16→19:27)
[2025-02-16] MEDS: PRELONE 40 MG PO (08:16)
[2025-02-16] MEDS: VITAMIN B1 100 MG PO ×2 (08:16→19:28)
--- NOTE | 2025-02-16 10:15 | W.PN.HOSP.TC ---
Today's Communication/Plan
-
continued IV diuresis
Assessment / Plan
Assessment / Plan
Patient is a 34-year-old female with past medical history significant for alcohol hepatitis, alcohol dependency, asthma, essential hypertension, anxiety, chronic anemia and Hx alcoholic pancreatitis who presented to [facility] ED for
evaluation of increased edema. She was recently admitted 01/25-02/01/25 for alcoholic hepatitis (discharged on prednisolone course and Lasix).
Abdomen US: IMPRESSION: Small amount of ascites is present anterior to the liver in the right upper quadrant, as well as within the left lower quadrant.
Anasarca
Small Ascites
Shortness of Breath With Exertion
9.5kg weight gain over 2 weeks
- last drink 01/25/25;
patient states she wasn't taking lasix at home
- IV Lasix BID
- fluid restriction
- Renal and GI consults appreciated
- pain control - make dilaudid for breakthrough
Acute Alcohol Hepatitis
- on PO Prednisolone - appreciate GI, continue 4 week course followed by taper (she is now on day 16)
-T. 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
- repeat US with small ascites
-education provided to patient (prognosis, alcohol cessation)
Severe interval macrocytic anemia: previously normocytic
Underlying anemia of chronic disease
- Baseline Hgb low 8.
- Hg has been stable, no need to check daily unless bleeding
Severe ETOH use disorder : last ETOH was January first
No signs of severe withdrawal as of now
- Observe
-Continue folic acid and thiamine supplementation
Bilateral hand cramping
-will order oral Mag - helping
Known Incidental finding 1.8 cm hypodense renal cyst on prior CT
- OP follow-up
DVT Px: start Lovenox
Full code
IMU
51 minutes spent on patient care
Anticipated Discharge: > 48 hours
Subjective/Interval History
-
Date of Service: February 16, 2025
walking around the hallways
signifant weight loss, continues to have significant swelling
Objective Data
-
Labs:
Laboratory Results
02/16/25 02/16/25
05:40 05:59
WBC 27.0 H
Hgb 7.8 L
Hct 24.3 L
Plt Count 128 L
Sodium 138
Potassium 4.1
Chloride 97 L
Carbon Dioxide 35 H
BUN 32 H
Creatinine 0.6
Glucose 101 H
Calcium 9.4
Total Bilirubin 13.1 H
Vital Signs:
Vital Signs
Temp Pulse Resp BP Pulse Ox
98.2 F 94 16 122/70 98
02/16/25 08:13 02/16/25 08:15 02/16/25 08:13 02/16/25 08:15 02/16/25 08:15
I&O
02/15/25 02/16/25 02/17/25
06:59 06:59 06:59
Intake Total 1160 / 1160 240 / 240
Output Total 1725 / 1725 2855 / 2855
Balance -565 / -565 -2615 / -2615
Review of Systems
-
History Source: Patient
All other systems: Reviewed and negative
Physical Exam
-
General: Well Developed, No Apparent Distress, Comfortable and Morbidly Obese
HEENT: Normocephalic, Atraumatic, Moist Mucous Membranes and Other (Scleral icterus present)
Respiratory: Clear to Auscultation and Non Labored Respirations; Negative Wheezes, Rales, Rhonchi or Accessory Resp Muscle Use
Cardiac: Regular Rhythm and S1/S2; Negative Murmur, Rub or Gallop
GI: Soft, Nondistended, Normal Bowel Sounds and Organomegaly (Hepatomegaly)
Musculoskeletal: No Clubbing, No Cyanosis and Other (significant pitting edema equal bilaterally )
Skin: Warm, Dry and Jaundice; Negative Rash
Neuro: AO x 3 and Nonfocal/Grossly Intact; Negative Tremors
Psych: Calm
Data Reviewed
-
Diagnostic Radiology: Report Reviewed by me
Labs: Labs Reviewed by me
[2025-02-16 11:00] VITALS: BP 138/69
[2025-02-16 15:00] VITALS: BP 128/69
[2025-02-16] MEDS: TYLENOL 650 MG PO (15:18)
[2025-02-16] MEDS: BENADRYL 25 MG PO ×2 (15:18→22:02)
--- NOTE | 2025-02-16 15:53 | W.PN.NEPH.PH ---
Today's Communication / Plan
-
Add Diamox for alkalosis continue diuretic for now
Assessment/Plan
-
Impression:
Anasarca
Abdominal pain
Alcoholic hepatitis
Alcohol abuse
Anemia
Neuropathy
Plan:
Lasix 40 mg IV twice daily
Fluid restrict.
Sodium restrict less than 2 g daily as discussed with the patient
Albumin low but should not significantly impact diuresis
Diuresis better today with increased Lasix dose
She is now developing alkalosis with a bicarb of 35 and lethargy.
I will add Diamox.
She continues to have significant anasarca despite the weight loss
-
-
Date of Service: February 16, 2025
CC / HPI / ROS
-
Chief Complaint:
Anasarca
History of Present Illness:
Diuresing slowly with Lasix for anasarca
Weights lower
Blood pressure low stable
Hemoglobin low 7.3
Review of Systems:
No chest pain or shortness of breath
Labs
-
Labs:
WBC 27.0 10^3/uL (4.8-10.8) H 02/16/25 05:59
RBC 2.32 10^6/uL (4.20-5.40) L 02/16/25 05:59
Hgb 7.8 g/dL (12.0-16.0) L 02/16/25 05:59
Hct 24.3 % (37.0-47.0) L 02/16/25 05:59
Plt Count 128 10^3/uL (130-400) L 02/16/25 05:59
Sodium 138 mmol/L (135-145) 02/16/25 05:40
Potassium 4.1 mmol/L (3.5-5.1) 02/16/25 05:40
Chloride 97 mmol/L (98-107) L 02/16/25 05:40
Carbon Dioxide 35 mmol/L (22-30) H 02/16/25 05:40
BUN 32 mg/dl (7-17) H 02/16/25 05:40
Creatinine 0.6 mg/dL (0.6-1.0) 02/16/25 05:40
eGFR > 60.00 02/16/25 05:40
Glucose 101 mg/dl (70-99) H 02/16/25 05:40
Calcium 9.4 mg/dl (8.4-10.2) 02/16/25 05:40
Albumin 3.3 g/dl (3.5-5.0) L 02/15/25 04:07
Physical Exam
-
Vital Signs:
Vital Signs
Temp Pulse Resp BP Pulse Ox
98.2 F 93 16 138/69 97
02/16/25 11:00 02/16/25 11:00 02/16/25 11:00 02/16/25 11:00 02/16/25 11:00
Cardiovascular:: Regular rate and rhythm
Respiratory:: Bilateral: Coarse
Lung Excursion:: Normal
Abdomen:: Nontender and Soft
Bowel Sounds:: Normal
Extremity Edema:: +3: Bilateral:
[2025-02-16] MEDS: LOVENOX 40 MG SC (16:44)
[2025-02-16 19:17] VITALS: BP 111/61
[2025-02-16] MEDS: DIAMOX 250 MG PO (19:35)
[2025-02-16] MEDS: FLUSH (NSS) 3 FLUSH IV (21:00)
[2025-02-16] MEDS: MELATONIN 10 MG PO (22:02)
[2025-02-16 22:30] VITALS: BP 116/62
[2025-02-17] VITALS (7 sets, daily range): BP systolic 105–139; BP diastolic 54–68; BMI 43.2
[2025-02-17] MEDS: FLUSH (NSS) 2 FLUSH IV ×2 (01:00→21:44)
[2025-02-17] MEDS: DILAUDID 0.5 MG IV ×6 (01:00→21:42)
[2025-02-17] MEDS: ROXICODONE 10 MG PO ×3 (02:10→19:41)
[2025-02-17 05:28] LABS: Blood Urea Nitrogen 27 mg/dl (7-17); Calcium 9.2 mg/dl (8.4-10.2); Carbon Dioxide 36 mmol/L (22-30); Chloride 97 mmol/L (98-107); Estimated Creatinine Clearance > 125 ml/min; Glucose 104 mg/dl (70-99); Potassium 3.3 mmol/L (3.5-5.1); Sodium 137 mmol/L (135-145); eGFR > 60.00
[2025-02-17] MEDS: SYMBICORT 80/4.5 MCG INHALER 2 PUFF INH ×2 (07:55→19:37)
[2025-02-17] MEDS: BUSPAR 15 MG PO ×2 (08:52→19:46)
[2025-02-17] MEDS: NEURONTIN 300 MG PO ×2 (08:52→19:47)
[2025-02-17] MEDS: MAG-TAB SR 84 MG PO ×2 (08:52→19:47)
[2025-02-17] MEDS: DIAMOX 250 MG PO ×2 (08:52→19:46)
[2025-02-17] MEDS: VITAMIN B1 100 MG PO ×2 (08:53→19:47)
[2025-02-17] MEDS: FOLVITE 1 MG PO (08:53)
[2025-02-17] MEDS: PROTONIX 40 MG PO ×2 (08:53→19:47)
[2025-02-17] MEDS: FLUSH (NSS) 1 FLUSH IV ×4 (08:53→17:35)
[2025-02-17] MEDS: LASIX 40 MG IV ×2 (08:53→16:46)
[2025-02-17] MEDS: ZINC 50 MG PO (08:53)
[2025-02-17] MEDS: NICODERM TRANSDERMAL 21 MG TRANSDERM (08:53)
[2025-02-17] MEDS: PRELONE 40 MG PO (08:54)
[2025-02-17] MEDS: KCL 40 MEQ PO (10:28)
--- NOTE | 2025-02-17 10:29 | W.PN.HOSP.TC ---
Today's Communication/Plan
-
diuresis
Assessment / Plan
Assessment / Plan
Patient is a 34-year-old female with past medical history significant for alcohol hepatitis, alcohol dependency, asthma, essential hypertension, anxiety, chronic anemia and Hx alcoholic pancreatitis who presented to [facility] ED for
evaluation of increased edema. She was recently admitted 01/25-02/01/25 for alcoholic hepatitis (discharged on prednisolone course and Lasix).
Abdomen US: IMPRESSION: Small amount of ascites is present anterior to the liver in the right upper quadrant, as well as within the left lower quadrant.
Anasarca
Small Ascites
Shortness of Breath With Exertion
9.5kg weight gain over 2 weeks
- last drink 01/25/25
patient states she wasn't taking lasix at home
- IV Lasix BID, patient with continued significant weight loss and stable renal function. She wants to leave the hospital by . Will continue diuresis at home with oral pills.
- consider adding Aldactone today - will discuss with Renal
- fluid restriction
- Renal and GI consults appreciated
- pain control - make dilaudid for breakthrough
Acute Alcohol Hepatitis
- on PO Prednisolone - appreciate GI, continue 4 week course followed by taper over 4 weeks (she is now on day 17)
- repeat US with small ascites
-T. 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
-education provided to patient (prognosis, alcohol cessation)
-has outpatient follow-up already set up with Dr. Pereyra on March 05.
Severe interval macrocytic anemia: previously normocytic
Underlying anemia of chronic disease
- Baseline Hgb low 8.
- Hg has been stable, no need to check daily unless bleeding
Severe ETOH use disorder : last ETOH was January
No signs of severe withdrawal as of now
- Observe
-Continue folic acid and thiamine supplementation
Bilateral hand cramping
-will order oral Mag - helping
Known Incidental finding 1.8 cm hypodense renal cyst on prior CT
- OP follow-up
DVT Px: start Lovenox
Full code
IMU
51 minutes spent on patient care
Anticipated Discharge: 24 - 48 hours
Subjective/Interval History
-
Date of Service: February 17, 2025
continuing to have weight loss and high urine output
Objective Data
-
Labs:
Laboratory Results
02/17/25
04:21
Sodium 137
Potassium 3.3 L
Chloride 97 L
Carbon Dioxide 36 H
BUN 27 H
Creatinine 0.6
Glucose 104 H
Calcium 9.2
Vital Signs:
Vital Signs
Temp Pulse Resp BP Pulse Ox
98.1 F 95 16 115/68 97
02/17/25 07:20 02/17/25 08:53 02/17/25 07:57 02/17/25 08:53 02/17/25 08:50
I&O
02/16/25 02/17/25 02/18/25
06:59 06:59 06:59
Intake Total 240 / 240 840 / 840
Output Total 2855 / 2855 2900 / 2900
Balance -2615 / -2615 -2059 / -2059
Review of Systems
-
History Source: Patient
All other systems: Reviewed and negative
Physical Exam
-
General: Well Developed, No Apparent Distress, Comfortable and Morbidly Obese
HEENT: Normocephalic, Atraumatic, Moist Mucous Membranes and Other (Scleral icterus present)
Respiratory: Clear to Auscultation and Non Labored Respirations; Negative Wheezes, Rales, Rhonchi or Accessory Resp Muscle Use
Cardiac: Regular Rhythm and S1/S2; Negative Murmur, Rub or Gallop
GI: Soft, Nondistended, Normal Bowel Sounds and Organomegaly (Hepatomegaly)
Musculoskeletal: No Clubbing, No Cyanosis and Other (significant pitting edema equal bilaterally )
Skin: Warm, Dry and Jaundice; Negative Rash
Neuro: AO x 3 and Nonfocal/Grossly Intact; Negative Tremors
Psych: Calm
Data Reviewed
-
Diagnostic Radiology: Report Reviewed by me
Labs: Labs Reviewed by me
[2025-02-17] MEDS: TYLENOL 650 MG PO (12:41)
[2025-02-17] MEDS: BENADRYL 25 MG PO ×2 (12:42→22:56)
--- NOTE | 2025-02-17 13:07 | CM ---
Chart reviewed. Care ongoing at this time
No CM needs at this time
Plan: Home; no needs when stable
--- NOTE | 2025-02-17 16:16 | W.PN.NEPH.PH ---
Today's Communication / Plan
-
cotn lasix , replace k
Assessment/Plan
-
Impression:
Anasarca
Abdominal pain
Alcoholic hepatitis
Alcohol abuse
Anemia
Neuropathy
Plan:
Lasix 40 mg IV twice daily with daimox
cr stable at 0.6
replace k
on steroids per GI
cont Sodium restrict less than 2 g daily and FR
Albumin low but should not significantly impact diuresis
She continues to have significant anasarca despite the weight loss
all edema is not amenable to diuresis
-
-
Date of Service: February 17, 2025
CC / HPI / ROS
-
Chief Complaint:
Anasarca
History of Present Illness:
Diuresing slowly with Lasix for anasarca
Weights lower, k low 3.3
Blood pressure stable
Hemoglobin up at 7.8
Review of Systems:
No chest pain or shortness of breath
edema imprvoing, weeping fluid from right leg
Labs
-
Labs:
WBC 27.0 10^3/uL (4.8-10.8) H 02/16/25 05:59
RBC 2.32 10^6/uL (4.20-5.40) L 02/16/25 05:59
Hgb 7.8 g/dL (12.0-16.0) L 02/16/25 05:59
Hct 24.3 % (37.0-47.0) L 02/16/25 05:59
Plt Count 128 10^3/uL (130-400) L 02/16/25 05:59
Sodium 137 mmol/L (135-145) 02/17/25 04:21
Potassium 3.3 mmol/L (3.5-5.1) L 02/17/25 04:21
Chloride 97 mmol/L (98-107) L 02/17/25 04:21
Carbon Dioxide 36 mmol/L (22-30) H 02/17/25 04:21
BUN 27 mg/dl (7-17) H 02/17/25 04:21
Creatinine 0.6 mg/dL (0.6-1.0) 02/17/25 04:21
eGFR > 60.00 02/17/25 04:21
Glucose 104 mg/dl (70-99) H 02/17/25 04:21
Calcium 9.2 mg/dl (8.4-10.2) 02/17/25 04:21
Albumin 3.3 g/dl (3.5-5.0) L 02/15/25 04:07
Physical Exam
-
Vital Signs:
Vital Signs
Temp Pulse Resp BP Pulse Ox
98.1 F 86 18 139/68 97
02/17/25 15:36 02/17/25 15:36 02/17/25 15:36 02/17/25 15:36 02/17/25 15:36
Cardiovascular:: Regular rate and rhythm
Respiratory:: Bilateral: CTA
Lung Excursion:: Normal
Abdomen:: Nontender and Soft
Extremity Edema:: +3: Bilateral:
Shukla Catheter: No
--- NOTE | 2025-02-17 16:50 | PTCARENOTE ---
Pt AAO x3, COTA well, OOB in room/harman; devin well. VSS. telemetry:NSR. On room air- pulse ox97%, no SOB noted. Abd obese, soft, devin PO well; 1440 ml fl restriction maintained. Voids clear dark jaime urine in specipan. Skin sl jaundiced; weeping
straw-colored fluid from Rt lower leg and lt abd; DSD changed as needed. Rt midline IV site P/I. Pt c/o Lt low back/leg pain stated minimal effect from prn pain meds. Resting in bed at present with eyes closed. Will continue to monitor.
[2025-02-17] MEDS: LOVENOX 40 MG SC (17:34)
[2025-02-17] MEDS: MELATONIN 10 MG PO (22:57)
[2025-02-18] MEDS: DILAUDID 0.5 MG IV ×5 (02:27→20:51)
[2025-02-18] MEDS: FLUSH (NSS) 2 FLUSH IV ×3 (02:30→20:52)
[2025-02-18 03:43] VITALS: BP 109/61
[2025-02-18] MEDS: ROXICODONE 10 MG PO ×3 (04:08→18:41)
[2025-02-18 06:00] VITALS: BMI 42.5
[2025-02-18 07:35] VITALS: BP 107/58
[2025-02-18] MEDS: SYMBICORT 80/4.5 MCG INHALER 2 PUFF INH ×2 (07:55→19:39)
[2025-02-18] MEDS: PRELONE 40 MG PO (08:34)
[2025-02-18] MEDS: BUSPAR 15 MG PO ×2 (08:36→20:46)
[2025-02-18] MEDS: VITAMIN B1 100 MG PO ×2 (08:36→20:47)
[2025-02-18] MEDS: MAG-TAB SR 84 MG PO ×2 (08:36→20:46)
[2025-02-18] MEDS: DIAMOX 250 MG PO ×2 (08:36→20:46)
[2025-02-18] MEDS: PROTONIX 40 MG PO ×2 (08:36→20:47)
[2025-02-18] MEDS: FOLVITE 1 MG PO (08:37)
[2025-02-18] MEDS: ZINC 50 MG PO (08:37)
[2025-02-18] MEDS: NEURONTIN 300 MG PO ×2 (08:37→20:46)
[2025-02-18] MEDS: LASIX 40 MG IV ×2 (08:37→15:23)
[2025-02-18] MEDS: NICODERM TRANSDERMAL 21 MG TRANSDERM (08:37)
[2025-02-18 09:51] LABS: Blood Urea Nitrogen 28 mg/dl (7-17); Calcium 9.6 mg/dl (8.4-10.2); Carbon Dioxide 32 mmol/L (22-30); Chloride 100 mmol/L (98-107); Estimated Creatinine Clearance > 125 ml/min; Glucose 104 mg/dl (70-99); Magnesium 2.3 mg/dl (1.6-2.3); Potassium 3.7 mmol/L (3.5-5.1); Sodium 140 mmol/L (135-145); eGFR > 60.00
--- NOTE | 2025-02-18 09:58 | W.PN.HOSP.TC ---
Today's Communication/Plan
-
see bold
Assessment / Plan
Assessment / Plan
Patient is a 34-year-old female with past medical history significant for alcohol hepatitis, alcohol dependency, asthma, essential hypertension, anxiety, chronic anemia and Hx alcoholic pancreatitis who presented to [facility] ED for
evaluation of increased edema. She was recently admitted 01/25-02/01/25 for alcoholic hepatitis (discharged on prednisolone course and Lasix).
Abdomen US: IMPRESSION: Small amount of ascites is present anterior to the liver in the right upper quadrant, as well as within the left lower quadrant.
Anasarca
Small Ascites
Shortness of Breath With Exertion
9.5kg weight gain over 2 weeks
- last drink 01/25/25
patient states she wasn't taking lasix at home
- IV Lasix BID, Diamox twice daily, patient with continued significant weight loss and stable renal function. She wants to leave the hospital by . Will continue diuresis at home with oral pills.
- fluid restriction
- Renal and GI consults appreciated
- pain control - make dilaudid for breakthrough
Acute Alcohol Hepatitis
- on PO Prednisolone - appreciate GI, continue 4 week course followed by taper over 4 weeks (she is now on day 18)
- repeat US with small ascites
-T. 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
-education provided to patient (prognosis, alcohol cessation)
-has outpatient follow-up already set up with Dr. Pereyra on March 05.
Severe interval macrocytic anemia: previously normocytic
Underlying anemia of chronic disease
- Hg has been stable, no need to check daily unless bleeding
Severe ETOH use disorder : last ETOH was January
No signs of severe withdrawal as of now
- Observe
-Continue folic acid and thiamine supplementation
Bilateral hand cramping
-will order oral Mag - helping
Known Incidental finding 1.8 cm hypodense renal cyst on prior CT
- OP follow-up
DVT prophylaxis�Lovenox
Full code
Total time spent to see the patient on the floor, examine the patient, review data and lab results, discuss treatment plan with patient, nursing staff around 40 minutes.
Physical Exam
General: Obese, no acute distress
HEENT: Normocephalic, Atraumatic, EOMI, MMM
Respiratory: Clear to Auscultation bilaterally
Cardiac: Normal S1/S2, Regular Rate and Rhythm
GI: Soft, Nontender, distended, Normal Bowel Sounds
Extremities: No Clubbing, Cyanosis
Severe bilateral lower extremity edema noted
Neuro: Nonfocal/Grossly Intact
Psych: Calm, Cooperative
Derm: No Visible lesions
Anticipated Discharge: 24 - 48 hours
Subjective/Interval History
-
Date of Service: February 18, 2025
Patient reports abdominal distention and lower extremity edema has improved. No fever, no vomiting.
Objective Data
-
Labs:
Laboratory Results
02/18/25
09:16
Sodium 140
Potassium 3.7
Chloride 100
Carbon Dioxide 32 H
BUN 28 H
Creatinine 0.7
Glucose 104 H
Calcium 9.6
Vital Signs:
Vital Signs
Temp Pulse Resp BP Pulse Ox
98.1 F 86 16 107/58 100
02/18/25 07:35 02/18/25 08:36 02/18/25 07:55 02/18/25 08:36 02/18/25 07:35
I&O
02/17/25 02/18/25 02/19/25
06:59 06:59 06:59
Intake Total 840 / 840 1080 / 1080
Output Total 2900 / 2900 3275 / 3275
Balance -2059 / -2059 -2194 / -2194
[2025-02-18 11:40] VITALS: BP 124/66
[2025-02-18 15:20] VITALS: BP 110/55
[2025-02-18] MEDS: LOVENOX SC (17:07)
--- NOTE | 2025-02-18 17:37 | W.PN.NEPH.PH ---
Today's Communication / Plan
-
cont diuresis
d/c plan
Assessment/Plan
-
Impression:
Anasarca
Abdominal pain
Alcoholic hepatitis
Alcohol abuse
Anemia
Neuropathy
Plan:
Lasix 40 mg IV twice daily with daimox
cr stable at 0.7
replace k prn
on steroids per GI
cont Sodium restrict less than 2 g daily and FR
Albumin low but should not significantly impact diuresis
improving edema but suspect all edema is not amenable to diuresis
keep leg elevated and use LIA wraps. still weeping area of right leg
-
-
Date of Service: February 18, 2025
CC / HPI / ROS
-
Chief Complaint:
Anasarca
History of Present Illness:
Diuresing slowly with Lasix for anasarca
Weights lower, k better at 3.7
Blood pressure stable
Hemoglobin up at 7.8, no cbc today
Review of Systems:
No chest pain or shortness of breath
edema imprvoing, weeping fluid from right leg
Labs
-
Labs:
WBC 27.0 10^3/uL (4.8-10.8) H 02/16/25 05:59
RBC 2.32 10^6/uL (4.20-5.40) L 02/16/25 05:59
Hgb 7.8 g/dL (12.0-16.0) L 02/16/25 05:59
Hct 24.3 % (37.0-47.0) L 02/16/25 05:59
Plt Count 128 10^3/uL (130-400) L 02/16/25 05:59
Sodium 140 mmol/L (135-145) 02/18/25 09:16
Potassium 3.7 mmol/L (3.5-5.1) 02/18/25 09:16
Chloride 100 mmol/L (98-107) 02/18/25 09:16
Carbon Dioxide 32 mmol/L (22-30) H 02/18/25 09:16
BUN 28 mg/dl (7-17) H 02/18/25 09:16
Creatinine 0.7 mg/dL (0.6-1.0) 02/18/25 09:16
eGFR > 60.00 02/18/25 09:16
Glucose 104 mg/dl (70-99) H 02/18/25 09:16
Calcium 9.6 mg/dl (8.4-10.2) 02/18/25 09:16
Albumin 3.3 g/dl (3.5-5.0) L 02/15/25 04:07
Physical Exam
-
Vital Signs:
Vital Signs
Temp Pulse Resp BP Pulse Ox
98.1 F 82 18 110/55 97
02/18/25 15:20 02/18/25 15:20 02/18/25 15:20 02/18/25 15:23 02/18/25 15:20
Cardiovascular:: Regular rate and rhythm
Respiratory:: Bilateral: CTA
Lung Excursion:: Normal
Abdomen:: Nontender and Soft
Extremity Edema:: +3: Bilateral:
Shukla Catheter: No
[2025-02-18 20:05] VITALS: BP 140/73
[2025-02-18] MEDS: BENADRYL 25 MG PO (22:20)
[2025-02-18] MEDS: MELATONIN 10 MG PO (22:21)
[2025-02-18 23:31] VITALS: BP 106/57
[2025-02-19] MEDS: ROXICODONE 10 MG PO ×3 (03:09→17:19)
[2025-02-19 03:38] VITALS: BP 117/64
[2025-02-19] MEDS: DILAUDID 0.5 MG IV ×4 (04:39→19:41)
[2025-02-19] MEDS: FLUSH (NSS) 2 FLUSH IV (04:39)
[2025-02-19 06:00] VITALS: BMI 41.8
[2025-02-19 07:30] VITALS: BP 107/55
[2025-02-19] MEDS: SYMBICORT 80/4.5 MCG INHALER 2 PUFF INH ×2 (08:11→19:06)
[2025-02-19] MEDS: NICODERM TRANSDERMAL 21 MG TRANSDERM (09:03)
[2025-02-19] MEDS: LASIX 40 MG IV (09:03)
[2025-02-19] MEDS: FOLVITE 1 MG PO (09:04)
[2025-02-19] MEDS: PROTONIX 40 MG PO ×2 (09:04→19:42)
[2025-02-19] MEDS: DIAMOX 250 MG PO ×2 (09:04→19:42)
[2025-02-19] MEDS: VITAMIN B1 100 MG PO ×2 (09:04→19:42)
[2025-02-19] MEDS: NEURONTIN 300 MG PO ×2 (09:04→19:42)
[2025-02-19] MEDS: BUSPAR 15 MG PO ×2 (09:04→19:42)
[2025-02-19] MEDS: ZINC 50 MG PO (09:05)
[2025-02-19] MEDS: PRELONE 40 MG PO (09:05)
--- NOTE | 2025-02-19 09:07 | W.PN.HOSP.TC ---
Today's Communication/Plan
-
Replete potassium by IV and p.o.
Increase Lasix to 60 mg IV twice daily
Add Aldactone 25 mg daily
Patient requesting discharge tomorrow
Assessment / Plan
Assessment / Plan
Patient is a 34-year-old female with past medical history significant for alcohol hepatitis, alcohol dependency, asthma, essential hypertension, anxiety, chronic anemia and Hx alcoholic pancreatitis who presented to [facility] ED for
evaluation of increased edema. She was recently admitted 01/25-02/01/25 for alcoholic hepatitis (discharged on prednisolone course and Lasix).
Abdomen US: IMPRESSION: Small amount of ascites is present anterior to the liver in the right upper quadrant, as well as within the left lower quadrant.
Anasarca
Small Ascites
Shortness of Breath With Exertion
9.5kg weight gain over 2 weeks
- last drink 01/25/25
patient states she wasn't taking lasix at home
- IV Lasix BID, Diamox twice daily, and spironolactone 25 mg daily
- Patient with continued significant weight loss and stable renal function. She wants to leave the hospital by . Will continue diuresis at home with oral pills.
- fluid restriction
- Renal and GI consults appreciated
- pain control - make dilaudid for breakthrough
Acute Alcohol Hepatitis
- on PO Prednisolone - appreciate GI, continue 4 week course followed by taper over 4 weeks (she is now on day 18)
- repeat US with small ascites
-T. 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
-education provided to patient (prognosis, alcohol cessation)
-has outpatient follow-up already set up with Dr. Pereyra on March 05.
Leukocytosis
-Due to steroids
Severe interval macrocytic anemia: previously normocytic
Underlying anemia of chronic disease
- Hg has been stable, no need to check daily unless bleeding
Severe ETOH use disorder : last ETOH was January
No signs of severe withdrawal as of now
- Observe
-Continue folic acid and thiamine supplementation
Bilateral hand cramping
-will order oral Mag - helping
Known Incidental finding 1.8 cm hypodense renal cyst on prior CT
- OP follow-up
DVT prophylaxis�Lovenox
Full code
Total time spent to see the patient on the floor, examine the patient, review data and lab results, discuss treatment plan with patient, nursing staff around 51 minutes.
Physical Exam
General: Obese, no acute distress
HEENT: Normocephalic, Atraumatic, EOMI, MMM
Respiratory: Clear to Auscultation bilaterally
Cardiac: Normal S1/S2, Regular Rate and Rhythm
GI: Soft, Nontender, distended, Normal Bowel Sounds
Extremities: No Clubbing, Cyanosis
Severe bilateral lower extremity edema noted
Neuro: Nonfocal/Grossly Intact
Anticipated Discharge: Within 24 hours
Subjective/Interval History
-
Date of Service: February 19, 2025
Patient reports improvement in her abdominal distention and lower extremity edema. No fever, no vomiting. No shortness of breath.
Objective Data
-
Labs:
Laboratory Results
02/19/25
07:56
Sodium Pending
Potassium Pending
Chloride Pending
Carbon Dioxide Pending
BUN Pending
Creatinine Pending
Glucose Pending
Calcium Pending
Vital Signs:
Vital Signs
Temp Pulse Resp BP Pulse Ox
98 F 84 16 107/55 100
02/19/25 07:30 02/19/25 08:12 02/19/25 08:12 02/19/25 07:30 02/19/25 08:12
I&O
02/18/25 02/19/25 02/20/25
06:59 06:59 06:59
Intake Total 1080 / 1080 820 / 820
Output Total 3275 / 3275 3500 / 3500
Balance -2195 / -2194 -2679 / -2679
[2025-02-19] MEDS: MAG-TAB SR 84 MG PO ×2 (09:39→19:42)
[2025-02-19 10:42] LABS: Blood Urea Nitrogen 29 mg/dl (7-17); Calcium 9.4 mg/dl (8.4-10.2); Carbon Dioxide 29 mmol/L (22-30); Chloride 100 mmol/L (98-107); Estimated Creatinine Clearance > 125 ml/min; Glucose 74 mg/dl (70-99); Potassium 3.1 mmol/L (3.5-5.1); Sodium 139 mmol/L (135-145); eGFR > 60.00
[2025-02-19 11:51] VITALS: BP 130/72
[2025-02-19] MEDS: KCL 260 MEQ IV (12:03)
[2025-02-19] MEDS: KCL 40 MEQ PO ×2 (12:10→17:20)
--- NOTE | 2025-02-19 13:14 | W.PN.NEPH.PH ---
Today's Communication / Plan
-
Continue diuretics
Assessment/Plan
-
Impression:
Anasarca
Abdominal pain
Alcoholic hepatitis
Alcohol abuse
Anemia
Neuropathy
Plan:
Lasix 40 mg IV twice daily with daimox
cr stable at 0.7
replace k prn
on steroids per GI
cont Sodium restrict less than 2 g daily and FR
Albumin low but should not significantly impact diuresis
improving edema but suspect all edema is not amenable to diuresis
keep leg elevated and use LIA wraps. still weeping area of right leg
Continues to lose weight.
Patient wants to be discharged tomorrow so could convert to p.o. Lasix 40 mg twice daily on discharge
-
-
Date of Service: February 19, 2025
CC / HPI / ROS
-
Chief Complaint:
Anasarca
History of Present Illness:
Diuresing slowly with Lasix for anasarca
Weights lower, k better at 3.7
Blood pressure stable
Hemoglobin up at 7.8, no cbc today
Review of Systems:
No chest pain or shortness of breath
edema imprvoing, weeping fluid from right leg
Labs
-
Labs:
WBC 27.0 10^3/uL (4.8-10.8) H 02/16/25 05:59
RBC 2.32 10^6/uL (4.20-5.40) L 02/16/25 05:59
Hgb 7.8 g/dL (12.0-16.0) L 02/16/25 05:59
Hct 24.3 % (37.0-47.0) L 02/16/25 05:59
Plt Count 128 10^3/uL (130-400) L 02/16/25 05:59
Sodium 139 mmol/L (135-145) 02/19/25 07:56
Potassium 3.1 mmol/L (3.5-5.1) L 02/19/25 07:56
Chloride 100 mmol/L (98-107) 02/19/25 07:56
Carbon Dioxide 29 mmol/L (22-30) 02/19/25 07:56
BUN 29 mg/dl (7-17) H 02/19/25 07:56
Creatinine 0.7 mg/dL (0.6-1.0) 02/19/25 07:56
eGFR > 60.00 02/19/25 07:56
Glucose 74 mg/dl (70-99) 02/19/25 07:56
Calcium 9.4 mg/dl (8.4-10.2) 02/19/25 07:56
Albumin 3.3 g/dl (3.5-5.0) L 02/15/25 04:07
Physical Exam
-
Vital Signs:
Vital Signs
Temp Pulse Resp BP Pulse Ox
98.4 F 93 20 130/72 99
02/19/25 11:51 02/19/25 11:51 02/19/25 11:51 02/19/25 11:51 02/19/25 11:51
Cardiovascular:: Regular rate and rhythm
Respiratory:: Bilateral: CTA
Lung Excursion:: Normal
Abdomen:: Nontender and Soft
Extremity Edema:: +3: Bilateral:
Shukla Catheter: No
[2025-02-19 15:56] VITALS: BP 111/57
[2025-02-19] MEDS: ALDACTONE 25 MG PO (16:40)
[2025-02-19] MEDS: BENADRYL 25 MG PO ×2 (16:41→21:11)
[2025-02-19] MEDS: LASIX 60 MG IV (16:41)
[2025-02-19] MEDS: LOVENOX SC (16:48)
[2025-02-19 19:46] VITALS: BP 124/60
[2025-02-19] MEDS: MELATONIN 10 MG PO (21:11)
[2025-02-19 22:22] VITALS: BP 101/73
[2025-02-20] MEDS: DILAUDID 0.5 MG IV ×2 (00:05→04:26)
[2025-02-20 04:36] VITALS: BMI 41.2
[2025-02-20 05:08] LABS: Blood Urea Nitrogen 27 mg/dl (7-17); Calcium 9.6 mg/dl (8.4-10.2); Carbon Dioxide 28 mmol/L (22-30); Chloride 103 mmol/L (98-107); Estimated Creatinine Clearance > 125 ml/min; Glucose 103 mg/dl (70-99); Magnesium 2.5 mg/dl (1.6-2.3); Sodium 141 mmol/L (135-145); eGFR > 60.00
[2025-02-20] MEDS: SYMBICORT 80/4.5 MCG INHALER 2 PUFF INH (07:17)
[2025-02-20 07:35] VITALS: BP 109/58
[2025-02-20] MEDS: PRELONE 40 MG PO (07:45)
[2025-02-20] MEDS: VITAMIN B1 100 MG PO (07:47)
[2025-02-20] MEDS: ZINC 50 MG PO (07:47)
[2025-02-20] MEDS: PROTONIX 40 MG PO (07:47)
[2025-02-20] MEDS: FOLVITE 1 MG PO (07:47)
[2025-02-20] MEDS: NEURONTIN 300 MG PO (07:47)
[2025-02-20] MEDS: BUSPAR 15 MG PO (07:47)
[2025-02-20] MEDS: ALDACTONE 25 MG PO (07:47)
[2025-02-20] MEDS: DIAMOX 250 MG PO (07:47)
[2025-02-20] MEDS: NICODERM TRANSDERMAL 21 MG TRANSDERM (07:48)
[2025-02-20] MEDS: MAG-TAB SR PO (07:48)
[2025-02-20] MEDS: ROXICODONE 10 MG PO (07:52)
[2025-02-20] MEDS: TYLENOL 650 MG PO ×2 (07:54→12:20)
[2025-02-20] MEDS: LASIX 60 MG IV (07:54)
--- NOTE | 2025-02-20 08:41 | W.PN.HOSP.TC ---
Today's Communication/Plan
-
Discharge today
Assessment / Plan
Assessment / Plan
Patient is a 34-year-old female with past medical history significant for alcohol hepatitis, alcohol dependency, asthma, essential hypertension, anxiety, chronic anemia and Hx alcoholic pancreatitis who presented to [facility] ED for
evaluation of increased edema. She was recently admitted 01/25-02/01/25 for alcoholic hepatitis (discharged on prednisolone course and Lasix).
Abdomen US: IMPRESSION: Small amount of ascites is present anterior to the liver in the right upper quadrant, as well as within the left lower quadrant.
Anasarca
Small Ascites
Shortness of Breath With Exertion
9.5kg weight gain over 2 weeks
- last drink 01/25/25
patient states she wasn't taking lasix at home
- Nephrology following, currently on IV Lasix BID, Diamox twice daily, and spironolactone 25 mg daily
- Patient has lost 35.6 pounds of fluid weight this admission, she is requesting discharge today
- Will discharge on Aldactone 100 mg daily, Lasix 40 mg daily, 2 g low-sodium diet, fluid restriction
- Follow-up with PCP in 1 week, where she will need a repeat BMP
Acute Alcohol Hepatitis
- on PO Prednisolone - appreciate GI, continue 4 week course followed by taper over 4 weeks (she is now on day 19)
- repeat US with small ascites
-T. 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
-education provided to patient (prognosis, alcohol cessation)
-has outpatient follow-up already set up with Dr. Pereyra on March 05.
Leukocytosis
-Due to steroids
Severe interval macrocytic anemia: previously normocytic
Underlying anemia of chronic disease
- Hg has been stable, no need to check daily unless bleeding
Severe ETOH use disorder : last ETOH was January
No signs of severe withdrawal as of now
-Alcohol cessation counseling has been provided
-Continue folic acid and thiamine supplementation
Back pain
Degenerative disc disease
-Continue oxycodone as needed
Bilateral hand cramping
-will order oral Mag - helping
Known Incidental finding 1.8 cm hypodense renal cyst on prior CT
- OP follow-up
DVT prophylaxis�Lovenox
Full code
Physical Exam
General: Obese, no acute distress
HEENT: Normocephalic, Atraumatic, EOMI, MMM
Respiratory: Clear to Auscultation bilaterally
Cardiac: Normal S1/S2, Regular Rate and Rhythm
GI: Soft, Nontender, distended, Normal Bowel Sounds
Extremities: No Clubbing, Cyanosis
Severe bilateral lower extremity edema noted
Neuro: Nonfocal/Grossly Intact
Anticipated Discharge: Today
Subjective/Interval History
-
Date of Service: February 20, 2025
Patient reports continued improvement in her abdominal distention and lower extremity edema. Denies shortness of breath. No fever, no vomiting.
Objective Data
-
Labs:
Laboratory Results
02/20/25
03:55
Sodium 141
Potassium 4.0 D
Chloride 103
Carbon Dioxide 28
BUN 27 H
Creatinine 0.6
Glucose 103 H
Calcium 9.6
Vital Signs:
Vital Signs
Temp Pulse Resp BP Pulse Ox
97.8 F 84 20 109/58 100
02/20/25 07:35 02/20/25 07:35 02/20/25 07:35 02/20/25 07:54 02/20/25 07:35
I&O
02/19/25 02/20/25 02/21/25
06:59 06:59 06:59
Intake Total 820 / 820 960 / 960
Output Total 3500 / 3500 3225 / 3225 500 / 500
Balance -2680 / -2680 -2265 / -6430 -191 / -500
[2025-02-20 11:15] VITALS: BP 118/66
--- NOTE | 2025-02-20 11:53 | W.DCSUMMARY ---
Discharge Summary
Discharge Data
Date of Admission: 02/10/25
Date of Discharge: 02/20/25
-
Pending Results: No
Hospital Course
Discharge diagnosis:
Anasarca
Ascites
Shortness of breath with exertion
Acute alcoholic hepatitis
Leukocytosis due to steroids
Macrocytic anemia
Alcohol use disorder with dependency
Back pain
Degenerative disc disease
Incidental renal cyst
Consults: Nephrology, GI
Hospital course:
34-year-old female with history of alcohol abuse, ETOH hepatitis, hyponatremia, pancreatitis, and alcoholic gastritis was admitted for severe anasarca, small volume ascites, and dyspnea with activity. Patient was recently admitted from 01/25/2025
through 02/01/2025 for similar symptoms. Patient was seen in conjunction with GI, and continued on prednisolone for her alcoholic hepatitis. She was also seen in conjunction with nephrology. She was treated with IV Lasix, Diamox, and Aldactone.
She lost 35.6 pounds of fluid weight. She requested discharge on 02/20/2025 to get ready for her son's 12 birthday.
Patient also has chronic lower back pain, from degenerative disc disease. It was discussed with her that continued loss of fluid will help her back pain. Will give her oxycodone 5 mg 3 times a day as needed for her back pain, #30. She has been
counseled to follow-up with her PCP for further management.
Patient is medically stable for discharge. She will be discharged on Aldactone 100 mg daily, Lasix 40 mg daily. She is to continue a 48 ounce fluid restriction, 2 g low-sodium diet. She is also to finish her prednisolone course of 28 days as
prescribed by GI. She has been instructed to follow-up with her primary care doctor in 1 week, and needs a repeat BMP with her PCP at that time. She also needs to follow-up with GI in the office on 03/05/2025 as scheduled.
Disposition: Home self-care
Discharge planning: Required 43 minutes
Discharge Plan
-
Patient Disposition: Home (Routine Discharge)
Discharge Diagnosis/Procedures: Anasarca, ascites, acute alcoholic hepatitis, incidental renal cyst on CAT scan
Condition: Fair
Diet: 2 Gram Sodium and Restrict fluids to 48 oz
Activity: As tolerated
Driving Restrictions: As prior to admission
Blood Work: BMP with your PCP in 1 week
Activity Restrictions/Additional Instructions:
GI recommends taking prednisolone for 9 more days for your alcoholic hepatitis.
Continue 48 ounce fluid restriction, 2 g low-sodium diet.
Maintain strict abstinence from alcohol use.
Follow-up with your primary care doctor in 1 week, and GI in the office as directed.
Referrals:
Mehrdad Pereyra MD [Active] - 03/05/25 4:00 pm (follow up with Dr. Pereyra as scheduled. Call for any fever, chills, confusion, swelling or problems.)
Daniel Clancy MD [Family Provider] - in one week
Prescriptions:
New
spironolactone 100 mg tablet
100 mg PO DAILY Qty: 30 0RF
furosemide 40 mg tablet
40 mg PO DAILY Qty: 30 0RF
oxycodone 5 mg tablet
5 mg PO TID PRN (Reason: Pain) Qty: 30 0RF
Continued
budesonide-formoterol [Symbicort] 80-4.5 mcg/actuation Hfa Aerosol Inhaler
2 inh INHALATION R BID
gabapentin 300 mg Capsule
300 mg PO BID
folic acid 1 mg Tablet
1 mg PO DAILY
buspirone 15 mg Tablet
15 mg PO BID
melatonin 10 mg Tablet
10 mg PO HS
albuterol sulfate 0.63 mg/3 mL Solution For Nebulization
0.63 mg INHALATION R Q4HPRN PRN (Reason: sob)
nicotine 21 mg/24 hr Patch 24 Hour
21 mg transdermal DAILY Qty: 28 0RF
prednisolone 5 mg tablet
40 mg PO DAILY 14 Days Qty: 112 0RF
thiamine mononitrate (vit B1) 100 mg Tablet
100 mg PO BID 30 Days Qty: 60 0RF
zinc sulfate 50 mg zinc (220 mg) Capsule
50 mg PO DAILY 30 Days Qty: 30 0RF
pantoprazole 40 mg Tablet,Delayed Release (Dr/Ec)
40 mg PO BID 30 Days Qty: 60 0RF
diphenhydramine HCl [Benadryl] 25 mg Capsule
25 mg PO HS
diphenhydramine HCl [Benadryl] 25 mg Capsule
25 mg PO BIDPRN PRN (Reason: allergies)
sennosides [senna] 8.6 mg tablet
8.6 mg PO BIDPRN PRN (Reason: Constipation)
Discontinued
furosemide [Lasix] 20 mg tablet
20 mg PO DAILY 14 Days Qty: 14 0RF
oxycodone 10 mg tablet
10 mg PO Q8HPRN PRN (Reason: severe pain)
Discharge Orders:
Discharge Patient (As Directed); Ordered 02/20/25
Ordered By: Garett Scales
Discharge Date and Time
Discharge Date/Time: 02/20/25 13:27
Print Language: ESTONIAN
--- NOTE | 2025-02-20 13:19 | CM ---
Md entered order for discharge.
Pt said she was ready for discahrge.
She said she will drive herslef home.
Offered VN she said she will be returning to work so not home bound and delcined VN .
PLAn Home no needs
== END 2025-02-20 13:27 | disposition home or self-care (01) | DRG 433 ==
LOC: 4 EAST ACU 19:47
PROVIDERS: Nurse Practitioner Family; Student in an Organized Health Care Education/Training Program; ADMITTING PHYSICIAN Internal Medicine; ATTENDING PHYSICIAN Family Medicine; CONSULT PHYSICIAN Internal Medicine Gastroenterology; EMERGENCY PHYSICIAN Emergency Medicine; FAMILY PHYSICIAN Family Medicine; OTHER PHYSICIAN Internal Medicine Nephrology
DX: K70.11 Alcoholic hepatitis with ascites (principal); E87.1 Hypo-osmolality and hyponatremia; F10.239 Alcohol dependence with withdrawal, unspecified; Z68.41 Body mass index [BMI] 40.0-44.9, adult; E87.70 Fluid overload, unspecified; D53.9 Nutritional anemia, unspecified; K29.20 Alcoholic gastritis without bleeding; F17.210 Nicotine dependence, cigarettes, uncomplicated; D63.8 Anemia in other chronic diseases classified elsewhere; F10.20 Alcohol dependence, uncomplicated; I10 Essential (primary) hypertension; F41.9 Anxiety disorder, unspecified; K21.9 Gastro-esophageal reflux disease without esophagitis; N28.1 Cyst of kidney, acquired; E66.01 Morbid (severe) obesity due to excess calories; D69.6 Thrombocytopenia, unspecified; E88.09 Other disorders of plasma-protein metabolism, not elsewhere classified; G62.9 Polyneuropathy, unspecified; G89.29 Other chronic pain; T38.0X5A Adverse effect of glucocorticoids and synthetic analogues, initial encounter; Z79.899 Other long term (current) drug therapy
CPT/HCPCS: 76700; 76705; 80048; 80053; 82247; 82607; 82728; 82746; 82962; 83540; 83550; 83690; 83735; 84703; 85025; 85027; 85610; 86850; 86900; 86901; 93970; 93975; 94640; 99285; 99406

== ENCOUNTER 2025-03-08 19:13 | Emergency (ER) | payer OTHER, SELFPAY ==
[2025-03-08 19:15] VITALS: BP 148/68
[2025-03-08 19:45] VITALS: BP 115/66
[2025-03-08 19:46] VITALS: BMI 40.9
--- NOTE | 2025-03-08 19:46 | ED.GENMED ---
History of Present Illness
<Ranjith Ramos PA-C - Last Filed: 03/08/25 22:35>
General
Chief Complaint: Swelling
Source: patient
Exam Limitations: none
Time Seen by Provider: 03/08/25 19:34
History of Present Illness
History of Present Illness:
34-year-old female presents complaining of swelling to both lower extremities shortness of breath and pain to both lower extremities. She also notes ongoing lower back pain. She was recently admitted to this hospital for acute alcoholic hepatitis
and anasarca. She was prescribed medicine to take at home. She states she was taking the pain medicine. She denies chest pain. She notes her legs are less swollen now than they were a week ago but they are more painful. No fevers. No other
complaints at this time
Past History
<Ranjith Ramos PA-C - Last Filed: 03/08/25 22:35>
Past History
ED Past Medical History: Asthma and Other (COVID-19, alcohol abuse)
ED Past Surgical History: Tonsilectomy
Social History
Tobacco: Smoker
Alcohol: Daily
Phy Exam
<HAMIDA Webster Last Filed: 03/08/25 22:35>
Physical Exam
Physical Exam:
General: Well-developed female with increased work of breathing
HEENT: Normocephalic sclera anicteric neck is supple
Heart: Regular rate and rhythm
Lungs: Clear no wheeze
Abdomen is soft nontender nondistended
Extremities: Pitting edema bilateral lower extremities
Skin: Warm no rash
Course
<HAMIDA Webster Last Filed: 03/08/25 22:35>
Orders/Labs/Results
Orders:
Orders
03/08/25 19:46
CR Chest - 2 Views Urgent
Comment:
Reason For Exam: sob
03/08/25 20:27
Alcohol Urgent
Complete Blood Count/With Diff Urgent
Comprehensive Metabolic Panel Urgent
NT-proBNP Urgent
03/08/25 20:59
Venous Doppler Lwr Ext Rt [US Periph Venous LOWER Ext RT] Urgent
Comment:
Reason For Exam: swelling
Abnormal Lab Results
03/08/25
20:27
WBC 11.0 H 10^3/uL
(4.8-10.8)
RBC 2.90 L 10^6/uL
(4.20-5.40)
Hgb 9.2 L g/dL
(12.0-16.0)
Hct 29.1 L %
(37.0-47.0)
MCV 100.3 H fL
(81.0-99.0)
MCH 31.7 H pg
(27.0-31.0)
MCHC 31.6 L g/dL
(33.0-37.0)
RDW 17.0 H %
(11.5-14.5)
Plt Count 128 L 10^3/uL
(130-400)
Abs Immat Gran (auto) 0.1 H 10^3/uL
(0-0.05)
Absolute Neuts (auto) 8.8 H 10^3/uL
(1.4-6.5)
Absolute Monos (auto) 0.7 H 10^3/uL
(0.1-0.6)
Neutrophils % 80.1 H %
(42.2-75.2)
Lymphocytes % 12.9 L %
(20.5-51.1)
BUN 19 H mg/dl
(7-17)
Glucose 179 H mg/dl
(70-99)
Total Bilirubin 3.2 H mg/dl
(0.2-1.3)
AST 70 H U/L
(14-36)
ALT 50 H U/L
(0-35)
Alkaline Phosphatase 199 H U/L
(38-126)
Total Protein 6.0 L g/dl
(6.3-8.2)
Albumin 2.7 L g/dl
(3.5-5.0)
03/08/25 20:27
03/08/25 20:27
Vital Signs
Initial and Last Documented VS:
Initial Vital Signs
Temp Pulse Resp BP Pulse Ox
98.4 F 99 16 148/68 100
03/08/25 19:15 03/08/25 19:15 03/08/25 19:15 03/08/25 19:15 03/08/25 19:15
Last Documented Vital Signs
Temp Pulse Resp BP Pulse Ox
98.4 F 99 16 118/61 97
03/08/25 19:15 03/08/25 19:15 03/08/25 19:15 03/08/25 22:02 03/08/25 22:30
<Maritza Shukla MD - Last Filed: 03/08/25 21:02>
Orders/Labs/Results
Orders:
Orders
03/08/25 19:46
CR Chest - 2 Views Urgent
Comment:
Reason For Exam: sob
03/08/25 20:27
Alcohol Urgent
Complete Blood Count/With Diff Urgent
Comprehensive Metabolic Panel Urgent
NT-proBNP Urgent
03/08/25 20:59
Venous Doppler Lwr Ext Rt [US Periph Venous LOWER Ext RT] Urgent
Comment:
Reason For Exam: swelling
Abnormal Lab Results
03/08/25
20:27
WBC 11.0 H 10^3/uL
(4.8-10.8)
RBC 2.90 L 10^6/uL
(4.20-5.40)
Hgb 9.2 L g/dL
(12.0-16.0)
Hct 29.1 L %
(37.0-47.0)
MCV 100.3 H fL
(81.0-99.0)
MCH 31.7 H pg
(27.0-31.0)
MCHC 31.6 L g/dL
(33.0-37.0)
RDW 17.0 H %
(11.5-14.5)
Plt Count 128 L 10^3/uL
(130-400)
Abs Immat Gran (auto) 0.1 H 10^3/uL
(0-0.05)
Absolute Neuts (auto) 8.8 H 10^3/uL
(1.4-6.5)
Absolute Monos (auto) 0.7 H 10^3/uL
(0.1-0.6)
Neutrophils % 80.1 H %
(42.2-75.2)
Lymphocytes % 12.9 L %
(20.5-51.1)
BUN 19 H mg/dl
(7-17)
Glucose 179 H mg/dl
(70-99)
Total Bilirubin 3.2 H mg/dl
(0.2-1.3)
AST 70 H U/L
(14-36)
ALT 50 H U/L
(0-35)
Alkaline Phosphatase 199 H U/L
(38-126)
Total Protein 6.0 L g/dl
(6.3-8.2)
Albumin 2.7 L g/dl
(3.5-5.0)
03/08/25 20:27
03/08/25 20:27
Vital Signs
Initial and Last Documented VS:
Initial Vital Signs
Temp Pulse Resp BP Pulse Ox
98.4 F 99 16 148/68 100
03/08/25 19:15 03/08/25 19:15 03/08/25 19:15 03/08/25 19:15 03/08/25 19:15
Last Documented Vital Signs
Temp Pulse Resp BP Pulse Ox
98.4 F 99 16 118/61 97
03/08/25 19:15 03/08/25 19:15 03/08/25 19:15 03/08/25 22:02 03/08/25 22:30
<Ranjith Ramos PA-C - Last Filed: 03/08/25 22:35>
MDM/Problems Addressed
Differential Diagnosis Includes:
Patient here with acute on chronic issues of swelling to both legs chronic back pain and shortness of breath. She seems tremulous on exam.
<Ranjith Ramos PA-C - Last Filed: 03/08/25 22:35>
*Critical Care Note
Total Time (30-74mins, 75-104mins- exclusive of procedures): Not Applicable
<Ranjith Ramos PA-C - Last Filed: 03/08/25 22:35>
Update Note
Update Note:
Patient's workup here is reassuring. There is improvement of her labs. Legs are less swollen. Ultrasound of her right leg was ordered and there is no evidence of DVT. Patient was requesting more pain medicine for her legs however she was sent
home with 30 Percocets from discharge. She also states her family doctor refilled the prescription. She is pursuing pain management follow-up. She has an appoint with her GI team in 2 days. No need for any further intervention at this time.
ED Attending Note
<Ranjith Raoms PA-C - Last Filed: 03/08/25 22:35>
-
Portions of this chart may have been created with voice recognition software.� Occasional wrong word or��sound alike� substitutions may have occurred due to the inherent limitations of voice recognition software.
<Maritza Shukla MD - Last Filed: 03/08/25 21:02>
ED Attending Note
Patient seen and examined by attending physician: Yes
I performed the substantive portion of visit, reviewed & personally made and approve the management plan that is documented in note by myself or FERNANDO.: Yes
ED Attending Note:
34-year-old female was recently hospitalized with liver dysfunction related to alcohol use disorder states that she left approximately 2 weeks ago earlier than she should have but she insisted given her son's birthday. She presents to the ER today
because she says she is 'still swollen', referring to her lower extremities and she noticed that her right leg looks discolored compared to the left. She also has a productive cough but denies dyspnea, fever, chills, chest pain, abdominal pain,
nausea, vomiting, anorexia. She has the same chronic low back pain that she typically suffers from. On exam, pulse ox 99%, very faint wheezing noted, no rales or rhonchi, speaks in full sentences easily. Abdomen soft and nontender. Sclera
slightly icteric. Patient awake alert lucid no confusion. Patient has bilateral lower extremity edema with what appears to be chronic venous stasis changes to the right lower extremity, no warmth, no redness, no fluctuance, crepitus, blistering,
or other abnormalities. 2+ pulses noted throughout. Labs look improved compared to prior. We will ask B cares to speak with patient and check a right lower extremity ultrasound before likely discharge. Patient seen GI on Monday.
Discharge Plan
Departure
Patient Disposition: Home (Routine Discharge)
Date of Disposition: 03/08/25
Time of Disposition: 22:34
Patient with high blood pressure during this ER visit?: No
Discharge Problem:
Leg pain
Instructions: Dependent Edema (DC)
Prescriptions:
No Action
budesonide-formoterol [Symbicort] 80-4.5 mcg/actuation Hfa Aerosol Inhaler
2 inh INHALATION R BID
gabapentin 300 mg Capsule
300 mg PO BID
folic acid 1 mg Tablet
1 mg PO DAILY
buspirone 15 mg Tablet
15 mg PO BID
melatonin 10 mg Tablet
10 mg PO HS
albuterol sulfate 0.63 mg/3 mL Solution For Nebulization
0.63 mg INHALATION R Q4HPRN PRN (Reason: sob)
nicotine 21 mg/24 hr Patch 24 Hour
21 mg transdermal DAILY Qty: 28 0RF
prednisolone 5 mg tablet
40 mg PO DAILY 14 Days Qty: 112 0RF
thiamine mononitrate (vit B1) 100 mg Tablet
100 mg PO BID 30 Days Qty: 60 0RF
zinc sulfate 50 mg zinc (220 mg) Capsule
50 mg PO DAILY 30 Days Qty: 30 0RF
pantoprazole 40 mg Tablet,Delayed Release (Dr/Ec)
40 mg PO BID 30 Days Qty: 60 0RF
diphenhydramine HCl [Benadryl] 25 mg Capsule
25 mg PO HS
diphenhydramine HCl [Benadryl] 25 mg Capsule
25 mg PO BIDPRN PRN (Reason: allergies)
sennosides [senna] 8.6 mg tablet
8.6 mg PO BIDPRN PRN (Reason: Constipation)
spironolactone 100 mg tablet
100 mg PO DAILY Qty: 30 0RF
furosemide 40 mg tablet
40 mg PO DAILY Qty: 30 0RF
oxycodone 5 mg tablet
5 mg PO TID PRN (Reason: Pain) Qty: 30 0RF
Referrals:
Daniel Clancy MD [Family Provider] -
Activity Restrictions/Additional Instructions:
Continue current medications. Follow-up with GI and pain management as planned. Return if needed
Interventions
Interventions:
*Risk Screen - Suicide Last Done: 03/08/25 19:18
*General Assessment Last Done: 03/08/25 19:46
*Neglect/Abuse Screening Last Done: 03/08/25 19:18
*ED- Fall Risk Assessment Last Done: 03/08/25 19:46
*ED COVID-19 Vaccine History Last Done: 03/08/25 19:46
ED- Cardiac Assessment Last Done: 03/08/25 19:46
ED- Pulmonary Assessment Last Done: 03/08/25 19:46
ED-Skin Assessment Last Done: 03/08/25 19:46
Discharge Date and Time
Print Language: [id number]
[2025-03-08 20:00] VITALS: BP 119/64
[2025-03-08 20:34] LABS: % Basophils 0.2 % (0-2); % Immature Granulocytes 0.5 % (0-0.5); % Lymphocytes 12.9 % (20.5-51.1); % Monocytes 6.3 % (1.7-9.3); % Neutrophils 80.1 % (42.2-75.2); Absolute Immature Granulocytes 0.1 10^3/uL (0-0.05); Absolute Lymphocytes 1.4 10^3/uL (1.2-3.4); Absolute Monocytes 0.7 10^3/uL (0.1-0.6); Absolute Neutrophils 8.8 10^3/uL (1.4-6.5); Hematocrit 29.1 % (37.0-47.0); Hemoglobin 9.2 g/dL (12.0-16.0); Mean Corp Hgb Conc. 31.6 g/dL (33.0-37.0); Mean Corpuscular Hgb 31.7 pg (27.0-31.0); Mean Corpuscular Volume 100.3 fL (81.0-99.0); Mean Platelet Volume 8.7 fL (7.4-10.4); Nucleated Red Blood Cells % 0 %; Platelet Count 128 10^3/uL (130-400)
[2025-03-08 20:51] LABS: AST (SGOT) 70 U/L (14-36); Albumin 2.7 g/dl (3.5-5.0); Alkaline Phosphatase 199 U/L (38-126); Blood Urea Nitrogen 19 mg/dl (7-17); Calcium 8.8 mg/dl (8.4-10.2); Carbon Dioxide 24 mmol/L (22-30); Chloride 106 mmol/L (98-107); Estimated Creatinine Clearance > 125 ml/min; Glucose 179 mg/dl (70-99); Potassium 4.6 mmol/L (3.5-5.1); Sodium 139 mmol/L (135-145); Total Bilirubin 3.2 mg/dl (0.2-1.3); eGFR > 60.00
[2025-03-08 20:59] LABS: Alcohol None Detected; NT-proBNP 472 pg/ml
[2025-03-08 21:00] VITALS: BP 119/64
[2025-03-08 21:01] LABS: ALT (SGPT) 50 U/L (0-35)
[2025-03-08 22:02] VITALS: BP 118/61
== END 2025-03-08 22:53 | disposition home or self-care (01) ==
LOC: EMR 19:13
PROVIDERS: Physician Assistant; EMERGENCY PHYSICIAN Emergency Medicine; FAMILY PHYSICIAN Family Medicine
DX: M79.605 Pain in left leg (principal); M79.604 Pain in right leg; R60.0 Localized edema; J45.909 Unspecified asthma, uncomplicated; F17.200 Nicotine dependence, unspecified, uncomplicated; Z86.16 Personal history of COVID-19
CPT/HCPCS: 99284; 71046; 80053; 82077; 83880; 85025; 93971